=== PATIENT | male | born 1950 | race Caucasian/White ===

== ENCOUNTER 2018-03-02 10:14 | Emergency (ER) | payer MEDICARE, MEDICAID, SELFPAY ==
[2018-03-02 10:15] VITALS: BP 138/88; PULSE 101; RESP 16; TEMP 36.2; O2SAT 98; BMI 38.9
--- NOTE | 2018-03-02 10:24 | RAD_ITS ---
STUDY: X-RAY - RIGHT FOOT CLINICAL: Male, 67 years old. Status post fall with redness and pain of the right foot TECHNIQUE: 3 view(s) of the foot. COMPARISON: None. FINDINGS: No acute fracture or dislocation. Prior fracture of the fifth metatarsal with healing. Diffuse soft tissue swelling and edema RAD/Foot min 3 Views IMPRESSION: Diffuse soft tissue swelling and edema. No acute osseous findings Electronically Signed: Joe Kaminski DO at 12:03 EDT Tel , Service support ,
--- NOTE | 2018-03-02 10:30 | ED.VISSUMM ---
- ER Visit Summary Date of Service: 03/02/18 Chief Complaint: [] Right lower extremity pain foot pain after fall yesterday History of Present Illness: The patient is a 67 M [] Home secondary to Down syndrome developmental delay he was seen by staff yesterday to fall he injured his right foot since that occurred he seems to be limping. The patient is nonverbal he at baseline will simply scream cannot provide any history he has gout he was not ill in any the way he falls frequently Physical Examination: [] Sitting in a wheelchair he is just screaming that is his baseline his head and neck abdomen exam unremarkable there is no signs of trauma no pain to palpation of his body except for the right foot there is some contusion primarily over the fourth and fifth toe there is some swelling his sensation appears to be intact the skin is intact there is no specific ankle pain is no specific tib-fib or knee pain he is at his neurologic mental status and functional baseline now per the staff the patient can systems sitting a wheelchair looking about and intermittently screaming Test Results: [] Emergency Department Course and Treatment: [] Patient's foot and ankle x-ray per radiology showed nothing acute of explained this to the caretakers the concept of an occult injury he is placed in a postop shoe ice elevation and Tylenol or other meds that he is allowed to take for pain and follow-up with the family physician Treatment Plan: [] Disposition: [] Home stable Impression: [] Right foot injury after fall This note was generated with [employer] dictation software. It may contain incorrect words, spelling, and punctuation that were not noted in review of the chart prior to signing ED Disposition - Plan for ED Patient: Chief Complaint: Lower Extremity Injury Referrals: Sae Boateng Chi, MD [Primary Care Provider] -
[2018-03-02] MEDS: HYDROcodone Bitartrate/Apap 5/325 Tablet PO (10:42)
--- NOTE | 2018-03-02 10:55 | RAD_ITS ---
STUDY: X-RAY - RIGHT ANKLE REASON FOR EXAM: Male, 67 years old. Right ankle pain after fall TECHNIQUE: 3 view(s) of the ankle. COMPARISON: None. FINDINGS: No acute fracture or dislocation. Diffuse subcutaneous soft tissue swelling. Ankle mortise is intact. Chronic fragmentation at the lateral malleolus. RAD/Ankle min 3 Views IMPRESSION: No acute osseous findings. Diffuse soft tissue swelling Electronically Signed: Joe Kaminski DO at 12:02 EDT Tel , Service support ,
--- NOTE | 2018-03-02 12:18 | ED.DEP ---
ED Disposition - Plan for ED Patient: Chief Complaint: Lower Extremity Injury Instructions: ED Sprain Foot Referrals: Sae Boateng Chi, MD [Primary Care Provider] -
--- NOTE | 2018-03-02 12:23 | DCINST.ED_ITS ---
ED Disposition - Plan for ED Patient: Chief Complaint: Lower Extremity Injury Instructions: ED Sprain Foot Prescriptions: Hydrocodone/Acetaminophen [[place] 5-325 Tablet] 1 - 2 ea PO 4X/DAY PRN PRN 3 Days #12 tab PRN Reason: Pain Referrals: Sae Boateng Chi, MD [Primary Care Provider] -
[2018-03-02 12:27] VITALS: PULSE 78; RESP 16; O2SAT 98
== END 2018-03-02 12:28 | disposition home or self-care (01) ==
LOC: ED 11:15
PROVIDERS: Emergency Provider Emergency Medicine; Family Provider Family Medicine Geriatric Medicine; PCP Family Medicine Geriatric Medicine
DX: S90.31XA Contusion of right foot, initial encounter (principal); S99.921A Unspecified injury of right foot, initial encounter; W19.XXXA Unspecified fall, initial encounter; Z91.81 History of falling; Y93.9 Activity, unspecified; Y92.9 Unspecified place or not applicable; Q90.9 Down syndrome, unspecified; M10.9 Gout, unspecified; Z79.899 Other long term (current) drug therapy
CPT/HCPCS: 73610; 73630; 99283

== ENCOUNTER → 2018-03-06 14:32 | Outpatient (CLI) | payer MEDICARE, MEDICAID, SELFPAY ==
[2018-03-06 17:41] LABS: Absolute Lymphocyte Count 1.91 X10^3/ul (0.83-4.51); Absolute Neutrophil Count 4.6 X10^3/uL (2.0-7.7); Basophil# 0.04 X10^3/uL; Basophil% 0.6 % (0-1); Eosinophil# 0.16 X10^3/uL; Eosinophils% 2.2 % (0-5); Hematocrit 43.1 % (40-54); Hemoglobin 14.8 g/dl (13.0-16.5); Lymphocyte # 1.91 X10^3/ul (4.0); Lymphocyte % 26.7 % (19-41); Mean Corp Hgb Conc 34.3 g/gl (32-36); Mean Corpuscular Hgb 35.4 pg (27.0-32.0); Mean Corpuscular Volume 103.1 fL (80-94); Mean Platelet Vol. 9.9 fl (6.2-12.0); Monocyte% 5.6 % (0-10); Neutrophil # 4.56 X10^3/uL (2.7-7.7); Neutrophil % 63.6 % (47-70); Platelet Count 272 K/mm3 (150-450); RBC Distribution Width CV 13.6 % (11.6-14.6); RBC Distribution Width SD 50.7 fl (35.1-43.9); Red Blood Count 4.18 M/mm3 (4.6-6.2); White Blood Count 7.2 K/mm3 (4.4-11.0)
[2018-03-06 17:45] LABS: ALB/GLOB Ratio 0.6 RATIO (0.9-2.4); AST(SGOT) 46 U/L (15-37); Alanine Aminotransfer ALT/SGPT 34 U/L (16-61); Alkaline Phosphatase 78 U/L (45-117); Anion Gap 10 (5-15); BUN 16 mg/dL (7-18); BUN/Creat Ratio 14.8 RATIO (10-20); Calcium,Total 8.9 mg/dL (8.5-10.1); Chloride 103 mmol/L (98-107); Creatinine, Serum 1.08 mg/dL (0.70-1.30); EST Glomerular Filtration Rate 73 mL/min (>60); Est Glom Filt Rate - Afr Amer 88 mL/min (>60); Globulin 4.7 g/dL (2.2-4.2); Glucose 116 mg/dL (74-106); PSA,Total - Annual Screen 0.79 ng/mL (0.00-4.00); Protein, Total 7.7 g/dL (6.4-8.2); Sodium Level 140 mmol/L (136-145); Thyroid Stim Hormone (TSH) 2.25 uIU/mL (0.358-3.74)
[2018-03-06 18:22] LABS: Erythrocyte Sedimentation Rate 45 mm/hr (0-20); POSITIVE COUNT NO; POSITIVE DIFFERENTIAL NO; POSITIVE MORPHOLOGY NO
[2018-03-07 11:27] LABS: Vitamin D,25 Hydroxy 22.3 ng/mL (29.95-100.01)
== END ==
PROVIDERS: Family Provider Family Medicine Geriatric Medicine; PCP Family Medicine Geriatric Medicine; Visit Provider Family Medicine Geriatric Medicine
DX: E55.9 Vitamin D deficiency, unspecified (principal); M10.9 Gout, unspecified; R53.83 Other fatigue; Z12.5 Encounter for screening for malignant neoplasm of prostate
CPT/HCPCS: 36415; 80053; 82306; 84153; 84443; 84550; 85025; 85652; 86140; G0103

== ENCOUNTER → 2018-09-04 09:37 | Outpatient (CLI) | payer MEDICARE, MEDICAID, SELFPAY ==
[2018-09-04 12:52] LABS: Absolute Lymphocyte Count 1.86 X10^3/ul (0.83-4.51); Absolute Neutrophil Count 3.1 X10^3/uL (2.0-7.7); Basophil# 0.02 X10^3/uL; Basophil% 0.4 % (0-1); Eosinophil# 0.14 X10^3/uL; Eosinophils% 2.5 % (0-5); Hematocrit 48.2 % (40-54); Lymphocyte # 1.86 X10^3/ul (4.0); Lymphocyte % 33.2 % (19-41); Mean Corp Hgb Conc 33.2 g/gl (32-36); Mean Corpuscular Hgb 35.8 pg (27.0-32.0); Mean Corpuscular Volume 107.8 fL (80-94); Mean Platelet Vol. 10.3 fl (6.2-12.0); Monocyte# 0.49 X10^3/uL; Monocyte% 8.7 % (0-10); Neutrophil # 3.06 X10^3/uL (2.7-7.7); Neutrophil % 54.5 % (47-70); Platelet Count 163 K/mm3 (150-450); RBC Distribution Width CV 15.2 % (11.6-14.6); RBC Distribution Width SD 59.6 fl (35.1-43.9); Red Blood Count 4.47 M/mm3 (4.6-6.2); White Blood Count 5.6 K/mm3 (4.4-11.0)
[2018-09-04 12:53] LABS: POSITIVE COUNT NO; POSITIVE DIFFERENTIAL NO; POSITIVE MORPHOLOGY NO
[2018-09-04 13:32] LABS: Vitamin D,25 Hydroxy 21.1 ng/mL (29.95-100.01)
[2018-09-04 13:40] LABS: ALB/GLOB Ratio 0.9 RATIO (0.9-2.4); AST(SGOT) 40 U/L (15-37); Alanine Aminotransfer ALT/SGPT 31 U/L (16-61); Albumin, Serum 3.4 g/dL (3.2-5.0); Alkaline Phosphatase 91 U/L (45-117); Anion Gap 10 (5-15); BUN 9 mg/dL (7-18); BUN/Creat Ratio 10.3 RATIO (10-20); Calcium,Total 9.1 mg/dL (8.5-10.1); Chloride 102 mmol/L (98-107); Creatinine, Serum 0.88 mg/dL (0.70-1.30); EST Glomerular Filtration Rate 93 mL/min (>60); Est Glom Filt Rate - Afr Amer 112 mL/min (>60); Globulin 3.8 g/dL (2.2-4.2); Glucose 95 mg/dL (74-106); Potassium 4.3 mmol/L (3.5-5.1); Protein, Total 7.2 g/dL (6.4-8.2); Sodium Level 141 mmol/L (136-145); Uric Acid 3.4 mg/dL (3.5-7.2)
== END ==
PROVIDERS: Family Provider Family Medicine Geriatric Medicine; PCP Family Medicine Geriatric Medicine; Visit Provider Family Medicine Geriatric Medicine
DX: E55.9 Vitamin D deficiency, unspecified (principal); M10.9 Gout, unspecified; R53.83 Other fatigue
CPT/HCPCS: 36415; 80053; 82306; 84443; 84550; 85025

== ENCOUNTER → 2019-01-01 10:48 | Outpatient (CLI) | payer MEDICARE, MEDICAID, SELFPAY ==
[2018-12-22 13:51] VITALS: BMI 38.9
--- NOTE | 2019-01-01 10:53 | ART_ITS ---
Reason For Study: PAD per dr order Procedure A bilateral lower extremity continuous wave Doppler with analog waveform analysis and ankle brachial indexes. Left Segmental Pressures Left brachial= 104mmHg. Left posterior tibial artery = 131mmHg. Left dorsalis pedis artery = 158mmHg. The left dorsalis pedis waveforms are triphasic. The left posterior tibial artery waveforms are triphasic. Right Segmental Pressures Right posterior tibial artery = 141mmHg. Right dorsalis pedis artery = 130mmHg. The right dorsalis pedis waveforms are triphasic. The right posterior tibial artery waveforms are triphasic. Indices The right ankle brachial index by the dorsalis pedis is 1.3. The right ankle brachial index by the posterior tibial artery is 1.4. The left ankle brachial index by the dorsalis pedis is 1.5. The left ankle brachial index by the posterior tibial artery is 1.3. Interpretation Summary Triphasic Doppler waveforms are noted at ankle level bilaterally. The resting right ankle-brachial index is normal. The resting left ankle-brachial index is supra-normal. There is no evidence of significant arterial occlusive disease in the lower extremities bilaterally, though there is evidence of arterial calcification in the left lower extremity. Clinical correlation is advised. Toe pressures were not obtained due to lack of patient cooperation. Ordering Physician: Annette Paulino Referring Physician: Annette Paulino Performed By: Kaitlynn Phillips RVT
== END ==
PROVIDERS: Family Provider Internal Medicine; PCP Internal Medicine; Referring Provider Internal Medicine; Visit Provider Internal Medicine
DX: I73.9 Peripheral vascular disease, unspecified (principal)
CPT/HCPCS: 93922

== ENCOUNTER → 2019-08-17 09:27 | Outpatient (CLI) | payer MEDICARE, MEDICAID, SELFPAY ==
[2019-08-11 10:25] VITALS: BMI 38.9
[2019-08-17 12:30] LABS: Hematocrit 47.1 % (40-54); Hemoglobin 15.8 g/dL (13.0-16.5); Mean Corp Hgb Conc 33.5 g/dL (32-36); Mean Corpuscular Hgb 36.9 pg (27.0-32.0); Mean Platelet Vol. 10.6 fl (6.2-12.0); Platelet Count 161 K/mm3 (150-450); RBC Distribution Width CV 15.1 % (11.6-14.6); RBC Distribution Width SD 61.1 fl (35.1-43.9); Red Blood Count 4.28 M/mm3 (4.6-6.2); White Blood Count 7.7 K/mm3 (4.4-11.0)
[2019-08-17 13:05] LABS: Vitamin D,25 Hydroxy 44.2 ng/mL (29.95-100.01)
[2019-08-17 13:32] LABS: ALB/GLOB Ratio 0.8 RATIO (0.9-2.4); AST(SGOT) 36 U/L (15-37); Alanine Aminotransfer ALT/SGPT 23 U/L (16-61); Albumin, Serum 3.3 g/dL (3.2-5.0); Alkaline Phosphatase 96 U/L (45-117); Anion Gap 7 (5-15); BUN 15 mg/dL (7-18); BUN/Creat Ratio 15.8 RATIO (10-20); Chloride 107 mmol/L (98-107); Cholesterol 142 mg/dL (200); Creatinine, Serum 0.95 mg/dL (0.70-1.30); EST Glomerular Filtration Rate 84 mL/min (>60); Est Glom Filt Rate - Afr Amer 102 mL/min (>60); Globulin 4.2 g/dL (2.2-4.2); Glucose 80 mg/dL (74-106); High Density Lipoprotein 47 mg/dL; PSA,Total - Annual Screen 0.84 ng/mL (0.00-4.00); Potassium 4.2 mmol/L (3.5-5.1); Protein, Total 7.5 g/dL (6.4-8.2); Sodium Level 141 mmol/L (136-145); Thyroid Stim Hormone (TSH) 4.43 uIU/mL (0.358-3.74); Triglycerides 144 mg/dL; Very Low Density Lipoprotein 29 mg/dL (5-40)
== END ==
PROVIDERS: Nurse Practitioner Family; Family Provider Internal Medicine; PCP Internal Medicine; Visit Provider Internal Medicine
DX: Z00.00 Encounter for general adult medical examination without abnormal findings (principal); E03.9 Hypothyroidism, unspecified; E78.5 Hyperlipidemia, unspecified; L30.9 Dermatitis, unspecified; M10.9 Gout, unspecified; Z12.5 Encounter for screening for malignant neoplasm of prostate; E55.9 Vitamin D deficiency, unspecified
CPT/HCPCS: 80053; 80061; 82306; 84153; 84443; 85027; G0103

== ENCOUNTER 2020-01-17 11:12 | Emergency (ER) | payer MEDICARE, MEDICAID, SELFPAY ==
[2019-08-11 10:25] VITALS: BMI 38.9
[2020-01-17 11:13] VITALS: BP 124/97; PULSE 78; RESP 16; TEMP 36.1; O2SAT 96; BMI 38.5
--- NOTE | 2020-01-17 11:26 | CT_ITS ---
STUDY: CT CERVICAL SPINE WITHOUT CONTRAST REASON FOR EXAM: Male, 69 years old. FALL, HIT HEAD ON TUB, LAC TO LEFT FOREHEAD, PT UNABLE TO HOLD STILL, PT HAS DOWN SYNDROME RADIATION DOSAGE (If Supplied By Facility): CTDIvol = ( 28.77 ) mGy, DLP = ( 634.00 ) mGycm TECHNIQUE: High resolution transaxial imaging was performed without contrast material. Sagittal and coronal images were reconstructed. Individualized dose optimization techniques were used for this CT. COMPARISON: None FINDINGS: Study is markedly limited secondary to patient motion, in particular making evaluation of the odontoid process nondiagnostic. There is extensive multilevel degenerative disc disease at this space narrowing and osteophyte formation. There is prominent kyphosis. No definitive acute compression fractures are identified although evaluation is markedly limited. CT/Spine Cervical without Contras IMPRESSION: Markedly limited study secondary to patient motion, mostly nondiagnostic. Degenerative changes. Electronically Signed: Madhav Almendarez, at 12:36 EDT Tel , Service support ,
--- NOTE | 2020-01-17 11:26 | CT_ITS ---
STUDY: CT BRAIN WITHOUT CONTRAST REASON FOR EXAM: Male, 69 years old. FALL, HIT HEAD ON TUB, LAC TO LEFT FOREHEAD, PT UNABLE TO HOLD STILL, PT HAS DOWN SYNDROME RADIATION DOSAGE (If Supplied By Facility): CTDIvol = ( 44.99 ) mGy, DLP = ( 1558.48 ) mGycm TECHNIQUE: Transaxial CT imaging of the brain was performed without administration of intravenous contrast material. Individualized dose optimization techniques were used for this CT. COMPARISON: No relevant priors. FINDINGS: Study is markedly limited secondary to patient inability to hold still. Normal soft tissue structures. Fractures are hard to completely exclude given patient motion. No definitive abnormal collections or large hemorrhage is identified although difficult to completely exclude in particular peripherally where patient motion causes marked limitation Evaluation for infarction is limited. There is right maxillary sinus disease. CT/Brain/Head without Contrast IMPRESSION: Study is markedly limited secondary to patient inability to hold still. No definitive large hemorrhage or abnormal fluid collections although difficult to completely exclude. Right maxillary sinus disease. Electronically Signed: Madhav Almendarez, at 12:26 EDT Tel , Service support ,
[2020-01-17] MEDS: Acetaminophen 500 MG Tablet 1000 MG PO (11:32)
[2020-01-17] MEDS: Diphth,Pertuss(Acell),Tet Vac 0.5 ML Vial IM (11:33)
[2020-01-17] MEDS: Lidocaine/Epi/Tetracaine 50 ML 1 APPLIC TOPICAL (11:33)
--- NOTE | 2020-01-17 11:40 | ED.DCSUM_ITS ---
- ER Visit Summary Date of Service: 01/17/20 Chief Complaint: Fall History of Present Illness: The patient is a 69 M presenting from long-term after fall hitting his head on a counter. No loss of consciousness. He is not on anticoagulants. He is nonverbal at baseline. Per staff he has been acting normally, at his baseline. History is otherwise limited. Last tetanus unknown Physical Examination: Vitals are stable. Patient is afebrile. Alert no acute distress. HEENT exam 2 cm left forehead laceration and abrasion Neck is nontender Lungs are clear and equal bilaterally. Heart is regular rate and rhythm. Abdomen is soft nontender nondistended. Extremities are unremarkable. Skin is warm and dry. Remainder of exam is unremarkable. Emergency Department Course and Treatment: Patient was given Adacel IM. LET was applied. Wound was irrigated. Laceration was repaired with 2, 5-0 simple sutures. Patient tolerated this well. Advised wound care instructions. CT head shows study is markedly limited secondary to patient inability to hold still. No definitive large hemorrhage or abnormal fluid collections although difficult to completely exclude. CT cervical spine is markedly limited study secondary to patient motion, mostly nondiagnostic. Degenerative changes. On reevaluation, patient continues to be at his baseline mental status. His neck is nontender to palpation. Staff is advised signs and symptoms for which to return to the ED. Advised to follow-up with primary care physician. Disposition: Discharge home Impression: Closed head injury, forehead laceration, laceration repair This note was generated with [employer] dictation software. It may contain incorrect words, spelling, and punctuation that were not noted in review of the chart prior to signing ED Disposition - Plan for ED Patient: Instructions: HEAD INJURY, No Wake-Up (Adult), LACERATION, All Referrals: Annette Paulino MD [Primary Care Provider] -
--- NOTE | 2020-01-17 12:43 | ED.DEP ---
ED Disposition - Plan for ED Patient: Instructions: LACERATION, All, HEAD INJURY, No Wake-Up (Adult) Referrals: Annette Paulino MD [Primary Care Provider] -
[2020-01-17 12:46] VITALS: PULSE 88; RESP 18; O2SAT 99
== END 2020-01-17 12:57 | disposition home or self-care (01) ==
LOC: ED 11:49
PROVIDERS: Emergency Provider Emergency Medicine; PCP Internal Medicine
DX: S01.81XA Laceration without foreign body of other part of head, initial encounter (principal); W19.XXXA Unspecified fall, initial encounter; Y93.9 Activity, unspecified; Y92.9 Unspecified place or not applicable; F03.90 Unspecified dementia, unspecified severity, without behavioral disturbance, psychotic disturbance, mood disturbance, and anxiety; K21.9 Gastro-esophageal reflux disease without esophagitis; E03.9 Hypothyroidism, unspecified; Q90.9 Down syndrome, unspecified; E78.00 Pure hypercholesterolemia, unspecified; Z79.899 Other long term (current) drug therapy
CPT/HCPCS: 12011; 70450; 72125; 90471; 90715; 99284

== ENCOUNTER → 2020-05-10 09:53 | Outpatient (CLI) | payer MEDICARE, MEDICAID, SELFPAY ==
[2020-05-10 09:28] VITALS: BMI 38.5
[2020-05-10 12:26] LABS: Absolute Lymphocyte Count 1.62 X10^3/uL (0.83-4.51); Basophil# 0.05 X10^3/uL; Basophil% 0.8 % (0-1); Eosinophils% 1.6 % (0-5); Hematocrit 47.8 % (40-54); Hemoglobin 15.9 g/dL (13.0-16.5); Lymphocyte # 1.62 X10^3/ul (4.0); Lymphocyte % 25.6 % (19-41); Mean Corp Hgb Conc 33.3 g/dL (32-36); Mean Corpuscular Hgb 36.3 pg (27.0-32.0); Mean Corpuscular Volume 109.1 fL (80-94); Mean Platelet Vol. 10.2 fl (6.2-12.0); Monocyte# 0.47 X10^3/uL; Monocyte% 7.4 % (0-10); NRBC Flagged by Analyzer 0 % (0-5); Neutrophil # 3.98 X10^3/uL (2.7-7.7); Neutrophil % 62.7 % (47-70); Platelet Count 170 K/mm3 (150-450); RBC Distribution Width CV 14.9 % (11.6-14.6); RBC Distribution Width SD 60.2 fl (35.1-43.9); Red Blood Count 4.38 M/mm3 (4.6-6.2); White Blood Count 6.3 K/mm3 (4.4-11.0)
[2020-05-10 12:51] LABS: ALB/GLOB Ratio 0.7 RATIO (0.9-2.4); AST(SGOT) 29 U/L (15-37); Alanine Aminotransfer ALT/SGPT 19 U/L (16-61); Albumin, Serum 3.3 g/dL (3.2-5.0); Alkaline Phosphatase 103 U/L (45-117); Anion Gap 6 (5-15); BUN 15 mg/dL (7-18); BUN/Creat Ratio 16.3 RATIO (10-20); Calcium,Total 9.2 mg/dL (8.5-10.1); Chloride 104 mmol/L (98-107); Creatinine, Serum 0.92 mg/dL (0.70-1.30); EST Glomerular Filtration Rate 87 mL/min (>60); Est Glom Filt Rate - Afr Amer 105 mL/min (>60); Globulin 4.5 g/dL (2.2-4.2); Glucose 100 mg/dL (74-106); Potassium 4.2 mmol/L (3.5-5.1); Protein, Total 7.8 g/dL (6.4-8.2); Sodium Level 140 mmol/L (136-145); Thyroid Stim Hormone (TSH) 5.03 uIU/mL (0.358-3.74)
[2020-05-10 13:02] LABS: Vitamin B12 1432 pg/mL (211-911)
== END ==
PROVIDERS: PCP Internal Medicine; Referring Provider Internal Medicine; Visit Provider Internal Medicine
DX: E03.9 Hypothyroidism, unspecified (principal); G62.9 Polyneuropathy, unspecified; E78.5 Hyperlipidemia, unspecified
CPT/HCPCS: 36415; 80053; 82607; 84443; 85025

== ENCOUNTER → 2020-10-30 | Outpatient (CLI) | payer MEDICARE, MEDICAID, SELFPAY ==
[2020-08-02 10:20] VITALS: BMI 38.5
[2020-10-30 16:03] LABS: Bacteria 0 SEEN /hpf (None Seen); Mucous, Urine 0 SEEN /hpf (<or=2+); Red Blood Cells-Urine 0 SEEN /hpf (0-5); Squamous Epithelial Cells - UA 0 SEEN /hpf (0-5)
[2020-10-30 16:23] LABS: Color, Urine Yellow (Yellow); Glucose, Dipstick Normal (Normal); Ketone-Dipstick Negative (Negative); Leukocyte Esterase-Dipstick 500 /ul (Negative); Nitrite-Dipstick Negative (Negative); Occult Blood-Urine 150 /ul (Negative); Protein-Dipstick 100 mg/dl (Negative); Specific Gravity, Urine 1.015 (1.002-1.030); Urine Bilirubin Dipstick Negative (Negative); Urine Clarity Cloudy (Clear); Urine Urobilinogen Normal (Normal)
[2020-10-30 16:33] LABS: White Blood Cells >100 SEEN /hpf (0-5)
== END | disposition home or self-care (01) ==
PROVIDERS: PCP Internal Medicine; Visit Provider Physician Assistant Medical
DX: N39.0 Urinary tract infection, site not specified (principal)
CPT/HCPCS: 81001; 87077; 87086; 87088; 87186

== ENCOUNTER 2020-11-11 11:36 | Emergency (ER) | payer MEDICARE, MEDICAID, SELFPAY ==
[2020-08-02 10:20] VITALS: BMI 38.5
[2020-11-11 11:37] VITALS: BP 101/49; PULSE 89; RESP 16; TEMP 36.1; O2SAT 100; BMI 27.1
--- NOTE | 2020-11-11 11:57 | ED.DCSUM_ITS ---
- ER Visit Summary Date of Service: 11/11/20 Chief Complaint: [Allergic reaction/rash] History of Present Illness: The patient is a 69 M [Zentz to the emergency department with his caregiver who gives the history as patient is nonverbal. Patient has history of MR and Down syndrome. Patient was started on Bactrim more than a week ago on October 30 for a UTI. Patient has since finished the Bactrim. 3 days ago he started with a rash. This morning patient was thought that maybe have some slightly swollen lips and his hands and feet seem more swollen than usual. Patient's not wanting to walk as well as usual. He has had no fever. He has been drinking water and eating normally otherwise.] Physical Examination: [HEENT-PERRLA, EOMI. Cranial nerves II through XII grossly intact. TMs clear. Mucous membranes moist. No adenopathy. No evidence of angioedema of the lips or tongue. I do not appreciate any vesicular lesions or burn-like lesions in the mouth or to the lips. He does have some cracked lips but the caregiver states that those are chronically like that. Cardiovascular-regular rate and rhythm without murmur or ectopy Lungs-clear to auscultation, chest wall stable without crepitus or subcu emphysema Abdomen-normoactive bowel sounds, soft, nontender, no rebound or rigidity, no peritoneal signs. Skin exam-patient does have a diffuse erythematous rash that blanches. No purpura or vesicles noted. No evidence of burn-like lesions to the penis noted. Extremities-intact ?4, normal range of motion, normal pulses, atraumatic] Test Results: [None indicated] Emergency Department Course and Treatment: [Patient was given prednisone 40 mg p.o.] Treatment Plan: [Patient will be treated with prednisone for 3 days. I suspect likely drug eruption rash related to the Bactrim. I do not feel he has any evidence of Manrique-Pipo syndrome at this point. I advised caregiver to follow-up with primary care physician within next 5 to 7 days. Advised to return if burn-like lesions develop to the mouth or mucous membranes, fever, lethargy, decreased p.o. intake, or condition should worsen anyway. I advised to discontinue the Bactrim and claimant has an allergy in the future.] Disposition: [Discharged home in stable condition] Impression: [Drug eruption rash Allergic reaction to Bactrim] This note was generated with [employer] dictation software. It may contain incorrect words, spelling, and punctuation that were not noted in review of the chart prior to signing ED Disposition - Plan for ED Patient: Referrals: Annette Paulino MD [Primary Care Provider] -
--- NOTE | 2020-11-11 12:01 | ED.DEP ---
ED Disposition - Plan for ED Patient: Instructions: ED General Allergic Reactions, ED Erythema Multiforme Prescriptions: Prednisone [Deltasone] 20 mg PO BID #6 tab Prescription Printed Referrals: Annette Paulino MD [Primary Care Provider] - 5-7 Days
[2020-11-11] MEDS: predniSONE 20 MG Tablet 40 MG PO (12:22)
[2020-11-11 12:31] VITALS: PULSE 81; RESP 16; O2SAT 100
== END 2020-11-11 12:32 | disposition home or self-care (01) ==
LOC: ED 12:15
PROVIDERS: Emergency Provider Emergency Medicine; PCP Internal Medicine
DX: L27.0 Generalized skin eruption due to drugs and medicaments taken internally (principal); T36.8X5A Adverse effect of other systemic antibiotics, initial encounter; Y92.9 Unspecified place or not applicable; M79.89 Other specified soft tissue disorders; M10.9 Gout, unspecified; Q90.9 Down syndrome, unspecified; F79 Unspecified intellectual disabilities; Z79.899 Other long term (current) drug therapy; Z79.52 Long term (current) use of systemic steroids; Z87.440 Personal history of urinary (tract) infections
CPT/HCPCS: 99283

== ENCOUNTER → 2020-11-18 08:38 | Outpatient (CLI) | payer MEDICARE, MEDICAID, SELFPAY ==
[2020-11-11 11:37] VITALS: BMI 27.1
[2020-11-18 08:59] LABS: Absolute Lymphocyte Count 1.79 X10^3/uL (0.83-4.51); Absolute Neutrophil Count 3.2 X10^3/uL (2.0-7.7); Basophil# 0.04 X10^3/uL; Basophil% 0.7 % (0-1); Eosinophil# 0.07 X10^3/uL; Eosinophils% 1.2 % (0-5); Hematocrit 46.9 % (40-54); Hemoglobin 15.8 g/dL (13.0-16.5); Lymphocyte # 1.79 X10^3/ul (4.0); Lymphocyte % 30.4 % (19-41); Mean Corp Hgb Conc 33.7 g/dL (32-36); Mean Corpuscular Hgb 36.2 pg (27.0-32.0); Mean Corpuscular Volume 107.6 fL (80-94); Mean Platelet Vol. 9.4 fl (6.2-12.0); Monocyte% 10.2 % (0-10); NRBC Flagged by Analyzer 0 % (0-5); Neutrophil # 3.24 X10^3/uL (2.7-7.7); Neutrophil % 55.1 % (47-70); Platelet Count 153 K/mm3 (150-450); RBC Distribution Width CV 15.4 % (11.6-14.6); RBC Distribution Width SD 61.1 fl (35.1-43.9); Red Blood Count 4.36 M/mm3 (4.6-6.2); White Blood Count 5.9 K/mm3 (4.4-11.0)
--- NOTE | 2020-11-18 09:05 | RAD_ITS ---
STUDY: X-RAY - LUMBAR SPINE REASON FOR EXAM: Male, 69 years old. Low back pain, patient''s caregiver states patient is not walking like he normally does TECHNIQUE: 3 view(s) of the lumbar spine were obtained. COMPARISON: None FINDINGS: There is straightening of the normal lumbar lordosis. There is no substantial scoliosis. Grade 1 anterior listhesis of L4 on L5. There is multilevel endplate spondylosis of the lumbar vertebrae. There is multi-level degenerative disc disease with multi-level disc space narrowing. Almost complete collapse of the T12 vertebrae. The soft tissue structures are unremarkable. RAD/Lumbar Spine 2 or 3 Views IMPRESSION: Degenerative changes of the spine, as detailed above. Almost complete collapse of the T12 vertebrae. Electronically Signed: Robin Lance MD at 13:30 EST , Service support ,
[2020-11-18 09:24] LABS: ALB/GLOB Ratio 0.8 RATIO (0.9-2.4); AST(SGOT) 30 U/L (15-37); Alanine Aminotransfer ALT/SGPT 26 U/L (16-61); Albumin, Serum 3.1 g/dL (3.2-5.0); Alkaline Phosphatase 102 U/L (45-117); Anion Gap 4 (5-15); BUN 11 mg/dL (7-18); BUN/Creat Ratio 14.9 RATIO (10-20); Calcium,Total 8.7 mg/dL (8.5-10.1); Chloride 108 mmol/L (98-107); Cholesterol 158 mg/dL (200); Creatinine, Serum 0.74 mg/dL (0.70-1.30); EST Glomerular Filtration Rate 112 mL/min (>60); Est Glom Filt Rate - Afr Amer 135 mL/min (>60); Glucose 84 mg/dL (74-106); High Density Lipoprotein 44 mg/dL; PSA,Total - Annual Screen 1.36 ng/mL (0.00-4.00); Potassium 4.1 mmol/L (3.5-5.1); Protein, Total 7.1 g/dL (6.4-8.2); Sodium Level 140 mmol/L (136-145); Thyroid Stim Hormone (TSH) 6.38 uIU/mL (0.358-3.74); Triglycerides 280 mg/dL; Very Low Density Lipoprotein 56 mg/dL (5-40)
== END ==
PROVIDERS: PCP Internal Medicine; Referring Provider Nurse Practitioner Family; Visit Provider Nurse Practitioner Family
DX: G62.9 Polyneuropathy, unspecified (principal); E03.9 Hypothyroidism, unspecified; E78.5 Hyperlipidemia, unspecified; E78.00 Pure hypercholesterolemia, unspecified; E55.9 Vitamin D deficiency, unspecified; Z12.5 Encounter for screening for malignant neoplasm of prostate
CPT/HCPCS: 36415; 72100; 80053; 80061; 84153; 84443; 85025; G0103

== ENCOUNTER 2020-12-25 13:14 | Emergency (ER) | payer MEDICARE, MEDICAID, SELFPAY ==
[2020-12-25 13:15] VITALS: BP 120/100; PULSE 74; RESP 18; TEMP 36; O2SAT 97; BMI 27.3
--- NOTE | 2020-12-25 13:50 | EKG12_ITS ---
Test Reason : FALL Blood Pressure : / mmHG Vent. Rate : 078 BPM Atrial Rate : 078 BPM P-R Int : 140 ms QRS Dur : 068 ms QT Int : 388 ms P-R-T Axes : 033 034 018 degrees QTc Int : 442 ms Normal sinus rhythm Low voltage QRS Borderline ECG Confirmed by ELIZABETH ORTIZ, MARCI ([id number]), technical editor MANUEL OWENS ([id number]) on 12/27/2020 10:32:36 AM Referred By: JAMEL Confirmed By:MARCI JOHNSON MD
--- NOTE | 2020-12-25 13:50 | CT_ITS ---
STUDY: CT BRAIN WITHOUT CONTRAST REASON FOR EXAM: Male, 70 years old. fall, head injury RADIATION DOSAGE (If Supplied By Facility): CTDIvol = ( 44.99 ) mGy, DLP = ( 745.49 ) mGycm TECHNIQUE: Transaxial CT imaging of the brain was performed without administration of intravenous contrast material. Individualized dose optimization techniques were used for this CT. COMPARISON: 01/17/2020 FINDINGS: Normal soft tissue structures. Normal calvarium. There is moderate cerebral atrophy with widening of the extra-axial spaces and ventricular dilatation. There are areas of decreased attenuation within the white matter tracts of the supratentorial brain, consistent with microvascular disease changes. Normal basal ganglia and thalami. Normal brainstem. Stable old infarctions of the superior left cerebellar hemisphere. There is no intracranial hemorrhage. There are no findings of an acute ischemic infarction. There is mucoperiosteal inflammatory disease of the paranasal sinuses consistent with moderate chronic sinusitis. CT/Brain/Head without Contrast IMPRESSION: 1. No acute intracranial hemorrhage or mass effect. 2. Central parenchymal volume loss. White matter changes that are nonspecific but most commonly associated with chronic small vessel ischemic disease. 3. Left cerebellar infarction, stable/chronic. Electronically Signed: Min Wolfe MD ([place]) at 14:44 EST , Service support ,
--- NOTE | 2020-12-25 13:51 | RAD_ITS ---
STUDY: X-RAY - LEFT ELBOW REASON FOR EXAM: Male, 70 years old. injury TECHNIQUE: 3 view(s) of the elbow. COMPARISON: None. FINDINGS: Normal visualized humerus, radius and ulna. Normal radiocapitellar and ulnotrochlear articulations. The soft tissue structures are unremarkable. RAD/Elbow min 3 Views IMPRESSION: No demonstrated fracture or malalignment. If pain persists, recommend follow-up exam in 7-10 days. Electronically Signed: Min Wolfe MD ([place]oks) at 14:54 EST , Service support ,
--- NOTE | 2020-12-25 13:51 | RAD_ITS ---
STUDY: X-RAY - PELVIS REASON FOR EXAM: Male, 70 years old. fall TECHNIQUE: One view of the pelvis was obtained. COMPARISON: 06/11/2016 FINDINGS: There is a non-specific bowel gas pattern. Normal visualized soft tissue structures. Normal bilateral iliac wings, sacroiliac joints and visualized sacrum. Normal visualized bilateral superior and inferior pubic rami. Normal pubic symphysis. Normal ischial tuberosities. Chronic deformity of the right hip with acetabular sloping and femoral head subluxation suggesting chronic hip dysplasia. There is mild acetabular protrusio. No demonstrated fracture. Normal visualized left femoral head. Normal left acetabulum. Normal left hip joint. RAD/Pelvis 1 or 2 Views IMPRESSION: 1. No demonstrated fracture. 2. Probable right chronic hip dysplasia. Mild acetabular protrusio. Stable since 2015. Electronically Signed: Min Wolfe MD ([place]) at 14:57 EST , Service support ,
[2020-12-25 14:28] LABS: Absolute Lymphocyte Count 1.11 X10^3/uL (0.83-4.51); Basophil# 0.04 X10^3/uL; Basophil% 0.4 % (0-1); Eosinophil# 0.02 X10^3/uL; Eosinophils% 0.2 % (0-5); Hematocrit 44.3 % (40-54); Hemoglobin 15.2 g/dL (13.0-16.5); Lymphocyte # 1.11 X10^3/ul (4.0); Lymphocyte % 10.2 % (19-41); Mean Corp Hgb Conc 34.3 g/dL (32-36); Mean Corpuscular Hgb 36.5 pg (27.0-32.0); Mean Corpuscular Volume 106.2 fL (80-94); Mean Platelet Vol. 9.5 fl (6.2-12.0); Monocyte# 0.72 X10^3/uL; Monocyte% 6.6 % (0-10); NRBC Flagged by Analyzer 0 % (0-5); Neutrophil # 8.98 X10^3/uL (2.7-7.7); Neutrophil % 82.1 % (47-70); Platelet Count 175 K/mm3 (150-450); RBC Distribution Width CV 14.7 % (11.6-14.6); RBC Distribution Width SD 57.8 fl (35.1-43.9); Red Blood Count 4.17 M/mm3 (4.6-6.2); White Blood Count 10.9 K/mm3 (4.4-11.0)
--- NOTE | 2020-12-25 14:35 | RAD_ITS ---
STUDY: X-RAY CHEST REASON FOR EXAM: Male, 70 years old. Weakness fall TECHNIQUE: AP COMPARISON: FINDINGS: Hypoinflation with bibasilar atelectasis. There is no demonstrated pleural abnormality. Normal size heart. Normal mediastinum and tadeo. Normal visualized pulmonary arteries. There is atherosclerotic tortuosity of the aortic arch and descending thoracic aorta. No acute bony process. There is no demonstrated abnormality of the visualized soft tissue structures of the upper abdomen. RAD/Chest 1 View (Portable) IMPRESSION: Hypoinflation with bibasilar atelectasis. No airspace consolidation. Electronically Signed: Min Wolfe MD ([place]oks) at 14:56 EST , Service support ,
[2020-12-25 15:06] VITALS: RESP 18
[2020-12-25 15:10] LABS: Bacteria 0 SEEN /hpf (None Seen); Mucous, Urine 0 SEEN /hpf (<or=2+); Red Blood Cells-Urine 0 SEEN /hpf (0-5); Squamous Epithelial Cells - UA 0 SEEN /hpf (0-5); White Blood Cells 0 SEEN /hpf (0-5)
[2020-12-25 15:15] LABS: Anion Gap 7 (5-15); BUN 16 mg/dL (7-18); BUN/Creat Ratio 16.8 RATIO (10-20); Calcium,Total 9.4 mg/dL (8.5-10.1); Chloride 104 mmol/L (98-107); Creatinine, Serum 0.95 mg/dL (0.70-1.30); EST Glomerular Filtration Rate 84 mL/min (>60); Est Glom Filt Rate - Afr Amer 101 mL/min (>60); Estimated Creatinine Clearance 52.63 ml/min; Glucose 110 mg/dL (74-106); Potassium 5.4 mmol/L (3.5-5.1); Sodium Level 137 mmol/L (136-145)
[2020-12-25 15:17] LABS: Color, Urine Yellow (Yellow); Glucose, Dipstick Normal (Normal); Ketone-Dipstick 5 mg/dl (Negative); Leukocyte Esterase-Dipstick 25 /ul (Negative); Nitrite-Dipstick Negative (Negative); Occult Blood-Urine Negative /ul (Negative); Protein-Dipstick 15 mg/dl (Negative); Urine Bilirubin Dipstick Negative (Negative); Urine Clarity Clear (Clear); Urine Urobilinogen 1 mg/dl (Normal)
[2020-12-25 15:26] LABS: Hyaline Cast 0-5 SEEN /lpf (0-5)
--- NOTE | 2020-12-25 16:06 | ED.VIS.FALL ---
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 Patient was getting to the shower when a thud was heard. Workers found him on the ground. Is not clear if he lost consciousness. Patient is nonverbal at baseline. He is unable to contribute to his history. Worker at the bedside states he has been more weak and needing more help getting around over the past week. In addition he has a pressure sore on his right thigh that seems to be worsening. She is unsure if he has infection. No other acute symptoms been noted. Patient is not on any blood thinners. She feels that patient is at his neurologic baseline right now. Past Medical History - Allergies and Home Meds Allergies/Adverse Reactions: Allergies No Known Allergies Allergy (Verified 11/11/20 11:39) Primary Care Physician: Annette Paulino MD [Primary Care Provider] - Past Medical History: - - Dementia Surgical History: noncontributory Lives: - - senior care Smoking Status: Never smoker Review of Systems ROS: Unable to Obtain - Of systems is limited secondary to patient's nonverbal status General: Reports: Malaise Skin: Reports: Abrasions - Forehead, left elbow, Wounds - Right hip Physical Exam Vital Signs/Narrative: Vital Signs Temp Pulse Resp BP Pulse Ox 12/25/20 15:06 18 12/25/20 13:15 96.8 F L 74 18 120/100 H 97 Inital Vital Signs reviewed: Yes General: Well nourished, Well developed Head: Normocephalic, Atraumatic Eyes: Perrl, EOMI ENT: TM's clear, No hemotympanum or drainage, No trauma. Negative for: Nasal trauma, Nasal septal hematoma Neck: Nontender, Full ROM. Negative for: Spinal Tenderness, Paraspinal Tenderness Cardiovascular: Regular rate, Regular rhythm, No murmurs Respiratory: No distress, CTA bilaterally, Chest nontender Abdomen: Soft, Nontender, Nondistended, Normal bowel sounds Back: Nontender Extremeties: Patient uncooperative with exam however he is not have any obvious deformity. Pelvis is stable. Extremities are equal length. Patient does have some diffuse tenderness as well as an abrasion to his left elbow. Range of motion appears to be intact. No other bony tenderness is noted. Skin: Normal color, No rash, Trauma - Superficial abrasion to the forehead consistent with a recent fall. Superficial abrasion to the left elbow. Patient has 2 cm circumferential necrotic pressure sore, stage II -the right hip/trochanter. mild surrounding erythema but there is no warmth, fluctuance or cellulitic finding. TTP Neurological: Alert, Cranial nerves II-XII grossly intact, Normal Strength, Normal Sensation, - - Nonverbal. Negative for: Normal Gait Psychological: Normal affect Diagnostic/Tx/Re-eval Chest X-Ray - ED: 1 View, Read by ED Physician, Read by Radiologist, No Acute Disease Clinical Impression(s) from Imaging Studies Brain CT 12/25/20 13:50 IMPRESSION: 1. No acute intracranial hemorrhage or mass effect. 2. Central parenchymal volume loss. White matter changes that are nonspecific but most commonly associated with chronic small vessel ischemic disease. 3. Left cerebellar infarction, stable/chronic. Electronically Signed: Min Wolfe MD ([place]) at 14:44 EST , Service support , Elbow X-Ray 12/25/20 13:51 IMPRESSION: No demonstrated fracture or malalignment. If pain persists, recommend follow-up exam in 7-10 days. Electronically Signed: Min Wolfe MD (Brooks) at 14:54 EST , Service support , Pelvis X-Ray 12/25/20 13:51 IMPRESSION: 1. No demonstrated fracture. 2. Probable right chronic hip dysplasia. Mild acetabular protrusio. Stable since 2016. Electronically Signed: Min Wolfe MD (Brooks) at 14:57 EST , Service support , Chest X-Ray 12/25/20 14:35 IMPRESSION: Hypoinflation with bibasilar atelectasis. No airspace consolidation. Electronically Signed: Min Wolfe MD (Brooks) at 14:56 EST , Service support , Laboratory Data 12/25/20 12/25/20 12/25/20 12:20 12:20 15:00 WBC 10.9 RBC 4.17 L Hgb 15.2 Hct 44.3 MCV 106.2 H MCH 36.5 H MCHC 34.3 RDW Std Deviation 57.8 H RDW Coeff of Sha 14.7 H Plt Count 175 MPV 9.5 Immature Gran % (Auto) 0.500 Neut % (Auto) 82.1 H Lymph % (Auto) 10.2 L [place] % (Auto) 6.6 Eos % (Auto) 0.2 Baso % (Auto) 0.4 Absolute Neuts (auto) 9.0 H Absolute Lymphs (auto) 1.11 Nucleated RBC % 0 Sodium 137 Potassium 5.4 H Chloride 104 Carbon Dioxide 26.0 Anion Gap 7 BUN 16 Creatinine 0.95 Estim Creat Clear Calc 52.63 Est GFR (MDRD) Af Amer 101 Est GFR (MDRD) Non-Af 84 BUN/Creatinine Ratio 16.8 Glucose 110 H Calcium 9.4 Troponin I < 0.015 Urine Color Yellow Urine Clarity Clear Urine pH 6.0 Ur Specific [place] 1.020 Urine Protein 15 H Urine Glucose (UA) Normal Urine Ketones 5 H Urine Occult Blood Negative Urine Nitrite Negative Urine Bilirubin Negative Urine Urobilinogen 1 H Ur Leukocyte Esterase 25 H Urine RBC 0 SEEN Urine WBC 0 SEEN Ur Squamous Epith Cells 0 SEEN Urine Bacteria 0 SEEN Hyaline Casts 0-5 SEEN Urine Mucus 0 SEEN - Rhythm Strip Rhythm Strip: Sinus Rhythm Rate: 78 Ectopy: None - EKG Initial EKG Interpretation: Sinus Rhythm, - - Normal sinus rhythm at a rate of 78 Normal axis Normal intervals Normal ST segments Low voltage QRS - Medical Decision Making Is evaluated after an unwitnessed fall in the shower. Patient does have weakness and gait instability at baseline. Clear patient loss of consciousness. Patient does have an abrasion to his head. Head CT obtained which does not show any acute intracranial process. Patient is at his neurologic baseline. He does have tenderness of his left elbow as well as right hip. The elbow x-ray does not show an acute process. His hip tenderness seems to be associated more with his pressure sore than an actual bony deformity. Pelvis x-ray does not show any acute process. Given that he seemed more weak over the past few days, metabolic work-up including EKG, CBC, BMP, troponin and UA are obtained. There is no obvious torso infection or electrolyte derangement to cause his symptoms. At this time I think patient is safe to be discharged back to his long term. He will be referred to wound care for his pressure sore. ED Disposition - Plan for ED Patient: Disposition: Home or Assisted Living Diagnosis: Fall, Left elbow contusion, Pressure sore of hip Instructions: ED Pressure Injury, ED Fall Prevention, ED Fall with Uncertain Cause Referrals: Annette Paulino MD [Primary Care Provider] - Clinic,Wound [None] -
[2020-12-25 16:31] VITALS: BP 98/65; PULSE 80; RESP 16
== END 2020-12-25 16:31 | disposition home or self-care (01) ==
PROVIDERS: Emergency Provider Emergency Medicine; PCP Internal Medicine
DX: S50.02XA Contusion of left elbow, initial encounter (principal); S00.81XA Abrasion of other part of head, initial encounter; W18.2XXA Fall in (into) shower or empty bathtub, initial encounter; Y93.E1 Activity, personal bathing and showering; Y92.192 Bathroom in other specified residential institution as the place of occurrence of the external cause; Y99.9 Unspecified external cause status; L89.212 Pressure ulcer of right hip, stage 2; F03.90 Unspecified dementia, unspecified severity, without behavioral disturbance, psychotic disturbance, mood disturbance, and anxiety; Z79.899 Other long term (current) drug therapy
CPT/HCPCS: 70450; 71045; 72170; 73080; 80048; 81001; 84484; 85025; 93005; 99285

== ENCOUNTER → 2021-03-03 08:37 | Outpatient (CLI) | payer MEDICARE, MEDICAID, SELFPAY ==
[2021-03-03 08:13] VITALS: BMI 29.0
[2021-03-03 12:04] LABS: Absolute Lymphocyte Count 1.41 X10^3/uL (0.83-4.51); Absolute Neutrophil Count 4.2 X10^3/uL (2.0-7.7); Basophil# 0.04 X10^3/uL; Basophil% 0.6 % (0-1); Eosinophil# 0.08 X10^3/uL; Eosinophils% 1.3 % (0-5); Hematocrit 46.2 % (40-54); Hemoglobin 15.4 g/dL (13.0-16.5); Lymphocyte # 1.41 X10^3/ul (0.83-4.51); Lymphocyte % 22.7 % (19-41); Mean Corp Hgb Conc 33.3 g/dL (32-36); Mean Corpuscular Hgb 35.4 pg (27.0-32.0); Mean Corpuscular Volume 106.2 fL (80-94); Mean Platelet Vol. 9.8 fl (6.2-12.0); Monocyte# 0.38 X10^3/uL; Monocyte% 6.1 % (0-10); NRBC Flagged by Analyzer 0 % (0-5); Neutrophil # 4.18 X10^3/uL (2.7-7.7); Neutrophil % 67.5 % (47-70); Platelet Count 171 K/mm3 (150-450); RBC Distribution Width CV 14.4 % (11.6-14.6); RBC Distribution Width SD 55.7 fl (35.1-43.9); Red Blood Count 4.35 M/mm3 (4.6-6.2); White Blood Count 6.2 K/mm3 (4.4-11.0)
[2021-03-03 12:34] LABS: ALB/GLOB Ratio 0.9 RATIO (0.9-2.4); AST(SGOT) 19 U/L (15-37); Alanine Aminotransfer ALT/SGPT 12 U/L (16-61); Albumin, Serum 3.1 g/dL (3.2-5.0); Alkaline Phosphatase 94 U/L (45-117); Anion Gap 8 (5-15); BUN 20 mg/dL (7-18); BUN/Creat Ratio 22.7 RATIO (10-20); Calcium,Total 8.8 mg/dL (8.5-10.1); Chloride 109 mmol/L (98-107); Creatinine, Serum 0.88 mg/dL (0.70-1.30); EST Glomerular Filtration Rate 91 mL/min (>60); Est Glom Filt Rate - Afr Amer 111 mL/min (>60); Globulin 3.5 g/dL (2.2-4.2); Glucose 120 mg/dL (74-106); Protein, Total 6.6 g/dL (6.4-8.2); Sodium Level 142 mmol/L (136-145); Thyroid Stim Hormone (TSH) 1.97 uIU/mL (0.358-3.74)
== END ==
PROVIDERS: PCP Internal Medicine; Referring Provider Internal Medicine; Visit Provider Internal Medicine
DX: R41.82 Altered mental status, unspecified (principal); F03.90 Unspecified dementia, unspecified severity, without behavioral disturbance, psychotic disturbance, mood disturbance, and anxiety; E03.9 Hypothyroidism, unspecified
CPT/HCPCS: 36415; 80053; 84443; 85025

== ENCOUNTER → 2021-04-04 | Outpatient (CLI) | payer MEDICARE, MEDICAID, SELFPAY ==
[2021-03-31 11:24] VITALS: BMI 29.0
[2021-04-04 18:10] LABS: Mucous, Urine 0 SEEN /hpf (<or=2+); Red Blood Cells-Urine 0 SEEN /hpf (0-5); Squamous Epithelial Cells - UA 0 SEEN /hpf (0-5); White Blood Cells 0 SEEN /hpf (0-5)
[2021-04-04 18:16] LABS: Color, Urine Yellow (Yellow); Glucose, Dipstick Normal (Normal); Ketone-Dipstick Negative (Negative); Leukocyte Esterase-Dipstick Negative /ul (Negative); Nitrite-Dipstick Negative (Negative); Occult Blood-Urine Negative /ul (Negative); Protein-Dipstick Negative (Negative); Urine Bilirubin Dipstick Negative (Negative); Urine Clarity Cloudy (Clear); Urine Urobilinogen Normal (Normal)
[2021-04-04 18:24] LABS: Amorphous Sediment 1+; Bacteria RARE /hpf (None Seen)
== END | disposition home or self-care (01) ==
LOC: LABSPEC 18:05
PROVIDERS: PCP Internal Medicine; Referring Provider Internal Medicine; Visit Provider Internal Medicine
DX: F03.90 Unspecified dementia, unspecified severity, without behavioral disturbance, psychotic disturbance, mood disturbance, and anxiety (principal)
CPT/HCPCS: 81001

== ENCOUNTER → 2021-04-11 08:26 | Outpatient (CLI) | payer MEDICARE, MEDICAID, SELFPAY ==
[2021-04-07 09:56] VITALS: BMI 23.1
[2021-04-11 09:32] LABS: Erythrocyte Sedimentation Rate 78 mm/hr (0-20)
[2021-04-11 09:34] LABS: Absolute Lymphocyte Count 1.27 X10^3/uL (0.83-4.51); Absolute Neutrophil Count 4.9 X10^3/uL (2.0-7.7); Basophil# 0.06 X10^3/uL; Basophil% 0.9 % (0-1); Eosinophil# 0.09 X10^3/uL; Eosinophils% 1.3 % (0-5); Hemoglobin 14.5 g/dL (13.0-16.5); Lymphocyte # 1.27 X10^3/ul (0.83-4.51); Lymphocyte % 18.1 % (19-41); Mean Corpuscular Hgb 34.9 pg (27.0-32.0); Mean Platelet Vol. 9.7 fl (6.2-12.0); Monocyte# 0.44 X10^3/uL; Monocyte% 6.3 % (0-10); NRBC Flagged by Analyzer 0 % (0-5); Neutrophil # 4.94 X10^3/uL (2.7-7.7); Neutrophil % 70.4 % (47-70); Platelet Count 271 K/mm3 (150-450); RBC Distribution Width CV 14.3 % (11.6-14.6); RBC Distribution Width SD 55.7 fl (35.1-43.9); Red Blood Count 4.15 M/mm3 (4.6-6.2)
[2021-04-11 10:03] LABS: ALB/GLOB Ratio 0.6 RATIO (0.9-2.4); AST(SGOT) 26 U/L (15-37); Alanine Aminotransfer ALT/SGPT 15 U/L (16-61); Albumin, Serum 2.9 g/dL (3.2-5.0); Alkaline Phosphatase 91 U/L (45-117); Anion Gap 6 (5-15); BUN 20 mg/dL (7-18); BUN/Creat Ratio 22.6 RATIO (10-20); Calcium,Total 9.3 mg/dL (8.5-10.1); Chloride 104 mmol/L (98-107); Creatinine, Serum 0.88 mg/dL (0.70-1.30); EST Glomerular Filtration Rate 91 mL/min (>60); Est Glom Filt Rate - Afr Amer 110 mL/min (>60); Globulin 4.9 g/dL (2.2-4.2); Glucose 88 mg/dL (74-106); Hemoglobin A1c 5.1 % (3.8-5.6); Potassium 3.9 mmol/L (3.5-5.1); Prealbumin 22.3 mg/dL (20.0-40.0); Protein, Total 7.8 g/dL (6.4-8.2); Sodium Level 140 mmol/L (136-145)
== END ==
PROVIDERS: PCP Internal Medicine; Referring Provider Family Medicine; Visit Provider Family Medicine
DX: L89.313 Pressure ulcer of right buttock, stage 3 (principal); R73.01 Impaired fasting glucose; L03.90 Cellulitis, unspecified
CPT/HCPCS: 36415; 80053; 83036; 84134; 85025; 85652; 86140

== ENCOUNTER 2021-04-21 09:45 | Outpatient (RCR) | payer MEDICARE, MEDICAID, SELFPAY ==
[2021-03-31 11:24] VITALS: BMI 29.0
[2021-04-07 09:30] VITALS: BP 96/54; PULSE 18; RESP 18; TEMP 35.7; BMI 29.0
[2021-04-07 09:56] VITALS: BP 96/54; PULSE 109; RESP 18; TEMP 35.7; BMI 23.1
--- NOTE | 2021-04-07 13:24 | PCM.WC.HP ---
History of Present Illness Date of Service: 04/07/21 Chief Complaint: wounds of heels and right buttock/hip History of Wound: Min is a 70 yo gentleman that currently resides at [facility] halfway who presents to the wound healing center for nonhealing ulcers of his heels, right buttock and right hip. He has been referred here for treatment by his PCP's office and is accompanied by Argenis, the nurse assistant site manager for the halfway that he resides. Min is nonverbal and unable to provide history himself. Argenis provided the details and history for the patient as well as chart review from his PCP. Over the last several months, Min has declined in his mobility and is now mostly sitting in a wheelchair or on the couch or chair at his home. He is unable to ambulate and also has stopped using the toilet over the last month and is more incontinent of stool and urine per Argenis. His right hip/trochanter ulcer has been present since November and started out as a red area and ultimately broke down and has been draining. They have been covering it with Duoderm and trying to offload his hip using pillows. The ulcers of his right buttock and his heels have been present since mid February. The ulcer of his right buttock occurred due to shearing force when trying to transfer/rotate him to take pressure off of his right hip. 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 It has since improved somewhat with duoderm treatment. The right heel has a blood blister which is likely from pressure or friction. He currently has a low air loss mattress that he sleeps on but does not have an offloading cushion to sit on in his wheelchair or offloading/heel protectors for his feet. Nutrition is supplemented with protein shakes as well as regular meals. Argenis states that he eats pretty well and generally has a good appetite. No cultures have been done at this time and he is not currently on any antibiotic treatment. He has not shown any signs of systemic infection. Unable to obtain ROS. [facility] Medical History (Updated 04/07/21 @ 13:[address] Olga Andrade, ) Behavioral change Cataracts, bilateral Change in mental state Dementia Down syndrome Fracture tibia/fibula Gout High cholesterol Hypothyroidism Sleep disorder Home Medications melatonin 3 mg PO QHS 01/17/20 [History Last Taken Unknown] pyridoxine (vitamin B6) 50 mg capsule 50 mg PO DAILY #90 cap 07/08/20 [Rx Last Taken Unknown] triamcinolone acetonide 0.025 % topical cream 1 applic TOPICAL .COMPLEX #454 g 09/02/20 [Rx Last Taken Unknown] simvastatin 20 mg tablet 20 mg PO QHS #90 tab 09/21/20 [Rx Last Taken Unknown] levothyroxine 88 mcg tablet 88 mcg PO DAILY #90 tab 11/18/20 [Rx Last Taken Unknown] acetaminophen 2 tab PO Q4H PRN 12/25/20 [History Last Taken Unknown] allopurinol 1 tab PO DAILY 12/25/20 [History Last Taken Unknown] cholecalciferol (vitamin D3) 2,000 unit PO DAILY 12/25/20 [History Last Taken Unknown] cyanocobalamin (vitamin B-12) 1,000 mcg PO QODAY 12/25/20 [History Last Taken Unknown] multivitamin 1 tab PO DAILY 12/25/20 [History Last Taken Unknown] omeprazole 10 mg PO DAILY 12/25/20 [History Last Taken Unknown] quetiapine 50 mg PO BID 12/25/20 [History Last Taken Unknown] High/Low Bed #1 ea 01/23/21 [Rx Last Taken Unknown] rivastigmine 13.3 mg/24 hour transdermal patch 1 patch TOPICAL DAILY #30 ea 03/06/21 [Rx Last Taken Unknown] Allergy/AdvReac Type Severity Reaction Status Date / Time No Known Allergies Allergy Verified 11/11/20 11:39 Family History Mother Cancer Brother CVA (cerebral vascular accident) no surgical history Social History Smoking Status: Never smoker alcohol intake: never substance use type: does not use what type of physical activity do you participate in: none ROS Review of Systems ROS Unobtainable: due to mental condition Vital Signs Vital Signs Vital Signs: 04/07/21 09:30 04/07/21 09:56 Temperature 96.2 F L 96.2 F L Temperature Source Temporal Temporal Pulse Rate 18 L 109 H Respiratory Rate 18 18 Blood Pressure 96/54 L 96/54 L Blood Pressure Mean 68 68 Blood Pressure Source Monitor Monitor Blood Pressure Position Semi-Fowlers Blood Pressure Location Right Arm Weight Weight: 50.126 kg Body Mass Index (BMI) 23.1 Physical Exam Const alert, no apparent distress, average body habitus and well nourished General Appearance: combative Orientation / Consciousness: awake HEENT normocephalic and head/scalp atraumatic Lymph Lymphatic: no lymphedema noted Resp normal respiratory effort and normal air movement Cardio regular rate and regular rhythm Skin General Skin Exam: erythema and mottling Wounds: wounds noted Wound Narrative: as in clinical panel Neuro moves all extremities Psych Attitude: guarded Speech: incoherent and minimal Debridement Note Debridement Note Post-Debridement Measurements and Additional Note: Post-Debridement Measurements/Treatment - Nurse 1 - General Ulcer Assessment Start: 04/07/21 09:20 Freq: Status: Active Protocol: [email or web address] Activity Type Activity Date Activity User E-Sign Co-Sign Detail Recorded Client Recorded Date Recorded By Document 04/07/21 09:30 DL [id number] 04/07/21 09:50 DL Document 04/07/21 09:56 DL [id number] 04/07/21 10:01 DL Edit Result 04/07/21 09:56 DL (1) [id number] 04/07/21 10:04 RB (1) Cultural/Gnosticist Needs that may affect Yes => No Treatment Plan Would you allow our hospital electrical engineering intern to Yes => No meet you for the purpose of spiritual/ emotional support? Skate Shop Attendant to contact place of anabaptist Yes => No *Welcome to the Wound Center - Person Taught => Primary Caregiver - Teaching Method => Discussion - Response to teaching => Verbalize => understanding 04/07/21 04/07/21 09:30 09:56 - Today's Visit Information Type of service Initial Visit Initial Visit Arrival Mode Wheelchair Wheelchair Transfer Assistance Manual Manual Transfer Assist (Other) x3 Patient Identification Verified (Name & Yes Yes ) Patient Requires Transmission-Based No No Precautions Height 4 ft 10 in Weight 50.126 kg Weight in Pounds 110.5 lbs Height and Weight Body Mass Index (BMI) 29.0 23.1 BMI Classification Overweight Normal BSA - Anand 1.42 Vital Signs Temperature (97.8 F-99.1 F) 96.2 F L 96.2 F L Temperature Source Temporal Temporal Pulse Rate (60-100) 18 L 109 H Pulse Location Monitor Monitor Respiratory Rate (12-18) 18 18 Respiratory rate source Observation Observation Blood Pressure (90/60-120/80) 96/54 L 96/54 L Blood Pressure Mean 68 68 Source Monitor Monitor Position Semi-Fowlers Blood Pressure Location Right Arm History Since Last Visit- (Skip if this is Patient's initial visit) Have you changed medications since your No last visit? Any new allergies or adverse reactions No Had a fall/change in ADL's that may No increase risk of falls Signs or symptoms of abuse and/or No neglect since last visit Have you been in the hospital since your No last visit? Has dressing in place as prescribed Yes Has compression in place as prescribed No Has offloadiing in place as prescribed No Experienced any changes in pain level or No management Pain Scale: 0-10 Numeric Is Patient Pain Free? Yes Yes Communication Assessment Preferred language Persian Composing Machine Operator/Tender Required No Able to Read No Able to Write No Communication Tools None Caregiver Communication Skills Unable To Read, Impairment Unable To Write ,Unable To Follow Commands Right Hearing Abillity Normal Left Hearing Abillity Normal Visual Assistive Devices Glasses Teaching Assessment Preferences Verbal,Written, Audio/Visual, Demonstration Barriers to Learning None Readiness To Learn Poor Willingness to Engage in Self Management Low Activies Readiness to Engage in Self Management Low Activities Anxiety Level Anxious Cooperation Uncooperative Perception Confused Interest in Health Problem Uninterested Education Importance Denies Need Does Patient Smoke tobacco or other No substances Smoking Status Never smoker Is Patient Diabetic No Functional Assessment Recent Decline in Ability to Perform Bathing,Eating/ Feeding,Lower Body Dressing, Toileting, Transferring, Upper Body Dressing Assistive Device With Patient Yes Culture/Gnosticist/Skate Shop Attendant Cultural/Gnosticist Needs that may affect No Treatment Plan Would you allow our hospital electrical engineering intern to No meet you for the purpose of spiritual/ emotional support? Skate Shop Attendant to contact place of anabaptist No Teaching: Wound Center *Welcome to the Wound Center -Person Taught Primary Caregiver -Teaching Method Discussion -Response to teaching Verbalize understanding KAREN - Nurse 1 - General Ulcer Measurement Start: 04/07/21 09:20 Freq: Status: Active Protocol: Activity Type Activity Date Activity User E-Sign Co-Sign Detail Recorded Client Recorded Date Recorded By Document 04/07/21 10:04 JANNA [id number] 04/07/21 10:08 RB 04/07/21 10:04 Wound Center Nurse 1 3. R trochanter -Combined with other wound No -Current Size (cm) - Length 0.5 -Current Size (cm) - Width 0.6 -Current Size (cm) - Depth 0.4 -Total Square Cm 0.30 -Photo Taken Yes -Tunneling No -Undermining/Tunneling Yes -Undermining/Tunneling Starts (O'clock 1 ) -Undermining/Tunneling Ends (O'clock) 3 -Maximum Distance (cm) 0.3 -Circular Undermining No -Exudate Amt Small -Exudate Type Serosanguineous -Wound Margin Flat & Intact -Granulation Amt Medium (34-66%) -Granulation Quality [place] -Slough/Fibrin Yes -Necrosis Amt Large (67-100%) -Necrotic Tissue Type Adherent Slough -Structure Exposed N/A -Texture (Yeimy-wound Skin Appearance) Assessed -Moisture (Yeimy-wound Skin Appearance) Assessed -Color (Yeimy-wound Skin Appearance) Erythema -Temperature (Yeimy-wound Skin No Abnormality Appearance) (Pt Warm) -Tenderness on Palpation (Yeimy-wound No Skin Appearance) -Ulcer Cleansing Rinsed/ Irrigated with Saline -Foul Odor after Cleansing No -Anesthetic Used 5% Lidocaine Gel 2. R buttocks -Combined with other wound No -Current Size (cm) - Length 2.5 -Current Size (cm) - Width 1.8 -Current Size (cm) - Depth 0.1 -Total Square Cm 4.50 -Photo Taken Yes -Tunneling No -Undermining/Tunneling No -Circular Undermining No -Exudate Type Serosanguineous -Wound Margin Flat & Intact -Granulation Amt Medium (34-66%) -Granulation Quality [place] -Slough/Fibrin Yes -Necrosis Amt Medium (34-66%) -Necrotic Tissue Type Adherent Slough -Structure Exposed N/A -Texture (Yeimy-wound Skin Appearance) Assessed -Moisture (Yeimy-wound Skin Appearance) Assessed -Color (Yeimy-wound Skin Appearance) Assessed -Temperature (Yeimy-wound Skin No Abnormality Appearance) (Pt Warm) -Tenderness on Palpation (Yeimy-wound No Skin Appearance) -Ulcer Cleansing Wound Cleanser -Foul Odor after Cleansing No -Anesthetic Used 5% Lidocaine Gel 1. L medial heel -Combined with other wound No -Current Size (cm) - Length 2.8 -Current Size (cm) - Width 2.5 -Current Size (cm) - Depth 0.1 -Total Square Cm 7.00 -Photo Taken Yes -Tunneling No -Undermining/Tunneling No -Circular Undermining No -Exudate Amt Medium -Exudate Type Serosanguineous -Wound Margin Flat & Intact -Granulation Amt Medium (34-66%) -Granulation Quality [place] -Slough/Fibrin Yes -Necrosis Amt Small (1-33%) -Necrotic Tissue Type Adherent Slough -Structure Exposed N/A -Texture (Yeimy-wound Skin Appearance) Assessed -Moisture (Yeimy-wound Skin Appearance) Assessed -Color (Yeimy-wound Skin Appearance) Assessed -Temperature (Yeimy-wound Skin No Abnormality Appearance) (Pt Warm) -Tenderness on Palpation (Yeimy-wound No Skin Appearance) -Ulcer Cleansing Wound Cleanser -Foul Odor after Cleansing No -Anesthetic Used 5% Lidocaine Gel WC - Nurse 2 - General Ulcer CM Notes Start: 04/07/21 09:20 Freq: Status: Active Protocol: Activity Type Activity Date Activity User E-Sign Co-Sign Detail Recorded Client Recorded Date Recorded By Document 04/07/21 10:24 MW [id number] 04/07/21 10:56 MW 04/07/21 10:24 Wound Center Nurse 2 #4 right heel -Time 10:54 -Correct Patient Yes -Correct Side, Site, Position Yes -Correct Procedure Yes -Procedure Performed No -Type of Procedure Incision & Drainage -Clinical Debridement Subcutaneous -Tissue Removed Subcutaneous -Post Debridement (cm) - Length 1.5 -Post Debridement (cm) - Width 1.5 -Post Debridement (cm) - Depth 0.1 -Total Square (Post) (cm) 2.25 -Area of Debridement (cm) - Length 1.5 -Area of Debridement (cm) - Width 1.5 -Total Square (Area) (cm) 2.25 -Tunneling No -Undermining/Tunneling No -Circular Undermining No -Wound/Ulcer Outcome Not Healed -Ulcer Cleansing Rinsed/ Irrigated with Saline -Foul Odor after Cleansing No -Bioengineered Tissue No -Bleeding Controlled with Pressure -Treatment Response Procedure Tolerated Well -Debridement - Subq, 1st 20sq cm No 3. R trochanter -Time 10:52 -Correct Patient Yes -Correct Side, Site, Position Yes -Correct Procedure Yes -Procedure Performed Yes -Type of Procedure Debridement -Clinical Debridement Subcutaneous -Tissue Removed Subcutaneous -Post Debridement (cm) - Length 0.6 -Post Debridement (cm) - Width 0.6 -Post Debridement (cm) - Depth 0.4 -Total Square (Post) (cm) 0.36 -Area of Debridement (cm) - Length 0.6 -Area of Debridement (cm) - Width 0.6 -Total Square (Area) (cm) 0.36 -Tunneling No -Undermining/Tunneling No -Circular Undermining No -Wound/Ulcer Outcome Not Healed -Ulcer Cleansing Rinsed/ Irrigated with Saline -Foul Odor after Cleansing No -Bioengineered Tissue No -Bleeding Controlled with Pressure -Offloading No -Treatment Response Procedure Tolerated Well -Debridement - Subq, 1st 20sq cm Yes 2. R buttocks -Time 10:52 -Correct Patient Yes -Correct Side, Site, Position Yes -Correct Procedure Yes -Procedure Performed No -Post Debridement (cm) - Length 2.5 -Post Debridement (cm) - Width 1.8 -Post Debridement (cm) - Depth 0.1 -Total Square (Post) (cm) 4.50 -Area of Debridement (cm) - Length 2.5 -Area of Debridement (cm) - Width 1.8 -Total Square (Area) (cm) 4.50 -Tunneling No -Undermining/Tunneling No -Circular Undermining No -Wound/Ulcer Outcome Not Healed -Ulcer Cleansing Rinsed/ Irrigated with Saline -Foul Odor after Cleansing No -Bioengineered Tissue No -Bleeding Controlled with Pressure -Offloading No -Treatment Response Procedure Tolerated Well 1. L medial heel -Time 10:53 -Correct Patient Yes -Correct Side, Site, Position Yes -Correct Procedure Yes -Procedure Performed Yes -Type of Procedure Debridement -Clinical Debridement Subcutaneous -Tissue Removed Subcutaneous -Post Debridement (cm) - Length 2.8 -Post Debridement (cm) - Width 2.5 -Post Debridement (cm) - Depth 0.1 -Total Square (Post) (cm) 7.00 -Area of Debridement (cm) - Length 2.8 -Area of Debridement (cm) - Width 2.5 -Total Square (Area) (cm) 7.00 -Tunneling No -Undermining/Tunneling No -Circular Undermining No -Wound/Ulcer Outcome Not Healed -Ulcer Cleansing Rinsed/ Irrigated with Saline -Foul Odor after Cleansing No -Bioengineered Tissue No -Bleeding Controlled with Pressure -Offloading No -Treatment Response Procedure Tolerated Well -Debridement - Subq, 1st 20sq cm No Pain Scale: 0-10 Numeric Is Patient Pain Free? Yes WC - Nurse 3 - General Ulcer D/C NN Start: 04/07/21 09:20 Freq: Status: Active Protocol: Activity Type Activity Date Activity User E-Sign Co-Sign Detail Recorded Client Recorded Date Recorded By Document 04/07/21 11:40 RB [id number] 04/07/21 11:42 RB 04/07/21 11:40 Wound Care Nurse 3 #4 right heel -Ulcer Cleansing Wound Cleanser -Primary Dressing Applied Fibracol Plus 4x4 -Other Dressing abd nurses hat -Primary Dressing Covered/Secured with Dry Gauze,Dry Gauze & Roll Gauze,Secured with Tape -Fibracol Plus 4x4 1 3. R trochanter -Other Dressing hydrogel -Primary Dressing Covered/Secured with Dry Gauze, Secured with Tape 2. R buttocks -Other Dressing hydrogel -Primary Dressing Covered/Secured with Dry Gauze, Secured with Tape 1. L medial heel -Ulcer Cleansing Wound Cleanser -Other Dressing fibracol plus , abd -Primary Dressing Covered/Secured with Dry Gauze,Dry Gauze & Roll Gauze,Secured with Tape WC - Visit Discharge Discharge Condition Stable Ambulatory Status Wheelchair Transportation half-way transport Medication Reconcilliation completed & No provided to patient/care provider Clinical Summary of Care Provided Yes Wound debrided: right heel Laterality: Right Wound Grade/Stage: Stage II Type of Debridement: Selective debridement Anesthesia Used: 4% Lidocaine Solution Depth: Down to and including healthy tissue and in the subcutaneous layer Percentage of wound debrided: 100 Instrument Used: #15 blade and Forceps Tissue Removed: devitalized tissue Severity: Fat Layer Exposed Amount of bleeding with debridement: Mild Bleeding Controlled with: Pressure and Compression and gauze Patient tolerated procedure: Patient tolerated procedure well Additional Wound Wound debrided: right trochanter Laterality: Right Wound Grade/Stage: Stage III Type of Debridement: Excisional debridement Anesthesia Used: 4% Lidocaine Solution and 5% Lidocaine Gel Depth: Down to and including healthy tissue and in the subcutaneous layer Percentage of wound debrided: 100 Instrument Used: #15 blade and Forceps Tissue Removed: Yellow slough, devitalized tissue Severity: Fat Layer Exposed Amount of bleeding with debridement: Mild Bleeding Controlled with: Compression and gauze Patient tolerated procedure: Patient tolerated procedure well Additional Wound Wound debrided: right buttock Laterality: Right Wound Grade/Stage: Stage II Type of Debridement: Selective debridement Anesthesia Used: 4% Lidocaine Solution Depth: Down to and including healthy tissue and in the subcutaneous layer Percentage of wound debrided: 100 Instrument Used: - (gauze) Tissue Removed: Yellow slough, devitalized tissue Severity: Fat Layer Exposed Amount of bleeding with debridement: Mild Bleeding Controlled with: Compression and gauze Patient tolerated procedure: Patient tolerated procedure well Additional Wound Wound debrided: left heel Laterality: Left Wound Grade/Stage: Stage II Type of Debridement: Excisional debridement Anesthesia Used: 4% Lidocaine Solution and 5% Lidocaine Gel Depth: Down to and including healthy tissue and in the subcutaneous layer Percentage of wound debrided: 100 Instrument Used: #15 blade and Forceps Tissue Removed: Yellow slough, devitalized tissue Severity: Fat Layer Exposed Amount of bleeding with debridement: Mild Bleeding Controlled with: Compression and gauze Patient tolerated procedure: Patient tolerated procedure well Assessment/Plan Assessment/Plan (1) Down syndrome: CODE(S): Q90.9 - Down syndrome, unspecified (2) Hypothyroidism: CODE(S): E03.9 - Hypothyroidism, unspecified QUALIFIERS: Hypothyroidism type: unspecified Qualified Code(s): E03.9 - Hypothyroidism, unspecified (3) Dementia: CODE(S): F03.90 - Unspecified dementia without behavioral disturbance QUALIFIERS: Dementia behavioral disturbance: without behavioral disturbance Dementia type: unspecified type Qualified Code(s): F03.90 - Unspecified dementia without behavioral disturbance (4) Vitamin D deficiency: CODE(S): E55.9 - Vitamin D deficiency, unspecified (5) High cholesterol: CODE(S): E78.00 - Pure hypercholesterolemia, unspecified (6) Pressure ulcer of left heel, stage 2: CODE(S): L89.622 - Pressure ulcer of left heel, stage 2 (7) Pressure ulcer of right heel, stage 2: CODE(S): L89.612 - Pressure ulcer of right heel, stage 2 (8) Pressure ulcer of right hip, stage 3: CODE(S): L89.213 - Pressure ulcer of right hip, stage 3 (9) Pressure ulcer of right buttock, stage 2: CODE(S): L89.312 - Pressure ulcer of right buttock, stage 2 PLAN: Min's ulcers were evaluated and debrided today at the wound healing center. His right heel blood blister/pressure ulcer was incised and drained using a 15 blade and forceps. Small amount of gelatinous blood removed. He tolerated this well. Right buttock ulcer was debrided with gauze and has minimal slough. Right trochanter/hip was debrided with forceps and 15 blade but thick fibrous slough centrally was not able to be removed entirely. Left heel was debrided using forceps and 15 blade. The etiology of his ulcers appears to be pressure which has occurred from recent changes in his mobility. Wound culture of his right hip was taken and will treat based on results. Will treat his heels with fibracol dressings daily for moderate drainage. Will treat his right hip and right buttock ulcers with Santyl to debride the fibrinous slough present especially on the trochanter ulcer. The importance of offloading was stressed to his caregiver and they agreed to obtain a Roho or gel foam cushion for his wheelchair as well as heel protectors/foam booties. She also is going to discuss with his family regarding moving him to a higher acuity home where he would have the option of more skilled services. Stressed importance of increased protein intake and adequate nutrition in healing ulcers and wounds. Recommended continuing protein shakes at least once daily outside of meals. Lab order given to check blood count, prealbumin, kidney and liver function to evaluate for impeding factors of healing and causes of ulcers/wounds. He has undergone arterial testing in 2012 and 2019 which did not show significant arterial disease. His caregiver asked that we avoid doing them again unless necessary as it causes him extreme stress and discomfort. She was advised to contact the wound healing center if he develops any fever, chills, increased erythema, increased odor or drainage and agrees to update with any changes in status. He will return in 1 week for follow up treatment and wound care.
[2021-04-14 10:19] VITALS: TEMP 36.4; BMI 23.1
--- NOTE | 2021-04-14 12:59 | PCM.WC.PN ---
History of Present Illness Date of Service: 04/14/21 Chief Complaint: wounds of heels and right buttock/hip History of Wound: Min is a 70 yo gentleman that currently resides at [facility] detention who presents to the wound healing center for nonhealing ulcers of his heels, right buttock and right hip. He has been referred here for treatment by his PCP's office and is accompanied by Argenis, the nurse display manager for the detention that he resides. Min is nonverbal and unable to provide history himself. Argenis provided the details and history for the patient as well as chart review from his PCP. Over the last several months, Min has declined in his mobility and is now mostly sitting in a wheelchair or on the couch or chair at his home. He is unable to ambulate and also has stopped using the toilet over the last month and is more incontinent of stool and urine per Argenis. His right hip/trochanter ulcer has been present since November and started out as a red area and ultimately broke down and has been draining. They have been covering it with Duoderm and trying to offload his hip using pillows. The ulcers of his right buttock and his heels have been present since mid February. The ulcer of his right buttock occurred due to shearing force when trying to transfer/rotate him to take pressure off of his right hip. The ulcer of his left heel started as a blister and was incised by his cell changer but no further care was recommended. It has since improved somewhat with duoderm treatment. The right heel has a blood blister which is likely from pressure or friction. He currently has a low air loss mattress that he sleeps on but does not have an offloading cushion to sit on in his wheelchair or offloading/heel protectors for his feet. Nutrition is supplemented with protein shakes as well as regular meals. Argenis states that he eats pretty well and generally has a good appetite. Labs were completed on 04/11/2021 and showed a low normal pre-albumin and otherwise unremarkable labs. Wound culture from 04/07/2021 showed several bacteria to be present and he was started on Augmentin for treatment. He has not shown any signs of systemic infection. Unable to obtain ROS. Progress of Wound: Min is here today for follow up of treatment of multiple ulcers. His heel ulcers are healed after treatment with foam booties and Promogran dressings. His right buttock ulcer is improved after Santyl treatment and his right hip ulcer was able to be debrided after using Santyl to breakdown fibrous slough. He was started on Augmentin on Saturday for treatment of positive wound cultures and is tolerating medication well. Gel foam cushion has been obtained for his wheelchair as well. Objective Data Objective Data Vital Signs: Vital Signs Temp Pulse Resp BP 97.5 F L 109 H 18 96/54 L 04/14/21 10:19 04/07/21 09:56 04/07/21 09:56 04/07/21 09:56 Weight: 50.126 kg Body Mass Index (BMI) 23.1 Lab / Micro Data Micro: Microbiology 04/07/21 10:45 Wound Abcess - Trochanter Gram Stain - Final 04/07/21 10:45 Wound Abcess - Trochanter Wound Culture - Final Staphylococcus aureus Morganella morganii sp morgani Enterococcus faecalis 04/07/21 10:45 Wound Abcess - Trochanter Anaerobic Culture - Final No anaerobic bacteria isolated. Physical Exam Const alert, no apparent distress, average body habitus and well nourished General Appearance: combative Orientation / Consciousness: awake HEENT normocephalic and head/scalp atraumatic Lymph Lymphatic: no lymphedema noted Resp normal respiratory effort and normal air movement Cardio regular rate and regular rhythm Skin General Skin Exam: erythema and mottling Wounds: wounds noted Wound Narrative: as in clinical panel Neuro moves all extremities Psych Attitude: guarded Speech: incoherent and minimal Debridement Note Debridement Note Post-Debridement Measurements and Additional Note: Post-Debridement Measurements/Treatment WC - Nurse 1 - General Ulcer Assessment Start: 04/07/21 09:20 Freq: Status: Active Protocol: [email or web address] Activity Type Activity Date Activity User E-Sign Co-Sign Detail Recorded Client Recorded Date Recorded By Document 04/07/21 09:30 DL [id number] 04/07/21 09:50 DL Document 04/07/21 09:56 DL [id number] 04/07/21 10:01 DL Edit Result 04/07/21 09:56 DL (1) [id number] 04/07/21 10:04 RB Document 04/14/21 10:19 KR [id number] 06/18/21 10:22 KR (1) Cultural/Confucianist Needs that may affect Yes => No Treatment Plan Would you allow our hospital telecommunication tower technician to Yes => No meet you for the purpose of spiritual/ emotional support? Lead Pressman to contact place of spiritism Yes => No *Welcome to the Wound Center - Person Taught => Primary Caregiver - Teaching Method => Discussion - Response to teaching => Verbalize => understanding 04/07/21 04/07/21 04/14/21 09:30 09:56 10:19 WC - Today's Visit Information Type of service Initial Visit Initial Visit Follow-up Visit (Physician/CHIEF KNOWLEDGE OFFICER ) Arrival Mode Wheelchair Wheelchair Wheelchair Transfer Assistance Manual Manual Transfer Assist (Other) x3 Patient Identification Verified (Name & Yes Yes Yes ) Patient Requires Transmission-Based No No Precautions Height 4 ft 10 in Weight 50.126 kg Weight in Pounds 110.5 lbs Height and Weight Body Mass Index (BMI) 29.0 23.1 23.1 BMI Classification Overweight Normal Normal BSA - Anand 1.42 Vital Signs Temperature (97.8 F-99.1 F) 96.2 F L 96.2 F L 97.5 F L Temperature Source Temporal Temporal Temporal Pulse Rate (60-100) 18 L 109 H Pulse Location Monitor Monitor Respiratory Rate (12-18) 18 18 Respiratory rate source Observation Observation Blood Pressure (90/60-120/80) 96/54 L 96/54 L Blood Pressure Mean (mm Hg) 68 68 Source Monitor Monitor Position Semi-Fowlers Blood Pressure Location Right Arm History Since Last Visit- (Skip if this is Patient's initial visit) Have you changed medications since your No No last visit? Any new allergies or adverse reactions No No Had a fall/change in ADL's that may No No increase risk of falls Signs or symptoms of abuse and/or No No neglect since last visit Have you been in the hospital since your No No last visit? Has dressing in place as prescribed Yes Yes Has compression in place as prescribed No N/A Has offloadiing in place as prescribed No N/A Experienced any changes in pain level or No No management Pain Scale: 0-10 Numeric Is Patient Pain Free? Yes Yes Yes Communication Assessment Preferred language [place] Outreach Analyst Required No Able to Read No Able to Write No Communication Tools None Caregiver Communication Skills Unable To Read, Impairment Unable To Write ,Unable To Follow Commands Right Hearing Abillity Normal Left Hearing Abillity Normal Visual Assistive Devices Glasses Teaching Assessment Preferences Verbal,Written, Audio/Visual, Demonstration Barriers to Learning None Readiness To Learn Poor Willingness to Engage in Self Management Low Activies Readiness to Engage in Self Management Low Activities Anxiety Level Anxious Cooperation Uncooperative Perception Confused Interest in Health Problem Uninterested Education Importance Denies Need Does Patient Smoke tobacco or other No substances Smoking Status Never smoker Is Patient Diabetic No Functional Assessment Recent Decline in Ability to Perform Bathing,Eating/ Feeding,Lower Body Dressing, Toileting, Transferring, Upper Body Dressing Assistive Device With Patient Yes Culture/Confucianist/Lead Pressman Cultural/Confucianist Needs that may affect No Treatment Plan Would you allow our hospital telecommunication tower technician to No meet you for the purpose of spiritual/ emotional support? Lead Pressman to contact place of spiritism No Teaching: Wound Center *Welcome to the Wound Center -Person Taught Primary Caregiver -Teaching Method Discussion -Response to teaching Verbalize understanding WC - Nurse 1 - General Ulcer Measurement Start: 04/07/21 09:20 Freq: Status: Active Protocol: Activity Type Activity Date Activity User E-Sign Co-Sign Detail Recorded Client Recorded Date Recorded By Document 04/07/21 10:04 RB [id number] 04/07/21 10:08 RB Document 04/14/21 10:19 KR [id number] 04/14/21 10:22 KR 04/07/21 04/14/21 10:04 10:19 Wound Center Nurse 1 #4 right heel -Current Size (cm) - Length 0.1 -Current Size (cm) - Width 0.1 -Current Size (cm) - Depth 0.1 -Total Square Cm 0.01 -Exudate Amt Small -Exudate Type Serosanguineous -Wound Margin Distinct, Outline Attached -Granulation Amt Small (1-33%) -Granulation Quality [place] -Necrosis Amt Small (1-33%) -Necrotic Tissue Type Adherent Slough -Texture (Yeimy-wound Skin Appearance) Assessed, Scarring -Moisture (Yeimy-wound Skin Appearance) No Abnormality, Assessed -Color (Yeimy-wound Skin Appearance) No Abnormality, Assessed -Temperature (Yeimy-wound Skin No Abnormality Appearance) (Pt Warm) -Tenderness on Palpation (Yeimy-wound No Skin Appearance) -Ulcer Cleansing soap and water -Anesthetic Used 5% Lidocaine Gel 3. R trochanter -Combined with other wound No -Current Size (cm) - Length 0.5 0.1 -Current Size (cm) - Width 0.6 0.1 -Current Size (cm) - Depth 0.4 0.1 -Total Square Cm 0.30 0.01 -Photo Taken Yes -Tunneling No -Undermining/Tunneling Yes -Undermining/Tunneling Starts (O'clock 1 ) -Undermining/Tunneling Ends (O'clock) 3 -Maximum Distance (cm) 0.3 -Circular Undermining No -Exudate Amt Small Small -Exudate Type Serosanguineous Serosanguineous -Wound Margin Flat & Intact Distinct, Outline Attached -Granulation Amt Medium (34-66%) Medium (34-66%) -Granulation Quality [place] Red -Slough/Fibrin Yes -Necrosis Amt Large (67-100%) Small (1-33%) -Necrotic Tissue Type Adherent Slough Adherent Slough -Structure Exposed N/A -Texture (Yeimy-wound Skin Appearance) Assessed Assessed, Scarring -Moisture (Yeimy-wound Skin Appearance) Assessed No Abnormality, Assessed -Color (Yeimy-wound Skin Appearance) Erythema No Abnormality, Assessed -Temperature (Yeimy-wound Skin No Abnormality No Abnormality Appearance) (Pt Warm) (Pt Warm) -Tenderness on Palpation (Yeimy-wound No No Skin Appearance) -Ulcer Cleansing Rinsed/ soap and water Irrigated with Saline -Foul Odor after Cleansing No No -Anesthetic Used 5% Lidocaine 5% Lidocaine Gel Gel 2. R buttocks -Combined with other wound No -Current Size (cm) - Length 2.5 0.1 -Current Size (cm) - Width 1.8 0.1 -Current Size (cm) - Depth 0.1 0.1 -Total Square Cm 4.50 0.01 -Photo Taken Yes -Tunneling No -Undermining/Tunneling No -Circular Undermining No -Exudate Amt Small -Exudate Type Serosanguineous -Wound Margin Flat & Intact Distinct, Outline Attached -Granulation Amt Medium (34-66%) Small (1-33%) -Granulation Quality [place] Red -Slough/Fibrin Yes -Necrosis Amt Medium (34-66%) None Present (0 %) -Necrotic Tissue Type Adherent Slough -Structure Exposed N/A -Texture (Yeimy-wound Skin Appearance) Assessed Assessed, Scarring -Moisture (Yeimy-wound Skin Appearance) Assessed No Abnormality, Assessed -Color (Yeimy-wound Skin Appearance) Assessed No Abnormality, Assessed -Temperature (Yeimy-wound Skin No Abnormality No Abnormality Appearance) (Pt Warm) (Pt Warm) -Tenderness on Palpation (Yeimy-wound No No Skin Appearance) -Ulcer Cleansing Wound Cleanser soap and water -Foul Odor after Cleansing No No -Anesthetic Used 5% Lidocaine 5% Lidocaine Gel Gel 1. L medial heel -Combined with other wound No -Current Size (cm) - Length 2.8 0.1 -Current Size (cm) - Width 2.5 0.1 -Current Size (cm) - Depth 0.1 0.1 -Total Square Cm 7.00 0.01 -Photo Taken Yes -Tunneling No -Undermining/Tunneling No -Circular Undermining No -Exudate Amt Medium Small -Exudate Type Serosanguineous Serosanguineous -Wound Margin Flat & Intact Distinct, Outline Attached -Granulation Amt Medium (34-66%) None Present (0 %) -Granulation Quality [place] -Slough/Fibrin Yes -Necrosis Amt Small (1-33%) Small (1-33%) -Necrotic Tissue Type Adherent Slough Eschar -Structure Exposed N/A -Texture (Yeimy-wound Skin Appearance) Assessed Assessed, Scarring -Moisture (Yeimy-wound Skin Appearance) Assessed No Abnormality, Assessed -Color (Yeimy-wound Skin Appearance) Assessed No Abnormality, Assessed -Temperature (Yeimy-wound Skin No Abnormality No Abnormality Appearance) (Pt Warm) (Pt Warm) -Tenderness on Palpation (Yeimy-wound No No Skin Appearance) -Ulcer Cleansing Wound Cleanser soap and water -Foul Odor after Cleansing No No -Anesthetic Used 5% Lidocaine 5% Lidocaine Gel Gel WC - Nurse 2 - General Ulcer CM Notes Start: 04/07/21 09:20 Freq: Status: Active Protocol: Activity Type Activity Date Activity User E-Sign Co-Sign Detail Recorded Client Recorded Date Recorded By Document 04/07/21 10:24 MW [id number] 04/07/21 10:56 MW Document 04/14/21 10:22 MW [id number] 04/14/21 10:36 MW 04/07/21 04/14/21 10:24 10:22 Wound Center Nurse 2 #4 right heel -Time 10:54 10:22 -Correct Patient Yes Yes -Correct Side, Site, Position Yes Yes -Correct Procedure Yes Yes -Procedure Performed No No -Type of Procedure Incision & Drainage -Clinical Debridement Subcutaneous -Tissue Removed Subcutaneous -Post Debridement (cm) - Length 1.5 0 -Post Debridement (cm) - Width 1.5 0 -Post Debridement (cm) - Depth 0.1 0 -Total Square (Post) (cm) 2.25 0 -Area of Debridement (cm) - Length 1.5 -Area of Debridement (cm) - Width 1.5 -Total Square (Area) (cm) 2.25 -Tunneling No No -Undermining/Tunneling No No -Circular Undermining No No -Wound/Ulcer Outcome Not Healed Healed- Epithelialized -Ulcer Cleansing Rinsed/ Irrigated with Saline -Foul Odor after Cleansing No -Bioengineered Tissue No -Bleeding Controlled with Pressure -Treatment Response Procedure Tolerated Well -Debridement - Subq, 1st 20sq cm No 3. R trochanter -Time 10:52 10:23 -Correct Patient Yes Yes -Correct Side, Site, Position Yes Yes -Correct Procedure Yes Yes -Procedure Performed Yes Yes -Type of Procedure Debridement Debridement -Clinical Debridement Subcutaneous Subcutaneous -Tissue Removed Subcutaneous Subcutaneous -Post Debridement (cm) - Length 0.6 0.6 -Post Debridement (cm) - Width 0.6 0.7 -Post Debridement (cm) - Depth 0.4 0.5 -Total Square (Post) (cm) 0.36 0.42 -Area of Debridement (cm) - Length 0.6 0.6 -Area of Debridement (cm) - Width 0.6 0.7 -Total Square (Area) (cm) 0.36 0.42 -Tunneling No No -Undermining/Tunneling No No -Circular Undermining No No -Wound/Ulcer Outcome Not Healed Not Healed -Ulcer Cleansing Rinsed/ Rinsed/ Irrigated with Irrigated with Saline Saline -Foul Odor after Cleansing No No -Bioengineered Tissue No No -Bleeding Controlled with Pressure Pressure -Offloading No No -Treatment Response Procedure Procedure Tolerated Well Tolerated Well -Debridement - Subq, 1st 20sq cm Yes Yes 2. R buttocks -Time 10:52 10:24 -Correct Patient Yes Yes -Correct Side, Site, Position Yes Yes -Correct Procedure Yes Yes -Procedure Performed No Yes -Type of Procedure Debridement -Clinical Debridement Subcutaneous -Tissue Removed Subcutaneous -Post Debridement (cm) - Length 2.5 2.0 -Post Debridement (cm) - Width 1.8 0.8 -Post Debridement (cm) - Depth 0.1 0.1 -Total Square (Post) (cm) 4.50 1.60 -Area of Debridement (cm) - Length 2.5 2.0 -Area of Debridement (cm) - Width 1.8 0.8 -Total Square (Area) (cm) 4.50 1.60 -Tunneling No No -Undermining/Tunneling No No -Circular Undermining No No -Wound/Ulcer Outcome Not Healed Not Healed -Ulcer Cleansing Rinsed/ Rinsed/ Irrigated with Irrigated with Saline Saline -Foul Odor after Cleansing No No -Bioengineered Tissue No No -Bleeding Controlled with Pressure Pressure -Offloading No No -Treatment Response Procedure Procedure Tolerated Well Tolerated Well -Debridement - Subq, 1st 20sq cm No 1. L medial heel -Time 10:53 10:24 -Correct Patient Yes Yes -Correct Side, Site, Position Yes Yes -Correct Procedure Yes Yes -Procedure Performed Yes No -Type of Procedure Debridement -Clinical Debridement Subcutaneous -Tissue Removed Subcutaneous -Post Debridement (cm) - Length 2.8 0 -Post Debridement (cm) - Width 2.5 0 -Post Debridement (cm) - Depth 0.1 0 -Total Square (Post) (cm) 7.00 0 -Area of Debridement (cm) - Length 2.8 -Area of Debridement (cm) - Width 2.5 -Total Square (Area) (cm) 7.00 -Tunneling No No -Undermining/Tunneling No No -Circular Undermining No No -Wound/Ulcer Outcome Not Healed Healed- Epithelialized -Ulcer Cleansing Rinsed/ Irrigated with Saline -Foul Odor after Cleansing No -Bioengineered Tissue No -Bleeding Controlled with Pressure -Offloading No -Treatment Response Procedure Tolerated Well -Debridement - Subq, 1st 20sq cm No Pain Scale: 0-10 Numeric Is Patient Pain Free? Yes Yes - Nurse 3 - General Ulcer D/C NN Start: 04/07/21 09:20 Freq: Status: Active Protocol: Activity Type Activity Date Activity User E-Sign Co-Sign Detail Recorded Client Recorded Date Recorded By Document 04/07/21 11:40 RB [id number] 04/07/21 11:42 RB Document 04/14/21 10:50 KR [id number] 04/14/21 10:52 MARIAM 04/07/21 04/14/21 11:40 10:50 Wound Care Nurse 3 #4 right heel -Ulcer Cleansing Wound Cleanser -Primary Dressing Applied Fibracol Plus 4x4 -Other Dressing abd nurses hat -Primary Dressing Covered/Secured with Dry Gauze,Dry Gauze & Roll Gauze,Secured with Tape -Fibracol Plus 4x4 1 3. R trochanter -Ulcer Cleansing Rinsed/ Irrigated with Saline -Primary Dressing Applied Aquacel Extra,C Hydrogel ($), Mepilex Border -Other Dressing hydrogel -Primary Dressing Covered/Secured with Dry Gauze, Secured with Tape -Aquacel Extra 1 -Mepilex Border 1 2. R buttocks -Primary Dressing Applied C Hydrogel ($), Mepilex Border -Other Dressing hydrogel -Primary Dressing Covered/Secured with Dry Gauze, Secured with Tape -Mepilex Border 1 1. L medial heel -Ulcer Cleansing Wound Cleanser -Other Dressing fibracol plus , abd -Primary Dressing Covered/Secured with Dry Gauze,Dry Gauze & Roll Gauze,Secured with Tape Pain Scale: 0-10 Numeric Is Patient Pain Free? Yes WC - Visit Discharge Discharge Condition Stable Stable Ambulatory Status Wheelchair Wheelchair Transportation penitentiary Private Auto transport Accompanied by home health aid Medication Reconcilliation completed & No provided to patient/care provider Clinical Summary of Care Provided Yes Wound debrided: right heel Laterality: Right Wound Grade/Stage: Stage 1 No debridement was completed: No debridement was completed today (ulcer is healed) Additional Wound Wound debrided: left heel Laterality: Left Wound Grade/Stage: Stage 1 Operative Diagnosis: No debridement completed today - ulcer is healed Additional Wound Wound debrided: right buttock Laterality: Right Wound Grade/Stage: Stage II Type of Debridement: Excisional debridement Anesthesia Used: 4% Lidocaine Solution and 5% Lidocaine Gel Depth: Down to and including healthy tissue and in the subcutaneous layer Percentage of wound debrided: 100 Instrument Used: 3mm curette Tissue Removed: Yellow slough, devitalized tissue Severity: Fat Layer Exposed Amount of bleeding with debridement: Mild Bleeding Controlled with: Pressure and Compression and gauze Patient tolerated procedure: Patient tolerated procedure well Additional Wound Wound debrided: right trochanter/hip Laterality: Right Wound Grade/Stage: Stage III Type of Debridement: Excisional debridement Anesthesia Used: 4% Lidocaine Solution, 5% Lidocaine Gel and Cetacaine Depth: Down to and including healthy tissue and in the subcutaneous layer Percentage of wound debrided: 100 Instrument Used: 3mm curette Tissue Removed: Yellow slough, devitalized tissue Severity: Fat Layer Exposed Amount of bleeding with debridement: Mild Bleeding Controlled with: Compression and gauze Patient tolerated procedure: Patient tolerated procedure well Assessment/Plan Assessment/Plan (1) Down syndrome: CODE(S): Q90.9 - Down syndrome, unspecified (2) Hypothyroidism: CODE(S): E03.9 - Hypothyroidism, unspecified QUALIFIERS: Hypothyroidism type: unspecified Qualified Code(s): E03.9 - Hypothyroidism, unspecified (3) Dementia: CODE(S): F03.90 - Unspecified dementia without behavioral disturbance QUALIFIERS: Dementia type: unspecified type Dementia behavioral disturbance: without behavioral disturbance Qualified Code(s): F03.90 - Unspecified dementia without behavioral disturbance (4) Vitamin D deficiency: CODE(S): E55.9 - Vitamin D deficiency, unspecified (5) High cholesterol: CODE(S): E78.00 - Pure hypercholesterolemia, unspecified (6) Pressure ulcer of left heel, stage 2: CODE(S): L89.622 - Pressure ulcer of left heel, stage 2 (7) Pressure ulcer of right heel, stage 2: CODE(S): L89.612 - Pressure ulcer of right heel, stage 2 (8) Pressure ulcer of right hip, stage 3: CODE(S): L89.213 - Pressure ulcer of right hip, stage 3 (9) Pressure ulcer of right buttock, stage 2: CODE(S): L89.312 - Pressure ulcer of right buttock, stage 2 PLAN: iMn's ulcers were evaluated and debrided today at the wound healing center. His right and left heels are healed. Right buttock ulcer is improved and was debrided today. Right trochanter/hip was debrided and devitalized tissue and slough were easily removed with curette. The etiology of his ulcers appears to be pressure which has occurred from recent changes in his mobility. Wound culture of his right hip was positive for infection with Staph aureus, morganella morganii and enterococcus Faecalis. He was started on Augmentin and is tolerating treatment. Will continue to treat his right hip and right buttock ulcers with Santyl to debride the fibrinous slough present on the trochanter ulcer and to maintain his right buttock ulcer from developing slough. The importance of offloading was stressed to his caregiver and they agreed to obtain a Roho or gel foam cushion for his wheelchair as well as heel protectors/foam booties. She also is going to discuss with his family regarding moving him to a higher acuity home where he would have the option of more skilled services. Stressed importance of increased protein intake and adequate nutrition in healing ulcers and wounds. Recommended continuing protein shakes at least once daily outside of meals. Labs reviewed and there are no significant abnormalities. Pre-albumin is low normal. Protein supplementation was encouraged. He has undergone arterial testing in 2012 and 2019 which did not show significant arterial disease. His caregiver asked that we avoid doing them again unless necessary as it causes him extreme stress and discomfort. She was advised to contact the wound healing center if he develops any fever, chills, increased erythema, increased odor or drainage and agrees to update with any changes in status. He will return in 1 week for follow up treatment and wound care.
[2021-04-21 09:59] VITALS: PULSE 82; RESP 18; TEMP 36.4; BMI 23.1
--- NOTE | 2021-04-21 13:14 | PN.PCM_ITS ---
History of Present Illness Date of Service: 04/21/21 Chief Complaint: wounds of heels and right buttock/hip History of Wound: Min is a 70 yo gentleman that currently resides at [facility] nursing home who presents to the wound healing center for nonhealing ulcers of his heels, right buttock and right hip. He has been referred here for treatment by his PCP's office and is accompanied by Argenis, the nurse golf club manager for the nursing home that he resides. Min is nonverbal and unable to provide history himself. Argenis provided the details and history for the patient as well as chart review from his PCP. Over the last several months, Min has declined in his mobility and is now mostly sitting in a wheelchair or on the couch or chair at his home. He is unable to ambulate and also has stopped using the toilet over the last month and is more incontinent of stool and urine per Argenis. His right hip/trochanter ulcer has been present since November and started out as a red area and ultimately broke down and has been draining. They have been covering it with Duoderm and trying to offload his hip using pillows. The ulcers of his right buttock and his heels have been present since mid February. The ulcer of his right buttock occurred due to shearing force when trying to transfer/rotate him to take pressure off of his right hip. The ulcer of his left heel started as a blister and was incised by his conductor yard but no further care was recommended. It has since improved somewhat with duoderm treatment. The right heel has a blood blister which is likely from pressure or friction. He currently has a low air loss mattress that he sleeps on but does not have an offloading cushion to sit on in his wheelchair or offloading/heel protectors for his feet. Nutrition is supplemented with protein shakes as well as regular meals. Argenis states that he eats pretty well and generally has a good appetite. Labs were completed on 04/11/2021 and showed a low normal pre-albumin and otherwise unremarkable labs. Wound culture from 04/07/2021 showed several bacteria to be present and he was started on Augmentin for treatment. He has not shown any signs of systemic infection. Unable to obtain ROS. Progress of Wound: Min is here today for follow up of treatment of multiple ul cers. His heel ulcers remain healed after treatment with foam booties and Promogran dressings. His right buttock ulcer is healed today. His right hip ulcer is not much improved from last week and does not show granulation at the base. He was completed treatment with Augmentin. Gel foam cushion has been obtained for his wheelchair as well. Objective Data Objective Data Vital Signs: Vital Signs Temp Pulse Resp BP 97.5 F L 82 18 96/54 L 04/21/21 09:59 04/21/21 09:59 04/21/21 09:59 04/07/21 09:56 Weight: 50.126 kg Body Mass Index (BMI) 23.1 Lab / Micro Data Micro: Microbiology 04/07/21 10:45 Wound Abcess - Trochanter Gram Stain - Final 04/07/21 10:45 Wound Abcess - Trochanter Wound Culture - Final Staphylococcus aureus Morganella morganii sp morgani Enterococcus faecalis 04/07/21 10:45 Wound Abcess - Trochanter Anaerobic Culture - Final No anaerobic bacteria isolated. Physical Exam Const alert, no apparent distress, average body habitus and well nourished General Appearance: combative Orientation / Consciousness: awake HEENT normocephalic and head/scalp atraumatic Lymph Lymphatic: no lymphedema noted Resp normal respiratory effort and normal air movement Cardio regular rate and regular rhythm Skin General Skin Exam: erythema and mottling Wounds: wounds noted Wound Narrative: as in clinical panel Neuro moves all extremities Psych Attitude: guarded Speech: incoherent and minimal Debridement Note Debridement Note Post-Debridement Measurements and Additional Note: Post-Debridement Measurements/Treatment WC - Nurse 1 - General Ulcer Assessment Start: 04/07/21 09:20 Freq: Status: Active Protocol: [email or web address] Activity Type Activity Date Activity User E-Sign Co-Sign Detail Recorded Client Recorded Date Recorded By Document 04/07/21 09:30 DL [id number] 04/07/21 09:50 DL Document 04/07/21 09:56 DL [id number] 04/07/21 10:01 DL Edit Result 04/07/21 09:56 DL (1) [id number] 04/07/21 10:04 RB Document 04/14/21 10:19 KR [id number] 04/14/21 10:22 KR Document 04/21/21 09:59 RB [id number] 04/21/21 10:02 RB (1) Cultural/Yazidi Needs that may affect Yes => No Treatment Plan Would you allow our hospital deaf interpreter to Yes => No meet you for the purpose of spiritual/ emotional support? 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 to contact place of religious Yes => No *Welcome to the Wound Center - Person Taught => Primary Caregiver - Teaching Method => Discussion - Response to teaching => Verbalize => understanding 04/07/21 04/07/21 04/14/21 09:30 09:56 10:19 WC - Today's Visit Information Type of service Initial Visit Initial Visit Follow-up Visit (Physician/SUPERVISOR [employer] ) Arrival Mode Wheelchair Wheelchair Wheelchair Transfer Assistance Manual Manual Transfer Assist (Other) x3 Patient Identification Verified (Name & Yes Yes Yes ) Patient Requires Transmission-Based No No Precautions Height 4 ft 10 in Weight 50.126 kg Weight in Pounds 110.5 lbs Height and Weight Body Mass Index (BMI) 29.0 23.1 23.1 BMI Classification Overweight Normal Normal BSA - Anand 1.42 Vital Signs Temperature (97.8 F-99.1 F) 96.2 F L 96.2 F L 97.5 F L Temperature Source Temporal Temporal Temporal Pulse Rate (60-100) 18 L 109 H Pulse Location Monitor Monitor Respiratory Rate (12-18) 18 18 Respiratory rate source Observation Observation Blood Pressure (90/60-120/80) 96/54 L 96/54 L Blood Pressure Mean (mm Hg) 68 68 Source Monitor Monitor Position Semi-Fowlers Blood Pressure Location Right Arm History Since Last Visit- (Skip if this is Patient's initial visit) Have you changed medications since your No No last visit? Any new allergies or adverse reactions No No Had a fall/change in ADL's that may No No increase risk of falls Signs or symptoms of abuse and/or No No neglect since last visit Have you been in the hospital since your No No last visit? Has dressing in place as prescribed Yes Yes Has compression in place as prescribed No N/A Has offloadiing in place as prescribed No N/A Experienced any changes in pain level or No No management Pain Scale: 0-10 Numeric Is Patient Pain Free? Yes Yes Yes Communication Assessment Preferred language Yoruba Rotary Driller Helper Required No Able to Read No Able to Write No Communication Tools None Caregiver Communication Skills Unable To Read, Impairment Unable To Write ,Unable To Follow Commands Right Hearing Abillity Normal Left Hearing Abillity Normal Visual Assistive Devices Glasses Teaching Assessment Preferences Verbal,Written, Audio/Visual, Demonstration Barriers to Learning None Readiness To Learn Poor Willingness to Engage in Self Management Low Activies Readiness to Engage in Self Management Low Activities Anxiety Level Anxious Cooperation Uncooperative Perception Confused Interest in Health Problem Uninterested Education Importance Denies Need Does Patient Smoke tobacco or other No substances Smoking Status Never smoker Is Patient Diabetic No Functional Assessment Recent Decline in Ability to Perform Bathing,Eating/ Feeding,Lower Body Dressing, Toileting, Transferring, Upper Body Dressing Assistive Device With Patient Yes Culture/Yazidi/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 Cultural/Yazidi Needs that may affect No Treatment Plan Would you allow our hospital deaf interpreter to No meet you for the purpose of spiritual/ emotional support? 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 to contact place of religious No Teaching: Wound Center *Welcome to the Wound Center -Person Taught Primary Caregiver -Teaching Method Discussion -Response to teaching Verbalize understanding 04/21/21 09:59 WC - Today's Visit Information Type of service Follow-up Visit (Physician/SUPERVISOR [employer] ) Arrival Mode Wheelchair Transfer Assistance Manual Transfer Assist (Other) Patient Identification Verified (Name & Yes ) Patient Requires Transmission-Based No Precautions Height Weight Weight in Pounds Height and Weight Body Mass Index (BMI) 23.1 BMI Classification Normal BSA - Anand Vital Signs Temperature (97.8 F-99.1 F) 97.5 F L Temperature Source Temporal Pulse Rate (60-100) 82 Pulse Location Radial Respiratory Rate (12-18) 18 Respiratory rate source Observation Blood Pressure (90/60-120/80) Blood Pressure Mean (mm Hg) Source Position Blood Pressure Location History Since Last Visit- (Skip if this is Patient's initial visit) Have you changed medications since your No last visit? Any new allergies or adverse reactions No Had a fall/change in ADL's that may No increase risk of falls Signs or symptoms of abuse and/or No neglect since last visit Have you been in the hospital since your No last visit? Has dressing in place as prescribed Yes Has compression in place as prescribed No Has offloadiing in place as prescribed No Experienced any changes in pain level or No management Pain Scale: 0-10 Numeric Is Patient Pain Free? Yes Communication Assessment Preferred geriatric physician Required Able to Read Able to Write Communication Tools Caregiver Communication Skills Impairment Right Hearing Abillity Left Hearing Abillity Visual Assistive Devices Teaching Assessment Preferences Barriers to Learning Readiness To Learn Willingness to Engage in Self Management Activies Readiness to Engage in Self Management Activities Anxiety Level Cooperation Perception Interest in Health Problem Education Importance Does Patient Smoke tobacco or other substances Smoking Status Is Patient Diabetic Functional Assessment Recent Decline in Ability to Perform Assistive Device With Patient Culture/Yazidi/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 Cultural/Yazidi Needs that may affect Treatment Plan Would you allow our hospital deaf interpreter to meet you for the purpose of spiritual/ emotional support? 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 to contact place of religious Teaching: Wound Center *Welcome to the Wound Center -Person Taught -Teaching Method -Response to teaching WC - Nurse 1 - General Ulcer Measurement Start: 04/07/21 09:20 Freq: Status: Active Protocol: Activity Type Activity Date Activity User E-Sign Co-Sign Detail Recorded Client Recorded Date Recorded By Document 04/07/21 10:04 RB [id number] 04/07/21 10:08 RB Document 04/14/21 10:19 KR [id number] 04/14/21 10:22 KR Document 04/21/21 09:59 RB [id number] 04/21/21 10:02 RB 04/07/21 04/14/21 04/21/21 10:04 10:19 09:59 Wound Center Nurse 1 #4 right heel -Current Size (cm) - Length 0.1 -Current Size (cm) - Width 0.1 -Current Size (cm) - Depth 0.1 -Total Square Cm 0.01 -Exudate Amt Small -Exudate Type Serosanguineous -Wound Margin Distinct, Outline Attached -Granulation Amt Small (1-33%) -Granulation Quality [place] -Necrosis Amt Small (1-33%) -Necrotic Tissue Type Adherent Slough -Texture (Yeimy-wound Skin Appearance) Assessed, Scarring -Moisture (Yeimy-wound Skin Appearance) No Abnormality, Assessed -Color (Yeimy-wound Skin Appearance) No Abnormality, Assessed -Temperature (Yeimy-wound Skin No Abnormality Appearance) (Pt Warm) -Tenderness on Palpation (Yeimy-wound No Skin Appearance) -Ulcer Cleansing soap and water -Anesthetic Used 5% Lidocaine Gel 3. R trochanter -Combined with other wound No No -Current Size (cm) - Length 0.5 0.1 0.1 -Current Size (cm) - Width 0.6 0.1 0.1 -Current Size (cm) - Depth 0.4 0.1 0.1 -Total Square Cm 0.30 0.01 0.01 -Photo Taken Yes -Tunneling No No -Undermining/Tunneling Yes No -Undermining/Tunneling Starts (O'clock 1 ) -Undermining/Tunneling Ends (O'clock) 3 -Maximum Distance (cm) 0.3 -Circular Undermining No No -Exudate Amt Small Small Small -Exudate Type Serosanguineous Serosanguineous Serosanguineous -Wound Margin Flat & Intact Distinct, Flat & Intact Outline Attached -Granulation Amt Medium (34-66%) Medium (34-66%) Medium (34-66%) -Granulation Quality [place] Red [place] -Slough/Fibrin Yes Yes -Necrosis Amt Large (67-100%) Small (1-33%) Medium (34-66%) -Necrotic Tissue Type Adherent Slough Adherent Slough Adherent Slough -Structure Exposed N/A N/A -Texture (Yeimy-wound Skin Appearance) Assessed Assessed, Assessed Scarring -Moisture (Yeimy-wound Skin Appearance) Assessed No Abnormality, Assessed Assessed -Color (Yeimy-wound Skin Appearance) Erythema No Abnormality, Assessed Assessed -Temperature (Yeimy-wound Skin No Abnormality No Abnormality No Abnormality Appearance) (Pt Warm) (Pt Warm) (Pt Warm) -Tenderness on Palpation (Yeimy-wound No No No Skin Appearance) -Ulcer Cleansing Rinsed/ soap and water Wound Cleanser Irrigated with Saline -Foul Odor after Cleansing No No No -Anesthetic Used 5% Lidocaine 5% Lidocaine 5% Lidocaine Gel Gel Gel 2. R buttocks -Combined with other wound No No -Current Size (cm) - Length 2.5 0.1 0.1 -Current Size (cm) - Width 1.8 0.1 0.1 -Current Size (cm) - Depth 0.1 0.1 0.1 -Total Square Cm 4.50 0.01 0.01 -Photo Taken Yes -Tunneling No No -Undermining/Tunneling No No -Circular Undermining No No -Exudate Amt Small -Exudate Type Serosanguineous -Wound Margin Flat & Intact Distinct, Outline Attached -Granulation Amt Medium (34-66%) Small (1-33%) Medium (34-66%) -Granulation Quality [place] Red [place] -Slough/Fibrin Yes Yes -Necrosis Amt Medium (34-66%) None Present (0 Medium (34-66%) %) -Necrotic Tissue Type Adherent Slough Adherent Slough -Structure Exposed N/A N/A -Texture (Yeimy-wound Skin Appearance) Assessed Assessed, Assessed Scarring -Moisture (Yeimy-wound Skin Appearance) Assessed No Abnormality, Assessed Assessed -Color (Yeimy-wound Skin Appearance) Assessed No Abnormality, Not Assessed Assessed -Temperature (Yeimy-wound Skin No Abnormality No Abnormality No Abnormality Appearance) (Pt Warm) (Pt Warm) (Pt Warm) -Tenderness on Palpation (Yeimy-wound No No No Skin Appearance) -Ulcer Cleansing Wound Cleanser soap and water Wound Cleanser -Foul Odor after Cleansing No No Yes, Due to Product Use -Anesthetic Used 5% Lidocaine 5% Lidocaine 5% Lidocaine Gel Gel Gel 1. L medial heel -Combined with other wound No -Current Size (cm) - Length 2.8 0.1 -Current Size (cm) - Width 2.5 0.1 -Current Size (cm) - Depth 0.1 0.1 -Total Square Cm 7.00 0.01 -Photo Taken Yes -Tunneling No -Undermining/Tunneling No -Circular Undermining No -Exudate Amt Medium Small -Exudate Type Serosanguineous Serosanguineous -Wound Margin Flat & Intact Distinct, Outline Attached -Granulation Amt Medium (34-66%) None Present (0 %) -Granulation Quality [place] -Slough/Fibrin Yes -Necrosis Amt Small (1-33%) Small (1-33%) -Necrotic Tissue Type Adherent Slough Eschar -Structure Exposed N/A -Texture (Yeimy-wound Skin Appearance) Assessed Assessed, Scarring -Moisture (Yeimy-wound Skin Appearance) Assessed No Abnormality, Assessed -Color (Yeimy-wound Skin Appearance) Assessed No Abnormality, Assessed -Temperature (Yeimy-wound Skin No Abnormality No Abnormality Appearance) (Pt Warm) (Pt Warm) -Tenderness on Palpation (Yeimy-wound No No Skin Appearance) -Ulcer Cleansing Wound Cleanser soap and water -Foul Odor after Cleansing No No -Anesthetic Used 5% Lidocaine 5% Lidocaine Gel Gel WC - Nurse 2 - General Ulcer CM Notes Start: 04/07/21 09:20 Freq: Status: Active Protocol: Activity Type Activity Date Activity User E-Sign Co-Sign Detail Recorded Client Recorded Date Recorded By Document 04/07/21 10:24 MW [id number] 04/07/21 10:56 MW Document 04/14/21 10:22 MW [id number] 04/14/21 10:36 MW Document 04/21/21 10:15 MW [id number] 04/21/21 10:31 MW 04/07/21 04/14/21 04/21/21 10:24 10:22 10:15 Wound Center Nurse 2 #4 right heel -Time 10:54 10:22 -Correct Patient Yes Yes -Correct Side, Site, Position Yes Yes -Correct Procedure Yes Yes -Procedure Performed No No -Type of Procedure Incision & Drainage -Clinical Debridement Subcutaneous -Tissue Removed Subcutaneous -Post Debridement (cm) - Length 1.5 0 -Post Debridement (cm) - Width 1.5 0 -Post Debridement (cm) - Depth 0.1 0 -Total Square (Post) (cm) 2.25 0 -Area of Debridement (cm) - Length 1.5 -Area of Debridement (cm) - Width 1.5 -Total Square (Area) (cm) 2.25 -Tunneling No No -Undermining/Tunneling No No -Circular Undermining No No -Wound/Ulcer Outcome Not Healed Healed- Epithelialized -Ulcer Cleansing Rinsed/ Irrigated with Saline -Foul Odor after Cleansing No -Bioengineered Tissue No -Bleeding Controlled with Pressure -Treatment Response Procedure Tolerated Well -Debridement - Subq, 1st 20sq cm No 3. R trochanter -Time 10:52 10:23 10:17 -Correct Patient Yes Yes Yes -Correct Side, Site, Position Yes Yes Yes -Correct Procedure Yes Yes Yes -Procedure Performed Yes Yes Yes -Type of Procedure Debridement Debridement Debridement -Clinical Debridement Subcutaneous Subcutaneous Subcutaneous -Tissue Removed Subcutaneous Subcutaneous Subcutaneous -Post Debridement (cm) - Length 0.6 0.6 0.5 -Post Debridement (cm) - Width 0.6 0.7 0.7 -Post Debridement (cm) - Depth 0.4 0.5 1.5 -Total Square (Post) (cm) 0.36 0.42 0.35 -Area of Debridement (cm) - Length 0.6 0.6 0.5 -Area of Debridement (cm) - Width 0.6 0.7 0.7 -Total Square (Area) (cm) 0.36 0.42 0.35 -Tunneling No No No -Undermining/Tunneling No No No -Circular Undermining No No No -Wound/Ulcer Outcome Not Healed Not Healed Not Healed -Ulcer Cleansing Rinsed/ Rinsed/ Rinsed/ Irrigated with Irrigated with Irrigated with Saline Saline Saline -Foul Odor after Cleansing No No No -Bioengineered Tissue No No No -Bleeding Controlled with Pressure Pressure Pressure -Offloading No No No -Treatment Response Procedure Procedure Procedure Tolerated Well Tolerated Well Tolerated Well -Debridement - Subq, 1st 20sq cm Yes Yes Yes 2. R buttocks -Time 10:52 10:24 10:17 -Correct Patient Yes Yes Yes -Correct Side, Site, Position Yes Yes Yes -Correct Procedure Yes Yes Yes -Procedure Performed No Yes No -Type of Procedure Debridement -Clinical Debridement Subcutaneous -Tissue Removed Subcutaneous -Post Debridement (cm) - Length 2.5 2.0 0 -Post Debridement (cm) - Width 1.8 0.8 0 -Post Debridement (cm) - Depth 0.1 0.1 0 -Total Square (Post) (cm) 4.50 1.60 0 -Area of Debridement (cm) - Length 2.5 2.0 -Area of Debridement (cm) - Width 1.8 0.8 -Total Square (Area) (cm) 4.50 1.60 -Tunneling No No -Undermining/Tunneling No No -Circular Undermining No No -Wound/Ulcer Outcome Not Healed Not Healed Healed- Epithelialized -Ulcer Cleansing Rinsed/ Rinsed/ Irrigated with Irrigated with Saline Saline -Foul Odor after Cleansing No No -Bioengineered Tissue No No -Bleeding Controlled with Pressure Pressure -Offloading No No -Treatment Response Procedure Procedure Tolerated Well Tolerated Well -Debridement - Subq, 1st 20sq cm No 1. L medial heel -Time 10:53 10:24 -Correct Patient Yes Yes -Correct Side, Site, Position Yes Yes -Correct Procedure Yes Yes -Procedure Performed Yes No -Type of Procedure Debridement -Clinical Debridement Subcutaneous -Tissue Removed Subcutaneous -Post Debridement (cm) - Length 2.8 0 -Post Debridement (cm) - Width 2.5 0 -Post Debridement (cm) - Depth 0.1 0 -Total Square (Post) (cm) 7.00 0 -Area of Debridement (cm) - Length 2.8 -Area of Debridement (cm) - Width 2.5 -Total Square (Area) (cm) 7.00 -Tunneling No No -Undermining/Tunneling No No -Circular Undermining No No -Wound/Ulcer Outcome Not Healed Healed- Epithelialized -Ulcer Cleansing Rinsed/ Irrigated with Saline -Foul Odor after Cleansing No -Bioengineered Tissue No -Bleeding Controlled with Pressure -Offloading No -Treatment Response Procedure Tolerated Well -Debridement - Subq, 1st 20sq cm No Pain Scale: 0-10 Numeric Is Patient Pain Free? Yes Yes No WC - Nurse 3 - General Ulcer D/C NN Start: 04/07/21 09:20 Freq: Status: Active Protocol: Activity Type Activity Date Activity User E-Sign Co-Sign Detail Recorded Client Recorded Date Recorded By Document 04/07/21 11:40 RB [id number] 04/07/21 11:42 RB Document 04/14/21 10:50 KR [id number] 04/14/21 10:52 KR Document 04/21/21 10:43 DL [id number] 04/21/21 10:46 DL 04/07/21 04/14/21 04/21/21 11:40 10:50 10:43 Wound Care Nurse 3 #4 right heel -Ulcer Cleansing Wound Cleanser -Primary Dressing Applied Fibracol Plus 4x4 -Other Dressing abd nurses hat -Primary Dressing Covered/Secured with Dry Gauze,Dry Gauze & Roll Gauze,Secured with Tape -Fibracol Plus 4x4 1 3. R trochanter -Ulcer Cleansing Rinsed/ Wound Cleanser Irrigated with Saline -Foul Odor after Cleansing No -Negative Pressure Wound Therapy Continue -Setting (mmHg) 125 -Negative Pressure is Continuous -Primary Dressing Applied Aquacel Extra,C Hydrogel ($), Mepilex Border -Other Dressing hydrogel santyl -Primary Dressing Covered/Secured with Dry Gauze, Secured with Tape -NPWT Application Charge ($) NPWT </= 50 sq cm -Aquacel Extra 1 -Mepilex Border 1 2. R buttocks -Primary Dressing Applied C Hydrogel ($), Mepilex Border -Other Dressing hydrogel -Primary Dressing Covered/Secured with Dry Gauze, Secured with Tape -Mepilex Border 1 1. L medial heel -Ulcer Cleansing Wound Cleanser -Other Dressing fibracol plus , abd -Primary Dressing Covered/Secured with Dry Gauze,Dry Gauze & Roll Gauze,Secured with Tape Treatment Response Procedure Tolerated Well Pain Scale: 0-10 Numeric Is Patient Pain Free? Yes Yes WC - Visit Discharge Discharge Condition Stable Stable Stable Ambulatory Status Wheelchair Wheelchair Wheelchair Transportation halfway Private Auto transport Accompanied by home health aid Medication Reconcilliation completed & No provided to patient/care provider Clinical Summary of Care Provided Yes Notes: Heel protectors , Facility Type [facility] Facility Orders Sent Yes Wound debrided: right buttock Laterality: Right Wound Grade/Stage: Stage II No debridement was completed: No debridement was completed today (healed) Additional Wound Wound debrided: right trochanter/hip Laterality: Right Wound Grade/Stage: Stage III Type of Debridement: Excisional debridement Anesthesia Used: 4% Lidocaine Solution and 5% Lidocaine Gel Depth: Down to and including healthy tissue and in the subcutaneous layer Percentage of wound debrided: 100 Instrument Used: 3mm curette Tissue Removed: Yellow slough, devitalized tissue Severity: Fat Layer Exposed Amount of bleeding with debridement: Mild Bleeding Controlled with: Compression and gauze Patient tolerated procedure: Patient tolerated procedure well Assessment/Plan Assessment/Plan (1) Down syndrome: CODE(S): Q90.9 - Down syndrome, unspecified (2) Hypothyroidism: CODE(S): E03.9 - Hypothyroidism, unspecified QUALIFIERS: Hypothyroidism type: unspecified Qualified Code(s): E03.9 - Hypothyroidism, unspecified (3) Dementia: CODE(S): F03.90 - Unspecified dementia without behavioral disturbance QUALIFIERS: Dementia type: unspecified type Dementia behavioral disturbance: without behavioral disturbance Qualified Code(s): F03.90 - Unspecified dementia without behavioral disturbance (4) Vitamin D deficiency: CODE(S): E55.9 - Vitamin D deficiency, unspecified (5) High cholesterol: CODE(S): E78.00 - Pure hypercholesterolemia, unspecified (6) Pressure ulcer of left heel, stage 2: CODE(S): L89.622 - Pressure ulcer of left heel, stage 2 (7) Pressure ulcer of right heel, stage 2: CODE(S): L89.612 - Pressure ulcer of right heel, stage 2 (8) Pressure ulcer of right hip, stage 3: CODE(S): L89.213 - Pressure ulcer of right hip, stage 3 (9) Pressure ulcer of right buttock, stage 2: CODE(S): L89.312 - Pressure ulcer of right buttock, stage 2 PLAN: Min's ulcers were evaluated and debrided today at the wound healing center. His right and left heels are healed. Right buttock ulcer is healed today. Right trochanter/hip was debrided and devitalized tissue and slough were removed but there has been no improvement in the ulcer. There continues to be heavy drainage. The etiology of his ulcers appears to be pressure which has occurred from recent changes in his mobility. Wound culture of his right hip was positive for infection with Staph aureus, morganella morganii and enterococcus Faecalis. He was started on Augmentin and is tolerating treatment. Snapvac wound vac was applied to his right hip today to help with heavy drainage and encourage granulation. The importance of offloading was stressed to his caregiver and they agreed to obtain a Roho or gel foam cushion for his wheelchair as well as heel protectors/foam booties. She also is going to discuss with his family regarding moving him to a higher acuity home where he would have the option of more skilled services. Stressed importance of increased protein intake and adequate nutrition in healing ulcers and wounds. Recommended continuing protein shakes at least once daily outside of meals. Labs reviewed and there are no significant abnormalities. Pre-albumin is low normal. Protein supplementation was encouraged. He has undergone arterial testing in 2012 and 2019 which did not show s ignificant arterial disease. His caregiver asked that we avoid doing them again unless necessary as it causes him extreme stress and discomfort. She was advised to contact the wound healing center if he develops any fever, chills, increased erythema, increased odor or drainage and agrees to update with any changes in status. He will return in 1 week for nurse visit to change snapvac and 2 weeks for follow up treatment and wound care.
== END 2021-04-26 23:59 ==
LOC: WC 09:45
PROVIDERS: PCP Internal Medicine; Referring Provider Physician Assistant; Visit Provider Family Medicine
DX: L89.622 Pressure ulcer of left heel, stage 2 (principal); L89.612 Pressure ulcer of right heel, stage 2; L89.213 Pressure ulcer of right hip, stage 3; L89.312 Pressure ulcer of right buttock, stage 2; F03.90 Unspecified dementia, unspecified severity, without behavioral disturbance, psychotic disturbance, mood disturbance, and anxiety; Q90.9 Down syndrome, unspecified; R15.9 Full incontinence of feces; R32 Unspecified urinary incontinence; E78.00 Pure hypercholesterolemia, unspecified; E03.9 Hypothyroidism, unspecified; E55.9 Vitamin D deficiency, unspecified; M10.9 Gout, unspecified; G47.9 Sleep disorder, unspecified; Z79.899 Other long term (current) drug therapy
CPT/HCPCS: 11042; 87070; 87075; 87077; 87186; 87205; 97605; 97607; 99213; G0463

== ENCOUNTER → 2021-05-08 11:51 | Outpatient (CLI) | payer MEDICARE, MEDICAID, SELFPAY ==
[2021-05-05 09:46] VITALS: BMI 23.1
[2021-05-08 13:51] LABS: Thyroid Stim Hormone (TSH) 3.25 uIU/mL (0.358-3.74)
[2021-05-08 15:43] LABS: Vitamin B12 1076 pg/mL (211-911)
[2021-05-11 16:13] LABS: Vitamin B1, Thiamine 207.4 nmol/L (66.5-200.0)
== END ==
PROVIDERS: Nurse Practitioner Family; PCP Internal Medicine; Referring Provider Psychiatry & Neurology Neurology; Visit Provider Psychiatry & Neurology Neurology
DX: E03.9 Hypothyroidism, unspecified (principal); F03.90 Unspecified dementia, unspecified severity, without behavioral disturbance, psychotic disturbance, mood disturbance, and anxiety
CPT/HCPCS: 36415; 82607; 82746; 84425; 84443

== ENCOUNTER 2021-05-19 10:30 | Outpatient (RCR) | payer MEDICARE, MEDICAID, SELFPAY ==
[2021-04-27 00:32] VITALS: BP 96/54; PULSE 82; RESP 18; TEMP 36.4
[2021-04-28 10:52] VITALS: RESP 18; TEMP 36.6; BMI 23.1
[2021-05-05 09:46] VITALS: BMI 23.1
--- NOTE | 2021-05-05 10:35 | PN.PCM_ITS ---
History of Present Illness Date of Service: 05/05/21 Chief Complaint: wounds of heels and right buttock/hip History of Wound: Min is a 70 yo gentleman that currently resides at [facility] who presents to the wound healing center for nonhealing ulcers of his heels, right buttock and right hip. 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 Min is nonverbal and unable to provide history himself. Argenis provided the details and history for the patient as well as chart review from his PCP. Over the last several months, Min has declined in his mobility and is now mostly sitting in a wheelchair or on the couch or chair at his home. He is unable to ambulate and also has stopped using the toilet over the last month and is more incontinent of stool and urine per Argenis. His right hip/trochanter ulcer has been present since November and started out as a red area and ultimately broke down and has been draining. They have been covering it with Duoderm and trying to offload his hip using pillows. The ulcers of his right buttock and his heels have been present since mid February. The ulcer of his right buttock occurred due to shearing force when trying to transfer/rotate him to take pressure off of his right hip. The ulcer of his left heel started as a blister and was incised by his trailer assembler but no further care was recommended. It has since improved somewhat with duoderm treatment. The right heel has a blood blister which is likely from pressure or friction. He currently has a low air loss mattress that he sleeps on but does not have an offloading cushion to sit on in his wheelchair or offloading/heel protectors for his feet. Nutrition is supplemented with protein shakes as well as regular meals. Argenis states that he eats pretty well and generally has a good appetite. Labs were completed on 04/11/2021 and showed a low normal pre-albumin and otherwise unremarkable labs. Wound culture from 04/07/2021 showed several bacteria to be present and he was started on Augmentin for treatment. He has not shown any signs of systemic infection. Unable to obtain ROS. Progress of Wound: Min is here today for follow up of treatment of right hip u lcer. His heel ulcers remain healed after treatment with foam booties and Promogran dressings. His right buttock ulcer remains healed. His right hip ulcer is not much improved from previous and does not show granulation at the base. He tolerated treatment with SnapVac but it did lose suction on Saturday and was left on overnight. He has increased erythema. and slight odor. Denies fever or chills. Objective Data Objective Data Vital Signs: Vital Signs Temp Pulse Resp BP 97.8 F 82 18 96/54 L 04/28/21 10:52 04/27/21 00:32 04/28/21 10:52 04/27/21 00:32 Weight: 50.126 kg Body Mass Index (BMI) 23.1 Physical Exam Const alert and no apparent distress General Appearance: uncooperative HEENT normocephalic and head/scalp atraumatic Resp normal respiratory effort Skin Wounds: wounds noted surrounding erythema Wound Narrative: as in clinical panel Neuro oriented x3 Debridement Note Debridement Note Post-Debridement Measurements and Additional Note: Post-Debridement Measurements/Treatment - Nurse 1 - General Ulcer Assessment Start: 04/28/21 10:52 Freq: Status: Active Protocol: WC.LOWEXT Activity Type Activity Date Activity User E-Sign Co-Sign Detail Recorded Client Recorded Date Recorded By Document 04/28/21 10:52 [id number] 04/28/21 10:55 RB Document 05/05/21 09:46 [id number] 05/05/21 09:52 RB 04/28/21 05/05/21 10:52 09:46 - Today's Visit Information Type of service Nurse-only Visit Arrival Mode Wheelchair Transfer Assistance None Patient Identification Verified (Name & Yes ) Patient Requires Transmission-Based No Precautions Height and Weight Body Mass Index (BMI) 23.1 23.1 BMI Classification Normal Normal Vital Signs Temperature (97.8 F-99.1 F) 97.8 F Temperature Source Temporal Respiratory Rate (12-18) 18 Respiratory rate source Observation History Since Last Visit- (Skip if this is Patient's initial visit) Have you changed medications since your No last visit? Any new allergies or adverse reactions No Had a fall/change in ADL's that may No increase risk of falls Signs or symptoms of abuse and/or No neglect since last visit Have you been in the hospital since your No last visit? Has dressing in place as prescribed Yes Has compression in place as prescribed No Has offloadiing in place as prescribed No Experienced any changes in pain level or No management - Nurse 1 - General Ulcer Measurement Start: 04/28/21 10:52 Freq: Status: Active Protocol: Activity Type Activity Date Activity User E-Sign Co-Sign Detail Recorded Client Recorded Date Recorded By Document 04/28/21 10:52 RB [id number] 04/28/21 10:55 RB Document 05/05/21 09:46 RB [id number] 05/05/21 09:52 RB 04/28/21 05/05/21 10:52 09:46 Wound Center Nurse 1 3. R trochanter -Combined with other wound No -Current Size (cm) - Length 0.7 -Current Size (cm) - Width 0.8 -Current Size (cm) - Depth 1.2 -Total Square Cm 0.56 -Tunneling No No -Undermining/Tunneling No No -Circular Undermining No No -Exudate Amt Large Medium -Exudate Type Serosanguineous Serosanguineous -Wound Margin Distinct, Thickened & Outline Rolled Under Attached -Granulation Amt Medium (34-66%) Medium (34-66%) -Granulation Quality [place] -Slough/Fibrin Yes Yes -Necrosis Amt Medium (34-66%) Small (1-33%) -Necrotic Tissue Type Adherent Slough Adherent Slough -Structure Exposed N/A N/A -Texture (Yeimy-wound Skin Appearance) Assessed Assessed -Moisture (Yeimy-wound Skin Appearance) Assessed Assessed -Color (Yeimy-wound Skin Appearance) Erythema Assessed, Erythema -Temperature (Yeimy-wound Skin No Abnormality No Abnormality Appearance) (Pt Warm) (Pt Warm) -Tenderness on Palpation (Yeimy-wound No No Skin Appearance) -Ulcer Cleansing Wound Cleanser Wound Cleanser -Foul Odor after Cleansing No No -Anesthetic Used 4% Lidocaine Solution - Nurse 2 - General Ulcer CM Notes Start: 04/28/21 10:52 Freq: Status: Active Protocol: Activity Type Activity Date Activity User E-Sign Co-Sign Detail Recorded Client Recorded Date Recorded By Document 05/05/21 10:13 MW [id number] 05/05/21 10:14 MW 05/05/21 10:13 Wound Center Nurse 2 -Time 10:13 -Correct Patient Yes -Correct Side, Site, Position Yes -Correct Procedure Yes -Procedure Performed Yes -Type of Procedure Debridement -Clinical Debridement Subcutaneous -Tissue Removed Subcutaneous -Post Debridement (cm) - Length 0.7 -Post Debridement (cm) - Width 0.7 -Post Debridement (cm) - Depth 1.5 -Total Square (Post) (cm) 0.49 -Area of Debridement (cm) - Length 0.7 -Area of Debridement (cm) - Width 0.7 -Total Square (Area) (cm) 0.49 -Tunneling No -Undermining/Tunneling No -Circular Undermining Yes -Wound/Ulcer Outcome Not Healed -Ulcer Cleansing Rinsed/ Irrigated with Saline -Foul Odor after Cleansing No -Bioengineered Tissue No -Bleeding Controlled with Pressure -Offloading No -Treatment Response Procedure Tolerated Well -Debridement - Subq, 1st 20sq cm Yes Pain Scale: 0-10 Numeric Is Patient Pain Free? Yes WC - Nurse 3 - General Ulcer D/C NN Start: 04/28/21 10:52 Freq: Status: Active Protocol: Activity Type Activity Date Activity User E-Sign Co-Sign Detail Recorded Client Recorded Date Recorded By Document 04/28/21 10:52 RB [id number] 04/28/21 10:55 RB Document 05/05/21 10:19 RB [id number] 05/05/21 10:19 RB 04/28/21 05/05/21 10:52 10:19 Vital Signs Temperature (97.8 F-99.1 F) 97.8 F Temperature Source Temporal Respiratory Rate (12-18) 18 Respiratory rate source Observation Pain Scale: 0-10 Numeric Is Patient Pain Free? Yes Wound Care Nurse 3 3. R trochanter -Ulcer Cleansing Wound Cleanser -Negative Pressure Wound Therapy Continue -Setting (mmHg) 125 -Negative Pressure is Continuous -Other Dressing SANTYL -NPWT Application Charge ($) NPWT </= 50 sq NPWT </= 50 sq cm (disp) cm (disp) Treatment Response Procedure Procedure Tolerated Well Tolerated Well WC - Visit Discharge Discharge Condition Stable Stable Ambulatory Status Wheelchair Wheelchair Transportation Private Auto Private Auto Medication Reconcilliation completed & No No provided to patient/care provider Clinical Summary of Care Provided Yes Yes Notes: pt agitated and yelling out . B/P mot taken this visit due to pt agitation Assessment/Plan Assessment/Plan (1) Pressure ulcer of right hip, stage 3: CODE(S): L89.213 - Pressure ulcer of right hip, stage 3 (2) Dementia: CODE(S): F03.90 - Unspecified dementia without behavioral disturbance QUALIFIERS: Dementia behavioral disturbance: without behavioral disturbance Dementia type: unspecified type Qualified Code(s): F03.90 - Unspecified dementia without behavioral disturbance (3) Down syndrome: CODE(S): Q90.9 - Down syndrome, unspecified PLAN: Min's ulcers were evaluated and debrided today at the wound healing center. His right and left heels are healed. Right buttock ulcer is healed. Right trochanter/hip was debrided and devitalized tissue and slough were removed but there has been no improvement in the ulcer. There continues to be heavy drai nage and now odor. Wound culture was taken today and he was started back on Augmentin until results return and may need adjustment of treatment based on the results. The etiology of his ulcers appears to be pressure which has occurred from recent changes in his mobility. Wound culture of his right hip on 04/07/21 was positive for infection with Staph aureus, morganella morganii and enterococcus Faecalis. He has completed Augmentin for this infection. Snapvac wound vac was applied again to his right hip today to help with heavy drainage and encourage granulation. The importance of offloading was stressed to his caregiver and they agreed to obtain a Roho or gel foam cushion for his wheelchair as well as heel protectors/foam booties. She also is going to discuss with his family regarding moving him to a higher acuity home where he would have the option of more skilled services. Stressed importance of increased protein intake and adequate nutrition in healing ulcers and wounds. Recommended continuing protein shakes at least once daily outside of meals. Labs reviewed and there are no significant abnormalities. Pre-albumin is low normal. Protein supplementation was encouraged. He has undergone arterial testing in 2012 and 2019 which did not show significant arterial disease. His caregiver asked that we avoid doing them again unless necessary as it causes him extreme stress and discomfort. She was advised to contact the wound healing center if he develops any fever, chills, increased erythema, increased odor or drainage and agrees to update with any changes in status. He will return in 1 week to change snapvac and for follow up treatment and wound care.
[2021-05-12 10:05] VITALS: TEMP 35.6; BMI 23.1
--- NOTE | 2021-05-12 12:50 | PN.PCM_ITS ---
History of Present Illness Date of Service: 05/12/21 Chief Complaint: wounds of heels and right buttock/hip History of Wound: Min is a 70 yo gentleman that currently resides at [facility] care home who presents to the wound healing center for nonhealing ulcers of his heels, right buttock and right hip. He has been referred here for treatment by his PCP's office and is accompanied by Argenis, the nurse commercial relationship manager for the care home that he resides. Min is nonverbal and unable to provide history himself. Argenis provided the details and history for the patient as well as chart review from his PCP. Over the last several months, Min has declined in his mobility and is now mostly sitting in a wheelchair or on the couch or chair at his home. He is unable to ambulate and also has stopped using the toilet over the last month and is more incontinent of stool and urine per Argenis. His right hip/trochanter ulcer has been present since November and started out as a red area and ultimately broke down and has been draining. They have been covering it with Duoderm and trying to offload his hip using pillows. The ulcers of his right buttock and his heels have been present since mid February. The ulcer of his right buttock occurred due to shearing force when trying to transfer/rotate him to take pressure off of his right hip. The ulcer of his left heel started as a blister and was incised by his sleeping car porter but no further care was recommended. It has since improved somewhat with duoderm treatment. The right heel has a blood blister which is likely from pressure or friction. He currently has a low air loss mattress that he sleeps on but does not have an offloading cushion to sit on in his wheelchair or offloading/heel protectors for his feet. Nutrition is supplemented with protein shakes as well as regular meals. Argenis states that he eats pretty well and generally has a good appetite. Labs were completed on 04/11/2021 and showed a low normal pre-albumin and otherwise unremarkable labs. Wound culture from 04/07/2021 showed several bacteria to be present and he was started on Augmentin for treatment. He has not shown any signs of systemic infection. Unable to obtain ROS. Progress of Wound: Min is here today for follow up of treatment of right hip u lcer. His heel ulcers remain healed after treatment with foam booties and Promogran dressings. His right buttock ulcer remains healed. His right hip ulcer is worse. He tolerated treatment with SnapVac but it did lose suction on Saturday and he has been receiving dressings with Aquacel AG rope. He is tolerating Augmentin. His wound culture was positive for Staph aureus and Enterococcus. He has less erythema today. Denies fever or chills. Objective Data Objective Data Vital Signs: Vital Signs Temp Pulse Resp BP 96.0 F L 82 18 96/54 L 05/12/21 10:05 04/27/21 00:32 04/28/21 10:52 04/27/21 00:32 Weight: 50.126 kg Body Mass Index (BMI) 23.1 Lab / Micro Data Micro: Microbiology 05/05/21 10:10 Wound Abcess - Trochanter Gram Stain - Final 05/05/21 10:10 Wound Abcess - Trochanter Wound Culture - Final Staphylococcus aureus Enterococcus faecalis 05/05/21 10:10 Wound Abcess - Trochanter Anaerobic Culture - Final No anaerobic bacteria isolated. Physical Exam Const alert and no apparent distress General Appearance: uncooperative HEENT normocephalic and head/scalp atraumatic Resp normal respiratory effort Skin Wounds: wounds noted surrounding erythema Wound Narrative: as in clinical panel Neuro oriented x3 Debridement Note Debridement Note Post-Debridement Measurements and Additional Note: Post-Debridement Measurements/Treatment - Nurse 1 - General Ulcer Assessment Start: 04/28/21 10:52 Freq: Status: Active Protocol: .YOLIE Activity Type Activity Date Activity User E-Sign Co-Sign Detail Recorded Client Recorded Date Recorded By Document 04/28/21 10:52 RB [id number] 04/28/21 10:55 RB Document 05/05/21 09:46 RB [id number] 05/05/21 09:52 RB Document 05/12/21 10:05 MARIAM [id number] 05/12/21 10:07 KR 04/28/21 05/05/21 05/12/21 10:52 09:46 10:05 - Today's Visit Information Type of service Nurse-only Follow-up Visit Visit (Physician/INSTALLER TECHNICIAN ) Arrival Mode Wheelchair Wheelchair Transfer Assistance None Patient Identification Verified (Name & Yes Yes ) Patient Requires Transmission-Based No Precautions Height and Weight Body Mass Index (BMI) 23.1 23.1 23.1 BMI Classification Normal Normal Normal Vital Signs Temperature (97.8 F-99.1 F) 97.8 F 96.0 F L Temperature Source Temporal Temporal Respiratory Rate (12-18) 18 Respiratory rate source Observation History Since Last Visit- (Skip if this is Patient's initial visit) Have you changed medications since your No No last visit? Any new allergies or adverse reactions No No Had a fall/change in ADL's that may No No increase risk of falls Signs or symptoms of abuse and/or No No neglect since last visit Have you been in the hospital since your No No last visit? Has dressing in place as prescribed Yes Yes Has compression in place as prescribed No N/A Has offloadiing in place as prescribed No N/A Experienced any changes in pain level or No No management Left Footwear Regular Shoe Right Footwear Regular Shoe Pain Scale: 0-10 Numeric Is Patient Pain Free? Yes WC - Nurse 1 - General Ulcer Measurement Start: 04/28/21 10:52 Freq: Status: Active Protocol: Activity Type Activity Date Activity User E-Sign Co-Sign Detail Recorded Client Recorded Date Recorded By Document 04/28/21 10:52 RB [id number] 04/28/21 10:55 RB Document 05/05/21 09:46 RB [id number] 05/05/21 09:52 RB Document 05/12/21 10:05 KR [id number] 05/12/21 10:07 KR 04/28/21 05/05/21 05/12/21 10:52 09:46 10:05 Wound Center Nurse 1 3. R trochanter -Combined with other wound No -Current Size (cm) - Length 0.7 0.1 -Current Size (cm) - Width 0.8 0.1 -Current Size (cm) - Depth 1.2 0.1 -Total Square Cm 0.56 0.01 -Tunneling No No -Undermining/Tunneling No No -Circular Undermining No No -Exudate Amt Large Medium Small -Exudate Type Serosanguineous Serosanguineous Serosanguineous -Wound Margin Distinct, Thickened & Distinct, Outline Rolled Under Outline Attached Attached -Granulation Amt Medium (34-66%) Medium (34-66%) Small (1-33%) -Granulation Quality George Mason,Red George Mason Red -Slough/Fibrin Yes Yes -Necrosis Amt Medium (34-66%) Small (1-33%) Small (1-33%) -Necrotic Tissue Type Adherent Slough Adherent Slough Adherent Slough -Structure Exposed N/A N/A -Texture (Yeimy-wound Skin Appearance) Assessed Assessed Assessed, Scarring -Moisture (Yeimy-wound Skin Appearance) Assessed Assessed No Abnormality, Assessed -Color (Yeimy-wound Skin Appearance) Erythema Assessed, No Abnormality, Erythema Assessed -Temperature (Yeimy-wound Skin No Abnormality No Abnormality No Abnormality Appearance) (Pt Warm) (Pt Warm) (Pt Warm) -Tenderness on Palpation (Yeimy-wound No No No Skin Appearance) -Ulcer Cleansing Wound Cleanser Wound Cleanser Rinsed/ Irrigated with Saline -Foul Odor after Cleansing No No No -Anesthetic Used 4% Lidocaine 4% Lidocaine Solution Solution WC - Nurse 2 - General Ulcer CM Notes Start: 04/28/21 10:52 Freq: Status: Active Protocol: Activity Type Activity Date Activity User E-Sign Co-Sign Detail Recorded Client Recorded Date Recorded By Document 05/05/21 10:13 MW [id number] 05/05/21 10:14 MW Document 05/12/21 10:25 MW [id number] 05/12/21 10:35 MW 05/05/21 05/12/21 10:13 10:25 Wound Center Nurse 2 3. R trochanter -Time 10:13 10:27 -Correct Patient Yes Yes -Correct Side, Site, Position Yes Yes -Correct Procedure Yes Yes -Procedure Performed Yes Yes -Type of Procedure Debridement Debridement -Clinical Debridement Subcutaneous Subcutaneous -Tissue Removed Subcutaneous Subcutaneous -Post Debridement (cm) - Length 0.7 1.0 -Post Debridement (cm) - Width 0.7 1.3 -Post Debridement (cm) - Depth 1.5 1.7 -Total Square (Post) (cm) 0.49 1.30 -Area of Debridement (cm) - Length 0.7 1.0 -Area of Debridement (cm) - Width 0.7 1.3 -Total Square (Area) (cm) 0.49 1.30 -Tunneling No No -Undermining/Tunneling No No -Undermining/Tunneling Starts #2 (O' 8 clock) -Undermining/Tunneling Ends #2 (O' 3 clock) -Maximum Distance #2 (cm) 1.7 -Circular Undermining Yes No -Wound/Ulcer Outcome Not Healed Not Healed -Ulcer Cleansing Rinsed/ Rinsed/ Irrigated with Irrigated with Saline Saline -Foul Odor after Cleansing No No -Bioengineered Tissue No No -Bleeding Controlled with Pressure Pressure -Offloading No No -Treatment Response Procedure Procedure Tolerated Well Tolerated Well -Debridement - Subq, 1st 20sq cm Yes Yes Pain Scale: 0-10 Numeric Is Patient Pain Free? Yes Yes - Nurse 3 - General Ulcer D/C NN Start: 04/28/21 10:52 Freq: Status: Active Protocol: Activity Type Activity Date Activity User E-Sign Co-Sign Detail Recorded Client Recorded Date Recorded By Document 04/28/21 10:52 RB [id number] 04/28/21 10:55 RB Document 05/05/21 10:19 RB [id number] 05/05/21 10:19 RB Document 05/12/21 10:35 MW [id number] 05/12/21 10:36 MW Edit Result 05/12/21 10:35 MW (1) [id number] 05/12/21 10:38 MW (1) 3. R trochanter - Aquacel AG 4x4 1 => 3 04/28/21 05/05/21 05/12/21 10:52 10:19 10:35 Vital Signs Temperature (97.8 F-99.1 F) 97.8 F Temperature Source Temporal Respiratory Rate (12-18) 18 Respiratory rate source Observation Pain Scale: 0-10 Numeric Is Patient Pain Free? Yes Yes Teaching: Wound Center Dressing Your Wound -Person Taught Patient -Teaching Method Discussion -Response to teaching Verbalize understanding Wound Care Nurse 3 3. R trochanter -Ulcer Cleansing Wound Cleanser Rinsed/ Irrigated with Saline -Foul Odor after Cleansing No -Negative Pressure Wound Therapy Continue N/A -Setting (mmHg) 125 -Negative Pressure is Continuous -Primary Dressing Applied Aquacel AG 4x4, Mepilex Border -Other Dressing SANTYL -NPWT Application Charge ($) NPWT </= 50 sq NPWT </= 50 sq cm (disp) cm (disp) -Aquacel AG 4x4 3 -Mepilex Border 1 Treatment Response Procedure Procedure Procedure Tolerated Well Tolerated Well Tolerated Well WC - Visit Discharge Discharge Condition Stable Stable Stable Ambulatory Status Wheelchair Wheelchair Wheelchair Transportation Private Auto Private Auto Private Auto Accompanied by caregiver Medication Reconcilliation completed & No No No provided to patient/care provider Clinical Summary of Care Provided Yes Yes Yes Notes: pt agitated and yelling out . B/P mot taken this visit due to pt agitation Wound debrided: right trochanter Laterality: Right Wound Grade/Stage: Stage III Type of Debridement: Excisional debridement Anesthesia Used: 4% Lidocaine Solution Depth: Down to and including healthy tissue and in the subcutaneous layer Percentage of wound debrided: 100 Instrument Used: 3mm curette Tissue Removed: Yellow slough, devitalized tissue Severity: Fat Layer Exposed Amount of bleeding with debridement: Mild Bleeding Controlled with: Compression and gauze Patient tolerated procedure: Patient tolerated procedure well Assessment/Plan Assessment/Plan (1) Pressure ulcer of right hip, stage 3: CODE(S): L89.213 - Pressure ulcer of right hip, stage 3 (2) Dementia: CODE(S): F03.90 - Unspecified dementia without behavioral disturbance QUALIFIERS: Dementia behavioral disturbance: without behavioral disturbance Dementia type: unspecified type Qualified Code(s): F03.90 - Unspecified dementia without behavioral disturbance (3) Down syndrome: CODE(S): Q90.9 - Down syndrome, unspecified PLAN: Min's ulcers were evaluated and debrided today at the wound healing center. His right and left heels remain healed. Right buttock ulcer remains healed. Right trochanter/hip was debrided and devitalized tissue and slough were removed but there has been no improvement in the ulcer. It appears deeper and more undermining. There continues to be heavy drainage and Snapvac has not been effective due to loss of suction. The etiology of his ulcers appears to be pressure which has occurred from recent changes in his mobility. Wound culture of his right hip on 04/07/21 was positive for infection with Staph aureus, morganella morganii and enterococcus Faecalis. He completed Augmentin. Wound culture 05/05/21 was positive for Staph and Enterococcus. He is tolerating treatment with Augmentin and there is improvement in erythema and odor. Due to the heavy drainage and depth of his ulcer, he would benefit and it is medically necessary for treatment with a wound vac in order to manage the heavy drainage and encourage granulation of his ulcer. Snapvac was unable to provide adequate and reliable suction and therefore we are seeking approval through his insurance for a traditional wound vac to heal his ulcer. Would plan on using white foam and suction at 150 mmHg with changes 2-3 times/week. Until wound vac approval and device is received, will dress his ulcer with Aquacel Ag rope packed into the ulcer with changes once daily, covered with optifoam. The importance of offloading was stressed to his caregiver and they agreed to obtain a Roho or gel foam cushion for his wheelchair as well as heel protectors/foam booties. She also is going to discuss with his family regarding moving him to a higher acuity home where he would have the option of more skilled services. Stressed importance of increased protein intake and adequate nutrition in healing ulcers and wounds. Recommended continuing protein shakes at least once daily outside of meals. Labs reviewed and there are no significant abnormalities. Pre-albumin is low normal. Protein supplementation was encouraged. He has undergone arterial testing in 2012 and 2019 which did not show significant arterial disease. His caregiver asked that we avoid doing them again unless necessary as it causes him extreme stress and discomfort. She was advised to contact the wound healing center if he develops any fever, chills, increased erythema, increased odor or drainage and agrees to update with any changes in status. He will return in 1 week for follow up treatment and wound care.
[2021-05-19 10:38] VITALS: TEMP 36; BMI 23.1
--- NOTE | 2021-05-19 12:16 | PCM.WC.PN ---
History of Present Illness Date of Service: 05/19/21 Chief Complaint: wounds of heels and right buttock/hip History of Wound: Min is a 70 yo gentleman that currently resides at [facility] retirement who presents to the wound healing center for nonhealing ulcers of his heels, right buttock and right hip. He has been referred here for treatment by his PCP's office and is accompanied by Argenis, the nurse it application development manager for the retirement that he resides. Min is nonverbal and unable to provide history himself. Argenis provided the details and history for the patient as well as chart review from his PCP. Over the last several months, Min has declined in his mobility and is now mostly sitting in a wheelchair or on the couch or chair at his home. He is unable to ambulate and also has stopped using the toilet over the last month and is more incontinent of stool and urine per Argenis. His right hip/trochanter ulcer has been present since November and started out as a red area and ultimately broke down and has been draining. They have been covering it with Duoderm and trying to offload his hip using pillows. The ulcers of his right buttock and his heels have been present since mid February. The ulcer of his right buttock occurred due to shearing force when trying to transfer/rotate him to take pressure off of his right hip. The ulcer of his left heel started as a blister and was incised by his fence installer foreman but no further care was recommended. It has since improved somewhat with duoderm treatment. The right heel has a blood blister which is likely from pressure or friction. He currently has a low air loss mattress that he sleeps on but does not have an offloading cushion to sit on in his wheelchair or offloading/heel protectors for his feet. Nutrition is supplemented with protein shakes as well as regular meals. Argenis states that he eats pretty well and generally has a good appetite. Labs were completed on 04/11/2021 and showed a low normal pre-albumin and otherwise unremarkable labs. Wound culture from 04/07/2021 showed several bacteria to be present and he was started on Augmentin for treatment. He has not shown any signs of systemic infection. Unable to obtain ROS. Progress of Wound: Min is here today for follow up of treatment of right hip ulcer. His heel ulcers remain healed after treatment with foam booties and Promogran dressings. His right buttock ulcer remains healed. His right hip ulcer is stable. They have been packing his ulcer with Aquacel rope after placing Santyl at the base of the wound with a cotton swab. He has less erythema today and there has been a little less drainage but still heavy drainage. Denies fever or chills. Objective Data Objective Data Vital Signs: Vital Signs Temp Pulse Resp BP 96.8 F L 82 18 96/54 L 05/19/21 10:38 04/27/21 00:32 04/28/21 10:52 04/27/21 00:32 Weight: 50.126 kg Body Mass Index (BMI) 23.1 Lab / Micro Data Micro: Microbiology 05/05/21 10:10 Wound Abcess - Trochanter Gram Stain - Final 05/05/21 10:10 Wound Abcess - Trochanter Wound Culture - Final Staphylococcus aureus Enterococcus faecalis 05/05/21 10:10 Wound Abcess - Trochanter Anaerobic Culture - Final No anaerobic bacteria isolated. Physical Exam Const alert and no apparent distress General Appearance: uncooperative HEENT normocephalic and head/scalp atraumatic Resp normal respiratory effort Skin Wounds: wounds noted surrounding erythema Wound Narrative: as in clinical panel Neuro oriented x3 Debridement Note Debridement Note Post-Debridement Measurements and Additional Note: Post-Debridement Measurements/Treatment - Nurse 1 - General Ulcer Assessment Start: 04/28/21 10:52 Freq: Status: Active Protocol: WC.LOWRACHEL Activity Type Activity Date Activity User E-Sign Co-Sign Detail Recorded Client Recorded Date Recorded By Document 04/28/21 10:52 RB [id number] 04/28/21 10:55 RB Document 05/05/21 09:46 RB [id number] 05/05/21 09:52 RB Document 05/12/21 10:05 KR [id number] 05/12/21 10:07 KR Document 05/19/21 10:38 DL [id number] 05/19/21 10:42 DL 04/28/21 05/05/21 05/12/21 10:52 09:46 10:05 - Today's Visit Information Type of service Nurse-only Follow-up Visit Visit (Physician/MANAGER TECHNICAL ) Arrival Mode Wheelchair Wheelchair Transfer Assistance None Transfer Assist (Other) Patient Identification Verified (Name & Yes Yes ) Patient Requires Transmission-Based No Precautions Height and Weight Body Mass Index (BMI) 23.1 23.1 23.1 BMI Classification Normal Normal Normal Vital Signs Temperature (97.8 F-99.1 F) 97.8 F 96.0 F L Temperature Source Temporal Temporal Respiratory Rate (12-18) 18 Respiratory rate source Observation Comment History Since Last Visit- (Skip if this is Patient's initial visit) Have you changed medications since your No No last visit? Any new allergies or adverse reactions No No Had a fall/change in ADL's that may No No increase risk of falls Signs or symptoms of abuse and/or No No neglect since last visit Have you been in the hospital since your No No last visit? Has dressing in place as prescribed Yes Yes Has compression in place as prescribed No N/A Has offloadiing in place as prescribed No N/A Experienced any changes in pain level or No No management Left Footwear Regular Shoe Right Footwear Regular Shoe Pain Scale: 0-10 Numeric Is Patient Pain Free? Yes 05/19/21 10:38 WC - Today's Visit Information Type of service Follow-up Visit (Physician/MANAGER TECHNICAL ) Arrival Mode Stretcher Transfer Assistance Manual Transfer Assist (Other) x1 Patient Identification Verified (Name & Yes ) Patient Requires Transmission-Based No Precautions Height and Weight Body Mass Index (BMI) 23.1 BMI Classification Normal Vital Signs Temperature (97.8 F-99.1 F) 96.8 F L Temperature Source Temporal Respiratory Rate (12-18) Respiratory rate source Comment Unable to get VS D/T behavior issues History Since Last Visit- (Skip if this is Patient's initial visit) Have you changed medications since your No last visit? Any new allergies or adverse reactions No Had a fall/change in ADL's that may No increase risk of falls Signs or symptoms of abuse and/or No neglect since last visit Have you been in the hospital since your last visit? Has dressing in place as prescribed Yes Has compression in place as prescribed N/A Has offloadiing in place as prescribed Yes Experienced any changes in pain level or No management Left Footwear Right Footwear Pain Scale: 0-10 Numeric Is Patient Pain Free? Yes - Nurse 1 - General Ulcer Measurement Start: 04/28/21 10:52 Freq: Status: Active Protocol: Activity Type Activity Date Activity User E-Sign Co-Sign Detail Recorded Client Recorded Date Recorded By Document 04/28/21 10:52 RB [id number] 04/28/21 10:55 RB Document 05/05/21 09:46 RB [id number] 05/05/21 09:52 RB Document 05/12/21 10:05 KR [id number] 05/12/21 10:07 KR Document 05/19/21 10:38 DL [id number] 05/19/21 10:42 DL 04/28/21 05/05/21 05/12/21 10:52 09:46 10:05 Wound Center Nurse 1 3. R trochanter -Combined with other wound No -Current Size (cm) - Length 0.7 0.1 -Current Size (cm) - Width 0.8 0.1 -Current Size (cm) - Depth 1.2 0.1 -Total Square Cm 0.56 0.01 -Photo Taken -Tunneling No No -Undermining/Tunneling No No -Circular Undermining No No -Exudate Amt Large Medium Small -Exudate Type Serosanguineous Serosanguineous Serosanguineous -Wound Margin Distinct, Thickened & Distinct, Outline Rolled Under Outline Attached Attached -Granulation Amt Medium (34-66%) Medium (34-66%) Small (1-33%) -Granulation Quality Aynor,Red Aynor Red -Slough/Fibrin Yes Yes -Necrosis Amt Medium (34-66%) Small (1-33%) Small (1-33%) -Necrotic Tissue Type Adherent Slough Adherent Slough Adherent Slough -Structure Exposed N/A N/A -Texture (Yeimy-wound Skin Appearance) Assessed Assessed Assessed, Scarring -Moisture (Yeimy-wound Skin Appearance) Assessed Assessed No Abnormality, Assessed -Color (Yeimy-wound Skin Appearance) Erythema Assessed, No Abnormality, Erythema Assessed -Temperature (Yeimy-wound Skin No Abnormality No Abnormality No Abnormality Appearance) (Pt Warm) (Pt Warm) (Pt Warm) -Tenderness on Palpation (Yeimy-wound No No No Skin Appearance) -Ulcer Cleansing Wound Cleanser Wound Cleanser Rinsed/ Irrigated with Saline -Foul Odor after Cleansing No No No -Anesthetic Used 4% Lidocaine 4% Lidocaine Solution Solution 05/19/21 10:38 Wound Center Nurse 1 3. R trochanter -Combined with other wound -Current Size (cm) - Length 0.1 -Current Size (cm) - Width 0.1 -Current Size (cm) - Depth 0.1 -Total Square Cm 0.01 -Photo Taken No -Tunneling -Undermining/Tunneling -Circular Undermining -Exudate Amt Medium -Exudate Type Serosanguineous -Wound Margin Distinct, Outline Attached -Granulation Amt -Granulation Quality -Slough/Fibrin -Necrosis Amt -Necrotic Tissue Type -Structure Exposed N/A -Texture (Yeimy-wound Skin Appearance) Scarring -Moisture (Yeimy-wound Skin Appearance) -Color (Yeimy-wound Skin Appearance) -Temperature (Yeimy-wound Skin No Abnormality Appearance) (Pt Warm) -Tenderness on Palpation (Yeimy-wound No Skin Appearance) -Ulcer Cleansing Wound Cleanser -Foul Odor after Cleansing No -Anesthetic Used 4% Lidocaine Solution WC - Nurse 2 - General Ulcer CM Notes Start: 04/28/21 10:52 Freq: Status: Active Protocol: Activity Type Activity Date Activity User E-Sign Co-Sign Detail Recorded Client Recorded Date Recorded By Document 05/05/21 10:13 MW [id number] 05/05/21 10:14 MW Document 05/12/21 10:25 MW [id number] 05/12/21 10:35 MW Document 05/19/21 11:14 MW [id number] 05/19/21 11:19 MW 05/05/21 05/12/21 05/19/21 10:13 10:25 11:14 Wound Center Nurse 2 3. R trochanter -Time 10:13 10:27 11:15 -Correct Patient Yes Yes Yes -Correct Side, Site, Position Yes Yes Yes -Correct Procedure Yes Yes Yes -Procedure Performed Yes Yes Yes -Type of Procedure Debridement Debridement Debridement -Clinical Debridement Subcutaneous Subcutaneous Subcutaneous -Tissue Removed Subcutaneous Subcutaneous Subcutaneous -Post Debridement (cm) - Length 0.7 1.0 0.8 -Post Debridement (cm) - Width 0.7 1.3 0.9 -Post Debridement (cm) - Depth 1.5 1.7 2.3 -Total Square (Post) (cm) 0.49 1.30 0.72 -Area of Debridement (cm) - Length 0.7 1.0 0.8 -Area of Debridement (cm) - Width 0.7 1.3 0.9 -Total Square (Area) (cm) 0.49 1.30 0.72 -Tunneling No No No -Undermining/Tunneling No No Yes -Undermining/Tunneling Starts (O'clock 8 ) -Undermining/Tunneling Ends (O'clock) 3 -Maximum Distance (cm) 0.9 -Undermining/Tunneling Starts #2 (O' 8 clock) -Undermining/Tunneling Ends #2 (O' 3 clock) -Maximum Distance #2 (cm) 1.7 -Circular Undermining Yes No No -Wound/Ulcer Outcome Not Healed Not Healed Not Healed -Ulcer Cleansing Rinsed/ Rinsed/ Rinsed/ Irrigated with Irrigated with Irrigated with Saline Saline Saline -Foul Odor after Cleansing No No No -Bioengineered Tissue No No No -Bleeding Controlled with Pressure Pressure Pressure -Offloading No No No -Treatment Response Procedure Procedure Procedure Tolerated Well Tolerated Well Tolerated Well -Debridement - Subq, 1st 20sq cm Yes Yes Yes Pain Scale: 0-10 Numeric Is Patient Pain Free? Yes Yes Yes WC - Nurse 3 - General Ulcer D/C NN Start: 04/28/21 10:52 Freq: Status: Active Protocol: Activity Type Activity Date Activity User E-Sign Co-Sign Detail Recorded Client Recorded Date Recorded By Document 04/28/21 10:52 RB [id number] 04/28/21 10:55 RB Document 05/05/21 10:19 RB [id number] 05/05/21 10:19 RB Document 05/12/21 10:35 MW [id number] 05/12/21 10:36 MW Edit Result 05/12/21 10:35 MW (1) [id number] 05/12/21 10:38 MW Document 05/19/21 11:23 MW [id number] 05/19/21 11:24 MW (1) 3. R trochanter - Aquacel AG 4x4 1 => 3 04/28/21 05/05/21 05/12/21 10:52 10:19 10:35 Vital Signs Temperature (97.8 F-99.1 F) 97.8 F Temperature Source Temporal Respiratory Rate (12-18) 18 Respiratory rate source Observation Pain Scale: 0-10 Numeric Is Patient Pain Free? Yes Yes Teaching: Wound Center Dressing Your Wound -Person Taught Patient -Teaching Method Discussion -Response to teaching Verbalize understanding Wound Care Nurse 3 3. R trochanter -Ulcer Cleansing Wound Cleanser Rinsed/ Irrigated with Saline -Foul Odor after Cleansing No -Negative Pressure Wound Therapy Continue N/A -Setting (mmHg) 125 -Negative Pressure is Continuous -Primary Dressing Applied Aquacel AG 4x4, Mepilex Border -Other Dressing SANTYL -Other Covering -NPWT Application Charge ($) NPWT </= 50 sq NPWT </= 50 sq cm (disp) cm (disp) -Aquacel AG 4x4 3 -Mepilex Border 1 Treatment Response Procedure Procedure Procedure Tolerated Well Tolerated Well Tolerated Well WC - Visit Discharge Discharge Condition Stable Stable Stable Ambulatory Status Wheelchair Wheelchair Wheelchair Transportation Private Auto Private Auto Private Auto Accompanied by caregiver Medication Reconcilliation completed & No No No provided to patient/care provider Clinical Summary of Care Provided Yes Yes Yes Notes: pt agitated and yelling out . B/P mot taken this visit due to pt agitation 05/19/21 11:23 Vital Signs Temperature (97.8 F-99.1 F) Temperature Source Respiratory Rate (12-18) Respiratory rate source Pain Scale: 0-10 Numeric Is Patient Pain Free? Yes Teaching: Wound Center Dressing Your Wound -Person Taught Patient,Primary Caregiver -Teaching Method Discussion, Demonstration -Response to teaching Verbalize understanding Wound Care Nurse 3 3. R trochanter -Ulcer Cleansing Rinsed/ Irrigated with Saline -Foul Odor after Cleansing No -Negative Pressure Wound Therapy N/A -Setting (mmHg) -Negative Pressure is -Primary Dressing Applied Aquacel AG 4x4 -Other Dressing -Other Covering foam dressing -NPWT Application Charge ($) -Aquacel AG 4x4 1 -Mepilex Border Treatment Response Procedure Tolerated Well WC - Visit Discharge Discharge Condition Stable Ambulatory Status Wheelchair Transportation Private Auto Accompanied by caregiver Medication Reconcilliation completed & No provided to patient/care provider Clinical Summary of Care Provided Yes Notes: Wound debrided: Right trochanter Laterality: Right Wound Grade/Stage: Stage III Type of Debridement: Excisional debridement Anesthesia Used: 4% Lidocaine Solution Depth: Down to and including healthy tissue and in the subcutaneous layer Percentage of wound debrided: 100 Instrument Used: 3mm curette Tissue Removed: Yellow slough, devitalized tissue Severity: Fat Layer Exposed Amount of bleeding with debridement: Mild Bleeding Controlled with: Compression and gauze Patient tolerated procedure: Patient tolerated procedure well Assessment/Plan Assessment/Plan (1) Pressure ulcer of right hip, stage 3: CODE(S): L89.213 - Pressure ulcer of right hip, stage 3 (2) Dementia: CODE(S): F03.90 - Unspecified dementia without behavioral disturbance QUALIFIERS: Dementia type: unspecified type Dementia behavioral disturbance: without behavioral disturbance Qualified Code(s): F03.90 - Unspecified dementia without behavioral disturbance (3) Down syndrome: CODE(S): Q90.9 - Down syndrome, unspecified PLAN: Min's ulcers were evaluated and debrided today at the wound healing center. His right and left heels remain healed. Right buttock ulcer remains healed. Right trochanter/hip was debrided and devitalized tissue and slough were removed but there has been no improvement in the ulcer. It is slightly better. There continues to be heavy drainage. The etiology of his ulcers appear to be pressure which has occurred from recent changes in his mobility. Wound culture of his right hip on 04/07/21 was positive for infection with Staph aureus, morganella morganii and enterococcus Faecalis. He completed Augmentin. Wound culture 05/05/21 was positive for Staph and Enterococcus. He completed treatment with Augmentin and there is improvement in erythema and odor. Due to the heavy drainage and depth of his ulcer, he would benefit and it is medically necessary for treatment with a wound vac in order to manage the heavy drainage and encourage granulation of his ulcer. [employer] was unable to provide adequate and reliable suction and therefore we are seeking approval through his insurance for a traditional wound vac to heal his ulcer. Would plan on using white foam and suction at 150 mmHg with changes 2-3 times/week. Until wound vac approval and device is received, will dress his ulcer with Aquacel Ag rope packed into the ulcer with changes once daily, covered with optifoam. The importance of offloading was stressed to his caregiver and they agreed to obtain a Roho or gel foam cushion for his wheelchair as well as heel protectors/foam booties. She also is going to discuss with his family regarding moving him to a higher acuity home where he would have the option of more skilled services. Stressed importance of increased protein intake and adequate nutrition in healing ulcers and wounds. Recommended continuing protein shakes at least once daily outside of meals. Labs reviewed and there are no significant abnormalities. Pre-albumin is low normal. Protein supplementation was encouraged. He has undergone arterial testing in 2012 and 2018 which did not show significant arterial disease. His caregiver asked that we avoid doing them again unless necessary as it causes him extreme stress and discomfort. She was advised to contact the wound healing center if he develops any fever, chills, increased erythema, increased odor or drainage and agrees to update with any changes in status. He will return in 1 week for follow up treatment and wound care.
[2021-06-30 10:13] VITALS: BMI 23.1
== END 2021-05-27 23:59 ==
LOC: WC 10:30
PROVIDERS: PCP Internal Medicine; Referring Provider Physician Assistant; Visit Provider Family Medicine
DX: L89.213 Pressure ulcer of right hip, stage 3 (principal); B95.2 Enterococcus as the cause of diseases classified elsewhere; F03.90 Unspecified dementia, unspecified severity, without behavioral disturbance, psychotic disturbance, mood disturbance, and anxiety; Q90.9 Down syndrome, unspecified; R15.9 Full incontinence of feces; R32 Unspecified urinary incontinence; Z79.899 Other long term (current) drug therapy
CPT/HCPCS: 11042; 87070; 87075; 87077; 87186; 87205; 97607

== ENCOUNTER → 2021-06-06 08:09 | Outpatient (CLI) | payer MEDICARE, MEDICAID, SELFPAY ==
[2021-05-05 09:46] VITALS: BMI 23.1
[2021-06-02 11:01] VITALS: BMI 23.1
--- NOTE | 2021-06-06 08:12 | CT_ITS ---
STUDY: CT CERVICAL SPINE WITHOUT CONTRAST REASON FOR EXAM: Male, 70 years old. Abnormality of gait; assess for myelopathy RADIATION DOSAGE (If Supplied By Facility): CTDIvol = ( 22.08 ) mGy, DLP = ( 1352.56 ) mGycm TECHNIQUE: High resolution transaxial imaging was performed without contrast material. Sagittal and coronal images were reconstructed. Individualized dose optimization techniques were used for this CT. COMPARISON: Comparison is made with prior study dated 01/17/2020. FINDINGS: Normal craniovertebral junction. Normal anterior atlantoaxial articulation. Normal odontoid process. There is straightening of the normal cervical lordosis. Normal vertebral bodies and posterior osseous elements. C2-3: Normal endplates. Normal disc height and morphology. Normal central canal and intervertebral neuroforamina. C3-4: Marked degree of but the space narrowing and spondylosis. There is evidence of facet joint osteoarthritis and hypertrophy worse on the right side. Uncovertebral arthrosis. Moderate degree of bilateral neural foraminal stenosis. C4-5: Marked degree of disc space narrowing and spondylosis. Uncovertebral arthrosis. Facet joint osteoarthritis and hypertrophy worse on the right side. Moderate degree of right neural foraminal stenosis. C5-6: Moderate degree of disc space narrowing. Uncovertebral arthrosis and spondylosis. Marked degree of left neural foraminal stenosis and moderate degree of right neural foraminal stenosis. There is evidence of a moderate degree of central canal stenosis worse on the left side of the midline. C6-7: Marked degree of disc space narrowing. Uncovertebral arthrosis. Moderate degree of bilateral neural foraminal stenosis. Mild to moderate degree of central canal stenosis. Normal visualized soft tissue structures. CT/Spine Cervical without Contras IMPRESSION: Multilevel degenerative changes, as described above. Central canal stenosis at the C5-C6 and C6-C7 levels. Electronically Signed: Robin Lance MD at 13:58 EDT , Service support ,
== END ==
PROVIDERS: PCP Internal Medicine; Referring Provider Psychiatry & Neurology Neurology; Visit Provider Psychiatry & Neurology Neurology
DX: G95.9 Disease of spinal cord, unspecified (principal)
CPT/HCPCS: 72125

== ENCOUNTER → 2021-06-16 14:15 | Outpatient (CLI) | payer MEDICARE, MEDICAID, SELFPAY ==
[2021-06-09 08:42] VITALS: BMI 23.1
--- NOTE | 2021-06-16 14:19 | CT_ITS ---
STUDY: CT SCAN HIP RIGHT REASON FOR EXAM: Male, 70 years old. R TROCHANTER STAGE III PRESSURE ULCER RADIATION DOSAGE (If Supplied By Facility): CTDIvol = ( 19.52 ) mGy, DLP = ( 872.54 ) mGycm. Individualized dose optimization techniques were used for this CT.? TECHNIQUE: Multiple axial tomographic images of the hip joint and proximal thigh were obtained following intravenous contrast administration. Coronal and sagittal reconstruction was obtained as well. COMPARISON: None. FINDINGS: There is a linear soft tissue defect with evidence of granulation tissue overlying the greater trochanter of the proximal right femur. Increased markings are seen in the surrounding subcutaneous fat. This may represent an area of prior surgical intervention. Incidental note is made of small gallstones. Small right inguinal hernia containing fat. CT/Extremity Lower WITH Contrast IMPRESSION: Linear area of the soft tissue defect and granulation overlying the greater trochanter of the proximal right femur. This may represent an area of prior surgical intervention. Clinical correlation is recommended. Small right inguinal hernia containing fat. Small gallstones. Electronically Signed: Robin Lance MD at 15:21 EDT , Service support ,
[2021-06-16 14:40] LABS: CREATININE FINGERSTICK 0.8 mg/dL (0.70-1.30); EGFR FINGERSTICK > 60.0000 mL/min (>60)
== END ==
PROVIDERS: PCP Family Medicine; Referring Provider Family Medicine; Visit Provider Family Medicine
DX: L89.213 Pressure ulcer of right hip, stage 3 (principal); Q90.9 Down syndrome, unspecified; R51.9 Headache, unspecified; E03.9 Hypothyroidism, unspecified; F03.90 Unspecified dementia, unspecified severity, without behavioral disturbance, psychotic disturbance, mood disturbance, and anxiety; Z79.890 Hormone replacement therapy; Z79.899 Other long term (current) drug therapy
CPT/HCPCS: 73701; 99212; Q9967; A4216; G0463

== ENCOUNTER 2021-06-23 09:00 | Outpatient (RCR) | payer MEDICARE, MEDICAID, SELFPAY ==
[2021-05-28 00:32] VITALS: BP 96/54; PULSE 82; RESP 18; TEMP 36
[2021-06-02 11:01] VITALS: RESP 18; TEMP 36.2; BMI 23.1
--- NOTE | 2021-06-02 11:03 | WC ---
pt refused blood pressure
--- NOTE | 2021-06-02 13:49 | PCM.WC.PN ---
History of Present Illness Date of Service: 06/02/21 Chief Complaint: wounds of heels and right buttock/hip History of Wound: Min is a 70 yo gentleman that currently resides at [facility] custodial who presents to the wound healing center for nonhealing ulcers of his heels, right buttock and right hip. He has been referred here for treatment by his PCP's office and is accompanied by Argenis, the nurse sales floor manager for the custodial that he resides. Min is nonverbal and unable to provide history himself. Argenis provided the details and history for the patient as well as chart review from his PCP. Over the last several months, Min has declined in his mobility and is now mostly sitting in a wheelchair or on the couch or chair at his home. He is unable to ambulate and also has stopped using the toilet over the last month and is more incontinent of stool and urine per Argenis. His right hip/trochanter ulcer has been present since November and started out as a red area and ultimately broke down and has been draining. They have been covering it with Duoderm and trying to offload his hip using pillows. The ulcers of his right buttock and his heels have been present since mid February. The ulcer of his right buttock occurred due to shearing force when trying to transfer/rotate him to take pressure off of his right hip. The ulcer of his left heel started as a blister and was incised by his egg breaking machine operator but no further care was recommended. It has since improved somewhat with duoderm treatment. The right heel has a blood blister which is likely from pressure or friction. He currently has a low air loss mattress that he sleeps on but does not have an offloading cushion to sit on in his wheelchair or offloading/heel protectors for his feet. Nutrition is supplemented with protein shakes as well as regular meals. Argenis states that he eats pretty well and generally has a good appetite. Labs were completed on 04/11/2021 and showed a low normal pre-albumin and otherwise unremarkable labs. Wound culture from 04/07/2021 showed several bacteria to be present and he was started on Augmentin for treatment. He has not shown any signs of systemic infection. Unable to obtain ROS. Progress of Wound: Min is here today for follow up of treatment of right hip ulcer. His heel ulcers remain healed after treatment with foam booties and Promogran dressings. His right buttock ulcer remains healed. His right hip ulcer is stable. They received wound vac on Saturday and it was placed at that time. It did lose suction yesterday and Argenis re-applied the vac. He is tolerating it fairly well. There has not been any worsening in depth but external wound is somewhat smaller. Objective Data Objective Data Vital Signs: Vital Signs Temp Pulse Resp BP 97.1 F L 82 18 96/54 L 06/02/21 11:01 05/28/21 00:32 06/02/21 11:01 05/28/21 00:32 Weight: 50.126 kg Body Mass Index (BMI) 23.1 Physical Exam Const alert, oriented x3 and no apparent distress General Appearance: cooperative and comfortable Resp normal respiratory effort Effort and Inspection: able to speak in complete sentences Auscultation: clear to auscultation bilaterally Cardio regular rate and regular rhythm Extremity General Extremity: edema bilateral lower extremity Details: trace Skin General Skin Exam: dermatitis Wounds: wounds noted Wound Narrative: as noted in clinical panel Psych affect normal Attitude: agitated Debridement Note Debridement Note Post-Debridement Measurements and Additional Note: Post-Debridement Measurements/Treatment - Nurse 1 - General Ulcer Assessment Start: 06/02/21 11:01 Freq: Status: Active Protocol: NATALIA Activity Type Activity Date Activity User E-Sign Co-Sign Detail Recorded Client Recorded Date Recorded By Document 06/02/21 11:01 JANNA [id number] 06/02/21 11:02 JANNA 06/02/21 11:01 - Today's Visit Information Type of service Follow-up Visit (Physician/PRIOR AUTHORIZATION NURSE ) Arrival Mode Wheelchair Transfer Assistance Manual,None Patient Requires Transmission-Based No Precautions Height and Weight Body Mass Index (BMI) 23.1 BMI Classification Normal Vital Signs Temperature (97.8 F-99.1 F) 97.1 F L Temperature Source Temporal Respiratory Rate (12-18) 18 Respiratory rate source Observation History Since Last Visit- (Skip if this is Patient's initial visit) Have you changed medications since your No last visit? Any new allergies or adverse reactions No Had a fall/change in ADL's that may No increase risk of falls Signs or symptoms of abuse and/or No neglect since last visit Have you been in the hospital since your No last visit? Has dressing in place as prescribed Yes Has compression in place as prescribed No Has offloadiing in place as prescribed No Experienced any changes in pain level or No management Pain Scale: 0-10 Numeric Is Patient Pain Free? No - Nurse 1 - General Ulcer Measurement Start: 06/02/21 11:01 Freq: Status: Active Protocol: Activity Type Activity Date Activity User E-Sign Co-Sign Detail Recorded Client Recorded Date Recorded By Document 06/02/21 11:01 RB [id number] 06/02/21 11:02 RB 06/02/21 11:01 Wound Center Nurse 1 3. R trochanter -Tunneling No -Undermining/Tunneling No -Circular Undermining No -Exudate Amt Large -Exudate Type Serosanguineous -Wound Margin Distinct, Outline Attached -Granulation Amt Large (67-100%) -Granulation Quality [place],Red -Slough/Fibrin Yes -Necrosis Amt Small (1-33%) -Necrotic Tissue Type Adherent Slough -Structure Exposed N/A -Texture (Yeimy-wound Skin Appearance) Assessed -Moisture (Yeimy-wound Skin Appearance) Assessed -Color (Yeimy-wound Skin Appearance) Erythema -Temperature (Yeimy-wound Skin No Abnormality Appearance) (Pt Warm) -Tenderness on Palpation (Yeimy-wound No Skin Appearance) -Ulcer Cleansing Wound Cleanser -Foul Odor after Cleansing No -Anesthetic Used 4% Lidocaine Solution - Nurse 2 - General Ulcer CM Notes Start: 06/02/21 11:01 Freq: Status: Active Protocol: Activity Type Activity Date Activity User E-Sign Co-Sign Detail Recorded Client Recorded Date Recorded By Document 06/02/21 11:44 MW [id number] 06/02/21 11:48 MW 06/02/21 11:44 Wound Center Nurse 2 -Time 11:45 -Correct Patient Yes -Correct Side, Site, Position Yes -Correct Procedure Yes -Procedure Performed Yes -Type of Procedure Debridement -Clinical Debridement Subcutaneous -Tissue Removed Subcutaneous -Post Debridement (cm) - Length 1.0 -Post Debridement (cm) - Width 1.0 -Post Debridement (cm) - Depth 2.5 -Total Square (Post) (cm) 1.00 -Area of Debridement (cm) - Length 1.0 -Area of Debridement (cm) - Width 1.0 -Total Square (Area) (cm) 1.00 -Tunneling No -Undermining/Tunneling Yes -Undermining/Tunneling Starts (O'clock 8 ) -Undermining/Tunneling Ends (O'clock) 3 -Maximum Distance (cm) 2.0 -Circular Undermining No -Wound/Ulcer Outcome Not Healed -Ulcer Cleansing Rinsed/ Irrigated with Saline -Foul Odor after Cleansing No -Bioengineered Tissue No -Bleeding Controlled with Pressure -Offloading No -Treatment Response Procedure Tolerated Well -Debridement - Subq, 1st 20sq cm Yes Pain Scale: 0-10 Numeric Is Patient Pain Free? Yes WC - Nurse 3 - General Ulcer D/C NN Start: 06/02/21 11:01 Freq: Status: Active Protocol: Activity Type Activity Date Activity User E-Sign Co-Sign Detail Recorded Client Recorded Date Recorded By Document 06/02/21 12:19 RB [id number] 06/02/21 12:19 JANNA 06/02/21 12:19 Wound Care Nurse 3 3. R trochanter -Ulcer Cleansing Wound Cleanser -Negative Pressure Wound Therapy Continue -Setting (mmHg) 150 -Negative Pressure is Continuous -NPWT Application Charge ($) NPWT </= 50 sq cm Treatment Response Procedure Tolerated Well WC - Visit Discharge Discharge Condition Stable Ambulatory Status Ambulatory, Wheelchair Transportation Private Auto Medication Reconcilliation completed & No provided to patient/care provider Clinical Summary of Care Provided Yes Wound debrided: right trochanter Laterality: Right Wound Grade/Stage: Stage III Type of Debridement: Excisional debridement Anesthesia Used: 4% Lidocaine Solution and 5% Lidocaine Gel Depth: Down to and including healthy tissue and in the subcutaneous layer Percentage of wound debrided: 100 Instrument Used: 3mm curette Tissue Removed: Yellow slough, devitalized tissue Severity: Fat Layer Exposed Amount of bleeding with debridement: Mild Bleeding Controlled with: Compression and gauze Patient tolerated procedure: Patient tolerated procedure well Assessment/Plan Assessment/Plan (1) Pressure ulcer of right hip, stage 3: CODE(S): L89.213 - Pressure ulcer of right hip, stage 3 (2) Down syndrome: CODE(S): Q90.9 - Down syndrome, unspecified (3) Hypothyroidism: CODE(S): E03.9 - Hypothyroidism, unspecified QUALIFIERS: Hypothyroidism type: unspecified Qualified Code(s): E03.9 - Hypothyroidism, unspecified (4) Dementia: CODE(S): F03.90 - Unspecified dementia without behavioral disturbance QUALIFIERS: Dementia type: unspecified type Dementia behavioral disturbance: without behavioral disturbance Qualified Code(s): F03.90 - Unspecified dementia without behavioral disturbance PLAN: Richards ulcers were evaluated and debrided today at the wound healing center. His right and left heels remain healed. Right buttock ulcer remains healed. Right trochanter/hip was debrided and devitalized tissue and slough were removed but there has been no improvement in the ulcer. It is slightly better. There continues to be heavy drainage. He is tolerating wound vac treatment so far. The etiology of his ulcers appear to be pressure which has occurred from recent changes in his mobility. Wound culture of his right hip on 04/07/21 was positive for infection with Staph aureus, morganella morganii and enterococcus Faecalis. He completed Augmentin. Wound culture 05/05/21 was positive for Staph and Enterococcus. He completed treatment with Augmentin and there is improvement in erythema and odor. Due to the heavy drainage and depth of his ulcer, he would benefit and it is medically necessary for treatment with a wound vac in order to manage the heavy drainage and encourage granulation of his ulcer. [employer] was unable to provide adequate and reliable suction and therefore we are seeking approval through his insurance for a traditional wound vac to heal his ulcer. Would plan on using white foam and suction at 150 mmHg with changes 2-3 times/week. The importance of offloading was stressed to his caregiver and they agreed to obtain a Roho or gel foam cushion for his wheelchair as well as heel protectors/foam booties. She also is going to discuss with his family regarding moving him to a higher acuity home where he would have the option of more skilled services. Stressed importance of increased protein intake and adequate nutrition in healing ulcers and wounds. Recommended continuing protein shakes at least once daily outside of meals. Labs reviewed and there are no significant abnormalities. Pre-albumin is low normal. Protein supplementation was encouraged. He has undergone arterial testing in 2012 and 2018 which did not show significant arterial disease. His caregiver asked that we avoid doing them again unless necessary as it causes him extreme stress and discomfort. She was advised to contact the wound healing center if he develops any fever, chills, increased erythema, increased odor or drainage and agrees to update with any changes in status. He will return in 1 week for follow up treatment and wound care.
[2021-06-09 08:42] VITALS: PULSE 82; RESP 18; TEMP 36.3; BMI 23.1
--- NOTE | 2021-06-09 10:44 | PN.PCM_ITS ---
History of Present Illness Date of Service: 06/09/21 Chief Complaint: wounds of heels and right buttock/hip History of Wound: Min is a 70 yo gentleman that currently resides at [facility] care home who presents to the wound healing center for nonhealing ulcers of his heels, right buttock and right hip. He has been referred here for treatment by his PCP's office and is accompanied by Argenis, the nurse transportation dispatch manager for the care home that he resides. Min is nonverbal and unable to provide history himself. Argenis provided the details and history for the patient as well as chart review from his PCP. Over the last several months, Min has declined in his mobility and is now mostly sitting in a wheelchair or on the couch or chair at his home. He is unable to ambulate and also has stopped using the toilet over the last month and is more incontinent of stool and urine per Argenis. His right hip/trochanter ulcer has been present since November and started out as a red area and ultimately broke down and has been draining. They have been covering it with Duoderm and trying to offload his hip using pillows. The ulcers of his right buttock and his heels have been present since mid February. The ulcer of his right buttock occurred due to shearing force when trying to transfer/rotate him to take pressure off of his right hip. The ulcer of his left heel started as a blister and was incised by his fiscal manager but no further care was recommended. It has since improved somewhat with duoderm treatment. The right heel has a blood blister which is likely from pressure or friction. He currently has a low air loss mattress that he sleeps on but does not have an offloading cushion to sit on in his wheelchair or offloading/heel protectors for his feet. Nutrition is supplemented with protein shakes as well as regular meals. Argenis states that he eats pretty well and generally has a good appetite. Labs were completed on 04/11/2021 and showed a low normal pre-albumin and otherwise unremarkable labs. Wound culture from 04/07/2021 showed several bacteria to be present and he was started on Augmentin for treatment. He has not shown any signs of systemic infection. Unable to obtain ROS. Progress of Wound: Min is here today for follow up of treatment of right hip u lcer. His heel ulcers remain healed after treatment with foam booties and Promogran dressings. His right buttock ulcer remains healed. His right hip ulcer is minimally improved after 10 days of wound vac treatment. He is tolerating it fairly well. There has not been any worsening in depth but undermining is somewhat worse. The vac did lose suction last night and it was off until his appointment this morning. Objective Data Objective Data Vital Signs: Vital Signs Temp Pulse Resp BP 97.3 F L 82 18 96/54 L 06/09/21 08:42 06/09/21 08:42 06/09/21 08:42 05/28/21 00:32 Weight: 50.126 kg Body Mass Index (BMI) 23.1 Physical Exam Const alert, oriented x3 and no apparent distress General Appearance: cooperative and comfortable Resp normal respiratory effort Effort and Inspection: able to speak in complete sentences Auscultation: clear to auscultation bilaterally Cardio regular rate and regular rhythm Extremity General Extremity: edema bilateral lower extremity Details: trace Skin General Skin Exam: dermatitis Wounds: wounds noted Wound Narrative: as noted in clinical panel Psych affect normal Attitude: agitated Debridement Note Debridement Note Post-Debridement Measurements and Additional Note: Post-Debridement Measurements/Treatment - Nurse 1 - General Ulcer Assessment Start: 06/02/21 11:01 Freq: Status: Active Protocol: NATALIA Activity Type Activity Date Activity User E-Sign Co-Sign Detail Recorded Client Recorded Date Recorded By Document 06/02/21 11:01 RB [id number] 06/02/21 11:02 RB Document 06/09/21 08:42 [id number] 06/09/21 08:43 RB 06/02/21 06/09/21 11:01 08:42 - Today's Visit Information Type of service Follow-up Visit Follow-up Visit (Physician/PRIMARY TEACHER (Physician/PRIMARY TEACHER ) ) Arrival Mode Wheelchair Wheelchair Transfer Assistance Manual,None Manual Patient Identification Verified (Name & Yes ) Patient Requires Transmission-Based No No Precautions Height and Weight Body Mass Index (BMI) 23.1 23.1 BMI Classification Normal Normal Vital Signs Temperature (97.8 F-99.1 F) 97.1 F L 97.3 F L Temperature Source Temporal Temporal Pulse Rate (60-100) 82 Pulse Location Femoral Respiratory Rate (12-18) 18 18 Respiratory rate source Observation Observation History Since Last Visit- (Skip if this is Patient's initial visit) Have you changed medications since your No No last visit? Any new allergies or adverse reactions No No Had a fall/change in ADL's that may No No increase risk of falls Signs or symptoms of abuse and/or No No neglect since last visit Have you been in the hospital since your No No last visit? Has dressing in place as prescribed Yes Yes Has compression in place as prescribed No No Has offloadiing in place as prescribed No No Experienced any changes in pain level or No No management Pain Scale: 0-10 Numeric Is Patient Pain Free? No Yes KAREN - Nurse 1 - General Ulcer Measurement Start: 06/02/21 11:01 Freq: Status: Active Protocol: Activity Type Activity Date Activity User E-Sign Co-Sign Detail Recorded Client Recorded Date Recorded By Document 06/02/21 11:01 RB [id number] 06/02/21 11:02 RB Document 06/09/21 08:42 RB [id number] 06/09/21 08:43 RB 06/02/21 06/09/21 11:01 08:42 Wound Center Nurse 1 3. R trochanter -Tunneling No No -Undermining/Tunneling No No -Circular Undermining No No -Exudate Amt Large Large -Exudate Type Serosanguineous Serosanguineous -Wound Margin Distinct, Thickened & Outline Rolled Under Attached -Granulation Amt Large (67-100%) Large (67-100%) -Granulation Quality [place],Red [place] -Slough/Fibrin Yes Yes -Necrosis Amt Small (1-33%) Small (1-33%) -Necrotic Tissue Type Adherent Slough Adherent Slough -Structure Exposed N/A N/A -Texture (Yeimy-wound Skin Appearance) Assessed Excoriation -Moisture (Yeimy-wound Skin Appearance) Assessed Assessed -Color (Yeimy-wound Skin Appearance) Erythema Assessed -Temperature (Yeimy-wound Skin No Abnormality No Abnormality Appearance) (Pt Warm) (Pt Warm) -Tenderness on Palpation (Yeimy-wound No No Skin Appearance) -Ulcer Cleansing Wound Cleanser Wound Cleanser -Foul Odor after Cleansing No No -Anesthetic Used 4% Lidocaine 4% Lidocaine Solution Solution KAREN - Nurse 2 - General Ulcer CM Notes Start: 06/02/21 11:01 Freq: Status: Active Protocol: Activity Type Activity Date Activity User E-Sign Co-Sign Detail Recorded Client Recorded Date Recorded By Document 06/02/21 11:44 MW [id number] 06/02/21 11:48 MW Document 06/09/21 08:53 MW [id number] 06/09/21 09:03 MW 06/02/21 06/09/21 11:44 08:53 Wound Center Nurse 2 3. R trochanter -Time 11:45 08:53 -Correct Patient Yes Yes -Correct Side, Site, Position Yes Yes -Correct Procedure Yes Yes -Procedure Performed Yes Yes -Type of Procedure Debridement Debridement -Clinical Debridement Subcutaneous Subcutaneous -Tissue Removed Subcutaneous Subcutaneous -Post Debridement (cm) - Length 1.0 1.1 -Post Debridement (cm) - Width 1.0 1.0 -Post Debridement (cm) - Depth 2.5 2.0 -Total Square (Post) (cm) 1.00 1.10 -Area of Debridement (cm) - Length 1.0 1.1 -Area of Debridement (cm) - Width 1.0 1.0 -Total Square (Area) (cm) 1.00 1.10 -Tunneling No No -Undermining/Tunneling Yes Yes -Undermining/Tunneling Starts (O'clock 8 10 ) -Undermining/Tunneling Ends (O'clock) 3 2 -Maximum Distance (cm) 2.0 2.4 -Circular Undermining No No -Wound/Ulcer Outcome Not Healed Not Healed -Ulcer Cleansing Rinsed/ Rinsed/ Irrigated with Irrigated with Saline Saline -Foul Odor after Cleansing No No -Bioengineered Tissue No No -Bleeding Controlled with Pressure Pressure -Offloading No No -Treatment Response Procedure Procedure Tolerated Well Tolerated Well -Debridement - Subq, 1st 20sq cm Yes Yes Pain Scale: 0-10 Numeric Is Patient Pain Free? Yes Yes WC - Nurse 3 - General Ulcer D/C NN Start: 06/02/21 11:01 Freq: Status: Active Protocol: Activity Type Activity Date Activity User E-Sign Co-Sign Detail Recorded Client Recorded Date Recorded By Document 06/02/21 12:19 RB [id number] 06/02/21 12:19 RB Document 06/09/21 09:33 RB [id number] 06/09/21 09:33 RB 06/02/21 06/09/21 12:19 09:33 Wound Care Nurse 3 3. R trochanter -Ulcer Cleansing Wound Cleanser -Negative Pressure Wound Therapy Continue Continue -Setting (mmHg) 150 150 -Negative Pressure is Continuous Continuous -NPWT Application Charge ($) NPWT </= 50 sq NPWT </= 50 sq cm cm Treatment Response Procedure Procedure Tolerated Well Tolerated Well Pain Scale: 0-10 Numeric Is Patient Pain Free? Yes WC - Visit Discharge Discharge Condition Stable Stable Ambulatory Status Ambulatory, Wheelchair Wheelchair Transportation Private Auto Private Auto Medication Reconcilliation completed & No No provided to patient/care provider Clinical Summary of Care Provided Yes Yes Wound debrided: right hip Laterality: Right Wound Grade/Stage: Stage III Type of Debridement: Excisional debridement Anesthesia Used: 4% Lidocaine Solution and Cetacaine Depth: Down to and including healthy tissue and in the subcutaneous layer Percentage of wound debrided: 100 Instrument Used: 3mm curette Tissue Removed: Yellow slough, devitalized tissue Severity: Fat Layer Exposed Amount of bleeding with debridement: Mild Bleeding Controlled with: Compression and gauze Patient tolerated procedure: Patient tolerated procedure well Assessment/Plan Assessment/Plan (1) Pressure ulcer of right hip, stage 3: CODE(S): L89.213 - Pressure ulcer of right hip, stage 3 (2) Down syndrome: CODE(S): Q90.9 - Down syndrome, unspecified (3) Hypothyroidism: CODE(S): E03.9 - Hypothyroidism, unspecified QUALIFIERS: Hypothyroidism type: unspecified Qualified Code(s): E 03.9 - Hypothyroidism, unspecified (4) Dementia: CODE(S): F03.90 - Unspecified dementia without behavioral disturbance QUALIFIERS: Dementia type: unspecified type Dementia behavioral disturbance: without behavioral disturbance Qualified Code(s): F03.90 - Unspecified dementia without behavioral disturbance PLAN: Min's ulcer was evaluated and debrided today at the wound healing center. His right and left heels remain healed. Right buttock ulcer remains healed. Right trochanter/hip was debrided and devitalized tissue and slough were removed but there has been minimal improvement in the ulcer. There continues to be heavy drainage. He is tolerating wound vac treatment so far. The etiology of his ulcers appear to be pressure which has occurred from recent changes in his mobility. Wound culture of his right hip on 04/07/21 was positive for infection with Staph aureus, morganella morganii and enterococcus Faecalis. He completed Augmentin. Wound culture 05/05/21 was positive for Staph and Enterococcus. He completed treatment with Augmentin and there is improvement in erythema and odor. Due to the heavy drainage and depth of his ulcer, he would benefit and it is medically necessary for treatment with a wound vac in order to manage the heavy drainage and encourage granulation of his ulcer. [facility] was unable to provide adequate and reliable suction and therefore we are seeking approval through his insurance for a traditional wound vac to heal his ulcer. Would plan on using white foam and suction at 150 mmHg with changes 2-3 times/week. Due to lack of improvement and the undermining with only a small external opening to the wound bed, I feel that he would benefit from surgical debridement to be able to remove the overlying tissue and clean the wound base really well of the devitalized tissue to be able to heal the ulcer. I think continued wound vac treatment after surgery to close the ulcer would be helpful and be able to heal his ulcer. Will refer him for surgical consultation. CT scan also ordered to evaluate for any potential involvement into the deeper tissues or bone although no bone is palpable currently. The importance of offloading was stressed to his caregiver and they agreed to obtain a Roho or gel foam cushion for his wheelchair as well as heel protectors/foam booties. She also is going to discuss with his family regarding moving him to a higher acuity home where he would have the option of more skilled services. Stressed importance of increased protein intake and adequate nutrition in healing ulcers and wounds. Recommended continuing protein shakes at least once daily outside of meals. Labs reviewed and there are no significant abnormalities. Pre-albumin is low normal. Protein supplementation was encouraged. He has undergone arterial testing in 2012 and 2018 which did not show significan t arterial disease. His caregiver asked that we avoid doing them again unless necessary as it causes him extreme stress and discomfort. She was advised to contact the wound healing center if he develops any fever, chills, increased erythema, increased odor or drainage and agrees to update with any changes in status. He will return in 2 weeks for follow up treatment and wound care and 1 week for nurse visit to change vac. If it is worsening or he is not tolerating wound vac then would have the ulcer packed with Aquacel Ag rope daily.
[2021-06-16 12:38] VITALS: RESP 22; TEMP 36.4; BMI 23.1
[2021-06-23 09:28] VITALS: RESP 18; TEMP 36; BMI 23.1
--- NOTE | 2021-06-23 15:05 | PN.PCM_ITS ---
History of Present Illness Date of Service: 06/23/21 Chief Complaint: wounds of heels and right buttock/hip History of Wound: Min is a 70 yo gentleman that currently resides at [facility] longterm who presents to the wound healing center for nonhealing ulcers of his heels, right buttock and right hip. He has been referred here for treatment by his PCP's office and is accompanied by Argenis, the nurse clinical marketing manager for the longterm that he resides. Min is nonverbal and unable to provide history himself. Argenis provided the details and history for the patient as well as chart review from his PCP. Over the last several months, Min has declined in his mobility and is now mostly sitting in a wheelchair or on the couch or chair at his home. He is unable to ambulate and also has stopped using the toilet over the last month and is more incontinent of stool and urine per Argenis. His right hip/trochanter ulcer has been present since November and started out as a red area and ultimately broke down and has been draining. They have been covering it with Duoderm and trying to offload his hip using pillows. The ulcers of his right buttock and his heels have been present since mid February. The ulcer of his right buttock occurred due to shearing force when trying to transfer/rotate him to take pressure off of his right hip. The ulcer of his left heel started as a blister and was incised by his branch credit counselor but no further care was recommended. It has since improved somewhat with duoderm treatment. The right heel has a blood blister which is likely from pressure or friction. He currently has a low air loss mattress that he sleeps on but does not have an offloading cushion to sit on in his wheelchair or offloading/heel protectors for his feet. Nutrition is supplemented with protein shakes as well as regular meals. Argenis states that he eats pretty well and generally has a good appetite. Labs were completed on 04/11/2021 and showed a low normal pre-albumin and otherwise unremarkable labs. Wound culture from 04/07/2021 showed several bacteria to be present and he was started on Augmentin for treatment. He has not shown any signs of systemic infection. Unable to obtain ROS. Progress of Wound: Min is here today for follow up of treatment of right hip u lcer. His heel ulcers remain healed after treatment with foam booties and Promogran dressings. His right buttock ulcer remains healed. He was seen as a nurse visit last week and there was not any improvement in his wound, so as previously discussed at his last visit with me, he has been being dressed with Aquacel Ag rope every other day. He has been tolerating the treatment but still shows minimal improvement. There is still a large amount of drainage. Denies fever or chills. Objective Data Objective Data Vital Signs: Vital Signs Temp Pulse Resp BP 96.8 F L 82 18 96/54 L 06/23/21 09:28 06/09/21 08:42 06/23/21 09:28 05/28/21 00:32 Weight: 50.126 kg Body Mass Index (BMI) 23.1 Physical Exam Const alert, oriented x3 and no apparent distress General Appearance: cooperative and comfortable Resp normal respiratory effort Effort and Inspection: able to speak in complete sentences Auscultation: clear to auscultation bilaterally Cardio regular rate and regular rhythm Extremity General Extremity: edema bilateral lower extremity Details: trace Skin General Skin Exam: dermatitis Wounds: wounds noted Wound Narrative: as noted in clinical panel Psych affect normal Attitude: agitated Debridement Note Debridement Note Post-Debridement Measurements and Additional Note: Post-Debridement Measurements/Treatment - Nurse 1 - General Ulcer Assessment Start: 06/02/21 11:01 Freq: Status: Active Protocol: [email or web address] Activity Type Activity Date Activity User E-Sign Co-Sign Detail Recorded Client Recorded Date Recorded By Document 06/02/21 11:01 RB [id number] 06/02/21 11:02 RB Document 06/09/21 08:42 RB [id number] 06/09/21 08:43 RB Document 06/16/21 12:38 DL [id number] 06/16/21 12:51 DL Document 06/23/21 09:28 RB [id number] 06/23/21 09:30 RB 06/02/21 06/09/21 06/16/21 11:01 08:42 12:38 - Today's Visit Information Type of service Follow-up Visit Follow-up Visit Nurse-only (Physician/DISPATCHER SERVICE CHIEF (Physician/DISPATCHER SERVICE CHIEF Visit ) ) Arrival Mode Wheelchair Wheelchair Wheelchair Transfer Assistance Manual,None Manual Manual Transfer Assist (Other) x2 Patient Identification Verified (Name & Yes Yes ) Patient Requires Transmission-Based No No No Precautions Height and Weight Body Mass Index (BMI) 23.1 23.1 23.1 BMI Classification Normal Normal Normal Vital Signs Temperature (97.8 F-99.1 F) 97.1 F L 97.3 F L 97.5 F L Temperature Source Temporal Temporal Temporal Pulse Rate (60-100) 82 Pulse Location Femoral Respiratory Rate (12-18) 18 18 22 H Respiratory rate source Observation Observation Observation History Since Last Visit- (Skip if this is Patient's initial visit) Have you changed medications since your No No No last visit? Any new allergies or adverse reactions No No No Had a fall/change in ADL's that may No No No increase risk of falls Signs or symptoms of abuse and/or No No No neglect since last visit Have you been in the hospital since your No No No last visit? Has dressing in place as prescribed Yes Yes Yes Has compression in place as prescribed No No N/A Has offloadiing in place as prescribed No No Yes Experienced any changes in pain level or No No No management Pain Scale: 0-10 Numeric Is Patient Pain Free? No Yes Yes 06/23/21 09:28 - Today's Visit Information Type of service Follow-up Visit (Physician/DISPATCHER SERVICE CHIEF ) Arrival Mode Wheelchair Transfer Assistance Manual Transfer Assist (Other) Patient Identification Verified (Name & No ) Patient Requires Transmission-Based No Precautions Height and Weight Body Mass Index (BMI) 23.1 BMI Classification Normal Vital Signs Temperature (97.8 F-99.1 F) 96.8 F L Temperature Source Temporal Pulse Rate (60-100) Pulse Location Respiratory Rate (12-18) 18 Respiratory rate source Observation History Since Last Visit- (Skip if this is Patient's initial visit) Have you changed medications since your No last visit? Any new allergies or adverse reactions No Had a fall/change in ADL's that may No increase risk of falls Signs or symptoms of abuse and/or No neglect since last visit Have you been in the hospital since your No last visit? Has dressing in place as prescribed Yes Has compression in place as prescribed No Has offloadiing in place as prescribed No Experienced any changes in pain level or No management Pain Scale: 0-10 Numeric Is Patient Pain Free? Yes - Nurse 1 - General Ulcer Measurement Start: 06/02/21 11:01 Freq: Status: Active Protocol: Activity Type Activity Date Activity User E-Sign Co-Sign Detail Recorded Client Recorded Date Recorded By Document 06/02/21 11:01 RB [id number] 06/02/21 11:02 RB Document 06/09/21 08:42 RB [id number] 06/09/21 08:43 RB Document 06/16/21 12:38 DL [id number] 06/16/21 12:51 DL Document 06/23/21 09:28 RB [id number] 06/23/21 09:30 RB 06/02/21 06/09/21 06/16/21 11:01 08:42 12:38 Wound Center Nurse 1 3. R trochanter -Current Size (cm) - Length 0.9 -Current Size (cm) - Width 1 -Current Size (cm) - Depth 3 -Total Square Cm 0.9 -Photo Taken No -Tunneling No No -Undermining/Tunneling No No -Undermining/Tunneling Starts (O'clock 10 ) -Undermining/Tunneling Ends (O'clock) 2 -Maximum Distance #2 (cm) 3.1 -Circular Undermining No No No -Exudate Amt Large Large Medium -Exudate Type Serosanguineous Serosanguineous Serosanguineous -Wound Margin Distinct, Thickened & Distinct, Outline Rolled Under Outline Attached Attached -Granulation Amt Large (67-100%) Large (67-100%) Large (67-100%) -Granulation Quality [place],Red [place] Red -Slough/Fibrin Yes Yes -Necrosis Amt Small (1-33%) Small (1-33%) Small (1-33%) -Necrotic Tissue Type Adherent Slough Adherent Slough Adherent Slough -Structure Exposed N/A N/A N/A -Texture (Yeimy-wound Skin Appearance) Assessed Excoriation Scarring -Moisture (Yeimy-wound Skin Appearance) Assessed Assessed No Abnormality -Color (Yeimy-wound Skin Appearance) Erythema Assessed Not Assessed -Temperature (Yeimy-wound Skin No Abnormality No Abnormality No Abnormality Appearance) (Pt Warm) (Pt Warm) (Pt Warm) -Tenderness on Palpation (Yeimy-wound No No No Skin Appearance) -Ulcer Cleansing Wound Cleanser Wound Cleanser Wound Cleanser -Foul Odor after Cleansing No No No -Anesthetic Used 4% Lidocaine 4% Lidocaine Solution Solution 06/23/21 09:28 Wound Center Nurse 1 3. R trochanter -Current Size (cm) - Length -Current Size (cm) - Width -Current Size (cm) - Depth -Total Square Cm -Photo Taken -Tunneling No -Undermining/Tunneling No -Undermining/Tunneling Starts (O'clock ) -Undermining/Tunneling Ends (O'clock) -Maximum Distance #2 (cm) -Circular Undermining No -Exudate Amt Medium -Exudate Type Serosanguineous -Wound Margin Thickened & Rolled Under -Granulation Amt Medium (34-66%) -Granulation Quality [place] -Slough/Fibrin Yes -Necrosis Amt Small (1-33%) -Necrotic Tissue Type Adherent Slough -Structure Exposed N/A -Texture (Yeimy-wound Skin Appearance) Assessed, Scarring -Moisture (Yeimy-wound Skin Appearance) Assessed -Color (Yeimy-wound Skin Appearance) Assessed -Temperature (Yeimy-wound Skin No Abnormality Appearance) (Pt Warm) -Tenderness on Palpation (Yeimy-wound No Skin Appearance) -Ulcer Cleansing Wound Cleanser -Foul Odor after Cleansing No -Anesthetic Used 5% Lidocaine Gel WC - Nurse 2 - General Ulcer CM Notes Start: 06/02/21 11:01 Freq: Status: Active Protocol: Activity Type Activity Date Activity User E-Sign Co-Sign Detail Recorded Client Recorded Date Recorded By Document 06/02/21 11:44 MW [id number] 06/02/21 11:48 MW Document 06/09/21 08:53 MW [id number] 06/09/21 09:03 MW Document 06/23/21 09:58 MW [id number] 06/23/21 10:16 MW 06/02/21 06/09/21 06/23/21 11:44 08:53 09:58 Wound Center Nurse 2 3. R trochanter -Time 11:45 08:53 09:58 -Correct Patient Yes Yes Yes -Correct Side, Site, Position Yes Yes Yes -Correct Procedure Yes Yes Yes -Procedure Performed Yes Yes Yes -Type of Procedure Debridement Debridement Debridement -Clinical Debridement Subcutaneous Subcutaneous Subcutaneous -Tissue Removed Subcutaneous Subcutaneous Subcutaneous -Post Debridement (cm) - Length 1.0 1.1 0.5 -Post Debridement (cm) - Width 1.0 1.0 0.5 -Post Debridement (cm) - Depth 2.5 2.0 2.6 -Total Square (Post) (cm) 1.00 1.10 0.25 -Area of Debridement (cm) - Length 1.0 1.1 0.5 -Area of Debridement (cm) - Width 1.0 1.0 0.5 -Total Square (Area) (cm) 1.00 1.10 0.25 -Tunneling No No No -Undermining/Tunneling Yes Yes Yes -Undermining/Tunneling Starts (O'clock 8 10 10 ) -Undermining/Tunneling Ends (O'clock) 3 2 2 -Maximum Distance (cm) 2.0 2.4 3.0 -Circular Undermining No No No -Wound/Ulcer Outcome Not Healed Not Healed Not Healed -Ulcer Cleansing Rinsed/ Rinsed/ Rinsed/ Irrigated with Irrigated with Irrigated with Saline Saline Saline -Foul Odor after Cleansing No No No -Bioengineered Tissue No No No -Bleeding Controlled with Pressure Pressure Pressure -Offloading No No No -Treatment Response Procedure Procedure Procedure Tolerated Well Tolerated Well Tolerated Well -Debridement - Subq, 1st 20sq cm Yes Yes Yes Pain Scale: 0-10 Numeric Is Patient Pain Free? Yes Yes - Nurse 3 - General Ulcer D/C NN Start: 06/02/21 11:01 Freq: Status: Active Protocol: Activity Type Activity Date Activity User E-Sign Co-Sign Detail Recorded Client Recorded Date Recorded By Document 06/02/21 12:19 RB [id number] 06/02/21 12:19 RB Document 06/09/21 09:33 RB [id number] 06/09/21 09:33 RB Document 06/16/21 12:38 DL [id number] 06/16/21 12:51 DL Document 06/23/21 10:59 RB [id number] 06/23/21 11:00 RB 06/02/21 06/09/21 06/16/21 12:19 09:33 12:38 Wound Care Nurse 3 3. R trochanter -Ulcer Cleansing Wound Cleanser Wound Cleanser -Foul Odor after Cleansing No -Negative Pressure Wound Therapy Continue Continue -Setting (mmHg) 150 150 -Negative Pressure is Continuous Continuous -Primary Dressing Applied Aquacel AG 4x4, Mepilex Border -Other Dressing -NPWT Application Charge ($) NPWT </= 50 sq NPWT </= 50 sq cm cm -Aquacel AG 4x4 1 -Mepilex Border 2 Treatment Response Procedure Procedure Procedure Not Tolerated Well Tolerated Well Tolerated Well Vital Signs Temperature (97.8 F-99.1 F) 97.5 F L Temperature Source Temporal Respiratory Rate (12-18) 22 H Respiratory rate source Observation Pain Scale: 0-10 Numeric Is Patient Pain Free? Yes Yes WC - Visit Discharge Discharge Condition Stable Stable Stable Ambulatory Status Ambulatory, Wheelchair Wheelchair Wheelchair Transportation Private Auto Private Auto Private Auto Accompanied by caregiver Medication Reconcilliation completed & No No provided to patient/care provider Clinical Summary of Care Provided Yes Yes Notes: Measurements larger today. Aquacel Ag/ Bordered foam applied in place of Vac dressing as ordered. Facility Type Obstetrical Anesthesiologist Care Facility Orders Sent Yes 06/23/21 10:59 Wound Care Nurse 3 3. R trochanter -Ulcer Cleansing Rinsed/ Irrigated with Saline -Foul Odor after Cleansing -Negative Pressure Wound Therapy -Setting (mmHg) -Negative Pressure is -Primary Dressing Applied Aquacel AG 4x4 -Other Dressing bordered foam dressing -NPWT Application Charge ($) -Aquacel AG 4x4 2 -Mepilex Border Treatment Response Vital Signs Temperature (97.8 F-99.1 F) Temperature Source Respiratory Rate (12-18) Respiratory rate source Pain Scale: 0-10 Numeric Is Patient Pain Free? Yes WC - Visit Discharge Discharge Condition Stable Ambulatory Status Wheelchair Transportation Private Auto Accompanied by Medication Reconcilliation completed & No provided to patient/care provider Clinical Summary of Care Provided Yes Notes: Facility Type Orders Sent Wound debrided: right trochanter Laterality: Right Wound Grade/Stage: Stage III Type of Debridement: Excisional debridement Anesthesia Used: 4% Lidocaine Solution Depth: Down to and including healthy tissue, in the subcutaneous layer and to muscle Percentage of wound debrided: 100 Instrument Used: 3mm curette Tissue Removed: Yellow slough, devitalized tissue Severity: Fat Layer Exposed Amount of bleeding with debridement: Mild Bleeding Controlled with: Compression and gauze Patient tolerated procedure: Patient tolerated procedure well Assessment/Plan Assessment/Plan (1) Pressure ulcer of right hip, stage 3: CODE(S): L89.213 - Pressure ulcer of right hip, stage 3 (2) Down syndrome: CODE(S): Q90.9 - Down syndrome, unspecified (3) Hypothyroidism: CODE(S): E03.9 - Hypothyroidism, unspecified QUALIFIERS: Hypothyroidism type: unspecified Qualified Code(s): E03.9 - Hypothyroidism, unspecified (4) Dementia: CODE(S): F03.90 - Unspecified dementia without behavioral disturbance QUALIFIERS: Dementia type: unspecified type Dementia behavioral disturbance: without behavioral disturbance Qualified Code(s): F03.90 - Unspecified dementia without behavioral disturbance PLAN: Bridgette ulcer was evaluated and debrided today at the wound healing center. His right and left heels remain healed. Right buttock ulcer remains healed. Right trochanter/hip was debrided and devitalized tissue and slough were removed but there has been minimal improvement in the ulcer. There continues to be heavy drainage. He has tolerated Aquacel Ag rope dressings for heavy drainage. The etiology of his ulcers appear to be pressure which has occurred from recent changes in his mobility. Wound culture of his right hip on 04/07/21 was positive for infection with Staph aureus, morganella morganii and enterococcus Faecalis. He completed Augmentin. Wound culture 05/05/21 was positive for Staph and Enterococcus. He completed treatment with Augmentin and there is improvement in erythema and odor. Due to the heavy drainage and depth of his ulcer, he would benefit and it is medically necessary for treatment with a wound vac in order to manage the heavy drainage and encourage granulation of his ulcer. [facility] was unable to provide adequate and reliable suction and therefore we are seeking approval through his insurance for a traditional wound vac to heal his ulcer. Would plan on using white foam and suction at 150 mmHg with changes 2-3 times/week. Due to lack of improvement and the undermining with only a small external opening to the wound bed, I feel that he would benefit from surgical debridement to be able to remove the overlying tissue and clean the wound base really well of the devitalized tissue to be able to heal the ulcer. I think continued wound vac treatment after surgery to close the ulcer would be helpful and be able to heal his ulcer. Will refer him for surgical consultation. We are going to hold the wound vac for another week and will consider anesthetizing the skin above the tunneling and applying the wound vac to try to better utilize the wound vac with a larger external wound. CT scan showed no involvement into the bone currently. The importance of offloading was stressed to his caregiver and they agreed to obtain a Roho or gel foam cushion for his wheelchair as well as heel protectors/foam booties. She also is going to discuss with his family regarding moving him to a higher acuity home where he would have the option of more skilled services. Stressed importance of increased protein intake and adequate nutrition in healing ulcers and wounds. Recommended continuing protein shakes at least once daily outside of meals. Labs reviewed and there are no significant abnormalities. Pre-albumin is low normal. Protein supplementation was encouraged. He has undergone arterial testing in 2012 and 2018 which did not show significant arterial disease. His caregiver asked that we avoid doing them again unless necessary as it causes him extreme stress and discomfort. She was advised to contact the wound healing center if he develops any fever, chills, increased erythema, increased odor or drainage and agrees to update with any changes in status. He will return in 1 week for wound care and will see Dr. Rader in surgical consultation on 07/07.
== END 2021-06-27 23:59 ==
LOC: WC 09:00
PROVIDERS: PCP Internal Medicine; Referring Provider Physician Assistant; Visit Provider Family Medicine
DX: L89.213 Pressure ulcer of right hip, stage 3 (principal); Q90.9 Down syndrome, unspecified; R15.9 Full incontinence of feces; E03.9 Hypothyroidism, unspecified; F03.90 Unspecified dementia, unspecified severity, without behavioral disturbance, psychotic disturbance, mood disturbance, and anxiety; Z79.890 Hormone replacement therapy; Z79.899 Other long term (current) drug therapy
CPT/HCPCS: 11042; 97605; 99212; G0463

== ENCOUNTER 2021-07-21 10:00 | Outpatient (RCR) | payer MEDICARE, MEDICAID, SELFPAY ==
[2021-06-28 00:36] VITALS: BP 96/54; PULSE 82; RESP 18; TEMP 36; BMI 23.1
--- NOTE | 2021-06-30 11:47 | PCM.WC.PN ---
History of Present Illness Date of Service: 06/30/21 Chief Complaint: wounds of heels and right buttock/hip History of Wound: Min is a 70 yo gentleman that currently resides at [facility] shelter who presents to the wound healing center for nonhealing ulcers of his heels, right buttock and right hip. He has been referred here for treatment by his PCP's office and is accompanied by Argenis, the nurse global marketing manager for the shelter that he resides. Min is nonverbal and unable to provide history himself. Argenis provided the details and history for the patient as well as chart review from his PCP. Over the last several months, Min has declined in his mobility and is now mostly sitting in a wheelchair or on the couch or chair at his home. He is unable to ambulate and also has stopped using the toilet over the last month and is more incontinent of stool and urine per Argenis. His right hip/trochanter ulcer has been present since November and started out as a red area and ultimately broke down and has been draining. They have been covering it with Duoderm and trying to offload his hip using pillows. The ulcers of his right buttock and his heels have been present since mid February. The ulcer of his right buttock occurred due to shearing force when trying to transfer/rotate him to take pressure off of his right hip. The ulcer of his left heel started as a blister and was incised by his broadcast producer but no further care was recommended. It has since improved somewhat with duoderm treatment. The right heel has a blood blister which is likely from pressure or friction. He currently has a low air loss mattress that he sleeps on but does not have an offloading cushion to sit on in his wheelchair or offloading/heel protectors for his feet. Nutrition is supplemented with protein shakes as well as regular meals. Argenis states that he eats pretty well and generally has a good appetite. Labs were completed on 04/11/2021 and showed a low normal pre-albumin and otherwise unremarkable labs. Wound culture from 04/07/2021 showed several bacteria to be present and he was started on Augmentin for treatment. He has not shown any signs of systemic infection. Unable to obtain ROS. Progress of Wound: Min is here today for follow up of treatment of right hip ulcer. His heel ulcers remain healed after treatment with foam booties and Promogran dressings. His right buttock ulcer remains healed. He has been tolerating Aquacel rope dressing changes every other day. He has been tolerating the treatment but still shows minimal improvement in the depth and undermining of his ulcer. There is still a large amount of drainage. Denies fever or chills. Objective Data Objective Data Vital Signs: Vital Signs Temp Pulse Resp BP 96.8 F L 82 18 96/54 L 06/28/21 00:36 06/28/21 00:36 06/28/21 00:36 06/28/21 00:36 Weight: 50.126 kg Body Mass Index (BMI) 23.1 Physical Exam Const alert and no apparent distress General Appearance: anxious Nutritional Appearance: obese HEENT normocephalic and head/scalp atraumatic Resp normal respiratory effort Cardio regular rate and regular rhythm Skin Wounds: wounds noted Wound Narrative: as in clinical panel Psych mental status grossly normal, thought process normal and cooperative Debridement Note Debridement Note Wound debrided: right hip/trochanter Laterality: Right Wound Grade/Stage: Stage III Type of Debridement: Excisional debridement Anesthesia Used: 5% Lidocaine Gel and Cetacaine Depth: Down to and including healthy tissue, in the subcutaneous layer and to muscle Percentage of wound debrided: 100 Instrument Used: #15 blade and Forceps Tissue Removed: yellow slough, devitalized tissue Severity: Necrosis of Muscle Amount of bleeding with debridement: Moderate Bleeding Controlled with: Gel Foam Patient tolerated procedure: Patient tolerated procedure well Post-Debridement Measurements and Additional Note: Post-Debridement Measurements/Treatment WC - Nurse 2 - General Ulcer CM Notes Start: 06/30/21 10:24 Freq: Status: Active Protocol: Activity Type Activity Date Activity User E-Sign Co-Sign Detail Recorded Client Recorded Date Recorded By Document 06/30/21 10:26 MW [id number] 06/30/21 10:58 MW 06/30/21 10:26 Wound Center Nurse 2 3. R trochanter -Time 10:53 -Correct Patient Yes -Correct Side, Site, Position Yes -Correct Procedure Yes -Procedure Performed Yes -Type of Procedure Debridement -Clinical Debridement Muscle / Fascia -Tissue Removed Muscle,Fascia -Post Debridement (cm) - Length 2.0 -Post Debridement (cm) - Width 1.5 -Post Debridement (cm) - Depth 2.1 -Total Square (Post) (cm) 3.00 -Area of Debridement (cm) - Length 2.0 -Area of Debridement (cm) - Width 1.5 -Total Square (Area) (cm) 3.00 -Tunneling No -Undermining/Tunneling Yes -Undermining/Tunneling Starts (O'clock 11 ) -Undermining/Tunneling Ends (O'clock) 2 -Maximum Distance (cm) 1.5 -Circular Undermining No -Wound/Ulcer Outcome Not Healed -Ulcer Cleansing Rinsed/ Irrigated with Saline -Foul Odor after Cleansing No -Bioengineered Tissue No -Bleeding Controlled with NA,SURGIFOAM -Offloading No -Debridement - Muscle / Fascia, 1st Yes 20sq cm Pain Scale: 0-10 Numeric Is Patient Pain Free? Yes - Nurse 3 - General Ulcer D/C NN Start: 06/30/21 10:24 Freq: Status: Active Protocol: Activity Type Activity Date Activity User E-Sign Co-Sign Detail Recorded Client Recorded Date Recorded By Document 06/30/21 11:18 DL [id number] 06/30/21 11:20 DL 06/30/21 11:18 Wound Care Nurse 3 3. R trochanter -Ulcer Cleansing Wound Cleanser -Foul Odor after Cleansing No -Negative Pressure Wound Therapy Continue -Setting (mmHg) 150 -Negative Pressure is Continuous -NPWT Application Charge ($) NPWT </= 50 sq cm Treatment Response Procedure Tolerated Well Pain Scale: 0-10 Numeric Is Patient Pain Free? Yes WC - Visit Discharge Discharge Condition Stable Ambulatory Status Wheelchair Transportation shelter Facility Type Label Tacker Care Facility Orders Sent Yes Assessment/Plan Assessment/Plan (1) Abnormality of gait and mobility: CODE(S): R26.9 - Unspecified abnormalities of gait and mobility (2) Pressure ulcer of right hip, stage 3: CODE(S): L89.213 - Pressure ulcer of right hip, stage 3 (3) Down syndrome: CODE(S): Q90.9 - Down syndrome, unspecified (4) Dementia: CODE(S): F03.90 - Unspecified dementia without behavioral disturbance QUALIFIERS: Dementia type: unspecified type Dementia behavioral disturbance: without behavioral disturbance Qualified Code(s): F03.90 - Unspecified dementia without behavioral disturbance PLAN: Bridgette ulcer was evaluated and debrided today at the wound healing center. His right and left heels remain healed. Right buttock ulcer remains healed. Right trochanter/hip was anesthetized using 5 cc of 2% lidocaine from the 10 o'cock position to the 2 o'clock position. 15 blade scalpel and forceps were used to excise the skin at the edge of the wound and visualize the wound bed better. The opening of the wound was extended approximately 1 cm superiorly from the 10 o'clock to 2 oclock position. The epidermis and underlying subcutaneous tissue were removed as well as thick fibrous slough/necrotic tissue at the wound bed. The wound was enlarged and a significant portion of the tissue that was over the undermining was removed but there is still some undermining present. The patient tolerated the procedure fairly well but was becoming uncomfortable and the procedure was discontinued. Bleeding was controlled with pressure and gauze and surgifoam was used to ensure adequate control post procedure before applying wound vac to the wound. Blood loss approx 5 cc. Wound vac was applied today and will be changed on Saturday and again on Saturday. He will return Saturday for wound care. The etiology of his ulcers appear to be pressure which has occurred from recent changes in his mobility. Wound culture of his right hip on 04/07/21 was positive for infection with Staph aureus, morganella morganii and enterococcus Faecalis. He completed Augmentin. Wound culture 05/05/21 was positive for Staph and Enterococcus. He completed treatment with Augmentin. Due to the heavy drainage and depth of his ulcer, he would benefit and it is medically necessary for treatment with a wound vac in order to manage the heavy drainage and encourage granulation of his ulcer. Wound vac suction at 150 mmHg with changes 2-3 times/week. Due to lack of improvement and the undermining with only a small external opening to the wound bed, I feel that he would benefit from surgical debridement to be able to remove the overlying tissue and clean the wound base really well of the devitalized tissue to be able to heal the ulcer. This was attempted today in the clinic and was able to enlarge the opening and hopefully the wound vac will be better able to manage the drainage and encourage granulation with the new opening. I think continued wound vac treatment after surgery to close the ulcer would be helpful and be able to heal his ulcer. Will refer him for surgical consultation. CT scan showed no involvement into the bone currently. The importance of offloading was stressed to his caregiver and they agreed to obtain a Roho or gel foam cushion for his wheelchair as well as heel protectors/foam booties. She also is going to discuss with his family regarding moving him to a higher acuity home where he would have the option of more skilled services. Stressed importance of increased protein intake and adequate nutrition in healing ulcers and wounds. Recommended continuing protein shakes at least once daily outside of meals. Labs reviewed and there are no significant abnormalities. Pre-albumin is low normal. Protein supplementation was encouraged. He has undergone arterial testing in 2012 and 2018 which did not show significant arterial disease. His caregiver asked that we avoid doing them again unless necessary as it causes him extreme stress and discomfort. She was advised to contact the wound healing center if he develops any fever, chills, increased erythema, increased odor or drainage and agrees to update with any changes in status. He will return in 1 week for wound care and will see Dr. Rader in surgical consultation on 07/07.
[2021-07-07 10:48] VITALS: RESP 18; TEMP 36.6; BMI 23.1
--- NOTE | 2021-07-07 10:50 | HP.PCM_ITS ---
History of Present Illness Date of Service: 07/07/21 Chief Complaint: WOUND CENTER CONSULT REFERRING PHYSICIAN: Dr. Andrade. RN PSYCHIATRIC: Dr. Rader. Reason for consultation: Right trochanteric pressure ulcer, Stage IV. History of Wound: Min is a 70 yo gentleman that currently resides at [facility] shelter who presents to the wound healing center for nonhealing ulcers of his heels, right buttock and right hip. The patient is accompanied by Argenis, the nurse sales promotion manager for the shelter that he resides. Min is nonverbal and unable to provide history himself. Argenis provided the details and history for the patient as well as chart review from his PCP. Over the last several months, Min has declined in his mobility and is now mostly sitting in a wheelchair or on the couch or chair at his home. He is unable to ambulate and also has stopped using the toilet over the last month and is more incontinent of stool and urine per Argenis. His right hip/trochanter ulcer has been present since November and started out as a red area and ultimately broke down and has been draining. It is being treated with the VAC. The ulcers of his right buttock and his heels have been present since mid February. The ulcer of his right buttock occurred due to shearing force when trying to transfer/rotate him to take pressure off of his right hip. The ulcer of his left heel started as a blister and was incised by his screw down but no further care was recommended. It has since improved somewhat with duoderm treatment. The right heel has a blood blister which is likely from pressure or friction. He currently has a low air loss mattress that he sleeps on but does not have an offloading cushion to sit on in his wheelchair or offloading/heel protectors for his feet. Nutrition is supplemented with protein shakes as well as regular meals. Argenis states that he eats pretty well and generally has a good appetite. His right buttock ulcer and bilateral heel ulcers have since healed. A wound culture was done on 04/07/21. It was positive for Staphylococcus aureus, Morganella morganii, and Enterococcus faecalis. He was treated with Augmentin. Another wound culture was done on 05/05/21. It was positive for Staphylococcus aureus and Enterococcus faecalis. He was treated with Augmentin. His HgbA1c from 04/11/21 was 5.1. His Prealbumin from 04/11/[address] A CT was done on 06/16/21. It showed linear area of the soft tissue defect and granulation overlying the greate trochanter of the proximal right femur. This may represent an area of prior surgical intervention. Clinical correlation is recommended. Small right inguinal hernia containing fat. Small gallstones. Progress of Wound: Improved. [facility] Medical History (Updated 07/09/21 @ 22:[address] Ezra Rader MD) Behavioral change Cataracts, bilateral Change in mental state Dementia Down syndrome Fracture tibia/fibula Gout High cholesterol Hypothyroidism Pressure ulcer of trochanteric region of right hip, stage 4 Sleep disorder Home Medications melatonin 3 mg PO QHS 01/17/20 [History Last Taken Unknown] triamcinolone acetonide 0.025 % topical cream 1 applic TOPICAL .COMPLEX #454 g 09/02/20 [Rx Last Taken Unknown] simvastatin 20 mg tablet 20 mg PO QHS #90 tab 09/21/20 [Rx Last Taken Unknown] levothyroxine 88 mcg tablet 88 mcg PO DAILY #90 tab 11/18/20 [Rx Last Taken Unknown] acetaminophen 2 tab PO Q4H PRN 12/25/20 [History Last Taken Unknown] allopurinol 1 tab PO DAILY 12/25/20 [History Last Taken Unknown] cholecalciferol (vitamin D3) 2,000 unit PO DAILY 12/25/20 [History Last Taken Unknown] omeprazole 10 mg PO DAILY 12/25/20 [History Last Taken Unknown] High/Low Bed #1 ea 01/23/21 [Rx Last Taken Unknown] cyanocobalamin (vitamin B-12) 1,000 mcg tablet 1,000 mcg PO QODAY #90 tab 04/18/21 [Rx Last Taken Unknown] amoxicillin-pot clavulanate 1 tab PO BID #20 tab 05/05/21 [Rx Last Taken Unknown] ciprofloxacin 0.3 %-dexamethasone 0.1 % ear drops,suspension 4 drp OTIC (EAR) Q12H 05/08/21 [History Last Taken Unknown] ibuprofen 400 mg tablet 400 mg PO BID PRN tab 05/08/21 [History Last Taken Unknown] rivastigmine 13.3 mg/24 hour transdermal patch 13.3 mg TRANSDERMAL DAILY #30 ea 05/08/21 [Rx Last Taken Unknown] multivitamin 1 tab PO DAILY #90 tab 05/31/21 [Rx Last Taken Unknown] quetiapine 50 mg tablet 50 mg PO BID #60 tab 05/31/21 [Rx Last Taken Unknown] pyridoxine (vitamin B6) 50 mg capsule 50 mg PO DAILY #90 cap 06/29/21 [Rx Last Taken Unknown] Allergy/AdvReac Type Severity Reaction Status Date / Time No Known Allergies Allergy Verified 05/08/21 10:20 Family History Mother Cancer Brother CVA (cerebral vascular accident) Social History Smoking Status: Never smoker alcohol intake: never substance use type: does not use what type of physical activity do you participate in: none ROS ROS Narrative REVIEW OF SYSTEMS - Provided by the patient's caregiver as he is nonverbal. General - Denies fever, fatigue, and weight loss. Eyes - Denies cataracts and glaucoma. ENT - Denies nasal congestion and sore throat. Endocrine - Denies excessive thirst and urination. Skin - Denies suspicious lesions and skin cancer. Musculoskeletal - Denies joint pain, joint stiffness, weakness of muscles and joints, back pain, and arthritis. Neuro - Denies headaches. Cardiovascular - Denies chest pain, fatigue, and shortness of breath with exertion. Psych - Denies anxiety and depression. Respiratory - Denies chronic cough and shortness of breath. Gastrointestinal - Denies nausea, vomiting, diarrhea, and constipation. Hematologic - Denies abnormal bruising and bleeding. Genitourinary - Denies hematuria and urinary frequency. Vital Signs Vital Signs Vital Signs: Weight Weight: 110 lb 8.136 oz Body Mass Index (BMI) 23.1 Physical Exam Narrative PHYSICAL EXAMINATION - with assistance from the patient's caregiver as he is nonverbal. HEENT - PERRL. EOMI. Throat is clear. Neck - Supple and nontender. No cervical adenopathy. Lungs - Clear to auscultation. Heart - Regular rate and rhythm. Abdomen - Soft and nondistended. Extremities - On the right trochanteric area is a pressure ulcer. Bone is palpable at its base, thus making it a Stage IV pressure ulcer. There is good granulation tissue present. It is being treated with the VAC. Neuro - CN II-XII grossly intact. Debridement Note Debridement Note Wound debrided: #3 Right trochanteric area. Laterality: Right Wound Grade/Stage: IV. No debridement was completed: No debridement was completed today (It was already debrided when I saw the patient.) Post-Debridement Measurements and Additional Note: Post-Debridement Measurements/Treatment - Nurse 1 - General Ulcer Assessment Start: 06/30/21 10:24 Freq: Status: Active Protocol: NATALIA Activity Type Activity Date Activity User E-Sign Co-Sign Detail Recorded Client Recorded Date Recorded By Document 07/07/21 10:48 RB [id number] 07/07/21 10:49 07/07/21 10:48 - Today's Visit Information Type of service Follow-up Visit (Physician/INTERNIST ) Arrival Mode Wheelchair Transfer Assistance Manual Patient Identification Verified (Name & Yes ) Patient Requires Transmission-Based No Precautions Height and Weight Body Mass Index (BMI) 23.1 BMI Classification Normal Vital Signs Temperature (97.8 F-99.1 F) 98 F Temperature Source Temporal Respiratory Rate (12-18) 18 Respiratory rate source Observation History Since Last Visit- (Skip if this is Patient's initial visit) Have you changed medications since your No last visit? Any new allergies or adverse reactions No Had a fall/change in ADL's that may No increase risk of falls Signs or symptoms of abuse and/or No neglect since last visit Have you been in the hospital since your No last visit? Has dressing in place as prescribed Yes Has compression in place as prescribed No Has offloadiing in place as prescribed No Experienced any changes in pain level or No management Pain Scale: 0-10 Numeric Is Patient Pain Free? Yes [facility] Nurse 1 - General Ulcer Measurement Start: 06/30/21 10:24 Freq: Status: Active Protocol: Activity Type Activity Date Activity User E-Sign Co-Sign Detail Recorded Client Recorded Date Recorded By Document 07/07/21 10:48 RB [id number] 07/07/21 10:49 07/07/21 10:48 Wound Center Nurse 1 3. R trochanter -Exudate Amt Medium -Exudate Type Serosanguineous -Wound Margin Distinct, Outline Attached -Granulation Amt Large (67-100%) -Granulation Quality [place],Red -Slough/Fibrin Yes -Necrosis Amt Small (1-33%) -Necrotic Tissue Type Adherent Slough -Structure Exposed N/A -Texture (Yeimy-wound Skin Appearance) Assessed -Moisture (Yeimy-wound Skin Appearance) Assessed -Color (Yeimy-wound Skin Appearance) Assessed -Temperature (Yeimy-wound Skin No Abnormality Appearance) (Pt Warm) -Tenderness on Palpation (Yeimy-wound No Skin Appearance) -Ulcer Cleansing Wound Cleanser -Foul Odor after Cleansing No -Anesthetic Used 4% Lidocaine Solution WC - Nurse 2 - General Ulcer CM Notes Start: 06/30/21 10:24 Freq: Status: Active Protocol: Activity Type Activity Date Activity User E-Sign Co-Sign Detail Recorded Client Recorded Date Recorded By Document 06/30/21 10:26 MW [id number] 06/30/21 10:58 MW Document 07/07/21 11:07 MW [id number] 07/07/21 11:20 MW 06/30/21 07/07/21 10:26 11:07 Wound Center Nurse 2 3. R trochanter -Time 10:53 11:09 -Correct Patient Yes Yes -Correct Side, Site, Position Yes Yes -Correct Procedure Yes Yes -Procedure Performed Yes Yes -Type of Procedure Debridement Debridement -Clinical Debridement Muscle / Fascia Subcutaneous -Tissue Removed Muscle,Fascia Subcutaneous -Post Debridement (cm) - Length 2.0 1.9 -Post Debridement (cm) - Width 1.5 1.7 -Post Debridement (cm) - Depth 2.1 2.8 -Total Square (Post) (cm) 3.00 3.23 -Area of Debridement (cm) - Length 2.0 1.9 -Area of Debridement (cm) - Width 1.5 1.7 -Total Square (Area) (cm) 3.00 3.23 -Tunneling No No -Undermining/Tunneling Yes Yes -Undermining/Tunneling Starts (O'clock 11 12 ) -Undermining/Tunneling Ends (O'clock) 2 1 -Maximum Distance (cm) 1.5 0.5 -Circular Undermining No No -Wound/Ulcer Outcome Not Healed Not Healed -Ulcer Cleansing Rinsed/ Rinsed/ Irrigated with Irrigated with Saline Saline -Foul Odor after Cleansing No No -Bioengineered Tissue No No -Bleeding Controlled with NA,SURGIFOAM Pressure -Offloading No No -Treatment Response Procedure Tolerated Well -Debridement - Subq, 1st 20sq cm Yes -Debridement - Muscle / Fascia, 1st Yes 20sq cm Pain Scale: 0-10 Numeric Is Patient Pain Free? Yes Yes WC - Nurse 3 - General Ulcer D/C NN Start: 06/30/21 10:24 Freq: Status: Active Protocol: Activity Type Activity Date Activity User E-Sign Co-Sign Detail Recorded Client Recorded Date Recorded By Document 06/30/21 11:18 DL [id number] 06/30/21 11:20 DL Document 07/07/21 12:29 RB [id number] 07/07/21 12:29 RB 06/30/21 07/07/21 11:18 12:29 Wound Care Nurse 3 3. R trochanter -Ulcer Cleansing Wound Cleanser Rinsed/ Irrigated with Saline -Foul Odor after Cleansing No -Negative Pressure Wound Therapy Continue Continue -Setting (mmHg) 150 150 -Negative Pressure is Continuous Continuous -NPWT Application Charge ($) NPWT </= 50 sq NPWT </= 50 sq cm cm Yeimy-Wound Care Barrier Treatment Response Procedure Procedure Tolerated Well Tolerated Well Pain Scale: 0-10 Numeric Is Patient Pain Free? Yes Yes WC - Visit Discharge Discharge Condition Stable Stable Ambulatory Status Wheelchair Wheelchair Transportation shelter Private Auto Medication Reconcilliation completed & No provided to patient/care provider Clinical Summary of Care Provided Yes Facility Type Snf Care Facility Orders Sent Yes Lab / Micro Data Attestation: I reviewed the patient's lab results. Charges/Coding Visit Charges Office Visits / Consults: 12104 OV L4 New (ICD-10 - L89.214, R26.9, Q90.9, F03.90) Assessment/Plan Assessment/Plan (1) Pressure ulcer of trochanteric region of right hip, stage 4: CODE(S): L89.214 - Pressure ulcer of right hip, stage 4 (2) Abnormality of gait and mobility: CODE(S): R26.9 - Unspecified abnormalities of gait and mobility (3) Down syndrome: CODE(S): Q90.9 - Down syndrome, unspecified (4) Dementia: CODE(S): F03.90 - Unspecified dementia without behavioral disturbance QUALIFIERS: Dementia behavioral disturbance: without behavioral disturbance Dementia type: unspecified type Qualified Code(s): F03.90 - Unspecified dementia without behavioral disturbance PLAN: CT and labs reviewed. Continue Low Air Loss bed at home. Patient has a Stage IV right trochanteric pressure ulcer. At the present time it is clean with good granulation tissue. It is being treated with the VAC. It extends down to the bone. So total healing may be problematic, but because the ulcer is stable and clean, we can certainly give this ulcer more time to heal. If it were to worsen of if the healing process has plateaued, then I recommend operative intervention with excision of the right trochanteric pressure ulcer along with a partial ostectomy for osteomyelitis. If osteomyelitis is present, the patient would need extermination inspector IV antibiotics through a PICC line. After treating any positive cultures, can then proceed with wound closure with a myocutaneous flap. This flap does require 6 weeks of bedrest. Right now the caregiver wants to continue the local wound care and hopefully the ulcer can heal without the need for a complex myocutaneous flap closure. During the healing process, sometimes additional maintenance debridements may be necessary in the operating room. HgbA1c from 04/11/21 was 5.1. Prealbumin from 04/11/21 was 22.3. Encourage nutritional supplementation with protein to help the healing process. The patient can followup to see me on an as needed basis if surgery becomes necessary. In the meantime, the patient can followup with Dr. Andrade at the Wound Center. We discussed the current risks associated with COVID-19. While it is understood that there is a community spread of COVID-19, the risk of javier COVID-19 while at [facility] ([facility]) is very low; however, the risk cannot be completely mitigated because of the community spread of the disease. We discussed in detail the risk of exposure to and/or potential harm posed by the COVID-19 virus with having a surgery/procedure at this time versus the risk of delaying the surgery/procedure. It is not possible to know either the risk of delaying the surgery or procedure or chance of getting an infection with perfect accuracy, but a joint decision was made to proceed at this time with the scheduled surgery/procedure as indicated on the consent form. Patient was notified that we will need to comply with any screening or testing [facility] wishes to perform or that surgery may be delayed for any positive results.
--- NOTE | 2021-07-07 13:00 | PN.PCM_ITS ---
History of Present Illness Date of Service: 07/07/21 Chief Complaint: wounds of heels and right buttock/hip History of Wound: Min is a 70 yo gentleman that currently resides at [facility] who presents to the wound healing center for nonhealing ulcers of his heels, right buttock and right hip. He has been referred here for treatment by his PCP's office and is accompanied by Argenis, the nurse automation manager for the [facility] that he resides. Min is nonverbal and unable to provide history himself. Argenis provided the details and history for the patient as well as chart review from his PCP. Over the last several months, Min has declined in his mobility and is now mostly sitting in a wheelchair or on the couch or chair at his home. He is unable to ambulate and also has stopped using the toilet over the last month and is more incontinent of stool and urine per Argenis. His right hip/trochanter ulcer has been present since November and started out as a red area and ultimately broke down and has been draining. They have been covering it with Duoderm and trying to offload his hip using pillows. The ulcers of his right buttock and his heels have been present since mid February. The ulcer of his right buttock occurred due to shearing force when trying to transfer/rotate him to take pressure off of his right hip. The ulcer of his left heel started as a blister and was incised by his envelope folding machine adjuster but no further care was recommended. It has since improved somewhat with duoderm treatment. The right heel has a blood blister which is likely from pressure or friction. He currently has a low air loss mattress that he sleeps on but does not have an offloading cushion to sit on in his wheelchair or offloading/heel protectors for his feet. Nutrition is supplemented with protein shakes as well as regular meals. Argenis states that he eats pretty well and generally has a good appetite. Labs were completed on 04/11/2021 and showed a low normal pre-albumin and otherwise unremarkable labs. Wound culture from 04/07/2021 showed several bacteria to be present and he was started on Augmentin for treatment. He has not shown any signs of systemic infection. Unable to obtain ROS. Progress of Wound: Min is here today for follow up of treatment of right hip u lcer. His heel ulcers remain healed after treatment with foam booties and Promogran dressings. His right buttock ulcer remains healed. He did well with the excisional debridement to unroof the ulcer last week and tolerated the wound vac well this week. Denies fever or chills. Objective Data Objective Data Vital Signs: Vital Signs Temp Pulse Resp BP 98 F 82 18 96/54 L 07/07/21 10:48 06/28/21 00:36 07/07/21 10:48 06/28/21 00:36 Weight: 50.126 kg Body Mass Index (BMI) 23.1 Physical Exam Const alert and no apparent distress General Appearance: anxious Nutritional Appearance: obese HEENT normocephalic and head/scalp atraumatic Resp normal respiratory effort Cardio regular rate and regular rhythm Skin Wounds: wounds noted Wound Narrative: as in clinical panel Psych mental status grossly normal, thought process normal and cooperative Debridement Note Debridement Note Wound debrided: right greater trochanter Laterality: Right Wound Grade/Stage: Stage III Type of Debridement: Excisional debridement Anesthesia Used: 4% Lidocaine Solution and 5% Lidocaine Gel Depth: Down to and including healthy tissue, in the subcutaneous layer and to muscle Percentage of wound debrided: 100 Instrument Used: 3mm curette Tissue Removed: Yellow slough, devitalized tissue Severity: Fat Layer Exposed Amount of bleeding with debridement: Mild Bleeding Controlled with: Compression and gauze Patient tolerated procedure: Patient tolerated procedure well Post-Debridement Measurements and Additional Note: Post-Debridement Measurements/Treatment KAREN - Nurse 1 - General Ulcer Assessment Start: 06/30/21 10:24 Freq: Status: Active Protocol: NATALIA Activity Type Activity Date Activity User E-Sign Co-Sign Detail Recorded Client Recorded Date Recorded By Document 07/07/21 10:48 [id number] 07/07/21 10:49 JANNA 07/07/21 10:48 - Today's Visit Information Type of service Follow-up Visit (Physician/MANAGER SPA ) Arrival Mode Wheelchair Transfer Assistance Manual Patient Identification Verified (Name & Yes ) Patient Requires Transmission-Based No Precautions Height and Weight Body Mass Index (BMI) 23.1 BMI Classification Normal Vital Signs Temperature (97.8 F-99.1 F) 98 F Temperature Source Temporal Respiratory Rate (12-18) 18 Respiratory rate source Observation History Since Last Visit- (Skip if this is Patient's initial visit) Have you changed medications since your No last visit? Any new allergies or adverse reactions No Had a fall/change in ADL's that may No increase risk of falls Signs or symptoms of abuse and/or No neglect since last visit Have you been in the hospital since your No last visit? Has dressing in place as prescribed Yes Has compression in place as prescribed No Has offloadiing in place as prescribed No Experienced any changes in pain level or No management Pain Scale: 0-10 Numeric Is Patient Pain Free? Yes - Nurse 1 - General Ulcer Measurement Start: 06/30/21 10:24 Freq: Status: Active Protocol: Activity Type Activity Date Activity User E-Sign Co-Sign Detail Recorded Client Recorded Date Recorded By Document 07/07/21 10:48 RB [id number] 07/07/21 10:49 RB 07/07/21 10:48 Wound Center Nurse 1 3. R trochanter -Exudate Amt Medium -Exudate Type Serosanguineous -Wound Margin Distinct, Outline Attached -Granulation Amt Large (67-100%) -Granulation Quality [place],Red -Slough/Fibrin Yes -Necrosis Amt Small (1-33%) -Necrotic Tissue Type Adherent Slough -Structure Exposed N/A -Texture (Yeimy-wound Skin Appearance) Assessed -Moisture (Yeimy-wound Skin Appearance) Assessed -Color (Yeimy-wound Skin Appearance) Assessed -Temperature (Yeimy-wound Skin No Abnormality Appearance) (Pt Warm) -Tenderness on Palpation (Yeimy-wound No Skin Appearance) -Ulcer Cleansing Wound Cleanser -Foul Odor after Cleansing No -Anesthetic Used 4% Lidocaine Solution - Nurse 2 - General Ulcer CM Notes Start: 06/30/21 10:24 Freq: Status: Active Protocol: Activity Type Activity Date Activity User E-Sign Co-Sign Detail Recorded Client Recorded Date Recorded By Document 06/30/21 10:26 MW [id number] 06/30/21 10:58 MW Document 07/07/21 11:07 MW [id number] 07/07/21 11:20 MW 06/30/21 07/07/21 10:26 11:07 Wound Center Nurse 2 3. R trochanter -Time 10:53 11:09 -Correct Patient Yes Yes -Correct Side, Site, Position Yes Yes -Correct Procedure Yes Yes -Procedure Performed Yes Yes -Type of Procedure Debridement Debridement -Clinical Debridement Muscle / Fascia Subcutaneous -Tissue Removed Muscle,Fascia Subcutaneous -Post Debridement (cm) - Length 2.0 1.9 -Post Debridement (cm) - Width 1.5 1.7 -Post Debridement (cm) - Depth 2.1 2.8 -Total Square (Post) (cm) 3.00 3.23 -Area of Debridement (cm) - Length 2.0 1.9 -Area of Debridement (cm) - Width 1.5 1.7 -Total Square (Area) (cm) 3.00 3.23 -Tunneling No No -Undermining/Tunneling Yes Yes -Undermining/Tunneling Starts (O'clock 11 12 ) -Undermining/Tunneling Ends (O'clock) 2 1 -Maximum Distance (cm) 1.5 0.5 -Circular Undermining No No -Wound/Ulcer Outcome Not Healed Not Healed -Ulcer Cleansing Rinsed/ Rinsed/ Irrigated with Irrigated with Saline Saline -Foul Odor after Cleansing No No -Bioengineered Tissue No No -Bleeding Controlled with NA,SURGIFOAM Pressure -Offloading No No -Treatment Response Procedure Tolerated Well -Debridement - Subq, 1st 20sq cm Yes -Debridement - Muscle / Fascia, 1st Yes 20sq cm Pain Scale: 0-10 Numeric Is Patient Pain Free? Yes Yes - Nurse 3 - General Ulcer D/C NN Start: 06/30/21 10:24 Freq: Status: Active Protocol: Activity Type Activity Date Activity User E-Sign Co-Sign Detail Recorded Client Recorded Date Recorded By Document 06/30/21 11:18 DL [id number] 06/30/21 11:20 DL Document 07/07/21 12:29 RB [id number] 07/07/21 12:29 RB 06/30/21 07/07/21 11:18 12:29 Wound Care Nurse 3 3. R trochanter -Ulcer Cleansing Wound Cleanser Rinsed/ Irrigated with Saline -Foul Odor after Cleansing No -Negative Pressure Wound Therapy Continue Continue -Setting (mmHg) 150 150 -Negative Pressure is Continuous Continuous -NPWT Application Charge ($) NPWT </= 50 sq NPWT </= 50 sq cm cm Yeimy-Wound Care Barrier Treatment Response Procedure Procedure Tolerated Well Tolerated Well Pain Scale: 0-10 Numeric Is Patient Pain Free? Yes Yes - Visit Discharge Discharge Condition Stable Stable Ambulatory Status Wheelchair Wheelchair Transportation [facility] Private Auto Medication Reconcilliation completed & No provided to patient/care provider Clinical Summary of Care Provided Yes Facility Type Supervisor Cartography Care Facility Orders Sent Yes Assessment/Plan Assessment/Plan (1) Abnormality of gait and mobility: CODE(S): R26.9 - Unspecified abnormalities of gait and mobility (2) Pressure ulcer of right hip, stage 3: CODE(S): L89.213 - Pressure ulcer of right hip, stage 3 (3) Down syndrome: CODE(S): Q90.9 - Down syndrome, unspecified (4) Dementia: CODE(S): F03.90 - Unspecified dementia without behavioral disturbance QUALIFIERS: Dementia type: unspecified type Dementia behavioral disturbance: without behavioral disturbance Qualified Code(s): F03.90 - Unspecified dementia without behavioral disturbance PLAN: Min's ulcer was evaluated and debrided today at the wound healing center. His right and left heels remain healed. Right buttock ulcer remains healed. Right trochanter/hip ulcer is somewhat improved this week. There is still some increase in depth but the tissue appears healthy and is granulating well. Wound vac was reapplied today and will be changed on Saturday and Saturday. He will return Saturday for wound care. The etiology of his ulcers appear to be pressure which has occurred from recent changes in his mobility. Wound culture of his right hip on 04/07/21 was positive for infection with Staph aureus, morganella morganii and enterococcus Faecalis. He completed Augmentin. Wound culture 05/05/21 was positive for Staph and Enterococcus. He completed treatment with Augmentin. Due to the heavy drainage and depth of his ulcer, he would benefit and it is medically necessary for treatment with a wound vac in order to manage the heavy drainage and encourage granulation of his ulcer. Wound vac suction at 150 mmHg with changes 2-3 times/week. Dr. Rader saw the patient today with me and evaluated the ulcer. He discussed option of surgical debridement vs. surgical debridement and graft or flap closure but felt that the appearance of the ulcer this week looked promising for possible closure with wound vac treatment and continued wound care. If the ulcer fails to progress in a positive direction and/or show concern of continued tunneling or undermining then he would be happy to see Min again and would be able to do a surgical debridement under anesthesia and would keep him overnight and discharge him with wound vac. CT scan showed no involvement into the bone currently. The importance of offloading was stressed to his caregiver and they agreed to obtain a Roho or gel foam cushion for his wheelchair as well as heel protectors/foam booties. She also is going to discuss with his family regarding moving him to a higher acuity home where he would have the option of more skilled services. Stressed importance of increased protein intake and adequate nutrition in healing ulcers and wounds. Recommended continuing protein shakes at least once daily outside of meals. Labs reviewed and there are no significant abnormalities. Pre-albumin is low normal. Protein supplementation was encouraged. He has undergone arterial testing in 2012 and 2019 which did not show significant arterial disease. His caregiver asked that we avoid doing them again unless necessary as it causes him extreme stress and discomfort. She was advised to contact the wound healing center if he develops any fever, chills, increased erythema, increased odor or drainage and agrees to update with any changes in status. He will return in 1 week for wound care.
[2021-07-14 10:41] VITALS: RESP 22; TEMP 36.2; BMI 23.1
--- NOTE | 2021-07-14 12:27 | PN.PCM_ITS ---
History of Present Illness Date of Service: 07/14/21 Chief Complaint: ulcer right greater trochanter History of Wound: Min is a 70 yo gentleman that currently resides at [facility] senior care who presents to the wound healing center for nonhealing ulcers of his heels, right buttock and right hip. The patient is accompanied by Argenis, the nurse clinic manager for the senior care that he resides. Min is nonverbal and unable to provide history himself. Argenis provided the details and history for the patient as well as chart review from his PCP. Over the last several months, iMn has declined in his mobility and is now mostly sitting in a wheelchair or on the couch or chair at his home. He is unable to ambulate and also has stopped using the toilet over the last month and is more incontinent of stool and urine per Argenis. His right hip/trochanter ulcer has been present since November and started out as a red area and ultimately broke down and has been draining. It is being treated with the wound VAC. The ulcers of his right buttock and his heels have been present since mid February and they are healed. He currently has a low air loss mattress that he sleeps on but does now have an offloading cushion to sit on in his wheelchair or offloading/heel protectors for his feet. Nutrition is supplemented with protein shakes as well as regular meals. Argenis states that he eats pretty well and generally has a good appetite. His right buttock ulcer and bilateral heel ulcers have since healed. A wound culture was done on 04/07/21. It was positive for Staphylococcus aureus, Morganella morganii, and Enterococcus faecalis. He was treated with Augmentin. Another wound culture was done on 05/05/21. It was positive for Staphylococcus aureus and Enterococcus faecalis. He was treated with Augmentin. His HgbA1c from 04/11/21 was 5.1. His Prealbumin from 04/11/[address] was done on 06/16/21. It showed linear area of the soft tissue defect and granulation overlying the greater trochanter of the proximal right femur. This may represent an area of prior surgical intervention. Clinical correlation is recommended. Small right inguinal hernia containing fat. Small gallstones. Progress of Wound: Min is here today for follow up of treatment of right hip ulcer. His heel ulcers remain healed after treatment with foam booties and Promogran dressings. His right buttock ulcer remains healed. He did well with the excisional debridement to unroof the ulcer last week and tolerated the wound vac well this week. Denies fever or chills. Objective Data Objective Data Vital Signs: Vital Signs Temp Pulse Resp BP 97.2 F L 82 22 H 96/54 L 07/14/21 10:41 06/28/21 00:36 07/14/21 10:41 06/28/21 00:36 Weight: 50.126 kg Body Mass Index (BMI) 23.1 Physical Exam Const alert and no apparent distress General Appearance: anxious Nutritional Appearance: obese HEENT normocephalic and head/scalp atraumatic Resp normal respiratory effort Cardio regular rate and regular rhythm Skin Wounds: wounds noted Wound Narrative: as in clinical panel Psych mental status grossly normal, thought process normal and cooperative Debridement Note Debridement Note Wound debrided: right greater trochanter Laterality: Right Wound Grade/Stage: Stage III Type of Debridement: Excisional debridement Anesthesia Used: 4% Lidocaine Solution Depth: Down to and including healthy tissue and in the subcutaneous layer Percentage of wound debrided: 100 Instrument Used: 3mm curette Tissue Removed: Yellow slough, devitalized tissue Severity: Fat Layer Exposed Amount of bleeding with debridement: Mild Bleeding Controlled with: Compression and gauze Patient tolerated procedure: Patient tolerated procedure well Post-Debridement Measurements and Additional Note: Post-Debridement Measurements/Treatment WC - Nurse 1 - General Ulcer Assessment Start: 06/30/21 10:24 Freq: Status: Active Protocol: NATALIA Activity Type Activity Date Activity User E-Sign Co-Sign Detail Recorded Client Recorded Date Recorded By Document 07/07/21 10:48 RB [id number] 07/07/21 10:49 RB Document 07/14/21 10:41 DL [id number] 07/14/21 10:43 DL 07/07/21 07/14/21 10:48 10:41 - Today's Visit Information Type of service Follow-up Visit Follow-up Visit (Physician/DIRECTOR OF IT OPERATIONS (Physician/DIRECTOR OF IT OPERATIONS ) ) Arrival Mode Wheelchair Wheelchair Transfer Assistance Manual Manual Transfer Assist (Other) x2 Patient Identification Verified (Name & Yes Yes ) Patient Requires Transmission-Based No No Precautions Height and Weight Body Mass Index (BMI) 23.1 23.1 BMI Classification Normal Normal Vital Signs Temperature (97.8 F-99.1 F) 98 F 97.2 F L Temperature Source Temporal Temporal Respiratory Rate (12-18) 18 22 H Respiratory rate source Observation Observation Comment Nurse #1 not done d/t mental status. History Since Last Visit- (Skip if this is Patient's initial visit) Have you changed medications since your No No last visit? Any new allergies or adverse reactions No No Had a fall/change in ADL's that may No No increase risk of falls Signs or symptoms of abuse and/or No No neglect since last visit Have you been in the hospital since your No No last visit? Has dressing in place as prescribed Yes Yes Has compression in place as prescribed No N/A Has offloadiing in place as prescribed No Yes Experienced any changes in pain level or No No management Pain Scale: 0-10 Numeric Is Patient Pain Free? Yes Yes KAREN - Nurse 1 - General Ulcer Measurement Start: 06/30/21 10:24 Freq: Status: Active Protocol: Activity Type Activity Date Activity User E-Sign Co-Sign Detail Recorded Client Recorded Date Recorded By Document 07/07/21 10:48 RB [id number] 07/07/21 10:49 RB Document 07/14/21 10:41 DL [id number] 07/14/21 10:43 DL 07/07/21 07/14/21 10:48 10:41 Wound Center Nurse 1 3. R trochanter -Exudate Amt Medium -Exudate Type Serosanguineous -Wound Margin Distinct, Outline Attached -Granulation Amt Large (67-100%) Medium (34-66%) -Granulation Quality [place],Red Red -Slough/Fibrin Yes -Necrosis Amt Small (1-33%) Small (1-33%) -Necrotic Tissue Type Adherent Slough Adherent Slough -Structure Exposed N/A N/A -Texture (Yeimy-wound Skin Appearance) Assessed Scarring -Moisture (Yeimy-wound Skin Appearance) Assessed No Abnormality -Color (Yeimy-wound Skin Appearance) Assessed No Abnormality -Temperature (Yeimy-wound Skin No Abnormality No Abnormality Appearance) (Pt Warm) (Pt Warm) -Tenderness on Palpation (Yeimy-wound No No Skin Appearance) -Ulcer Cleansing Wound Cleanser Wound Cleanser -Foul Odor after Cleansing No No -Anesthetic Used 4% Lidocaine 4% Lidocaine Solution Solution KAREN - Nurse 2 - General Ulcer CM Notes Start: 06/30/21 10:24 Freq: Status: Active Protocol: Activity Type Activity Date Activity User E-Sign Co-Sign Detail Recorded Client Recorded Date Recorded By Document 06/30/21 10:26 MW [id number] 06/30/21 10:58 MW Document 07/07/21 11:07 MW [id number] 07/07/21 11:20 MW Document 07/14/21 11:12 MW [id number] 07/14/21 11:13 MW 06/30/21 07/07/21 07/14/21 10:26 11:07 11:12 Wound Center Nurse 2 3. R trochanter -Time 10:53 11:09 11:12 -Correct Patient Yes Yes Yes -Correct Side, Site, Position Yes Yes Yes -Correct Procedure Yes Yes Yes -Procedure Performed Yes Yes Yes -Type of Procedure Debridement Debridement Debridement -Clinical Debridement Muscle / Fascia Subcutaneous Subcutaneous -Tissue Removed Muscle,Fascia Subcutaneous Subcutaneous -Post Debridement (cm) - Length 2.0 1.9 1.9 -Post Debridement (cm) - Width 1.5 1.7 1.7 -Post Debridement (cm) - Depth 2.1 2.8 2.6 -Total Square (Post) (cm) 3.00 3.23 3.23 -Area of Debridement (cm) - Length 2.0 1.9 1.9 -Area of Debridement (cm) - Width 1.5 1.7 1.7 -Total Square (Area) (cm) 3.00 3.23 3.23 -Tunneling No No No -Undermining/Tunneling Yes Yes Yes -Undermining/Tunneling Starts (O'clock 11 12 12 ) -Undermining/Tunneling Ends (O'clock) 2 1 1 -Maximum Distance (cm) 1.5 0.5 0.5 -Circular Undermining No No No -Wound/Ulcer Outcome Not Healed Not Healed Not Healed -Ulcer Cleansing Rinsed/ Rinsed/ Rinsed/ Irrigated with Irrigated with Irrigated with Saline Saline Saline -Foul Odor after Cleansing No No No -Bioengineered Tissue No No No -Bleeding Controlled with NA,SURGIFOAM Pressure Pressure -Offloading No No No -Treatment Response Procedure Procedure Tolerated Well Tolerated Well -Debridement - Subq, 1st 20sq cm Yes Yes -Debridement - Muscle / Fascia, 1st Yes 20sq cm Pain Scale: 0-10 Numeric Is Patient Pain Free? Yes Yes Yes WC - Nurse 3 - General Ulcer D/C NN Start: 06/30/21 10:24 Freq: Status: Active Protocol: Activity Type Activity Date Activity User E-Sign Co-Sign Detail Recorded Client Recorded Date Recorded By Document 06/30/21 11:18 DL [id number] 06/30/21 11:20 DL Document 07/07/21 12:29 RB [id number] 07/07/21 12:29 RB Document 07/14/21 11:26 KR [id number] 07/14/21 11:27 KR 06/30/21 07/07/21 07/14/21 11:18 12:29 11:26 Wound Care Nurse 3 3. R trochanter -Ulcer Cleansing Wound Cleanser Rinsed/ Rinsed/ Irrigated with Irrigated with Saline Saline -Foul Odor after Cleansing No -Negative Pressure Wound Therapy Continue Continue Continue -Setting (mmHg) 150 150 150 -Negative Pressure is Continuous Continuous Continuous -Regranex (If Applicable) Continue -Primary Dressing Applied C Hydrogel ($) -NPWT Application Charge ($) NPWT </= 50 sq NPWT </= 50 sq NPWT </= 50 sq cm cm cm Yeimy-Wound Care Barrier Treatment Response Procedure Procedure Tolerated Well Tolerated Well Pain Scale: 0-10 Numeric Is Patient Pain Free? Yes Yes Yes - Visit Discharge Discharge Condition Stable Stable Stable Ambulatory Status Wheelchair Wheelchair Wheelchair Transportation senior care [facility] Accompanied by care home transportion Medication Reconcilliation completed & No provided to patient/care provider Clinical Summary of Care Provided Yes Facility Type [facility] Care Facility Orders Sent Yes Assessment/Plan Assessment/Plan (1) Abnormality of gait and mobility: CODE(S): R26.9 - Unspecified abnormalities of gait and mobility (2) Pressure ulcer of right hip, stage 3: CODE(S): L89.213 - Pressure ulcer of right hip, stage 3 (3) Down syndrome: CODE(S): Q90.9 - Down syndrome, unspecified (4) Dementia: CODE(S): F03.90 - Unspecified dementia without behavioral disturbance QUALIFIERS: Dementia type: unspecified type Dementia behavioral disturbance: without behavioral disturbance Qualified Code(s): F03.90 - Unspecified dementia without behavioral disturbance PLAN: Richards ulcer was evaluated and debrided today at the wound healing center. His right and left heels remain healed. Right buttock ulcer remains healed. Right trochanter/hip ulcer is somewhat improved this week. There is still some increase in depth but the tissue appears healthy and is granulating well. Wound vac was reapplied today and will be changed on Saturday and Saturday. He will return Saturday for wound care. The etiology of his ulcers appear to be pressure which has occurred from recent changes in his mobility. Wound culture of his right hip on 04/07/21 was positive for infection with Staph aureus, morganella morganii and enterococcus Faecalis. He completed Augmentin. Wound culture 05/05/21 was positive for Staph and Enterococcus. He completed treatment with Augmentin. Due to the heavy drainage and depth of his ulcer, he would benefit and it is medically necessary for treatment with a wound vac in order to manage the heavy drainage and encourage granulation of his ulcer. Wound vac suction at 150 mmHg with changes 2-3 times/week. Dr. Rader saw the patient today with me and evaluated the ulcer. He discussed option of surgical debridement vs. surgical debridement and graft or flap closure but felt that the appearance of the ulcer this week looked promising for possible closure with wound vac treatment and continued wound care. If the ulcer fails to progress in a positive direction and/or show concern of continued tunneling or undermining then he would be happy to see Min again and would be able to do a surgical debridement under anesthesia and would keep him overnight and discharge him with wound vac. CT scan showed no involvement into the bone currently. The importance of offloading was stressed to his caregiver and they agreed to obtain a Roho or gel foam cushion for his wheelchair as well as heel protectors/foam booties. She also is going to discuss with his family regarding moving him to a higher acuity home where he would have the option of more skilled services. Stressed importance of increased protein intake and adequate nutrition in healing ulcers and wounds. Recommended continuing protein shakes at least once daily outside of meals. Labs reviewed and there are no significant abnormalities. Pre-albumin is low normal. Protein supplementation was encouraged. He has undergone arterial testing in 2012 and 2018 which did not show significant arterial disease. His caregiver asked that we avoid doing them again unless necessary as it causes him extreme stress and discomfort. She was advised to contact the wound healing center if he develops any fever, chills, increased erythema, increased odor or drainage and agrees to update with any changes in status. He will return in 1 week for wound care.
[2021-07-21 10:13] VITALS: RESP 18; TEMP 36.6; BMI 23.1
--- NOTE | 2021-07-21 14:45 | PCM.WC.PN ---
History of Present Illness Date of Service: 07/21/21 Chief Complaint: ulcer right greater trochanter History of Wound: Min is a 70 yo gentleman that currently resides at [facility] custodial who presents to the wound healing center for nonhealing ulcers of his heels, right buttock and right hip. The patient is accompanied by Argenis, the nurse meat and seafood manager for the custodial that he resides. Min is nonverbal and unable to provide history himself. Argenis provided the details and history for the patient as well as chart review from his PCP. Over the last several months, Min has declined in his mobility and is now mostly sitting in a wheelchair or on the couch or chair at his home. He is unable to ambulate and also has stopped using the toilet over the last month and is more incontinent of stool and urine per Argenis. His right hip/trochanter ulcer has been present since November and started out as a red area and ultimately broke down and has been draining. It is being treated with the wound VAC. The ulcers of his right buttock and his heels have been present since mid February and they are healed. He currently has a low air loss mattress that he sleeps on but does now have an offloading cushion to sit on in his wheelchair or offloading/heel protectors for his feet. Nutrition is supplemented with protein shakes as well as regular meals. Argenis states that he eats pretty well and generally has a good appetite. His right buttock ulcer and bilateral heel ulcers have since healed. A wound culture was done on 04/07/21. It was positive for Staphylococcus aureus, Morganella morganii, and Enterococcus faecalis. He was treated with Augmentin. Another wound culture was done on 05/05/21. It was positive for Staphylococcus aureus and Enterococcus faecalis. He was treated with Augmentin. His HgbA1c from 04/11/21 was 5.1. His Prealbumin from 04/11/[address] was done on 06/16/21. It showed linear area of the soft tissue defect and granulation overlying the greater trochanter of the proximal right femur. This may represent an area of prior surgical intervention. Clinical correlation is recommended. Small right inguinal hernia containing fat. Small gallstones. Progress of Wound: Min is here today for follow up of treatment of right hip ulcer. His heel ulcers remain healed after treatment with foam booties and Promogran dressings. His right buttock ulcer remains healed. He is doing well with the wound vac and tolerated the wound vac well this week with improvement in his ulcer. Denies fever or chills. Objective Data Objective Data Vital Signs: Vital Signs Temp Pulse Resp BP 97.8 F 82 18 96/54 L 07/21/21 10:13 06/28/21 00:36 07/21/21 10:13 06/28/21 00:36 Weight: 50.126 kg Body Mass Index (BMI) 23.1 Physical Exam Const alert and no apparent distress General Appearance: anxious Nutritional Appearance: obese HEENT normocephalic and head/scalp atraumatic Resp normal respiratory effort Cardio regular rate and regular rhythm Skin Wounds: wounds noted Wound Narrative: as in clinical panel Psych mental status grossly normal, thought process normal and cooperative Debridement Note Debridement Note Wound debrided: right trochanter Laterality: Right Wound Grade/Stage: Stage III Type of Debridement: Excisional debridement Anesthesia Used: 4% Lidocaine Solution Depth: Down to and including healthy tissue and in the subcutaneous layer Percentage of wound debrided: 100 Instrument Used: 3mm curette Tissue Removed: Yellow slough, devitalized tissue Severity: Fat Layer Exposed Amount of bleeding with debridement: Mild Bleeding Controlled with: Compression and gauze Patient tolerated procedure: Patient tolerated procedure well Post-Debridement Measurements and Additional Note: Post-Debridement Measurements/Treatment - Nurse 1 - General Ulcer Assessment Start: 06/30/21 10:24 Freq: Status: Active Protocol: [email or web address] Activity Type Activity Date Activity User E-Sign Co-Sign Detail Recorded Client Recorded Date Recorded By Document 07/07/21 10:48 RB [id number] 07/07/21 10:49 RB Document 07/14/21 10:41 DL [id number] 07/14/21 10:43 DL Document 07/21/21 10:13 RB [id number] 07/21/21 10:15 RB 07/07/21 07/14/21 07/21/21 10:48 10:41 10:13 - Today's Visit Information Type of service Follow-up Visit Follow-up Visit Follow-up Visit (Physician/SUPERVISOR TRAVEL TRAILER (Physician/SUPERVISOR TRAVEL TRAILER (Physician/SUPERVISOR TRAVEL TRAILER ) ) ) Arrival Mode Wheelchair Wheelchair Wheelchair Transfer Assistance Manual Manual None Transfer Assist (Other) x2 Patient Identification Verified (Name & Yes Yes Yes ) Patient Requires Transmission-Based No No No Precautions Height and Weight Body Mass Index (BMI) 23.1 23.1 23.1 BMI Classification Normal Normal Normal Vital Signs Temperature (97.8 F-99.1 F) 98 F 97.2 F L 97.8 F Temperature Source Temporal Temporal Temporal Respiratory Rate (12-18) 18 22 H 18 Respiratory rate source Observation Observation Observation Comment Nurse #1 not done d/t mental status. History Since Last Visit- (Skip if this is Patient's initial visit) Have you changed medications since your No No No last visit? Any new allergies or adverse reactions No No No Had a fall/change in ADL's that may No No No increase risk of falls Signs or symptoms of abuse and/or No No No neglect since last visit Have you been in the hospital since your No No No last visit? Has dressing in place as prescribed Yes Yes Yes Has compression in place as prescribed No N/A No Has offloadiing in place as prescribed No Yes No Experienced any changes in pain level or No No No management Pain Scale: 0-10 Numeric Is Patient Pain Free? Yes Yes Yes WC - Nurse 1 - General Ulcer Measurement Start: 06/30/21 10:24 Freq: Status: Active Protocol: Activity Type Activity Date Activity User E-Sign Co-Sign Detail Recorded Client Recorded Date Recorded By Document 07/07/21 10:48 RB [id number] 07/07/21 10:49 RB Document 07/14/21 10:41 DL [id number] 07/14/21 10:43 DL Document 07/21/21 10:13 RB [id number] 07/21/21 10:15 RB 07/07/21 07/14/21 07/21/21 10:48 10:41 10:13 Wound Center Nurse 1 3. R trochanter -Tunneling No -Undermining/Tunneling No -Circular Undermining No -Exudate Amt Medium Large -Exudate Type Serosanguineous Serosanguineous -Wound Margin Distinct, Distinct, Outline Outline Attached Attached -Granulation Amt Large (67-100%) Medium (34-66%) Large (67-100%) -Granulation Quality [place],Red Red Red -Slough/Fibrin Yes Yes -Necrosis Amt Small (1-33%) Small (1-33%) Small (1-33%) -Necrotic Tissue Type Adherent Slough Adherent Slough Adherent Slough -Structure Exposed N/A N/A N/A -Texture (Yeimy-wound Skin Appearance) Assessed Scarring Assessed -Moisture (Yeimy-wound Skin Appearance) Assessed No Abnormality Assessed -Color (Yeimy-wound Skin Appearance) Assessed No Abnormality Assessed -Temperature (Yeimy-wound Skin No Abnormality No Abnormality No Abnormality Appearance) (Pt Warm) (Pt Warm) (Pt Warm) -Tenderness on Palpation (Yeimy-wound No No No Skin Appearance) -Ulcer Cleansing Wound Cleanser Wound Cleanser Wound Cleanser -Foul Odor after Cleansing No No No -Anesthetic Used 4% Lidocaine 4% Lidocaine 4% Lidocaine Solution Solution Solution WC - Nurse 2 - General Ulcer CM Notes Start: 06/30/21 10:24 Freq: Status: Active Protocol: Activity Type Activity Date Activity User E-Sign Co-Sign Detail Recorded Client Recorded Date Recorded By Document 06/30/21 10:26 MW [id number] 06/30/21 10:58 MW Document 07/07/21 11:07 MW [id number] 07/07/21 11:20 MW Document 07/14/21 11:12 MW [id number] 07/14/21 11:13 MW Document 07/21/21 10:46 MW [id number] 07/21/21 10:57 MW Edit Result 07/21/21 10:46 MW (1) [id number] 07/21/21 10:58 MW (1) 3. R trochanter - Bioengineered Tissue No => Yes - Type of Bioengineered Tissue => Epifix 18mm Disc - Expiration Date => 03/28/26 - Product Lot Number => [id number] - Percent Used => 100 - Lot number of Saline Used => [id number] - Debridement - Subq, 1st 20sq cm Yes => No - Apply Skin Sub - 1st 25 sq cm - Legs => 1 - Epifix 18mm Disc => 3 06/30/21 07/07/21 07/14/21 10:26 11:07 11:12 Wound Center Nurse 2 3. R trochanter -Time 10:53 11:09 11:12 -Correct Patient Yes Yes Yes -Correct Side, Site, Position Yes Yes Yes -Correct Procedure Yes Yes Yes -Procedure Performed Yes Yes Yes -Type of Procedure Debridement Debridement Debridement -Clinical Debridement Muscle / Fascia Subcutaneous Subcutaneous -Tissue Removed Muscle,Fascia Subcutaneous Subcutaneous -Post Debridement (cm) - Length 2.0 1.9 1.9 -Post Debridement (cm) - Width 1.5 1.7 1.7 -Post Debridement (cm) - Depth 2.1 2.8 2.6 -Total Square (Post) (cm) 3.00 3.23 3.23 -Area of Debridement (cm) - Length 2.0 1.9 1.9 -Area of Debridement (cm) - Width 1.5 1.7 1.7 -Total Square (Area) (cm) 3.00 3.23 3.23 -Tunneling No No No -Undermining/Tunneling Yes Yes Yes -Undermining/Tunneling Starts (O'clock 11 12 12 ) -Undermining/Tunneling Ends (O'clock) 2 1 1 -Maximum Distance (cm) 1.5 0.5 0.5 -Circular Undermining No No No -Wound/Ulcer Outcome Not Healed Not Healed Not Healed -Ulcer Cleansing Rinsed/ Rinsed/ Rinsed/ Irrigated with Irrigated with Irrigated with Saline Saline Saline -Foul Odor after Cleansing No No No -Bioengineered Tissue No No No -Type of Bioengineered Tissue -Expiration Date -Product Lot Number -Percent Used -Lot number of Saline Used -Bleeding Controlled with NA,SURGIFOAM Pressure Pressure -Offloading No No No -Treatment Response Procedure Procedure Tolerated Well Tolerated Well -Debridement - Subq, 1st 20sq cm Yes Yes -Debridement - Muscle / Fascia, 1st Yes 20sq cm -Apply Skin Sub - 1st 25 sq cm - Legs -Epifix 18mm Disc Pain Scale: 0-10 Numeric Is Patient Pain Free? Yes Yes Yes 07/21/21 10:46 Wound Center Nurse 2 3. R trochanter -Time 10:46 -Correct Patient Yes -Correct Side, Site, Position Yes -Correct Procedure Yes -Procedure Performed Yes -Type of Procedure Debridement -Clinical Debridement Subcutaneous -Tissue Removed Subcutaneous -Post Debridement (cm) - Length 1.8 -Post Debridement (cm) - Width 1.5 -Post Debridement (cm) - Depth 2.7 -Total Square (Post) (cm) 2.70 -Area of Debridement (cm) - Length 1.8 -Area of Debridement (cm) - Width 1.5 -Total Square (Area) (cm) 2.70 -Tunneling No -Undermining/Tunneling No -Undermining/Tunneling Starts (O'clock ) -Undermining/Tunneling Ends (O'clock) -Maximum Distance (cm) -Circular Undermining No -Wound/Ulcer Outcome Not Healed -Ulcer Cleansing Rinsed/ Irrigated with Saline -Foul Odor after Cleansing No -Bioengineered Tissue Yes -Type of Bioengineered Tissue Epifix 18mm Disc -Expiration Date 03/28/26 -Product Lot Number [id number] -Percent Used 100 -Lot number of Saline Used [id number] -Bleeding Controlled with Pressure -Offloading No -Treatment Response Procedure Tolerated Well -Debridement - Subq, 1st 20sq cm No -Debridement - Muscle / Fascia, 1st 20sq cm -Apply Skin Sub - 1st 25 sq cm - Legs 1 -Epifix 18mm Disc 3 Pain Scale: 0-10 Numeric Is Patient Pain Free? Yes WC - Nurse 3 - General Ulcer D/C NN Start: 06/30/21 10:24 Freq: Status: Active Protocol: Activity Type Activity Date Activity User E-Sign Co-Sign Detail Recorded Client Recorded Date Recorded By Document 06/30/21 11:18 DL [id number] 06/30/21 11:20 DL Document 07/07/21 12:29 RB [id number] 07/07/21 12:29 RB Document 07/14/21 11:26 KR [id number] 07/14/21 11:27 KR Document 07/21/21 11:27 RB [id number] 07/21/21 11:28 RB 06/30/21 07/07/21 07/14/21 11:18 12:29 11:26 Wound Care Nurse 3 3. R trochanter -Ulcer Cleansing Wound Cleanser Rinsed/ Rinsed/ Irrigated with Irrigated with Saline Saline -Foul Odor after Cleansing No -Negative Pressure Wound Therapy Continue Continue Continue -Setting (mmHg) 150 150 150 -Negative Pressure is Continuous Continuous Continuous -Regranex (If Applicable) Continue -Primary Dressing Applied C Hydrogel ($) -NPWT Application Charge NPWT </= 50 sq NPWT </= 50 sq NPWT </= 50 sq cm ($) cm ($) cm ($) Yeimy-Wound Care Barrier Treatment Response Procedure Procedure Tolerated Well Tolerated Well Pain Scale: 0-10 Numeric Is Patient Pain Free? Yes Yes Yes Teaching: Wound Center Dressing Your Wound -Person Taught -Teaching Method -Response to teaching WC - Visit Discharge Discharge Condition Stable Stable Stable Ambulatory Status Wheelchair Wheelchair Wheelchair Transportation custodial Private Auto Ambulance Accompanied by skilled nursing transportion Medication Reconcilliation completed & No provided to patient/care provider Clinical Summary of Care Provided Yes Facility Type Residential Care Facility Orders Sent Yes 07/21/21 11:27 Wound Care Nurse 3 3. R trochanter -Ulcer Cleansing -Foul Odor after Cleansing -Negative Pressure Wound Therapy Continue -Setting (mmHg) 125 -Negative Pressure is Continuous -Regranex (If Applicable) -Primary Dressing Applied -NPWT Application Charge NPWT </= 50 sq cm ($) Yeimy-Wound Care Barrier Treatment Response Procedure Tolerated Well Pain Scale: 0-10 Numeric Is Patient Pain Free? Yes Teaching: Wound Center Dressing Your Wound -Person Taught Primary Caregiver -Teaching Method Discussion -Response to teaching Verbalize understanding WC - Visit Discharge Discharge Condition Stable Ambulatory Status Wheelchair Transportation Private Auto Accompanied by Medication Reconcilliation completed & No provided to patient/care provider Clinical Summary of Care Provided Yes Facility Type Orders Sent Assessment/Plan Assessment/Plan (1) Abnormality of gait and mobility: CODE(S): R26.9 - Unspecified abnormalities of gait and mobility (2) Pressure ulcer of right hip, stage 3: CODE(S): L89.213 - Pressure ulcer of right hip, stage 3 (3) Down syndrome: CODE(S): Q90.9 - Down syndrome, unspecified (4) Dementia: CODE(S): F03.90 - Unspecified dementia without behavioral disturbance QUALIFIERS: Dementia type: unspecified type Dementia behavioral disturbance: without behavioral disturbance Qualified Code(s): F03.90 - Unspecified dementia without behavioral disturbance PLAN: Min's ulcer was evaluated and debrided today at the wound healing center. His right and left heels remain healed. Right buttock ulcer remains healed. Right trochanter/hip ulcer is improved this week. The depth is relatively unchanged but the tissue appears healthy and is granulating well. Epifix disc was applied to the base of his ulcer per spark plug assembler guidelines and rehydrated with saline. Wound veil was placed and secured with steri-strips and wound vac was reapplied and pressure setting was decreased to 125 mm Hg. It will stay in place all week and he will return [facility] for wound care. The etiology of his ulcers appear to be pressure which has occurred from recent changes in his mobility. Wound culture of his right hip on 04/07/21 was positive for infection with Staph aureus, morganella morganii and enterococcus Faecalis. He completed Augmentin. Wound culture 05/05/21 was positive for Staph and Enterococcus. He completed treatment with Augmentin. Due to the heavy drainage and depth of his ulcer, he would benefit and it is medically necessary for treatment with a wound vac in order to manage the heavy drainage and encourage granulation of his ulcer. Wound vac suction decreased to 125 mmHg for application of Epifix. Dr. Rader saw the patient today with me and evaluated the ulcer. He discussed option of surgical debridement vs. surgical debridement and graft or flap closure but felt that the appearance of the ulcer this week looked promising for possible closure with wound vac treatment and continued wound care. If the ulcer fails to progress in a positive direction and/or show concern of continued tunneling or undermining then he would be happy to see Min again and would be able to do a surgical debridement under anesthesia and would keep him overnight and discharge him with wound vac. CT scan showed no involvement into the bone currently. The importance of offloading was stressed to his caregiver and they agreed to obtain a Roho or gel foam cushion for his wheelchair as well as heel protectors/foam booties. She also is going to discuss with his family regarding moving him to a higher acuity home where he would have the option of more skilled services. Stressed importance of increased protein intake and adequate nutrition in healing ulcers and wounds. Recommended continuing protein shakes at least once daily outside of meals. Labs reviewed and there are no significant abnormalities. Pre-albumin is low normal. Protein supplementation was encouraged. He has undergone arterial testing in 2012 and 2019 which did not show significant arterial disease. His caregiver asked that we avoid doing them again unless necessary as it causes him extreme stress and discomfort. She was advised to contact the wound healing center if he develops any fever, chills, increased erythema, increased odor or drainage and agrees to update with any changes in status. He will return in 1 week for wound care.
== END 2021-07-27 23:59 ==
LOC: WC 10:00
PROVIDERS: PCP Family Medicine; Referring Provider Physician Assistant; Visit Provider Family Medicine
DX: L89.213 Pressure ulcer of right hip, stage 3 (principal); L89.214 Pressure ulcer of right hip, stage 4; R15.9 Full incontinence of feces; R32 Unspecified urinary incontinence; E78.00 Pure hypercholesterolemia, unspecified; E03.9 Hypothyroidism, unspecified; M10.9 Gout, unspecified; R26.9 Unspecified abnormalities of gait and mobility; Q90.9 Down syndrome, unspecified; F03.90 Unspecified dementia, unspecified severity, without behavioral disturbance, psychotic disturbance, mood disturbance, and anxiety; Z79.890 Hormone replacement therapy; Z79.899 Other long term (current) drug therapy
CPT/HCPCS: 11042; 11043; 15271; 97605; Q4186

== ENCOUNTER 2021-08-25 10:15 | Outpatient (RCR) | payer MEDICARE, MEDICAID, SELFPAY ==
[2021-07-28 00:28] VITALS: BP 96/54; PULSE 82; RESP 18; TEMP 36.6; BMI 23.1
[2021-07-28 09:06] VITALS: RESP 18; TEMP 35.9; BMI 23.1
--- NOTE | 2021-07-28 09:47 | PN.PCM_ITS ---
History of Present Illness Date of Service: 07/28/21 Chief Complaint: ulcer right greater trochanter History of Wound: Min is a 70 yo gentleman that currently resides at [facility] who presents to the wound healing center for nonhealing ulcers of his heels, right buttock and right hip. The patient is accompanied by Argenis, the nurse global upstream marketing manager for the [facility] that he resides. Min is nonverbal and unable to provide history himself. Argenis provided the details and history for the patient as well as chart review from his PCP. Over the last several months, Min has declined in his mobility and is now mostly sitting in a wheelchair or on the couch or chair at his home. He is unable to ambulate and also has stopped using the toilet over the last month and is more incontinent of stool and urine per Argenis. His right hip/trochanter ulcer has been present since November and started out as a red area and ultimately broke down and has been draining. It is being treated with the wound VAC. The ulcers of his right buttock and his heels have been present since mid February and they are healed. He currently has a low air loss mattress that he sleeps on but does now have an offloading cushion to sit on in his wheelchair or offloading/heel protectors for his feet. Nutrition is supplemented with protein shakes as well as regular meals. Argenis states that he eats pretty well and generally has a good appetite. His right buttock ulcer and bilateral heel ulcers have since healed. A wound culture was done on 04/07/21. It was positive for Staphylococcus aureus, Morganella morganii, and Enterococcus faecalis. He was treated with Augmentin. Another wound culture was done on 05/05/21. It was positive for Staphylococcus aureus and Enterococcus faecalis. He was treated with Augmentin. His HgbA1c from 04/11/21 was 5.1. His Prealbumin from 04/11/[address] was done on 06/16/21. It showed linear area of the soft tissue defect and granulation overlying the greater trochanter of the proximal right femur. This may represent an area of prior surgical intervention. Clinical correlation is recommended. Small right inguinal hernia containing fat. Small gallstones. Progress of Wound: Min is here today for follow up of treatment of right hip ulcer. His heel ulcers remain healed after treatment with foam booties and Promogran dressings. His right buttock ulcer remains healed. He is doing well with the wound vac and tolerated the wound vac well this week with improvement in his ulcer. Denies fever or chills. Objective Data Objective Data Vital Signs: Vital Signs Temp Pulse Resp BP 96.7 F L 82 18 96/54 L 07/28/21 09:06 07/28/21 00:28 07/28/21 09:06 07/28/21 00:28 Weight: 50.126 kg Body Mass Index (BMI) 23.1 Physical Exam Const alert, no apparent distress and healthy appearing Nutritional Appearance: obese HEENT normocephalic and head/scalp atraumatic Resp normal respiratory effort GI soft to palpation Skin Wounds: wounds noted Wound Narrative: as in clinical panel Psych affect normal Attitude: agitated Debridement Note Debridement Note Wound debrided: right trochanter Laterality: Right Wound Grade/Stage: Stage III Type of Debridement: Excisional debridement Depth: Down to and including healthy tissue and in the subcutaneous layer Percentage of wound debrided: 100 Instrument Used: 3mm curette Tissue Removed: Yellow slough, devitalized tissue Severity: Fat Layer Exposed Amount of bleeding with debridement: Mild Bleeding Controlled with: Compression and gauze Patient tolerated procedure: Patient tolerated procedure well Post-Debridement Measurements and Additional Note: Post-Debridement Measurements/Treatment - Nurse 1 - General Ulcer Assessment Start: 07/28/21 09:06 Freq: Status: Active Protocol: [email or web address] Activity Type Activity Date Activity User E-Sign Co-Sign Detail Recorded Client Recorded Date Recorded By Document 07/28/21 09:06 [id number] 07/28/21 09:07 07/28/21 09:06 - Today's Visit Information Type of service Follow-up Visit (Physician/HOUSING DIRECTOR ) Arrival Mode Wheelchair Transfer Assistance Manual Patient Identification Verified (Name & Yes ) Patient Requires Transmission-Based No Precautions Height and Weight Body Mass Index (BMI) 23.1 BMI Classification Normal Vital Signs Temperature (97.8 F-99.1 F) 96.7 F L Temperature Source Temporal Respiratory Rate (12-18) 18 Respiratory rate source Observation History Since Last Visit- (Skip if this is Patient's initial visit) Have you changed medications since your No last visit? Any new allergies or adverse reactions No Had a fall/change in ADL's that may No increase risk of falls Signs or symptoms of abuse and/or No neglect since last visit Have you been in the hospital since your No last visit? Has dressing in place as prescribed Yes Has compression in place as prescribed No Has offloadiing in place as prescribed No Experienced any changes in pain level or No management Pain Scale: 0-10 Numeric Is Patient Pain Free? Yes WC - Nurse 1 - General Ulcer Measurement Start: 07/28/21 09:06 Freq: Status: Active Protocol: Activity Type Activity Date Activity User E-Sign Co-Sign Detail Recorded Client Recorded Date Recorded By Document 07/28/21 09:06 RB [id number] 07/28/21 09:07 RB 07/28/21 09:06 Wound Center Nurse 1 3. R trochanter -Granulation Amt Large (67-100%) -Granulation Quality [place] -Slough/Fibrin Yes -Necrosis Amt Small (1-33%) -Necrotic Tissue Type Adherent Slough -Texture (Yeimy-wound Skin Appearance) Assessed, Scarring -Moisture (Yeimy-wound Skin Appearance) Assessed -Color (Yeimy-wound Skin Appearance) Assessed -Temperature (Yeimy-wound Skin No Abnormality Appearance) (Pt Warm) -Tenderness on Palpation (Yeimy-wound No Skin Appearance) -Ulcer Cleansing Wound Cleanser -Foul Odor after Cleansing No -Anesthetic Used 4% Lidocaine Solution - Nurse 2 - General Ulcer CM Notes Start: 07/28/21 09:06 Freq: Status: Active Protocol: Activity Type Activity Date Activity User E-Sign Co-Sign Detail Recorded Client Recorded Date Recorded By Document 07/28/21 09:17 MW [id number] 07/28/21 09:26 MW 07/28/21 09:17 Wound Center Nurse 2 -Time 09:21 -Correct Patient Yes -Correct Side, Site, Position Yes -Correct Procedure Yes -Procedure Performed Yes -Type of Procedure Debridement -Clinical Debridement Subcutaneous -Tissue Removed Subcutaneous -Post Debridement (cm) - Length 1.0 -Post Debridement (cm) - Width 1.0 -Post Debridement (cm) - Depth 2.0 -Total Square (Post) (cm) 1.00 -Area of Debridement (cm) - Length 1.0 -Area of Debridement (cm) - Width 1.0 -Total Square (Area) (cm) 1.00 -Tunneling No -Undermining/Tunneling Yes -Undermining/Tunneling Starts (O'clock 11 ) -Undermining/Tunneling Ends (O'clock) 1 -Maximum Distance (cm) 0.3 -Circular Undermining No -Wound/Ulcer Outcome Not Healed -Ulcer Cleansing Rinsed/ Irrigated with Saline -Foul Odor after Cleansing No -Bioengineered Tissue No -Bleeding Controlled with Pressure -Offloading No -Treatment Response Procedure Tolerated Well -Debridement - Subq, 1st 20sq cm Yes WC - Nurse 3 - General Ulcer D/C NN Start: 07/28/21 09:06 Freq: Status: Active Protocol: Activity Type Activity Date Activity User E-Sign Co-Sign Detail Recorded Client Recorded Date Recorded By Document 07/28/21 09:26 MW [id number] 07/28/21 09:27 MW 07/28/21 09:26 Wound Care Nurse 3 -Ulcer Cleansing Rinsed/ Irrigated with Saline -Foul Odor after Cleansing No -Negative Pressure Wound Therapy Continue -Setting (mmHg) 125 -Negative Pressure is Continuous -Other Dressing black foam -Other Covering wound vac drape -NPWT Application Charge NPWT </= 50 sq cm ($) Treatment Response Procedure Tolerated Well Pain Scale: 0-10 Numeric Is Patient Pain Free? Yes Teaching: Wound Center Dressing Your Wound -Person Taught Patient,Primary Caregiver -Teaching Method Discussion -Response to teaching Verbalize understanding WC - Visit Discharge Discharge Condition Stable Ambulatory Status Wheelchair Transportation Private Auto Accompanied by caregiver Medication Reconcilliation completed & No provided to patient/care provider Clinical Summary of Care Provided Yes Assessment/Plan Assessment/Plan (1) Pressure ulcer of right hip, stage 3: CODE(S): L89.213 - Pressure ulcer of right hip, stage 3 (2) Down syndrome: CODE(S): Q90.9 - Down syndrome, unspecified (3) Dementia: CODE(S): F03.90 - Unspecified dementia without behavioral disturbance QUALIFIERS: Dementia type: unspecified type Dementia behavioral disturbance: without behavioral disturbance Qualified Code(s): F03.90 - Unspecified dementia without behavioral disturbance PLAN: Bridgette ulcer was evaluated and debrided today at the wound healing center. His right and left heels remain healed. Right buttock ulcer remains healed. Right trochanter/hip ulcer is improved this week. The depth is relatively unchanged but the tissue appears healthy and is granulating well. He tolerated Epifix application with improvement in the ulcer but not the depth. Will hold this week and check wound culture. Treat based on results. The etiology of his ulcers appear to be pressure which has occurred from recent changes in his mobility. Wound culture of his right hip on 04/07/21 was positive for infection with Staph aureus, morganella morganii and enterococcus Faecalis. He completed Augmentin. Wound culture 05/05/21 was positive for Staph and Enterococcus. He completed treatment with Augmentin. Due to the heavy drainage and depth of his ulcer, he would benefit and it is medically necessary for treatment with a wound vac in order to manage the heavy drainage and encourage granulation of his ulcer. Wound vac suction continued to 125 mmHg for application of Epifix. Dr. Rader saw the patient today with me and evaluated the ulcer. He discussed option of surgical debridement vs. surgical debridement and graft or flap closure but felt that the appearance of the ulcer this week looked promising for possible closure with wound vac treatment and continued wound care. If the ulcer fails to progress in a positive direction and/or show concern of continued tunneling or undermining then he would be happy to see Min again and would be able to do a surgical debridement under anesthesia and would keep him overnight and discharge him with wound vac. CT scan showed no involvement into the bone currently. The importance of offloading was stressed to his caregiver and they agreed to obtain a Roho or gel foam cushion for his wheelchair as well as heel protectors/foam booties. She also is going to discuss with his family regarding moving him to a higher acuity home where he would have the option of more skilled services. Stressed importance of increased protein intake and adequate nutrition in healing ulcers and wounds. Recommended continuing protein shakes at least once daily outside of meals. Labs reviewed and there are no significant abnormalities. Pre-albumin is low normal. Protein supplementation was encouraged. He has undergone arterial testing in 2012 and 2019 which did not show significant arterial disease. His caregiver asked that we avoid doing them again unless necessary as it causes him extreme stress and discomfort. She was advised to contact the wound healing center if he develops any fever, chills, increased erythema, increased odor or drainage and agrees to update with any changes in status. He will return in 1 week for wound care.
[2021-08-04 09:51] VITALS: RESP 18; TEMP 36.3; BMI 23.1
--- NOTE | 2021-08-04 09:52 | WC ---
pt wound vac turned off when pt arrived to wound center. pt wound vac dressing not sealed and drainage noted outside wound and seal broken on vac dressing. erythema noted around wound
--- NOTE | 2021-08-04 14:02 | PN.PCM_ITS ---
History of Present Illness Date of Service: 08/04/21 Chief Complaint: ulcer right greater trochanter History of Wound: Min is a 70 yo gentleman that currently resides at [facility] who presents to the wound healing center for nonhealing ulcers of his heels, right buttock and right hip. The patient is accompanied by Argenis, the nurse senior benefits manager for the [facility] that he resides. Min is nonverbal and unable to provide history himself. Argenis provided the details and history for the patient as well as chart review from his PCP. Over the last several months, Min has declined in his mobility and is now mostly sitting in a wheelchair or on the couch or chair at his home. He is unable to ambulate and also has stopped using the toilet over the last month and is more incontinent of stool and urine per Argenis. His right hip/trochanter ulcer has been present since November and started out as a red area and ultimately broke down and has been draining. It is being treated with the wound VAC. The ulcers of his right buttock and his heels have been present since mid February and they are healed. He currently has a low air loss mattress that he sleeps on but does now have an offloading cushion to sit on in his wheelchair or offloading/heel protectors for his feet. Nutrition is supplemented with protein shakes as well as regular meals. Argenis states that he eats pretty well and generally has a good appetite. His right buttock ulcer and bilateral heel ulcers have since healed. A wound culture was done on 04/07/21. It was positive for Staphylococcus aureus, Morganella morganii, and Enterococcus faecalis. He was treated with Augmentin. Another wound culture was done on 05/05/21. It was positive for Staphylococcus aureus and Enterococcus faecalis. He was treated with Augmentin. His HgbA1c from 04/11/21 was 5.1. His Prealbumin from 04/11/[address] was done on 06/16/21. It showed linear area of the soft tissue defect and granulation overlying the greater trochanter of the proximal right femur. This may represent an area of prior surgical intervention. Clinical correlation is recommended. Small right inguinal hernia containing fat. Small gallstones. Progress of Wound: Min is here today for follow up of treatment of right hip ulcer. His heel ulcers remain healed after treatment with foam booties and Promogran dressings. His right buttock ulcer remains healed. He is doing well with the wound vac and tolerated the wound vac well this week with improvement in his ulcer. Denies fever or chills. Objective Data Objective Data Vital Signs: Vital Signs Temp Pulse Resp BP 97.3 F L 82 18 96/54 L 08/04/21 09:51 07/28/21 00:28 08/04/21 09:51 07/28/21 00:28 Weight: 50.126 kg Body Mass Index (BMI) 23.1 Lab / Micro Data Micro: Microbiology 07/28/21 09:20 Wound Abcess - Leg, Right Gram Stain - Final 07/28/21 09:20 Wound Abcess - Leg, Right Wound Culture - Final Staphylococcus aureus Streptococcus agalactiae (B) 07/28/21 09:20 Wound Abcess - Leg, Right Anaerobic Culture - Final Anaerobic cocci Physical Exam Const alert, no apparent distress and healthy appearing Nutritional Appearance: obese HEENT normocephalic and head/scalp atraumatic Resp normal respiratory effort GI soft to palpation Skin Wounds: wounds noted Wound Narrative: as in clinical panel Psych affect normal Attitude: agitated Debridement Note Debridement Note Wound debrided: right trochanter Laterality: Right Wound Grade/Stage: Stage III Type of Debridement: Excisional debridement Anesthesia Used: 4% Lidocaine Solution Depth: Down to and including healthy tissue, in the subcutaneous layer and to muscle Percentage of wound debrided: 100 Instrument Used: 3mm curette Tissue Removed: Yellow slough, devitalized tissue Severity: Fat Layer Exposed Amount of bleeding with debridement: Mild Bleeding Controlled with: Compression and gauze Patient tolerated procedure: Patient tolerated procedure well Post-Debridement Measurements and Additional Note: Post-Debridement Measurements/Treatment - Nurse 1 - General Ulcer Assessment Start: 07/28/21 09:06 Freq: Status: Active Protocol: NATALIA Activity Type Activity Date Activity User E-Sign Co-Sign Detail Recorded Client Recorded Date Recorded By Document 07/28/21 09:06 RB [id number] 07/28/21 09:07 RB Document 08/04/21 09:51 RB [id number] 08/04/21 09:54 RB 07/28/21 08/04/21 09:06 09:51 - Today's Visit Information Type of service Follow-up Visit Follow-up Visit (Physician/DAILY SALES AUDIT CLERK (Physician/DAILY SALES AUDIT CLERK ) ) Arrival Mode Wheelchair Wheelchair Transfer Assistance Manual None Patient Identification Verified (Name & Yes Yes ) Patient Requires Transmission-Based No No Precautions Height and Weight Body Mass Index (BMI) 23.1 23.1 BMI Classification Normal Normal Vital Signs Temperature (97.8 F-99.1 F) 96.7 F L 97.3 F L Temperature Source Temporal Temporal Respiratory Rate (12-18) 18 18 Respiratory rate source Observation Observation History Since Last Visit- (Skip if this is Patient's initial visit) Have you changed medications since your No No last visit? Any new allergies or adverse reactions No No Had a fall/change in ADL's that may No No increase risk of falls Signs or symptoms of abuse and/or No No neglect since last visit Have you been in the hospital since your No No last visit? Has dressing in place as prescribed Yes Yes Has compression in place as prescribed No No Has offloadiing in place as prescribed No No Experienced any changes in pain level or No No management Pain Scale: 0-10 Numeric Is Patient Pain Free? Yes Yes WC - Nurse 1 - General Ulcer Measurement Start: 07/28/21 09:06 Freq: Status: Active Protocol: Activity Type Activity Date Activity User E-Sign Co-Sign Detail Recorded Client Recorded Date Recorded By Document 07/28/21 09:06 RB [id number] 07/28/21 09:07 RB Document 08/04/21 09:51 RB [id number] 08/04/21 09:54 RB 07/28/21 08/04/21 09:06 09:51 Wound Center Nurse 1 3. R trochanter -Exudate Amt Medium -Exudate Type Serosanguineous -Wound Margin Distinct, Outline Attached -Granulation Amt Large (67-100%) Medium (34-66%) -Granulation Quality [place],Red -Slough/Fibrin Yes Yes -Necrosis Amt Small (1-33%) Small (1-33%) -Necrotic Tissue Type Adherent Slough Adherent Slough -Structure Exposed N/A -Texture (Yeimy-wound Skin Appearance) Assessed, Assessed Scarring -Moisture (Yeimy-wound Skin Appearance) Assessed Assessed -Color (Yeimy-wound Skin Appearance) Assessed Erythema -Temperature (Yeimy-wound Skin No Abnormality No Abnormality Appearance) (Pt Warm) (Pt Warm) -Tenderness on Palpation (Yeimy-wound No No Skin Appearance) -Ulcer Cleansing Wound Cleanser Wound Cleanser -Foul Odor after Cleansing No No -Anesthetic Used 4% Lidocaine 4% Lidocaine Solution Solution 08/04/21 09:52 Wound Center by Roselia Oleary pt wound vac turned off when pt arrived to wound center. pt wound vac dressing not sealed and drainage noted outside wound and seal broken on vac dressing. erythema noted around wound Initialized on 08/04/21 09:52 - END OF NOTE WC - Nurse 2 - General Ulcer CM Notes Start: 07/28/21 09:06 Freq: Status: Active Protocol: Activity Type Activity Date Activity User E-Sign Co-Sign Detail Recorded Client Recorded Date Recorded By Document 07/28/21 09:17 MW [id number] 07/28/21 09:26 MW Document 08/04/21 10:05 MW [id number] 08/04/21 10:17 MW 07/28/21 08/04/21 09:17 10:05 Wound Center Nurse 2 -Time : 10:06 -Correct Patient Yes Yes -Correct Side, Site, Position Yes Yes -Correct Procedure Yes Yes -Procedure Performed Yes Yes -Type of Procedure Debridement Debridement -Clinical Debridement Subcutaneous Subcutaneous -Tissue Removed Subcutaneous Subcutaneous -Post Debridement (cm) - Length 1.0 1.0 -Post Debridement (cm) - Width 1.0 1.2 -Post Debridement (cm) - Depth 2.0 2.3 -Total Square (Post) (cm) 1.00 1.20 -Area of Debridement (cm) - Length 1.0 1.0 -Area of Debridement (cm) - Width 1.0 1.2 -Total Square (Area) (cm) 1.00 1.20 -Tunneling No Yes -Tunneling Position (O'clock) 1 -Tunneling Distance (cm) 2.3 -Undermining/Tunneling Yes No -Undermining/Tunneling Starts (O'clock 11 ) -Undermining/Tunneling Ends (O'clock) 1 -Maximum Distance (cm) 0.3 -Circular Undermining No No -Wound/Ulcer Outcome Not Healed Not Healed -Ulcer Cleansing Rinsed/ Rinsed/ Irrigated with Irrigated with Saline Saline -Foul Odor after Cleansing No No -Bioengineered Tissue No Yes -Type of Bioengineered Tissue Epifix 18mm Disc -Expiration Date 04/27/26 -Product Lot Number [id number] -Percent Used 100 -Lot number of Saline Used [id number] -Bleeding Controlled with Pressure Pressure -Offloading No No -Treatment Response Procedure Procedure Tolerated Well Tolerated Well -Debridement - Subq, 1st 20sq cm Yes No -Apply Skin Sub - 1st 25 sq cm - Legs 1 -Epifix 18mm Disc 3 Pain Scale: 0-10 Numeric Is Patient Pain Free? Yes - Nurse 3 - General Ulcer D/C NN Start: 07/28/21 09:06 Freq: Status: Active Protocol: Activity Type Activity Date Activity User E-Sign Co-Sign Detail Recorded Client Recorded Date Recorded By Document 07/28/21 09:26 MW [id number] 07/28/21 09:27 MW Document 08/04/21 10:34 RB [id number] 08/04/21 10:34 RB 07/28/21 08/04/21 09:26 10:34 Wound Care Nurse 3 3. R trochanter -Ulcer Cleansing Rinsed/ Irrigated with Saline -Foul Odor after Cleansing No -Negative Pressure Wound Therapy Continue Continue -Setting (mmHg) 125 125 -Negative Pressure is Continuous Continuous -Other Dressing black foam -Other Covering wound vac drape -NPWT Application Charge NPWT </= 50 sq NPWT </= 50 sq cm ($) cm ($) Treatment Response Procedure Procedure Tolerated Well Tolerated Well Pain Scale: 0-10 Numeric Is Patient Pain Free? Yes Yes Teaching: Wound Center Dressing Your Wound -Person Taught Patient,Primary Caregiver -Teaching Method Discussion -Response to teaching Verbalize understanding WC - Visit Discharge Discharge Condition Stable Stable Ambulatory Status Wheelchair Wheelchair Transportation Private Auto Private Auto Accompanied by caregiver Medication Reconcilliation completed & No No provided to patient/care provider Clinical Summary of Care Provided Yes Yes Assessment/Plan Assessment/Plan (1) Pressure ulcer of right hip, stage 3: CODE(S): L89.213 - Pressure ulcer of right hip, stage 3 (2) Down syndrome: CODE(S): Q90.9 - Down syndrome, unspecified (3) Dementia: CODE(S): F03.90 - Unspecified dementia without behavioral disturbance QUALIFIERS: Dementia type: unspecified type Dementia behavioral disturbance: without behavioral disturbance Qualified Code(s): F03.90 - Unspecified dementia without behavioral disturbance PLAN: Min's ulcer was evaluated and debrided today at the wound healing center. His right and left heels remain healed. Right buttock ulcer remains healed. Right trochanter/hip ulcer is improved this week. The depth is relatively unchanged but the tissue appears healthy and is granulating well. Wound culture was positive for staph aureus, streptococcus and anaerobic bacteria. He started on Augmentin yesterday. Epifix was applied today per z os mainframe systems programmer guidelines and rehydrated with saline, covered with wound veil and secured with steri-strips. Wound vac was applied over the wound veil. The etiology of his ulcers appear to be pressure which has occurred from recent changes in his mobility. Wound culture of his right hip on 04/07/21 was positive for infection with Staph aureus, morganella morganii and enterococcus Faecalis. He completed Augmentin. Wound culture 05/05/21 was positive for Staph and Enterococcus. He completed treatment with Augmentin. Due to the heavy drainage and depth of his ulcer, he would benefit and it is medically necessary for treatment with a wound vac in order to manage the heavy drainage and encourage granulation of his ulcer. Wound vac suction continued to 125 mmHg for application of Epifix. Dr. Rader saw the patient today with me and evaluated the ulcer. He discussed option of surgical debridement vs. surgical debridement and graft or flap closure but felt that the appearance of the ulcer this week looked promising for possible closure with wound vac treatment and continued wound care. If the ulcer fails to progress in a positive direction and/or show concern of continued tunneling or undermining then he would be happy to see Min again and would be able to do a surgical debridement under anesthesia and would keep him overnight and discharge him with wound vac. CT scan showed no involvement into the bone currently. The importance of offloading was stressed to his caregiver and they agreed to obtain a Roho or gel foam cushion for his wheelchair as well as heel protectors/foam booties. She also is going to discuss with his family regarding moving him to a higher acuity home where he would have the option of more skilled services. Stressed importance of increased protein intake and adequate nutrition in healing ulcers and wounds. Recommended continuing protein shakes at least once daily outside of meals. Labs reviewed and there are no significant abnormalities. Pre-albumin is low normal. Protein supplementation was encouraged. He has undergone arterial testing in 2012 and 2018 which did not show significant arterial disease. His caregiver asked that we avoid doing them again unless necessary as it causes him extreme stress and discomfort. She was advised to contact the wound healing center if he develops any fever, chills, increased erythema, increased odor or drainage and agrees to update with any changes in status. He will return in 1 week for wound care.
[2021-08-11 10:02] VITALS: RESP 20; TEMP 36.6; BMI 23.1
--- NOTE | 2021-08-11 15:31 | PN.PCM_ITS ---
History of Present Illness Date of Service: 08/11/21 Chief Complaint: ulcer right greater trochanter History of Wound: Min is a 70 yo gentleman that currently resides at [facility] who presents to the wound healing center for nonhealing ulcers of his heels, right buttock and right hip. The patient is accompanied by Argenis, the nurse office services manager for the [facility] that he resides. Min is nonverbal and unable to provide history himself. Argenis provided the details and history for the patient as well as chart review from his PCP. Over the last several months, Min has declined in his mobility and is now mostly sitting in a wheelchair or on the couch or chair at his home. He is unable to ambulate and also has stopped using the toilet over the last month and is more incontinent of stool and urine per Argenis. His right hip/trochanter ulcer has been present since November and started out as a red area and ultimately broke down and has been draining. It is being treated with the wound VAC. The ulcers of his right buttock and his heels have been present since mid February and they are healed. He currently has a low air loss mattress that he sleeps on but does now have an offloading cushion to sit on in his wheelchair or offloading/heel protectors for his feet. Nutrition is supplemented with protein shakes as well as regular meals. Argenis states that he eats pretty well and generally has a good appetite. His right buttock ulcer and bilateral heel ulcers have since healed. A wound culture was done on 04/07/21. It was positive for Staphylococcus aureus, Morganella morganii, and Enterococcus faecalis. He was treated with Augmentin. Another wound culture was done on 05/05/21. It was positive for Staphylococcus aureus and Enterococcus faecalis. He was treated with Augmentin. His HgbA1c from 04/11/21 was 5.1. His Prealbumin from 04/11/[address] was done on 06/16/21. It showed linear area of the soft tissue defect and granulation overlying the greater trochanter of the proximal right femur. This may represent an area of prior surgical intervention. Clinical correlation is recommended. Small right inguinal hernia containing fat. Small gallstones. Progress of Wound: Min is here today for follow up of treatment of right hip ulcer. His heel ulcers remain healed after treatment with foam booties and Promogran dressings. His right buttock ulcer remains healed. He is doing well with the wound vac and tolerated the wound vac well this week with improvement in his ulcer. Denies fever or chills. Objective Data Objective Data Vital Signs: Vital Signs Temp Pulse Resp BP 97.8 F 82 20 H 96/54 L 08/11/21 10:02 07/28/21 00:28 08/11/21 10:02 07/28/21 00:28 Weight: 50.126 kg Body Mass Index (BMI) 23.1 Lab / Micro Data Micro: Microbiology 07/28/21 09:20 Wound Abcess - Leg, Right Gram Stain - Final 07/28/21 09:20 Wound Abcess - Leg, Right Wound Culture - Final Staphylococcus aureus Streptococcus agalactiae (B) 07/28/21 09:20 Wound Abcess - Leg, Right Anaerobic Culture - Final Anaerobic cocci Physical Exam Const alert, no apparent distress and healthy appearing Nutritional Appearance: obese HEENT normocephalic and head/scalp atraumatic Resp normal respiratory effort GI soft to palpation Skin Wounds: wounds noted Wound Narrative: as in clinical panel Psych affect normal Attitude: agitated Debridement Note Debridement Note Post-Debridement Measurements and Additional Note: Post-Debridement Measurements/Treatment - Nurse 1 - General Ulcer Assessment Start: 07/28/21 09:06 Freq: Status: Active Protocol: [email or web address] Activity Type Activity Date Activity User E-Sign Co-Sign Detail Recorded Client Recorded Date Recorded By Document 07/28/21 09:06 RB [id number] 07/28/21 09:07 RB Document 08/04/21 09:51 RB [id number] 08/04/21 09:54 RB Document 08/11/21 10:02 DL [id number] 08/11/21 10:08 DL 07/28/21 08/04/21 08/11/21 09:06 09:51 10:02 - Today's Visit Information Type of service Follow-up Visit Follow-up Visit Follow-up Visit (Physician/FORGING MACHINE HAND (Physician/FORGING MACHINE HAND (Physician/FORGING MACHINE HAND ) ) ) Arrival Mode Wheelchair Wheelchair Wheelchair Transfer Assistance Manual None Manual Transfer Assist (Other) x1 Patient Identification Verified (Name & Yes Yes Yes ) Patient Requires Transmission-Based No No No Precautions Height and Weight Body Mass Index (BMI) 23.1 23.1 23.1 BMI Classification Normal Normal Normal Vital Signs Temperature (97.8 F-99.1 F) 96.7 F L 97.3 F L 97.8 F Temperature Source Temporal Temporal Temporal Respiratory Rate (12-18) 18 18 20 H Respiratory rate source Observation Observation Observation Comment Unable to obtain VS d/t mental status History Since Last Visit- (Skip if this is Patient's initial visit) Have you changed medications since your No No No last visit? Any new allergies or adverse reactions No No No Had a fall/change in ADL's that may No No No increase risk of falls Signs or symptoms of abuse and/or No No No neglect since last visit Have you been in the hospital since your No No No last visit? Has dressing in place as prescribed Yes Yes Yes Has compression in place as prescribed No No N/A Has offloadiing in place as prescribed No No Yes Experienced any changes in pain level or No No No management Pain Scale: 0-10 Numeric Is Patient Pain Free? Yes Yes Yes WC - Nurse 1 - General Ulcer Measurement Start: 07/28/21 09:06 Freq: Status: Active Protocol: Activity Type Activity Date Activity User E-Sign Co-Sign Detail Recorded Client Recorded Date Recorded By Document 07/28/21 09:06 RB [id number] 07/28/21 09:07 RB Document 08/04/21 09:51 RB [id number] 08/04/21 09:54 RB Document 08/11/21 10:02 DL [id number] 08/11/21 10:08 DL 07/28/21 08/04/21 08/11/21 09:06 09:51 10:02 Wound Center Nurse 1 3. R trochanter -Current Size (cm) - Length 0.1 -Current Size (cm) - Width 0.1 -Current Size (cm) - Depth 0.1 -Total Square Cm 0.01 -Photo Taken No -Exudate Amt Medium Small -Exudate Type Serosanguineous Serosanguineous -Wound Margin Distinct, Distinct, Outline Outline Attached Attached -Granulation Amt Large (67-100%) Medium (34-66%) Large (67-100%) -Granulation Quality Adena Adena,Red Red -Slough/Fibrin Yes Yes -Necrosis Amt Small (1-33%) Small (1-33%) Medium (34-66%) -Necrotic Tissue Type Adherent Slough Adherent Slough Adherent Slough -Structure Exposed N/A N/A -Texture (Yeimy-wound Skin Appearance) Assessed, Assessed No Abnormality Scarring -Moisture (Yeimy-wound Skin Appearance) Assessed Assessed No Abnormality -Color (Yeimy-wound Skin Appearance) Assessed Erythema No Abnormality -Temperature (Yeimy-wound Skin No Abnormality No Abnormality No Abnormality Appearance) (Pt Warm) (Pt Warm) (Pt Warm) -Tenderness on Palpation (Yeimy-wound No No No Skin Appearance) -Ulcer Cleansing Wound Cleanser Wound Cleanser Soap and Water -Foul Odor after Cleansing No No -Anesthetic Used 4% Lidocaine 4% Lidocaine 4% Lidocaine Solution Solution Solution 08/04/21 09:52 Wound Center by Roselia Oleary pt wound vac turned off when pt arrived to wound center. pt wound vac dressing not sealed and drainage noted outside wound and seal broken on vac dressing. erythema noted around wound Initialized on 08/04/21 09:52 - END OF NOTE WC - Nurse 2 - General Ulcer CM Notes Start: 07/28/21 09:06 Freq: Status: Active Protocol: Activity Type Activity Date Activity User E-Sign Co-Sign Detail Recorded Client Recorded Date Recorded By Document 07/28/21 09:17 MW [id number] 07/28/21 09:26 MW Document 08/04/21 10:05 MW [id number] 08/04/21 10:17 MW Document 08/11/21 10:19 MW [id number] 08/11/21 10:30 MW 07/28/21 08/04/21 08/11/21 09:17 10:05 10:19 Wound Center Nurse 2 3. R trochanter -Time : 10:06 10:23 -Correct Patient Yes Yes Yes -Correct Side, Site, Position Yes Yes Yes -Correct Procedure Yes Yes Yes -Procedure Performed Yes Yes Yes -Type of Procedure Debridement Debridement Debridement -Clinical Debridement Subcutaneous Subcutaneous Subcutaneous -Tissue Removed Subcutaneous Subcutaneous Subcutaneous -Post Debridement (cm) - Length 1.0 1.0 1.0 -Post Debridement (cm) - Width 1.0 1.2 0.7 -Post Debridement (cm) - Depth 2.0 2.3 1.4 -Total Square (Post) (cm) 1.00 1.20 0.70 -Area of Debridement (cm) - Length 1.0 1.0 1.0 -Area of Debridement (cm) - Width 1.0 1.2 0.7 -Total Square (Area) (cm) 1.00 1.20 0.70 -Tunneling No Yes Yes -Tunneling Position (O'clock) 1 1 -Tunneling Distance (cm) 2.3 1.0 -Undermining/Tunneling Yes No No -Undermining/Tunneling Starts (O'clock 11 ) -Undermining/Tunneling Ends (O'clock) 1 -Maximum Distance (cm) 0.3 -Circular Undermining No No No -Wound/Ulcer Outcome Not Healed Not Healed Not Healed -Ulcer Cleansing Rinsed/ Rinsed/ Rinsed/ Irrigated with Irrigated with Irrigated with Saline Saline Saline -Foul Odor after Cleansing No No No -Bioengineered Tissue No Yes Yes -Type of Bioengineered Tissue Epifix 18mm Epifix 18mm Disc Disc -Expiration Date 04/27/26 04/27/26 -Product Lot Number [id number] -Percent Used 100 100 -Lot number of Saline Used [id number] -Bleeding Controlled with Pressure Pressure Pressure -Offloading No No No -Treatment Response Procedure Procedure Procedure Tolerated Well Tolerated Well Tolerated Well -Debridement - Subq, 1st 20sq cm Yes No No -Apply Skin Sub - 1st 25 sq cm - Legs 1 1 -Epifix 18mm Disc 3 3 Pain Scale: 0-10 Numeric Is Patient Pain Free? Yes Yes WC - Nurse 3 - General Ulcer D/C NN Start: 07/28/21 09:06 Freq: Status: Active Protocol: Activity Type Activity Date Activity User E-Sign Co-Sign Detail Recorded Client Recorded Date Recorded By Document 07/28/21 09:26 MW [id number] 07/28/21 09:27 MW Document 08/04/21 10:34 RB [id number] 08/04/21 10:34 RB Document 08/11/21 10:30 MW [id number] 08/11/21 10:35 MW 07/28/21 08/04/21 08/11/21 09:26 10:34 10:30 Wound Care Nurse 3 3. R trochanter -Ulcer Cleansing Rinsed/ Not Cleansed Irrigated with Saline -Foul Odor after Cleansing No -Negative Pressure Wound Therapy Continue Continue -Setting (mmHg) 125 125 -Negative Pressure is Continuous Continuous -Primary Dressing Applied Aquacel Extra -Other Dressing black foam -Primary Dressing Covered/Secured with Dry Gauze, Secured with Tape -Other Covering wound vac drape -NPWT Application Charge NPWT </= 50 sq NPWT </= 50 sq cm ($) cm ($) -Aquacel Extra 1 Treatment Response Procedure Procedure Procedure Tolerated Well Tolerated Well Tolerated Well Pain Scale: 0-10 Numeric Is Patient Pain Free? Yes Yes Teaching: Wound Center Dressing Your Wound -Person Taught Patient,Primary Caregiver -Teaching Method Discussion -Response to teaching Verbalize understanding WC - Visit Discharge Discharge Condition Stable Stable Stable Ambulatory Status Wheelchair Wheelchair Wheelchair Transportation Private Auto Private Auto Private Auto Accompanied by caregiver CAREGIVER Medication Reconcilliation completed & No No No provided to patient/care provider Clinical Summary of Care Provided Yes Yes Yes Assessment/Plan Assessment/Plan (1) Pressure ulcer of right hip, stage 3: CODE(S): L89.213 - Pressure ulcer of right hip, stage 3 (2) Down syndrome: CODE(S): Q90.9 - Down syndrome, unspecified (3) Dementia: CODE(S): F03.90 - Unspecified dementia without behavioral disturbance QUALIFIERS: Dementia type: unspecified type Dementia behavioral disturbance: without behavioral disturbance Qualified Code(s): F03.90 - Unspecified dementia without behavioral disturbance PLAN: Bridgette ulcer was evaluated and debrided today at the wound healing center. His right and left heels remain healed. Right buttock ulcer remains healed. Right trochanter/hip ulcer is improved this week. The depth is improved and the tissue appears healthy and is granulating well. Wound culture was positive for staph aureus, streptococcus and anaerobic bacteria. He started on Augmentin yesterday. Epifix was applied today per gas furnace installer guidelines and rehydrated with saline, covered with wound veil and secured with steri-strips. Will hold wound vac treatment this week and try Aquacel packed into the wound and covered with ABD, with changes to this every other day for heavy drainage. The etiology of his ulcers appear to be pressure which has occurred from recent changes in his mobility. Wound culture of his right hip on 04/07/21 was positive for infection with Staph aureus, morganella morganii and enterococcus Faecalis. He completed Augmentin. Wound culture 05/05/21 was positive for Staph and Enterococcus. He completed treatment with Augmentin. Wound culture was positive for staph aureus, streptococcus and anaerobic bacteria. He is currently on Augmentin. Dr. Rader saw the patient today with me and evaluated the ulcer. He discussed option of surgical debridement vs. surgical debridement and graft or flap closure but felt that the appearance of the ulcer this week looked promising for possible closure with wound vac treatment and continued wound care. If the ulcer fails to progress in a positive direction and/or show concern of continued tunneling or undermining then he would be happy to see Min again and would be able to do a surgical debridement under anesthesia and would keep him overnight and discharge him with wound vac. CT scan showed no involvement into the bone currently. The importance of offloading was stressed to his caregiver and they agreed to obtain a Roho or gel foam cushion for his wheelchair as well as heel protectors/foam booties. She also is going to discuss with his family regarding moving him to a higher acuity home where he would have the option of more skilled services. Stressed importance of increased protein intake and adequate nutrition in healing ulcers and wounds. Recommended continuing protein shakes at least once daily outside of meals. Labs reviewed and there are no significant abnormalities. Pre-albumin is low normal. Protein supplementation was encouraged. He has undergone arterial testing in 2013 and 2019 which did not show significant arterial disease. His caregiver asked that we avoid doing them again unless necessary as it causes him extreme stress and discomfort. She was advised to contact the wound healing center if he develops any fever, chills, increased erythema, increased odor or drainage and agrees to update with any changes in status. He will return in 1 week for wound care.
[2021-08-18 10:39] VITALS: TEMP 35.7; BMI 23.1
--- NOTE | 2021-08-18 14:52 | PCM.WC.PN ---
History of Present Illness Date of Service: 08/18/21 Chief Complaint: ulcer right greater trochanter History of Wound: Min is a 70 yo gentleman that currently resides at [facility] who presents to the wound healing center for nonhealing ulcers of his heels, right buttock and right hip. The patient is accompanied by Argenis, the nurse manager publishing for the [facility] that he resides. Min is nonverbal and unable to provide history himself. Argenis provided the details and history for the patient as well as chart review from his PCP. Over the last several months, Min has declined in his mobility and is now mostly sitting in a wheelchair or on the couch or chair at his home. He is unable to ambulate and also has stopped using the toilet over the last month and is more incontinent of stool and urine per Argenis. His right hip/trochanter ulcer has been present since November and started out as a red area and ultimately broke down and has been draining. It is being treated with the wound VAC. The ulcers of his right buttock and his heels have been present since mid February and they are healed. He currently has a low air loss mattress that he sleeps on but does now have an offloading cushion to sit on in his wheelchair or offloading/heel protectors for his feet. Nutrition is supplemented with protein shakes as well as regular meals. Argenis states that he eats pretty well and generally has a good appetite. His right buttock ulcer and bilateral heel ulcers have since healed. A wound culture was done on 04/07/21. It was positive for Staphylococcus aureus, Morganella morganii, and Enterococcus faecalis. He was treated with Augmentin. Another wound culture was done on 05/05/21. It was positive for Staphylococcus aureus and Enterococcus faecalis. He was treated with Augmentin. His HgbA1c from 04/11/21 was 5.1. His Prealbumin from 04/11/[address] was done on 06/16/21. It showed linear area of the soft tissue defect and granulation overlying the greater trochanter of the proximal right femur. This may represent an area of prior surgical intervention. Clinical correlation is recommended. Small right inguinal hernia containing fat. Small gallstones. Progress of Wound: Min is here today for follow up of treatment of right hip ulcer. His heel ulcers remain healed after treatment with foam booties and Promogran dressings. His right buttock ulcer remains healed. He did well with epifix application and without the wound vac last week but there is still undermining and depth to his ulcer. Denies fever or chills. Objective Data Objective Data Vital Signs: Vital Signs Temp Pulse Resp BP 96.3 F L 82 20 H 96/54 L 08/18/21 10:39 07/28/21 00:28 08/11/21 10:02 07/28/21 00:28 Weight: 50.126 kg Body Mass Index (BMI) 23.1 Lab / Micro Data Micro: Microbiology 07/28/21 09:20 Wound Abcess - Leg, Right Gram Stain - Final 07/28/21 09:20 Wound Abcess - Leg, Right Wound Culture - Final Staphylococcus aureus Streptococcus agalactiae (B) 07/28/21 09:20 Wound Abcess - Leg, Right Anaerobic Culture - Final Anaerobic cocci Physical Exam Const alert, no apparent distress and healthy appearing Nutritional Appearance: obese HEENT normocephalic and head/scalp atraumatic Resp normal respiratory effort GI soft to palpation Skin Wounds: wounds noted Wound Narrative: as in clinical panel Psych affect normal Attitude: agitated Debridement Note Debridement Note Wound debrided: right trochanter Laterality: Right Wound Grade/Stage: Stage III Type of Debridement: Excisional debridement Anesthesia Used: 4% Lidocaine Solution and - (2% lidocaine 20 ml) Depth: Down to and including healthy tissue and in the subcutaneous layer Percentage of wound debrided: 100 Instrument Used: #15 blade and Forceps Tissue Removed: Yellow slough, devitalized tissue Severity: Fat Layer Exposed Amount of bleeding with debridement: Moderate Bleeding Controlled with: Compression and gauze, Silver Nitrate and Gel Foam Patient tolerated procedure: Patient tolerated procedure well Post-Debridement Measurements and Additional Note: Post-Debridement Measurements/Treatment WC - Nurse 1 - General Ulcer Assessment Start: 07/28/21 09:06 Freq: Status: Active Protocol: NATALIA Activity Type Activity Date Activity User E-Sign Co-Sign Detail Recorded Client Recorded Date Recorded By Document 07/28/21 09:06 RB [id number] 07/28/21 09:07 RB Document 08/04/21 09:51 RB [id number] 08/04/21 09:54 RB Document 08/11/21 10:02 DL [id number] 08/11/21 10:08 DL Document 08/18/21 10:39 KR [id number] 08/18/21 10:40 KR 07/28/21 08/04/21 08/11/21 09:06 09:51 10:02 - Today's Visit Information Type of service Follow-up Visit Follow-up Visit Follow-up Visit (Physician/MAINTENANCE CONTROLLER (Physician/MAINTENANCE CONTROLLER (Physician/MAINTENANCE CONTROLLER ) ) ) Arrival Mode Wheelchair Wheelchair Wheelchair Transfer Assistance Manual None Manual Transfer Assist (Other) x1 Patient Identification Verified (Name & Yes Yes Yes ) Patient Requires Transmission-Based No No No Precautions Height and Weight Body Mass Index (BMI) 23.1 23.1 23.1 BMI Classification Normal Normal Normal Vital Signs Temperature (97.8 F-99.1 F) 96.7 F L 97.3 F L 97.8 F Temperature Source Temporal Temporal Temporal Respiratory Rate (12-18) 18 18 20 H Respiratory rate source Observation Observation Observation Comment Unable to obtain VS d/t mental status History Since Last Visit- (Skip if this is Patient's initial visit) Have you changed medications since your No No No last visit? Any new allergies or adverse reactions No No No Had a fall/change in ADL's that may No No No increase risk of falls Signs or symptoms of abuse and/or No No No neglect since last visit Have you been in the hospital since your No No No last visit? Has dressing in place as prescribed Yes Yes Yes Has compression in place as prescribed No No N/A Has offloadiing in place as prescribed No No Yes Experienced any changes in pain level or No No No management Left Footwear Right Footwear Pain Scale: 0-10 Numeric Is Patient Pain Free? Yes Yes Yes 08/18/21 10:39 - Today's Visit Information Type of service Follow-up Visit (Physician/MAINTENANCE CONTROLLER ) Arrival Mode Wheelchair Transfer Assistance Transfer Assist (Other) Patient Identification Verified (Name & Yes ) Patient Requires Transmission-Based Precautions Height and Weight Body Mass Index (BMI) 23.1 BMI Classification Normal Vital Signs Temperature (97.8 F-99.1 F) 96.3 F L Temperature Source Temporal Respiratory Rate (12-18) Respiratory rate source Comment History Since Last Visit- (Skip if this is Patient's initial visit) Have you changed medications since your No last visit? Any new allergies or adverse reactions No Had a fall/change in ADL's that may No increase risk of falls Signs or symptoms of abuse and/or No neglect since last visit Have you been in the hospital since your No last visit? Has dressing in place as prescribed Yes Has compression in place as prescribed N/A Has offloadiing in place as prescribed N/A Experienced any changes in pain level or No management Left Footwear Regular Shoe Right Footwear Regular Shoe Pain Scale: 0-10 Numeric Is Patient Pain Free? Yes WC - Nurse 1 - General Ulcer Measurement Start: 07/28/21 09:06 Freq: Status: Active Protocol: Activity Type Activity Date Activity User E-Sign Co-Sign Detail Recorded Client Recorded Date Recorded By Document 07/28/21 09:06 RB [id number] 07/28/21 09:07 RB Document 08/04/21 09:51 RB [id number] 08/04/21 09:54 RB Document 08/11/21 10:02 DL [id number] 08/11/21 10:08 DL Document 08/18/21 10:39 KR [id number] 08/18/21 10:40 KR 07/28/21 08/04/21 08/11/21 09:06 09:51 10:02 Wound Center Nurse 1 3. R trochanter -Current Size (cm) - Length 0.1 -Current Size (cm) - Width 0.1 -Current Size (cm) - Depth 0.1 -Total Square Cm 0.01 -Photo Taken No -Exudate Amt Medium Small -Exudate Type Serosanguineous Serosanguineous -Wound Margin Distinct, Distinct, Outline Outline Attached Attached -Granulation Amt Large (67-100%) Medium (34-66%) Large (67-100%) -Granulation Quality [place],Red Red -Slough/Fibrin Yes Yes -Necrosis Amt Small (1-33%) Small (1-33%) Medium (34-66%) -Necrotic Tissue Type Adherent Slough Adherent Slough Adherent Slough -Structure Exposed N/A N/A -Texture (Yeimy-wound Skin Appearance) Assessed, Assessed No Abnormality Scarring -Moisture (Yeimy-wound Skin Appearance) Assessed Assessed No Abnormality -Color (Yeimy-wound Skin Appearance) Assessed Erythema No Abnormality -Temperature (Yeimy-wound Skin No Abnormality No Abnormality No Abnormality Appearance) (Pt Warm) (Pt Warm) (Pt Warm) -Tenderness on Palpation (Yeimy-wound No No No Skin Appearance) -Ulcer Cleansing Wound Cleanser Wound Cleanser Soap and Water -Foul Odor after Cleansing No No -Anesthetic Used 4% Lidocaine 4% Lidocaine 4% Lidocaine Solution Solution Solution 08/18/21 10:39 Wound Center Nurse 1 3. R trochanter -Current Size (cm) - Length 0.1 -Current Size (cm) - Width 0.1 -Current Size (cm) - Depth 0.1 -Total Square Cm 0.01 -Photo Taken -Exudate Amt Small -Exudate Type Serosanguineous -Wound Margin Distinct, Outline Attached -Granulation Amt Small (1-33%) -Granulation Quality Red -Slough/Fibrin -Necrosis Amt Small (1-33%) -Necrotic Tissue Type Adherent Slough -Structure Exposed -Texture (Yeimy-wound Skin Appearance) Assessed, Scarring -Moisture (Yeimy-wound Skin Appearance) No Abnormality, Assessed -Color (Yeimy-wound Skin Appearance) No Abnormality, Assessed -Temperature (Yeimy-wound Skin No Abnormality Appearance) (Pt Warm) -Tenderness on Palpation (Yeimy-wound No Skin Appearance) -Ulcer Cleansing Soap and Water -Foul Odor after Cleansing No -Anesthetic Used 5% Lidocaine Gel 08/04/21 09:52 Wound Center by Roselia Oleary pt wound vac turned off when pt arrived to wound center. pt wound vac dressing not sealed and drainage noted outside wound and seal broken on vac dressing. erythema noted around wound Initialized on 08/04/21 09:52 - END OF NOTE WC - Nurse 2 - General Ulcer CM Notes Start: 07/28/21 09:06 Freq: Status: Active Protocol: Activity Type Activity Date Activity User E-Sign Co-Sign Detail Recorded Client Recorded Date Recorded By Document 07/28/21 09:17 MW [id number] 07/28/21 09:26 MW Document 08/04/21 10:05 MW [id number] 08/04/21 10:17 MW Document 08/11/21 10:19 MW [id number] 08/11/21 10:30 MW Document 08/18/21 10:47 MW [id number] 08/18/21 11:39 MW 07/28/21 08/04/21 08/11/21 09:17 10:05 10:19 Wound Center Nurse 2 3. R trochanter -Time 09: 10:06 10:23 -Correct Patient Yes Yes Yes -Correct Side, Site, Position Yes Yes Yes -Correct Procedure Yes Yes Yes -Procedure Performed Yes Yes Yes -Type of Procedure Debridement Debridement Debridement -Clinical Debridement Subcutaneous Subcutaneous Subcutaneous -Tissue Removed Subcutaneous Subcutaneous Subcutaneous -Post Debridement (cm) - Length 1.0 1.0 1.0 -Post Debridement (cm) - Width 1.0 1.2 0.7 -Post Debridement (cm) - Depth 2.0 2.3 1.4 -Total Square (Post) (cm) 1.00 1.20 0.70 -Area of Debridement (cm) - Length 1.0 1.0 1.0 -Area of Debridement (cm) - Width 1.0 1.2 0.7 -Total Square (Area) (cm) 1.00 1.20 0.70 -Tunneling No Yes Yes -Tunneling Position (O'clock) 1 1 -Tunneling Distance (cm) 2.3 1.0 -Undermining/Tunneling Yes No No -Undermining/Tunneling Starts (O'clock 11 ) -Undermining/Tunneling Ends (O'clock) 1 -Maximum Distance (cm) 0.3 -Circular Undermining No No No -Wound/Ulcer Outcome Not Healed Not Healed Not Healed -Ulcer Cleansing Rinsed/ Rinsed/ Rinsed/ Irrigated with Irrigated with Irrigated with Saline Saline Saline -Foul Odor after Cleansing No No No -Bioengineered Tissue No Yes Yes -Type of Bioengineered Tissue Epifix 18mm Epifix 18mm Disc Disc -Expiration Date 04/27/26 04/27/26 -Product Lot Number [id number] -Percent Used 100 100 -Lot number of Saline Used [id number] -Injectable Lidocaine (%) -Lidocaine (ml) -Bleeding Controlled with Pressure Pressure Pressure -Offloading No No No -Treatment Response Procedure Procedure Procedure Tolerated Well Tolerated Well Tolerated Well -Debridement - Subq, 1st 20sq cm Yes No No -Apply Skin Sub - 1st 25 sq cm - Legs 1 1 -Epifix (per sq cm) -Epifix 18mm Disc 3 3 Pain Scale: 0-10 Numeric Is Patient Pain Free? Yes Yes 08/18/21 10:47 Wound Center Nurse 2 3. R trochanter -Time 11:00 -Correct Patient Yes -Correct Side, Site, Position Yes -Correct Procedure Yes -Procedure Performed Yes -Type of Procedure Debridement -Clinical Debridement Subcutaneous -Tissue Removed Subcutaneous -Post Debridement (cm) - Length 3.5 -Post Debridement (cm) - Width 2.5 -Post Debridement (cm) - Depth 2.8 -Total Square (Post) (cm) 8.75 -Area of Debridement (cm) - Length 3.5 -Area of Debridement (cm) - Width 2.5 -Total Square (Area) (cm) 8.75 -Tunneling No -Tunneling Position (O'clock) -Tunneling Distance (cm) -Undermining/Tunneling No -Undermining/Tunneling Starts (O'clock ) -Undermining/Tunneling Ends (O'clock) -Maximum Distance (cm) -Circular Undermining No -Wound/Ulcer Outcome Not Healed -Ulcer Cleansing Rinsed/ Irrigated with Saline -Foul Odor after Cleansing No -Bioengineered Tissue Yes -Type of Bioengineered Tissue Epifix -Expiration Date 02/25/26 -Product Lot Number [id number] -Percent Used 100 -Lot number of Saline Used [id number] -Injectable Lidocaine (%) 2 -Lidocaine (ml) 10 -Bleeding Controlled with Pressure,Silver Nitrate, SURGIFOAM -Offloading No -Treatment Response Procedure Tolerated Well -Debridement - Subq, 1st 20sq cm No -Apply Skin Sub - 1st 25 sq cm - Legs 1 -Epifix (per sq cm) 4 -Epifix 18mm Disc Pain Scale: 0-10 Numeric Is Patient Pain Free? Yes WC - Nurse 3 - General Ulcer D/C NN Start: 07/28/21 09:06 Freq: Status: Active Protocol: Activity Type Activity Date Activity User E-Sign Co-Sign Detail Recorded Client Recorded Date Recorded By Document 07/28/21 09:26 MW [id number] 07/28/21 09:27 MW Document 08/04/21 10:34 RB [id number] 08/04/21 10:34 RB Document 08/11/21 10:30 MW [id number] 08/11/21 10:35 MW Document 08/18/21 11:51 AK [id number] 08/18/21 11:54 AK 10/11/1708/04/21 08/11/21 09:26 10:34 10:30 Wound Care Nurse 3 3. R trochanter -Ulcer Cleansing Rinsed/ Not Cleansed Irrigated with Saline -Foul Odor after Cleansing No -Negative Pressure Wound Therapy Continue Continue -Setting (mmHg) 125 125 -Negative Pressure is Continuous Continuous -Primary Dressing Applied Aquacel Extra -Other Dressing black foam -Primary Dressing Covered/Secured with Dry Gauze, Secured with Tape -Other Covering wound vac drape -NPWT Application Charge NPWT </= 50 sq NPWT </= 50 sq cm ($) cm ($) -Aquacel Extra 1 Treatment Response Procedure Procedure Procedure Tolerated Well Tolerated Well Tolerated Well Pain Scale: 0-10 Numeric Is Patient Pain Free? Yes Yes Teaching: Wound Center Dressing Your Wound -Person Taught Patient,Primary Caregiver -Teaching Method Discussion -Response to teaching Verbalize understanding WC - Visit Discharge Discharge Condition Stable Stable Stable Ambulatory Status Wheelchair Wheelchair Wheelchair Transportation Private Auto Private Auto Private Auto Accompanied by caregiver CAREGIVER Medication Reconcilliation completed & No No No provided to patient/care provider Clinical Summary of Care Provided Yes Yes Yes 08/18/21 11:51 Wound Care Nurse 3 3. R trochanter -Ulcer Cleansing Rinsed/ Irrigated with Saline -Foul Odor after Cleansing No -Negative Pressure Wound Therapy Continue -Setting (mmHg) 125 -Negative Pressure is Continuous -Primary Dressing Applied -Other Dressing -Primary Dressing Covered/Secured with -Other Covering -NPWT Application Charge NPWT </= 50 sq cm ($) -Aquacel Extra Treatment Response Pain Scale: 0-10 Numeric Is Patient Pain Free? Teaching: Wound Center Dressing Your Wound -Person Taught -Teaching Method -Response to teaching WC - Visit Discharge Discharge Condition Stable Ambulatory Status Wheelchair Transportation Private Auto Accompanied by Medication Reconcilliation completed & No provided to patient/care provider Clinical Summary of Care Provided Yes Assessment/Plan Assessment/Plan (1) Pressure ulcer of right hip, stage 3: CODE(S): L89.213 - Pressure ulcer of right hip, stage 3 (2) Down syndrome: CODE(S): Q90.9 - Down syndrome, unspecified (3) Dementia: CODE(S): F03.90 - Unspecified dementia without behavioral disturbance QUALIFIERS: Dementia type: unspecified type Dementia behavioral disturbance: without behavioral disturbance Qualified Code(s): F03.90 - Unspecified dementia without behavioral disturbance PLAN: Min's ulcer was evaluated and debrided today at the wound healing center. His right and left heels remain healed. Right buttock ulcer remains healed. Right trochanter/hip ulcer is improved this week. The depth is not improved but the tissue appears healthy and is granulating well. A significant excisional debridement was performed today at the wound healing center to unroof the undermined area again and try to heal the ulcer from the base as it continued to heal around but not at the deepest area. Epifix was applied today per tankroom worker guidelines and rehydrated with saline, covered with wound veil and secured with steri-strips. Wound vac applied to help regranulate the defect in tissue created today as well as manage the drainage. The etiology of his ulcers appear to be pressure which has occurred from recent changes in his mobility. Wound culture of his right hip on 04/07/21 was positive for infection with Staph aureus, morganella morganii and enterococcus Faecalis. He completed Augmentin. Wound culture 05/05/21 was positive for Staph and Enterococcus. He completed treatment with Augmentin. Wound culture was positive for staph aureus, streptococcus and anaerobic bacteria. He finished Augmentin for positive wound culture from 07/28/2021. Dr. Rader saw the patient today with me and evaluated the ulcer. He discussed option of surgical debridement vs. surgical debridement and graft or flap closure but felt that the appearance of the ulcer this week looked promising for possible closure with wound vac treatment and continued wound care. If the ulcer fails to progress in a positive direction and/or show concern of continued tunneling or undermining then he would be happy to see Min again and would be able to do a surgical debridement under anesthesia and would keep him overnight and discharge him with wound vac. CT scan showed no involvement into the bone currently. The importance of offloading was stressed to his caregiver and they agreed to obtain a Roho or gel foam cushion for his wheelchair as well as heel protectors/foam booties. She also is going to discuss with his family regarding moving him to a higher acuity home where he would have the option of more skilled services. Stressed importance of increased protein intake and adequate nutrition in healing ulcers and wounds. Recommended continuing protein shakes at least once daily outside of meals. Labs reviewed and there are no significant abnormalities. Pre-albumin is low normal. Protein supplementation was encouraged. He has undergone arterial testing in 2012 and 2019 which did not show significant arterial disease. His caregiver asked that we avoid doing them again unless necessary as it causes him extreme stress and discomfort. She was advised to contact the wound healing center if he develops any fever, chills, increased erythema, increased odor or drainage and agrees to update with any changes in status. He will return in 1 week for wound care.
[2021-08-25 10:27] VITALS: RESP 22; TEMP 35.9; BMI 23.1
--- NOTE | 2021-08-25 13:39 | PN.PCM_ITS ---
History of Present Illness Date of Service: 08/25/21 Chief Complaint: ulcer right greater trochanter History of Wound: Min is a 70 yo gentleman that currently resides at [facility] who presents to the wound healing center for nonhealing ulcers of his heels, right buttock and right hip. The patient is accompanied by Argenis, the nurse project construction manager for the [facility] that he resides. Min is nonverbal and unable to provide history himself. Argenis provided the details and history for the patient as well as chart review from his PCP. Over the last several months, Min has declined in his mobility and is now mostly sitting in a wheelchair or on the couch or chair at his home. He is unable to ambulate and also has stopped using the toilet over the last month and is more incontinent of stool and urine per Argenis. His right hip/trochanter ulcer has been present since November and started out as a red area and ultimately broke down and has been draining. It is being treated with the wound VAC. The ulcers of his right buttock and his heels have been present since mid February and they are healed. He currently has a low air loss mattress that he sleeps on but does now have an offloading cushion to sit on in his wheelchair or offloading/heel protectors for his feet. Nutrition is supplemented with protein shakes as well as regular meals. Argenis states that he eats pretty well and generally has a good appetite. His right buttock ulcer and bilateral heel ulcers have since healed. A wound culture was done on 04/07/21. It was positive for Staphylococcus aureus, Morganella morganii, and Enterococcus faecalis. He was treated with Augmentin. Another wound culture was done on 05/05/21. It was positive for Staphylococcus aureus and Enterococcus faecalis. He was treated with Augmentin. His HgbA1c from 04/11/21 was 5.1. His Prealbumin from 04/11/[address] was done on 06/16/21. It showed linear area of the soft tissue defect and granulation overlying the greater trochanter of the proximal right femur. This may represent an area of prior surgical intervention. Clinical correlation is recommended. Small right inguinal hernia containing fat. Small gallstones. Progress of Wound: Min is here today for follow up of treatment of right hip ulcer. His heel ulcers remain healed after treatment with foam booties and Promogran dressings. His right buttock ulcer remains healed. He did well post surgical excisional debridement to unroof the tunneling of his ulcer last week and tolerated the wound vac last week. Denies fever or chills. Objective Data Objective Data Vital Signs: Vital Signs Temp Pulse Resp BP 96.7 F L 82 22 H 96/54 L 08/25/21 10:27 07/28/21 00:28 08/25/21 10:27 07/28/21 00:28 Weight: 50.126 kg Body Mass Index (BMI) 23.1 Lab / Micro Data Micro: Microbiology 07/28/21 09:20 Wound Abcess - Leg, Right Gram Stain - Final 07/28/21 09:20 Wound Abcess - Leg, Right Wound Culture - Final Staphylococcus aureus Streptococcus agalactiae (B) 07/28/21 09:20 Wound Abcess - Leg, Right Anaerobic Culture - Final Anaerobic cocci Physical Exam Const alert, no apparent distress and healthy appearing Nutritional Appearance: obese HEENT normocephalic and head/scalp atraumatic Resp normal respiratory effort GI soft to palpation Skin Wounds: wounds noted Wound Narrative: as in clinical panel Psych affect normal Attitude: agitated Debridement Note Debridement Note Wound debrided: right trochanter Laterality: Right Wound Grade/Stage: Stage III Type of Debridement: Excisional debridement Anesthesia Used: 4% Lidocaine Solution and Cetacaine Depth: Down to and including healthy tissue and in the subcutaneous layer Percentage of wound debrided: 100 Instrument Used: 5mm curette Tissue Removed: Yellow slough, devitalized tissue Severity: Fat Layer Exposed Amount of bleeding with debridement: Mild Bleeding Controlled with: Compression and gauze Patient tolerated procedure: Patient tolerated procedure well Post-Debridement Measurements and Additional Note: Post-Debridement Measurements/Treatment KAREN - Nurse 1 - General Ulcer Assessment Start: 07/28/21 09:06 Freq: Status: Active Protocol: NATALIA Activity Type Activity Date Activity User E-Sign Co-Sign Detail Recorded Client Recorded Date Recorded By Document 07/28/21 09:06 RB [id number] 07/28/21 09:07 RB Document 08/04/21 09:51 RB [id number] 08/04/21 09:54 RB Document 08/11/21 10:02 DL [id number] 08/11/21 10:08 DL Document 08/18/21 10:39 KR [id number] 08/18/21 10:40 KR Document 08/25/21 10:27 DL [id number] 08/25/21 10:31 DL 07/28/21 08/04/21 08/11/21 09:06 09:51 10:02 - Today's Visit Information Type of service Follow-up Visit Follow-up Visit Follow-up Visit (Physician/SECURITY MANAGEMENT SPECIALIST (Physician/SECURITY MANAGEMENT SPECIALIST (Physician/SECURITY MANAGEMENT SPECIALIST ) ) ) Arrival Mode Wheelchair Wheelchair Wheelchair Transfer Assistance Manual None Manual Transfer Assist (Other) x1 Patient Identification Verified (Name & Yes Yes Yes ) Patient Requires Transmission-Based No No No Precautions Height and Weight Body Mass Index (BMI) 23.1 23.1 23.1 BMI Classification Normal Normal Normal Vital Signs Temperature (97.8 F-99.1 F) 96.7 F L 97.3 F L 97.8 F Temperature Source Temporal Temporal Temporal Respiratory Rate (12-18) 18 18 20 H Respiratory rate source Observation Observation Observation Comment Unable to obtain VS d/t mental status History Since Last Visit- (Skip if this is Patient's initial visit) Have you changed medications since your No No No last visit? Any new allergies or adverse reactions No No No Had a fall/change in ADL's that may No No No increase risk of falls Signs or symptoms of abuse and/or No No No neglect since last visit Have you been in the hospital since your No No No last visit? Has dressing in place as prescribed Yes Yes Yes Has compression in place as prescribed No No N/A Has offloadiing in place as prescribed No No Yes Experienced any changes in pain level or No No No management Left Footwear Right Footwear Pain Scale: 0-10 Numeric Is Patient Pain Free? Yes Yes Yes 08/18/21 08/25/21 10:39 10:27 - Today's Visit Information Type of service Follow-up Visit Follow-up Visit (Physician/SECURITY MANAGEMENT SPECIALIST (Physician/SECURITY MANAGEMENT SPECIALIST ) ) Arrival Mode Wheelchair Wheelchair Transfer Assistance None Transfer Assist (Other) Patient Identification Verified (Name & Yes Yes ) Patient Requires Transmission-Based No Precautions Height and Weight Body Mass Index (BMI) 23.1 23.1 BMI Classification Normal Normal Vital Signs Temperature (97.8 F-99.1 F) 96.3 F L 96.7 F L Temperature Source Temporal Temporal Respiratory Rate (12-18) 22 H Respiratory rate source Observation Comment History Since Last Visit- (Skip if this is Patient's initial visit) Have you changed medications since your No No last visit? Any new allergies or adverse reactions No No Had a fall/change in ADL's that may No No increase risk of falls Signs or symptoms of abuse and/or No No neglect since last visit Have you been in the hospital since your No No last visit? Has dressing in place as prescribed Yes Yes Has compression in place as prescribed N/A N/A Has offloadiing in place as prescribed N/A Yes Experienced any changes in pain level or No No management Left Footwear Regular Shoe Right Footwear Regular Shoe Pain Scale: 0-10 Numeric Is Patient Pain Free? Yes Yes WC - Nurse 1 - General Ulcer Measurement Start: 07/28/21 09:06 Freq: Status: Active Protocol: Activity Type Activity Date Activity User E-Sign Co-Sign Detail Recorded Client Recorded Date Recorded By Document 07/28/21 09:06 RB [id number] 07/28/21 09:07 RB Document 08/04/21 09:51 RB [id number] 08/04/21 09:54 RB Document 08/11/21 10:02 DL [id number] 08/11/21 10:08 DL Document 08/18/21 10:39 KR [id number] 08/18/21 10:40 KR Document 08/25/21 10:27 DL [id number] 08/25/21 10:31 DL 07/28/21 08/04/21 08/11/21 09:06 09:51 10:02 Wound Center Nurse 1 3. R trochanter -Current Size (cm) - Length 0.1 -Current Size (cm) - Width 0.1 -Current Size (cm) - Depth 0.1 -Total Square Cm 0.01 -Photo Taken No -Exudate Amt Medium Small -Exudate Type Serosanguineous Serosanguineous -Wound Margin Distinct, Distinct, Outline Outline Attached Attached -Granulation Amt Large (67-100%) Medium (34-66%) Large (67-100%) -Granulation Quality Lashmeet Lashmeet,Red Red -Slough/Fibrin Yes Yes -Necrosis Amt Small (1-33%) Small (1-33%) Medium (34-66%) -Necrotic Tissue Type Adherent Slough Adherent Slough Adherent Slough -Structure Exposed N/A N/A -Texture (Yeimy-wound Skin Appearance) Assessed, Assessed No Abnormality Scarring -Moisture (Yeimy-wound Skin Appearance) Assessed Assessed No Abnormality -Color (Yeimy-wound Skin Appearance) Assessed Erythema No Abnormality -Temperature (Yeimy-wound Skin No Abnormality No Abnormality No Abnormality Appearance) (Pt Warm) (Pt Warm) (Pt Warm) -Tenderness on Palpation (Yeimy-wound No No No Skin Appearance) -Ulcer Cleansing Wound Cleanser Wound Cleanser Soap and Water -Foul Odor after Cleansing No No -Anesthetic Used 4% Lidocaine 4% Lidocaine 4% Lidocaine Solution Solution Solution 08/18/21 08/25/21 10:39 10:27 Wound Center Nurse 1 3. R trochanter -Current Size (cm) - Length 0.1 2.7 -Current Size (cm) - Width 0.1 3.1 -Current Size (cm) - Depth 0.1 1.7 -Total Square Cm 0.01 8.37 -Photo Taken No -Exudate Amt Small Medium -Exudate Type Serosanguineous Serosanguineous -Wound Margin Distinct, Distinct, Outline Outline Attached Attached -Granulation Amt Small (1-33%) Medium (34-66%) -Granulation Quality Red Red -Slough/Fibrin -Necrosis Amt Small (1-33%) Medium (34-66%) -Necrotic Tissue Type Adherent Slough Adherent Slough -Structure Exposed N/A -Texture (Yeimy-wound Skin Appearance) Assessed, Scarring Scarring -Moisture (Yeimy-wound Skin Appearance) No Abnormality, No Abnormality Assessed -Color (Yeimy-wound Skin Appearance) No Abnormality, No Abnormality Assessed -Temperature (Yeimy-wound Skin No Abnormality No Abnormality Appearance) (Pt Warm) (Pt Warm) -Tenderness on Palpation (Yeimy-wound No Skin Appearance) -Ulcer Cleansing Soap and Water Rinsed/ Irrigated with Saline -Foul Odor after Cleansing No No -Anesthetic Used 5% Lidocaine 4% Lidocaine Gel Solution,5% Lidocaine Gel 08/04/21 09:52 Wound Center by Roselia Oleary pt wound vac turned off when pt arrived to wound center. pt wound vac dressing not sealed and drainage noted outside wound and seal broken on vac dressing. erythema noted around wound Initialized on 08/04/21 09:52 - END OF NOTE WC - Nurse 2 - General Ulcer CM Notes Start: 07/28/21 09:06 Freq: Status: Active Protocol: Activity Type Activity Date Activity User E-Sign Co-Sign Detail Recorded Client Recorded Date Recorded By Document 07/28/21 09:17 MW [id number] 07/28/21 09:26 MW Document 08/04/21 10:05 MW [id number] 08/04/21 10:17 MW Document 08/11/21 10:19 MW [id number] 08/11/21 10:30 MW Document 08/18/21 10:47 MW [id number] 08/18/21 11:39 MW Document 08/25/21 10:57 MW [id number] 08/25/21 11:04 MW 07/28/21 08/04/21 08/11/21 09:17 10:05 10:19 Wound Center Nurse 2 3. R trochanter -Time : 10:06 10:23 -Correct Patient Yes Yes Yes -Correct Side, Site, Position Yes Yes Yes -Correct Procedure Yes Yes Yes -Procedure Performed Yes Yes Yes -Type of Procedure Debridement Debridement Debridement -Clinical Debridement Subcutaneous Subcutaneous Subcutaneous -Tissue Removed Subcutaneous Subcutaneous Subcutaneous -Post Debridement (cm) - Length 1.0 1.0 1.0 -Post Debridement (cm) - Width 1.0 1.2 0.7 -Post Debridement (cm) - Depth 2.0 2.3 1.4 -Total Square (Post) (cm) 1.00 1.20 0.70 -Area of Debridement (cm) - Length 1.0 1.0 1.0 -Area of Debridement (cm) - Width 1.0 1.2 0.7 -Total Square (Area) (cm) 1.00 1.20 0.70 -Tunneling No Yes Yes -Tunneling Position (O'clock) 1 1 -Tunneling Distance (cm) 2.3 1.0 -Undermining/Tunneling Yes No No -Undermining/Tunneling Starts (O'clock 11 ) -Undermining/Tunneling Ends (O'clock) 1 -Maximum Distance (cm) 0.3 -Circular Undermining No No No -Wound/Ulcer Outcome Not Healed Not Healed Not Healed -Ulcer Cleansing Rinsed/ Rinsed/ Rinsed/ Irrigated with Irrigated with Irrigated with Saline Saline Saline -Foul Odor after Cleansing No No No -Bioengineered Tissue No Yes Yes -Type of Bioengineered Tissue Epifix 18mm Epifix 18mm Disc Disc -Expiration Date 04/27/26 04/27/26 -Product Lot Number [id number] -Percent Used 100 100 -Lot number of Saline Used [id number] -Injectable Lidocaine (%) -Lidocaine (ml) -Bleeding Controlled with Pressure Pressure Pressure -Offloading No No No -Treatment Response Procedure Procedure Procedure Tolerated Well Tolerated Well Tolerated Well -Debridement - Subq, 1st 20sq cm Yes No No -Apply Skin Sub - 1st 25 sq cm - Legs 1 1 -Epifix (per sq cm) -Epifix 18mm Disc 3 3 -Epifix Mesh (per sq cm) Pain Scale: 0-10 Numeric Is Patient Pain Free? Yes Yes 08/18/21 08/25/21 10:47 10:57 Wound Center Nurse 2 3. R trochanter -Time 11:00 10:57 -Correct Patient Yes Yes -Correct Side, Site, Position Yes Yes -Correct Procedure Yes Yes -Procedure Performed Yes Yes -Type of Procedure Debridement Debridement -Clinical Debridement Subcutaneous Subcutaneous -Tissue Removed Subcutaneous Subcutaneous -Post Debridement (cm) - Length 3.5 3.1 -Post Debridement (cm) - Width 2.5 3.0 -Post Debridement (cm) - Depth 2.8 2.4 -Total Square (Post) (cm) 8.75 9.30 -Area of Debridement (cm) - Length 3.5 3.1 -Area of Debridement (cm) - Width 2.5 3.0 -Total Square (Area) (cm) 8.75 9.30 -Tunneling No No -Tunneling Position (O'clock) -Tunneling Distance (cm) -Undermining/Tunneling No No -Undermining/Tunneling Starts (O'clock ) -Undermining/Tunneling Ends (O'clock) -Maximum Distance (cm) -Circular Undermining No No -Wound/Ulcer Outcome Not Healed Not Healed -Ulcer Cleansing Rinsed/ Rinsed/ Irrigated with Irrigated with Saline Saline -Foul Odor after Cleansing No No -Bioengineered Tissue Yes Yes -Type of Bioengineered Tissue Epifix Epifix Mesh -Expiration Date 02/25/26 04/27/26 -Product Lot Number [id number] -Percent Used 100 100 -Lot number of Saline Used [id number] -Injectable Lidocaine (%) 2 -Lidocaine (ml) 10 -Bleeding Controlled with Pressure,Silver Pressure Nitrate, SURGIFOAM -Offloading No No -Treatment Response Procedure Procedure Tolerated Well Tolerated Well -Debridement - Subq, 1st 20sq cm No No -Apply Skin Sub - 1st 25 sq cm - Legs 1 1 -Epifix (per sq cm) 4 -Epifix 18mm Disc -Epifix Mesh (per sq cm) 11 Pain Scale: 0-10 Numeric Is Patient Pain Free? Yes Yes WC - Nurse 3 - General Ulcer D/C NN Start: 07/28/21 09:06 Freq: Status: Active Protocol: Activity Type Activity Date Activity User E-Sign Co-Sign Detail Recorded Client Recorded Date Recorded By Document 07/28/21 09:26 MW [id number] 07/28/21 09:27 MW Document 08/04/21 10:34 RB [id number] 08/04/21 10:34 RB Document 08/11/21 10:30 MW [id number] 08/11/21 10:35 MW Document 08/18/21 11:51 AK [id number] 08/18/21 11:54 AK Document 08/25/21 11:28 DL [id number] 08/25/21 11:28 DL 07/28/21 08/04/21 08/11/21 09:26 10:34 10:30 Wound Care Nurse 3 3. R trochanter -Ulcer Cleansing Rinsed/ Not Cleansed Irrigated with Saline -Foul Odor after Cleansing No -Negative Pressure Wound Therapy Continue Continue -Setting (mmHg) 125 125 -Negative Pressure is Continuous Continuous -Primary Dressing Applied Aquacel Extra -Other Dressing black foam -Primary Dressing Covered/Secured with Dry Gauze, Secured with Tape -Other Covering wound vac drape -NPWT Application Charge NPWT </= 50 sq NPWT </= 50 sq cm ($) cm ($) -Aquacel Extra 1 Treatment Response Procedure Procedure Procedure Tolerated Well Tolerated Well Tolerated Well Pain Scale: 0-10 Numeric Is Patient Pain Free? Yes Yes Teaching: Wound Center Dressing Your Wound -Person Taught Patient,Primary Caregiver -Teaching Method Discussion -Response to teaching Verbalize understanding WC - Visit Discharge Discharge Condition Stable Stable Stable Ambulatory Status Wheelchair Wheelchair Wheelchair Transportation Private Auto Private Auto Private Auto Accompanied by caregiver CAREGIVER Medication Reconcilliation completed & No No No provided to patient/care provider Clinical Summary of Care Provided Yes Yes Yes 08/18/21 08/25/21 11:51 11:28 Wound Care Nurse 3 3. R trochanter -Ulcer Cleansing Rinsed/ Irrigated with Saline -Foul Odor after Cleansing No No -Negative Pressure Wound Therapy Continue Continue -Setting (mmHg) 125 125 -Negative Pressure is Continuous Continuous -Primary Dressing Applied -Other Dressing Epifix -Primary Dressing Covered/Secured with -Other Covering -NPWT Application Charge NPWT </= 50 sq NPWT </= 50 sq cm ($) cm ($) -Aquacel Extra Treatment Response Procedure Tolerated Well Pain Scale: 0-10 Numeric Is Patient Pain Free? Yes Teaching: Wound Center Dressing Your Wound -Person Taught -Teaching Method -Response to teaching WC - Visit Discharge Discharge Condition Stable Stable Ambulatory Status Wheelchair Wheelchair Transportation Private Auto Private Auto Accompanied by Medication Reconcilliation completed & No provided to patient/care provider Clinical Summary of Care Provided Yes Assessment/Plan Assessment/Plan (1) Pressure ulcer of right hip, stage 3: CODE(S): L89.213 - Pressure ulcer of right hip, stage 3 (2) Down syndrome: CODE(S): Q90.9 - Down syndrome, unspecified (3) Dementia: CODE(S): F03.90 - Unspecified dementia without behavioral disturbance QUALIFIERS: Dementia type: unspecified type Dementia behavioral disturbance: without behavioral disturbance Qualified Code(s): F03.90 - Unspecified dementia without behavioral disturbance PLAN: Min's ulcer was evaluated and debrided today at the wound healing center. His right and left heels remain healed. Right buttock ulcer remains healed. Right trochanter/hip ulcer is improved this week. Epifix was applied today per compounder helper guidelines and rehydrated with saline, covered with wound veil and secured with steri-strips. Wound vac applied to help regranulate the defect in tissue as well as manage the drainage. The etiology of his ulcers appear to be pressure which has occurred from recent changes in his mobility. Wound culture of his right hip on 04/07/21 was positive for infection with Staph aureus, morganella morganii and enterococcus Faecalis. He completed Augmentin. Wound culture 05/05/21 was positive for Staph and Enterococcus. He completed treatment with Augmentin. Wound culture was positive for staph aureus, streptococcus and anaerobic bacteria. He finished Augmentin for positive wound culture from 07/28/2021. Dr. Rader saw the patient today with me and evaluated the ulcer. He discussed option of surgical debridement vs. surgical debridement and graft or flap closure but felt that the appearance of the ulcer this week looked promising for possible closure with wound vac treatment and continued wound care. If the ulcer fails to progress in a positive direction and/or show concern of continued tunneling or undermining then he would be happy to see Min again and would be able to do a surgical debridement under anesthesia and would keep him overnight and discharge him with wound vac. CT scan showed no involvement into the bone currently. The importance of offloading was stressed to his caregiver and they agreed to obtain a Roho or gel foam cushion for his wheelchair as well as heel protectors/foam booties. She also is going to discuss with his family regarding moving him to a higher acuity home where he would have the option of more skilled services. Stressed importance of increased protein intake and adequate nutrition in healing ulcers and wounds. Recommended continuing protein shakes at least once daily outside of meals. Labs reviewed and there are no significant abnormalities. Pre-albumin is low normal. Protein supplementation was encouraged. He has undergone arterial testing in 2012 and 2018 which did not show significant arterial disease. His caregiver asked that we avoid doing them again unless necessary as it causes him extreme stress and discomfort. She was advised to contact the wound healing center if he develops any fever, chills, increased erythema, increased odor or drainage and agrees to update with any changes in status. He will return in 1 week for wound care.
== END 2021-08-27 23:59 ==
LOC: WC 10:15
PROVIDERS: PCP Family Medicine; Referring Provider Physician Assistant; Visit Provider Family Medicine
DX: L89.213 Pressure ulcer of right hip, stage 3 (principal); R15.9 Full incontinence of feces; Q90.9 Down syndrome, unspecified; F03.90 Unspecified dementia, unspecified severity, without behavioral disturbance, psychotic disturbance, mood disturbance, and anxiety; Z79.890 Hormone replacement therapy; Z79.899 Other long term (current) drug therapy
CPT/HCPCS: 11042; 15271; 87070; 87075; 87077; 87186; 87205; 97605; Q4186

== ENCOUNTER 2021-09-15 09:30 | Outpatient (RCR) | payer MEDICARE, MEDICAID, SELFPAY ==
[2021-08-28 00:23] VITALS: BP 96/54; PULSE 82; RESP 22; TEMP 35.9; BMI 23.1
[2021-09-01 10:20] VITALS: RESP 18; TEMP 36.4; BMI 23.1
--- NOTE | 2021-09-01 12:58 | PCM.WC.PN ---
History of Present Illness Date of Service: 09/01/21 Chief Complaint: ulcer right greater trochanter History of Wound: Min is a 70 yo gentleman that currently resides at [facility] who presents to the wound healing center for nonhealing ulcers of his heels, right buttock and right hip. The patient is accompanied by Argenis, the nurse floral manager for the [facility] that he resides. Min is nonverbal and unable to provide history himself. Argenis provided the details and history for the patient as well as chart review from his PCP. Over the last several months, Min has declined in his mobility and is now mostly sitting in a wheelchair or on the couch or chair at his home. He is unable to ambulate and also has stopped using the toilet over the last month and is more incontinent of stool and urine per Argenis. His right hip/trochanter ulcer has been present since November and started out as a red area and ultimately broke down and has been draining. It is being treated with the wound VAC. The ulcers of his right buttock and his heels have been present since mid February and they are healed. He currently has a low air loss mattress that he sleeps on but does now have an offloading cushion to sit on in his wheelchair or offloading/heel protectors for his feet. Nutrition is supplemented with protein shakes as well as regular meals. Argenis states that he eats pretty well and generally has a good appetite. His right buttock ulcer and bilateral heel ulcers have since healed. A wound culture was done on 04/07/21. It was positive for Staphylococcus aureus, Morganella morganii, and Enterococcus faecalis. He was treated with Augmentin. Another wound culture was done on 05/05/21. It was positive for Staphylococcus aureus and Enterococcus faecalis. He was treated with Augmentin. His HgbA1c from 04/11/21 was 5.1. His Prealbumin from 04/11/[address] was done on 06/16/21. It showed linear area of the soft tissue defect and granulation overlying the greater trochanter of the proximal right femur. This may represent an area of prior surgical intervention. Clinical correlation is recommended. Small right inguinal hernia containing fat. Small gallstones. Progress of Wound: Min is here today for follow up of treatment of right hip ulcer. His heel ulcers remain healed after treatment with foam booties and Promogran dressings. His right buttock ulcer remains healed. He did well with Epifix application last week and tolerated the wound vac this past week. Denies fever or chills. Objective Data Objective Data Vital Signs: Vital Signs Temp Pulse Resp BP 97.5 F L 82 18 96/54 L 09/01/21 10:20 08/28/21 00:23 09/01/21 10:20 08/28/21 00:23 Weight: 50.126 kg Body Mass Index (BMI) 23.1 Physical Exam Const alert, oriented x3 and no apparent distress General Appearance: cooperative HEENT normocephalic and head/scalp atraumatic Resp normal respiratory effort Effort and Inspection: able to speak in complete sentences Cardio regular rate and regular rhythm Skin Wounds: wounds noted Wound Narrative: as in clinical panel Psych cooperative and affect normal Debridement Note Debridement Note Wound debrided: right trochanter Laterality: Right Wound Grade/Stage: Stage III Type of Debridement: Excisional debridement Anesthesia Used: 4% Lidocaine Solution Depth: Down to and including healthy tissue and in the subcutaneous layer Percentage of wound debrided: 100 Instrument Used: 5mm curette Tissue Removed: Yellow slough, devitalized tissue Severity: Fat Layer Exposed Amount of bleeding with debridement: Mild Bleeding Controlled with: Compression and gauze Patient tolerated procedure: Patient tolerated procedure well Post-Debridement Measurements and Additional Note: Post-Debridement Measurements/Treatment - Nurse 1 - General Ulcer Assessment Start: 09/01/21 10:20 Freq: Status: Active Protocol: [email or web address] Activity Type Activity Date Activity User E-Sign Co-Sign Detail Recorded Client Recorded Date Recorded By Document 09/01/21 10:20 [id number] 09/01/21 10:22 RB 09/01/21 10:20 - Today's Visit Information Type of service Follow-up Visit (Physician/[employer] ) Arrival Mode Wheelchair Transfer Assistance Hilda Lift Patient Identification Verified (Name & Yes ) Patient Requires Transmission-Based No Precautions Height and Weight Body Mass Index (BMI) 23.1 BMI Classification Normal Vital Signs Temperature (97.8 F-99.1 F) 97.5 F L Temperature Source Temporal Respiratory Rate (12-18) 18 Respiratory rate source Observation History Since Last Visit- (Skip if this is Patient's initial visit) Have you changed medications since your No last visit? Any new allergies or adverse reactions No Had a fall/change in ADL's that may No increase risk of falls Signs or symptoms of abuse and/or No neglect since last visit Have you been in the hospital since your No last visit? Has dressing in place as prescribed Yes Has compression in place as prescribed No Has offloadiing in place as prescribed No Experienced any changes in pain level or No management Left Footwear Regular Shoe Right Footwear Regular Shoe Pain Scale: 0-10 Numeric Is Patient Pain Free? Yes - Nurse 1 - General Ulcer Measurement Start: 09/01/21 10:20 Freq: Status: Active Protocol: Activity Type Activity Date Activity User E-Sign Co-Sign Detail Recorded Client Recorded Date Recorded By Document 09/01/21 10:20 JANNA [id number] 09/01/21 10:22 JANNA 09/01/21 10:20 Wound Center Nurse 1 3. R trochanter -Combined with other wound No -Current Size (cm) - Length 0.1 -Current Size (cm) - Width 0.1 -Current Size (cm) - Depth 0.1 -Total Square Cm 0.01 -Tunneling No -Undermining/Tunneling No -Circular Undermining No -Granulation Amt Medium (34-66%) -Granulation Quality Cross Anchor -Slough/Fibrin Yes -Necrosis Amt Small (1-33%) -Necrotic Tissue Type Adherent Slough -Structure Exposed N/A -Texture (Yeimy-wound Skin Appearance) Assessed -Moisture (Yeimy-wound Skin Appearance) Assessed -Color (Yeimy-wound Skin Appearance) Erythema -Temperature (Yeimy-wound Skin No Abnormality Appearance) (Pt Warm) -Tenderness on Palpation (Yeimy-wound No Skin Appearance) -Ulcer Cleansing Wound Cleanser -Foul Odor after Cleansing No -Anesthetic Used 4% Lidocaine Solution WC - Nurse 2 - General Ulcer CM Notes Start: 09/01/21 10:20 Freq: Status: Active Protocol: Activity Type Activity Date Activity User E-Sign Co-Sign Detail Recorded Client Recorded Date Recorded By Document 09/01/21 10:25 ELISA [id number] 09/01/21 10:33 ELISA 09/01/21 10:25 Wound Center Nurse 2 -Time 10:31 -Correct Patient Yes -Correct Side, Site, Position Yes -Correct Procedure Yes -Procedure Performed Yes -Type of Procedure Debridement -Clinical Debridement Subcutaneous -Tissue Removed Subcutaneous -Post Debridement (cm) - Length 2.7 -Post Debridement (cm) - Width 3.3 -Post Debridement (cm) - Depth 1.8 -Total Square (Post) (cm) 8.91 -Area of Debridement (cm) - Length 2.7 -Area of Debridement (cm) - Width 3.3 -Total Square (Area) (cm) 8.91 -Tunneling No -Undermining/Tunneling No -Circular Undermining No -Wound/Ulcer Outcome Not Healed -Ulcer Cleansing Rinsed/ Irrigated with Saline -Foul Odor after Cleansing No -Bioengineered Tissue Yes -Type of Bioengineered Tissue Epifix -Expiration Date 04/27/26 -Product Lot Number [id number] -Percent Used 100 -Lot number of Saline Used [id number] -Bleeding Controlled with Pressure -Offloading No -Treatment Response Procedure Tolerated Well -Debridement - Subq, 1st 20sq cm No -Apply Skin Sub - 1st 25 sq cm - Legs 1 -Epifix (per sq cm) 4 Pain Scale: 0-10 Numeric Is Patient Pain Free? Yes - Nurse 3 - General Ulcer D/C NN Start: 09/01/21 10:20 Freq: Status: Active Protocol: Activity Type Activity Date Activity User E-Sign Co-Sign Detail Recorded Client Recorded Date Recorded By Document 09/01/21 11:51 RB [id number] 09/01/21 11:52 RB 09/01/21 11:51 Wound Care Nurse 3 3. R trochanter -Negative Pressure Wound Therapy Continue -Setting (mmHg) 125 -Negative Pressure is Continuous -NPWT Application Charge NPWT </= 50 sq cm ($) Treatment Response Procedure Tolerated Well WC - Visit Discharge Discharge Condition Stable Ambulatory Status Wheelchair Transportation Private Auto Medication Reconcilliation completed & No provided to patient/care provider Clinical Summary of Care Provided Yes Assessment/Plan Assessment/Plan (1) Pressure ulcer of right hip, stage 3: CODE(S): L89.213 - Pressure ulcer of right hip, stage 3 (2) Abnormality of gait and mobility: CODE(S): R26.9 - Unspecified abnormalities of gait and mobility (3) Down syndrome: CODE(S): Q90.9 - Down syndrome, unspecified (4) Hypothyroidism: CODE(S): E03.9 - Hypothyroidism, unspecified QUALIFIERS: Hypothyroidism type: unspecified Qualified Code(s): E03.9 - Hypothyroidism, unspecified (5) Dementia: CODE(S): F03.90 - Unspecified dementia without behavioral disturbance QUALIFIERS: Dementia type: unspecified type Dementia behavioral disturbance: without behavioral disturbance Qualified Code(s): F03.90 - Unspecified dementia without behavioral disturbance PLAN: Min's ulcer was evaluated and debrided today at the wound healing center. His right and left heels remain healed. Right buttock ulcer remains healed. Right trochanter/hip ulcer is improved this week. Epifix was applied today per provider enrollment specialist guidelines and rehydrated with saline, covered with wound veil and secured with steri-strips. Wound vac applied to help regranulate the defect in tissue as well as manage the drainage. The etiology of his ulcers appear to be pressure which has occurred from recent changes in his mobility. Wound culture of his right hip on 04/07/21 was positive for infection with Staph aureus, morganella morganii and enterococcus Faecalis. He completed Augmentin. Wound culture 05/05/21 was positive for Staph and Enterococcus. He completed treatment with Augmentin. Wound culture was positive for staph aureus, streptococcus and anaerobic bacteria. He finished Augmentin for positive wound culture from 07/28/2021. Dr. Rader saw the patient and evaluated the ulcer. He discussed option of surgical debridement vs. surgical debridement and graft or flap closure but felt that the appearance of the ulcer this week looked promising for possible closure with wound vac treatment and continued wound care. If the ulcer fails to progress in a positive direction and/or show concern of continued tunneling or undermining then he would be happy to see Min again and would be able to do a surgical debridement under anesthesia and would keep him overnight and discharge him with wound vac. CT scan showed no involvement into the bone currently. The importance of offloading was stressed to his caregiver and they agreed to obtain a Roho or gel foam cushion for his wheelchair as well as heel protectors/foam booties. She also is going to discuss with his family regarding moving him to a higher acuity home where he would have the option of more skilled services. Stressed importance of increased protein intake and adequate nutrition in healing ulcers and wounds. Recommended continuing protein shakes at least once daily outside of meals. Labs reviewed and there are no significant abnormalities. Pre-albumin is low normal. Protein supplementation was encouraged. He has undergone arterial testing in 2012 and 2019 which did not show significant arterial disease. His caregiver asked that we avoid doing them again unless necessary as it causes him extreme stress and discomfort. She was advised to contact the wound healing center if he develops any fever, chills, increased erythema, increased odor or drainage and agrees to update with any changes in status. He will return in 1 week for wound care.
[2021-09-08 09:57] VITALS: RESP 22; TEMP 36.3; BMI 23.1
--- NOTE | 2021-09-08 10:48 | PCM.WC.PN ---
History of Present Illness Date of Service: 09/08/21 Chief Complaint: ulcer right greater trochanter History of Wound: Min is a 70 yo gentleman that currently resides at [facility] who presents to the wound healing center for nonhealing ulcers of his heels, right buttock and right hip. The patient is accompanied by Argenis, the nurse correctional counselor/case manager for the [facility] that he resides. Min is nonverbal and unable to provide history himself. Argenis provided the details and history for the patient as well as chart review from his PCP. Over the last several months, Min has declined in his mobility and is now mostly sitting in a wheelchair or on the couch or chair at his home. He is unable to ambulate and also has stopped using the toilet over the last month and is more incontinent of stool and urine per Argenis. His right hip/trochanter ulcer has been present since November and started out as a red area and ultimately broke down and has been draining. It is being treated with the wound VAC. The ulcers of his right buttock and his heels have been present since mid February and they are healed. He currently has a low air loss mattress that he sleeps on but does now have an offloading cushion to sit on in his wheelchair or offloading/heel protectors for his feet. Nutrition is supplemented with protein shakes as well as regular meals. Argenis states that he eats pretty well and generally has a good appetite. His right buttock ulcer and bilateral heel ulcers have since healed. A wound culture was done on 04/07/21. It was positive for Staphylococcus aureus, Morganella morganii, and Enterococcus faecalis. He was treated with Augmentin. Another wound culture was done on 05/05/21. It was positive for Staphylococcus aureus and Enterococcus faecalis. He was treated with Augmentin. His HgbA1c from 04/11/21 was 5.1. His Prealbumin from 04/11/[address] was done on 06/16/21. It showed linear area of the soft tissue defect and granulation overlying the greater trochanter of the proximal right femur. This may represent an area of prior surgical intervention. Clinical correlation is recommended. Small right inguinal hernia containing fat. Small gallstones. Progress of Wound: Min is here today for follow up of treatment of right hip ulcer. His heel ulcers remain healed after treatment with foam booties and Promogran dressings. His right buttock ulcer remains healed. He did well with Epifix application last week and tolerated the wound vac this past week. Denies fever or chills. There has been an odor from his hip area that started on Saturday. Objective Data Objective Data Vital Signs: Vital Signs Temp Pulse Resp BP 97.4 F L 82 22 H 96/54 L 09/08/21 09:57 08/28/21 00:23 09/08/21 09:57 08/28/21 00:23 Weight: 50.126 kg Body Mass Index (BMI) 23.1 Physical Exam Const alert, oriented x3 and no apparent distress General Appearance: cooperative HEENT normocephalic and head/scalp atraumatic Resp normal respiratory effort Auscultation: Negative for wheezes Cardio regular rate and regular rhythm Skin Wounds: wounds noted Wound Narrative: as in clinical panel Psych cooperative and affect normal Debridement Note Debridement Note Wound debrided: right trochanter Laterality: Right Wound Grade/Stage: Stage III Type of Debridement: Excisional debridement Anesthesia Used: 4% Lidocaine Solution Depth: Down to and including healthy tissue and in the subcutaneous layer Percentage of wound debrided: 100 Instrument Used: 5mm curette Tissue Removed: Yellow slough, devitalized tissue Severity: Fat Layer Exposed Amount of bleeding with debridement: Mild Bleeding Controlled with: Compression and gauze Patient tolerated procedure: Patient tolerated procedure well Post-Debridement Measurements and Additional Note: Post-Debridement Measurements/Treatment - Nurse 1 - General Ulcer Assessment Start: 09/01/21 10:20 Freq: Status: Active Protocol: NATALIA Activity Type Activity Date Activity User E-Sign Co-Sign Detail Recorded Client Recorded Date Recorded By Document 09/01/21 10:20 RB [id number] 09/01/21 10:22 RB Document 09/08/21 09:57 DL [id number] 09/08/21 09:58 DL 09/01/21 09/08/21 10:20 09:57 - Today's Visit Information Type of service Follow-up Visit Follow-up Visit (Physician/CUSTOMS BROKER (Physician/CUSTOMS BROKER ) ) Arrival Mode Wheelchair Wheelchair Transfer Assistance Hilda Lift None Patient Identification Verified (Name & Yes Yes ) Patient Requires Transmission-Based No No Precautions Height and Weight Body Mass Index (BMI) 23.1 23.1 BMI Classification Normal Normal Vital Signs Temperature (97.8 F-99.1 F) 97.5 F L 97.4 F L Temperature Source Temporal Temporal Respiratory Rate (12-18) 18 22 H Respiratory rate source Observation Observation History Since Last Visit- (Skip if this is Patient's initial visit) Have you changed medications since your No No last visit? Any new allergies or adverse reactions No No Had a fall/change in ADL's that may No No increase risk of falls Signs or symptoms of abuse and/or No No neglect since last visit Have you been in the hospital since your No No last visit? Has dressing in place as prescribed Yes Yes Has compression in place as prescribed No N/A Has offloadiing in place as prescribed No Yes Experienced any changes in pain level or No No management Left Footwear Regular Shoe Right Footwear Regular Shoe Pain Scale: 0-10 Numeric Is Patient Pain Free? Yes Yes WC - Nurse 1 - General Ulcer Measurement Start: 09/01/21 10:20 Freq: Status: Active Protocol: Activity Type Activity Date Activity User E-Sign Co-Sign Detail Recorded Client Recorded Date Recorded By Document 09/01/21 10:20 RB [id number] 09/01/21 10:22 RB Document 09/08/21 09:57 DL [id number] 09/08/21 09:58 DL 09/01/21 09/08/21 10:20 09:57 Wound Center Nurse 1 3. R trochanter -Combined with other wound No -Current Size (cm) - Length 0.1 2.5 -Current Size (cm) - Width 0.1 2.8 -Current Size (cm) - Depth 0.1 0.6 -Total Square Cm 0.01 7.00 -Photo Taken No -Tunneling No -Undermining/Tunneling No -Circular Undermining No -Exudate Amt Medium -Exudate Type Serosanguineous -Wound Margin Distinct, Outline Attached -Granulation Amt Medium (34-66%) Large (67-100%) -Granulation Quality [place] Red -Slough/Fibrin Yes -Necrosis Amt Small (1-33%) Small (1-33%) -Necrotic Tissue Type Adherent Slough Adherent Slough -Structure Exposed N/A N/A -Texture (Yeimy-wound Skin Appearance) Assessed Scarring -Moisture (Yeimy-wound Skin Appearance) Assessed No Abnormality -Color (Yeimy-wound Skin Appearance) Erythema No Abnormality -Temperature (Yeimy-wound Skin No Abnormality No Abnormality Appearance) (Pt Warm) (Pt Warm) -Tenderness on Palpation (Yeimy-wound No No Skin Appearance) -Ulcer Cleansing Wound Cleanser Soap and Water -Foul Odor after Cleansing No No -Anesthetic Used 4% Lidocaine 4% Lidocaine Solution Solution WC - Nurse 2 - General Ulcer CM Notes Start: 09/01/21 10:20 Freq: Status: Active Protocol: Activity Type Activity Date Activity User E-Sign Co-Sign Detail Recorded Client Recorded Date Recorded By Document 09/01/21 10:25 JF [id number] 09/01/21 10:33 JF Document 09/08/21 10:15 MW [id number] 09/08/21 10:21 MW 09/01/21 09/08/21 10:25 10:15 Wound Center Nurse 2 3. R trochanter -Time 10:31 10:19 -Correct Patient Yes Yes -Correct Side, Site, Position Yes Yes -Correct Procedure Yes Yes -Procedure Performed Yes Yes -Type of Procedure Debridement Debridement -Clinical Debridement Subcutaneous Subcutaneous -Tissue Removed Subcutaneous Subcutaneous -Post Debridement (cm) - Length 2.7 2.1 -Post Debridement (cm) - Width 3.3 2.8 -Post Debridement (cm) - Depth 1.8 0.6 -Total Square (Post) (cm) 8.91 5.88 -Area of Debridement (cm) - Length 2.7 2.1 -Area of Debridement (cm) - Width 3.3 2.8 -Total Square (Area) (cm) 8.91 5.88 -Tunneling No No -Undermining/Tunneling No No -Circular Undermining No No -Wound/Ulcer Outcome Not Healed Not Healed -Ulcer Cleansing Rinsed/ Rinsed/ Irrigated with Irrigated with Saline Saline -Foul Odor after Cleansing No No -Bioengineered Tissue Yes No -Type of Bioengineered Tissue Epifix -Expiration Date 04/27/26 -Product Lot Number [id number] -Percent Used 100 -Lot number of Saline Used [id number] -Bleeding Controlled with Pressure Pressure -Offloading No No -Treatment Response Procedure Procedure Tolerated Well Tolerated Well -Debridement - Subq, 1st 20sq cm No Yes -Apply Skin Sub - 1st 25 sq cm - Legs 1 -Epifix (per sq cm) 4 Pain Scale: 0-10 Numeric Is Patient Pain Free? Yes Yes WC - Nurse 3 - General Ulcer D/C NN Start: 09/01/21 10:20 Freq: Status: Active Protocol: Activity Type Activity Date Activity User E-Sign Co-Sign Detail Recorded Client Recorded Date Recorded By Document 09/01/21 11:51 RB [id number] 09/01/21 11:52 RB Document 09/08/21 10:29 DL [id number] 09/08/21 10:30 DL 09/01/21 09/08/21 11:51 10:29 Wound Care Nurse 3 3. R trochanter -Ulcer Cleansing Soap and Water -Foul Odor after Cleansing No -Negative Pressure Wound Therapy Continue -Setting (mmHg) 125 -Negative Pressure is Continuous -Primary Dressing Applied Aquacel AG 4x4 -Primary Dressing Covered/Secured with Dry Gauze, Secured with Tape -NPWT Application Charge NPWT </= 50 sq cm ($) -Aquacel AG 4x4 1 Treatment Response Procedure Procedure Tolerated Well Tolerated Well Pain Scale: 0-10 Numeric Is Patient Pain Free? Yes WC - Visit Discharge Discharge Condition Stable Stable Ambulatory Status Wheelchair Wheelchair Transportation Private Auto Private Auto Medication Reconcilliation completed & No provided to patient/care provider Clinical Summary of Care Provided Yes Orders Sent Yes Assessment/Plan Assessment/Plan (1) Pressure ulcer of right hip, stage 3: CODE(S): L89.213 - Pressure ulcer of right hip, stage 3 (2) Abnormality of gait and mobility: CODE(S): R26.9 - Unspecified abnormalities of gait and mobility (3) Down syndrome: CODE(S): Q90.9 - Down syndrome, unspecified (4) Hypothyroidism: CODE(S): E03.9 - Hypothyroidism, unspecified QUALIFIERS: Hypothyroidism type: unspecified Qualified Code(s): E03.9 - Hypothyroidism, unspecified (5) Dementia: CODE(S): F03.90 - Unspecified dementia without behavioral disturbance QUALIFIERS: Dementia type: unspecified type Dementia behavioral disturbance: without behavioral disturbance Qualified Code(s): F03.90 - Unspecified dementia without behavioral disturbance PLAN: Richards ulcer was evaluated and debrided today at the wound healing center. His right and left heels remain healed. Right buttock ulcer remains healed. Right trochanter/hip ulcer is improved this week. Epifix was held today due to concern for infection. Wound culture performed today. Wound vac held today. Will dress his wound with Aquacel Ag daily and cover with optifoam. The etiology of his ulcers appear to be pressure which has occurred from recent changes in his mobility. Wound culture of his right hip on 04/07/21 was positive for infection with Staph aureus, morganella morganii and enterococcus Faecalis. He completed Augmentin. Wound culture 05/05/21 was positive for Staph and Enterococcus. He completed treatment with Augmentin. Wound culture was positive for staph aureus, streptococcus and anaerobic bacteria. He finished Augmentin for positive wound culture from 07/28/2021. Dr. Rader saw the patient and evaluated the ulcer. He discussed option of surgical debridement vs. surgical debridement and graft or flap closure but felt that the appearance of the ulcer this week looked promising for possible closure with wound vac treatment and continued wound care. If the ulcer fails to progress in a positive direction and/or show concern of continued tunneling or undermining then he would be happy to see Min again and would be able to do a surgical debridement under anesthesia and would keep him overnight and discharge him with wound vac. CT scan showed no involvement into the bone currently. The importance of offloading was stressed to his caregiver and they agreed to obtain a Roho or gel foam cushion for his wheelchair as well as heel protectors/foam booties. She also is going to discuss with his family regarding moving him to a higher acuity home where he would have the option of more skilled services. Stressed importance of increased protein intake and adequate nutrition in healing ulcers and wounds. Recommended continuing protein shakes at least once daily outside of meals. Labs reviewed and there are no significant abnormalities. Pre-albumin is low normal. Protein supplementation was encouraged. He has undergone arterial testing in 2012 and 2019 which did not show significant arterial disease. His caregiver asked that we avoid doing them again unless necessary as it causes him extreme stress and discomfort. She was advised to contact the wound healing center if he develops any fever, chills, increased erythema, increased odor or drainage and agrees to update with any changes in status. He will return in 1 week for wound care.
[2021-09-15 09:48] VITALS: RESP 16; TEMP 35.9; BMI 23.1
--- NOTE | 2021-09-15 14:14 | PCM.WC.PN ---
History of Present Illness Date of Service: 09/15/21 Chief Complaint: ulcer right greater trochanter History of Wound: Min is a 70 yo gentleman that currently resides at [facility] who presents to the wound healing center for nonhealing ulcers of his heels, right buttock and right hip. The patient is accompanied by Argenis, the nurse hedge fund manager for the [facility] that he resides. Min is nonverbal and unable to provide history himself. Argenis provided the details and history for the patient as well as chart review from his PCP. Over the last several months, Min has declined in his mobility and is now mostly sitting in a wheelchair or on the couch or chair at his home. He is unable to ambulate and also has stopped using the toilet over the last month and is more incontinent of stool and urine per Argenis. His right hip/trochanter ulcer has been present since November and started out as a red area and ultimately broke down and has been draining. It is being treated with the wound VAC. The ulcers of his right buttock and his heels have been present since mid February and they are healed. He currently has a low air loss mattress that he sleeps on but does now have an offloading cushion to sit on in his wheelchair or offloading/heel protectors for his feet. Nutrition is supplemented with protein shakes as well as regular meals. Argenis states that he eats pretty well and generally has a good appetite. His right buttock ulcer and bilateral heel ulcers have since healed. A wound culture was done on 04/07/21. It was positive for Staphylococcus aureus, Morganella morganii, and Enterococcus faecalis. He was treated with Augmentin. Another wound culture was done on 05/05/21. It was positive for Staphylococcus aureus and Enterococcus faecalis. He was treated with Augmentin. His HgbA1c from 04/11/21 was 5.1. His Prealbumin from 04/11/[address] was done on 06/16/21. It showed linear area of the soft tissue defect and granulation overlying the greater trochanter of the proximal right femur. This may represent an area of prior surgical intervention. Clinical correlation is recommended. Small right inguinal hernia containing fat. Small gallstones. Progress of Wound: Min is here today for follow up of treatment of right hip ulcer. His heel ulcers remain healed after treatment with foam booties and Promogran dressings. His right buttock ulcer remains healed. He did well with Aquacel Ag dressings and there has been improvement in the size of his ulcer. Denies fever or chills. Wound culture was positive for Proteus and anaerobic bacteria. Objective Data Objective Data Vital Signs: Vital Signs Temp Pulse Resp BP 96.7 F L 82 16 96/54 L 09/15/21 09:48 08/28/21 00:23 09/15/21 09:48 08/28/21 00:23 Oxygen Delivery Method Room Air Weight: 50.126 kg Body Mass Index (BMI) 23.1 Lab / Micro Data Micro: Microbiology 09/08/21 10:15 Wound - Trochanter Gram Stain - Final 09/08/21 10:15 Wound - Trochanter Wound Culture - Final Proteus mirabilis 09/08/21 10:15 Wound - Trochanter Anaerobic Culture - Final Prevotella disiens Anaerobic cocci Physical Exam Const alert, oriented x3 and no apparent distress General Appearance: cooperative HEENT normocephalic and head/scalp atraumatic Resp normal respiratory effort Effort and Inspection: able to speak in complete sentences Auscultation: Negative for wheezes Cardio regular rate and regular rhythm Skin Wounds: wounds noted Wound Narrative: as in clinical panel Psych cooperative and affect normal Debridement Note Debridement Note Wound debrided: right greater trochanter Laterality: Right Wound Grade/Stage: Stage III Type of Debridement: Excisional debridement Anesthesia Used: 4% Lidocaine Solution Depth: Down to and including healthy tissue and in the subcutaneous layer Percentage of wound debrided: 100 Instrument Used: 3mm curette Tissue Removed: Yellow slough, devitalized tissue Severity: Fat Layer Exposed Amount of bleeding with debridement: Mild Bleeding Controlled with: Compression and gauze Patient tolerated procedure: Patient tolerated procedure well Post-Debridement Measurements and Additional Note: Post-Debridement Measurements/Treatment WC - Nurse 1 - General Ulcer Assessment Start: 09/01/21 10:20 Freq: Status: Active Protocol: NATALIA Activity Type Activity Date Activity User E-Sign Co-Sign Detail Recorded Client Recorded Date Recorded By Document 09/01/21 10:20 RB [id number] 09/01/21 10:22 RB Document 09/08/21 09:57 DL [id number] 09/08/21 09:58 DL Document 09/15/21 09:48 [facility] [id number] 09/15/21 09:49 BMF 09/01/21 09/08/21 09/15/21 10:20 09:57 09:48 - Today's Visit Information Type of service Follow-up Visit Follow-up Visit Follow-up Visit (Physician/[employer] (Physician/[employer] TEACHER (Physician/[employer] ED TEACHER ) ) ) Arrival Mode Wheelchair Wheelchair Wheelchair Transfer Assistance Hilda Lift None Manual Transfer Assist (Other) 2 assist Accompanied by caregiver Patient Identification Verified (Name & Yes Yes Yes ) Patient Requires Transmission-Based No No Precautions Height and Weight Body Mass Index (BMI) 23.1 23.1 23.1 BMI Classification Normal Normal Normal Vital Signs Temperature (97.8 F-99.1 F) 97.5 F L 97.4 F L 96.7 F L Temperature Source Temporal Temporal Temporal Respiratory Rate (12-18) 18 22 H 16 Respiratory rate source Observation Observation Observation Oxygen Delivery Method Room Air Comment pt refuses bp History Since Last Visit- (Skip if this is Patient's initial visit) Have you changed medications since your No No No last visit? Any new allergies or adverse reactions No No No Had a fall/change in ADL's that may No No No increase risk of falls Signs or symptoms of abuse and/or No No No neglect since last visit Have you been in the hospital since your No No No last visit? Has dressing in place as prescribed Yes Yes Yes Has compression in place as prescribed No N/A N/A Has offloadiing in place as prescribed No Yes N/A Experienced any changes in pain level or No No No management Left Footwear Regular Shoe Right Footwear Regular Shoe Pain Scale: 0-10 Numeric Is Patient Pain Free? Yes Yes - Nurse 1 - General Ulcer Measurement Start: 09/01/21 10:20 Freq: Status: Active Protocol: Activity Type Activity Date Activity User E-Sign Co-Sign Detail Recorded Client Recorded Date Recorded By Document 09/01/21 10:20 RB [id number] 09/01/21 10:22 RB Document 09/08/21 09:57 DL [id number] 09/08/21 09:58 DL Document 09/15/21 09:48 [facility] [id number] 09/15/21 09:49 BMF 09/01/21 09/08/21 09/15/21 10:20 09:57 09:48 Wound Center Nurse 1 3. R trochanter -Combined with other wound No -Current Size (cm) - Length 0.1 2.5 -Current Size (cm) - Width 0.1 2.8 -Current Size (cm) - Depth 0.1 0.6 -Total Square Cm 0.01 7.00 -Photo Taken No -Tunneling No -Undermining/Tunneling No -Circular Undermining No -Exudate Amt Medium -Exudate Type Serosanguineous -Wound Margin Distinct, Outline Attached -Granulation Amt Medium (34-66%) Large (67-100%) -Granulation Quality Peridot Red -Slough/Fibrin Yes -Necrosis Amt Small (1-33%) Small (1-33%) -Necrotic Tissue Type Adherent Slough Adherent Slough -Structure Exposed N/A N/A -Texture (Yeimy-wound Skin Appearance) Assessed Scarring -Moisture (Yiemy-wound Skin Appearance) Assessed No Abnormality -Color (Yeimy-wound Skin Appearance) Erythema No Abnormality -Temperature (Yeimy-wound Skin No Abnormality No Abnormality Appearance) (Pt Warm) (Pt Warm) -Tenderness on Palpation (Yeimy-wound No No Skin Appearance) -Ulcer Cleansing Wound Cleanser Soap and Water Soap and Water -Foul Odor after Cleansing No No No -Anesthetic Used 4% Lidocaine 4% Lidocaine 4% Lidocaine Solution Solution Solution -Wound Comment(s) pt refuses staff to measure, etc... wound cleansed and lidocaine applied WC - Nurse 2 - General Ulcer CM Notes Start: 09/01/21 10:20 Freq: Status: Active Protocol: Activity Type Activity Date Activity User E-Sign Co-Sign Detail Recorded Client Recorded Date Recorded By Document 09/01/21 10:25 JF [id number] 09/01/21 10:33 JF Document 09/08/21 10:15 MW [id number] 09/08/21 10:21 MW Document 09/15/21 10:30 MW [id number] 09/15/21 10:38 MW 09/01/21 09/08/21 09/15/21 10:25 10:15 10:30 Wound Center Nurse 2 3. R trochanter -Time 10:31 10:19 10:32 -Correct Patient Yes Yes Yes -Correct Side, Site, Position Yes Yes Yes -Correct Procedure Yes Yes Yes -Procedure Performed Yes Yes Yes -Type of Procedure Debridement Debridement Debridement -Clinical Debridement Subcutaneous Subcutaneous Subcutaneous -Tissue Removed Subcutaneous Subcutaneous Subcutaneous -Post Debridement (cm) - Length 2.7 2.1 2.0 -Post Debridement (cm) - Width 3.3 2.8 1.8 -Post Debridement (cm) - Depth 1.8 0.6 0.1 -Total Square (Post) (cm) 8.91 5.88 3.60 -Area of Debridement (cm) - Length 2.7 2.1 2.0 -Area of Debridement (cm) - Width 3.3 2.8 1.8 -Total Square (Area) (cm) 8.91 5.88 3.60 -Tunneling No No No -Undermining/Tunneling No No No -Circular Undermining No No No -Wound/Ulcer Outcome Not Healed Not Healed Not Healed -Ulcer Cleansing Rinsed/ Rinsed/ Rinsed/ Irrigated with Irrigated with Irrigated with Saline Saline Saline -Foul Odor after Cleansing No No No -Bioengineered Tissue Yes No Yes -Type of Bioengineered Tissue Epifix Epifix -Expiration Date 04/27/26 04/27/26 -Product Lot Number [id number] -Percent Used 100 100 -Lot number of Saline Used [id number] -Bleeding Controlled with Pressure Pressure Pressure -Offloading No No No -Treatment Response Procedure Procedure Procedure Tolerated Well Tolerated Well Tolerated Well -Debridement - Subq, 1st 20sq cm No Yes No -Apply Skin Sub - 1st 25 sq cm - Legs 1 1 -Epifix (per sq cm) 4 4 Pain Scale: 0-10 Numeric Is Patient Pain Free? Yes Yes WC - Nurse 3 - General Ulcer D/C NN Start: 09/01/21 10:20 Freq: Status: Active Protocol: Activity Type Activity Date Activity User E-Sign Co-Sign Detail Recorded Client Recorded Date Recorded By Document 09/01/21 11:51 RB [id number] 09/01/21 11:52 RB Document 09/08/21 10:29 DL [id number] 09/08/21 10:30 DL Document 09/15/21 10:38 MW [id number] 09/15/21 10:39 MW Edit Result 09/15/21 10:38 MW (1) [id number] 09/15/21 10:44 MW (1) 3. R trochanter - Aquacel Extra 1 => 2 09/01/21 09/08/21 09/15/21 11:51 10:29 10:38 Wound Care Nurse 3 3. R trochanter -Ulcer Cleansing Soap and Water Not Cleansed -Foul Odor after Cleansing No No -Negative Pressure Wound Therapy Continue N/A -Setting (mmHg) 125 -Negative Pressure is Continuous -Primary Dressing Applied Aquacel AG 4x4 Aquacel Extra -Primary Dressing Covered/Secured with Dry Gauze, Dry Gauze, Secured with Secured with Tape Tape -NPWT Application Charge NPWT </= 50 sq cm ($) -Aquacel Extra 2 -Aquacel AG 4x4 1 Treatment Response Procedure Procedure Procedure Tolerated Well Tolerated Well Tolerated Well Pain Scale: 0-10 Numeric Is Patient Pain Free? Yes Yes Teaching: Wound Center Dressing Your Wound -Person Taught Patient,Primary Caregiver -Teaching Method Discussion, Demonstration -Response to teaching Verbalize understanding WC - Visit Discharge Discharge Condition Stable Stable Stable Ambulatory Status Wheelchair Wheelchair Wheelchair Transportation Private Auto Private Auto Private Auto Accompanied by CAREGIVER Medication Reconcilliation completed & No No provided to patient/care provider Clinical Summary of Care Provided Yes Yes Orders Sent Yes Assessment/Plan Assessment/Plan (1) Pressure ulcer of right hip, stage 3: CODE(S): L89.213 - Pressure ulcer of right hip, stage 3 (2) Abnormality of gait and mobility: CODE(S): R26.9 - Unspecified abnormalities of gait and mobility (3) Down syndrome: CODE(S): Q90.9 - Down syndrome, unspecified (4) Hypothyroidism: CODE(S): E03.9 - Hypothyroidism, unspecified QUALIFIERS: Hypothyroidism type: unspecified Qualified Code(s): E03.9 - Hypothyroidism, unspecified (5) Dementia: CODE(S): F03.90 - Unspecified dementia without behavioral disturbance QUALIFIERS: Dementia type: unspecified type Dementia behavioral disturbance: without behavioral disturbance Qualified Code(s): F03.90 - Unspecified dementia without behavioral disturbance PLAN: Min's ulcer was evaluated and debrided today at the wound healing center. His right and left heels remain healed. Right buttock ulcer remains healed. Right trochanter/hip ulcer is improved this week. Epifix applied today per lead engineer guidelines using a 2x2 Epifix. Rehydrated with hydrogel and covered with adaptic touch and secured with steri-strips. Wound vac will be discontinued due to the improvement in the depth of his ulcer. Will dress his wound with Aquacel Ag daily and cover with ABD. His wound culture was positive for Proteus and anaerobic bacteria and he was started on Augmentin today. The etiology of his ulcers appear to be pressure which has occurred from recent changes in his mobility. Wound culture of his right hip on 04/07/21 was positive for infection with Staph aureus, morganella morganii and enterococcus Faecalis. He completed Augmentin. Wound culture 05/05/21 was positive for Staph and Enterococcus. He completed treatment with Augmentin. Wound culture was positive for staph aureus, streptococcus and anaerobic bacteria. He finished Augmentin for positive wound culture from 07/28/2021. Dr. Rader saw the patient and evaluated the ulcer. He discussed option of surgical debridement vs. surgical debridement and graft or flap closure but felt that the appearance of the ulcer this week looked promising for possible closure with wound vac treatment and continued wound care. If the ulcer fails to progress in a positive direction and/or show concern of continued tunneling or undermining then he would be happy to see Min again and would be able to do a surgical debridement under anesthesia and would keep him overnight and discharge him with wound vac. CT scan showed no involvement into the bone currently. The importance of offloading was stressed to his caregiver and they agreed to obtain a Roho or gel foam cushion for his wheelchair as well as heel protectors/foam booties. She also is going to discuss with his family regarding moving him to a higher acuity home where he would have the option of more skilled services. Stressed importance of increased protein intake and adequate nutrition in healing ulcers and wounds. Recommended continuing protein shakes at least once daily outside of meals. Labs reviewed and there are no significant abnormalities. Pre-albumin is low normal. Protein supplementation was encouraged. He has undergone arterial testing in 2012 and 2018 which did not show significant arterial disease. His caregiver asked that we avoid doing them again unless necessary as it causes him extreme stress and discomfort. She was advised to contact the wound healing center if he develops any fever, chills, increased erythema, increased odor or drainage and agrees to update with any changes in status. He will return in 2 weeks for wound care.
== END 2021-09-26 23:59 ==
LOC: WC 09:30
PROVIDERS: PCP Family Medicine; Referring Provider Physician Assistant; Visit Provider Family Medicine
DX: L89.213 Pressure ulcer of right hip, stage 3 (principal); R26.9 Unspecified abnormalities of gait and mobility; R15.9 Full incontinence of feces; R32 Unspecified urinary incontinence; F03.90 Unspecified dementia, unspecified severity, without behavioral disturbance, psychotic disturbance, mood disturbance, and anxiety; Q90.9 Down syndrome, unspecified; E03.9 Hypothyroidism, unspecified; Z79.890 Hormone replacement therapy; Z79.899 Other long term (current) drug therapy
CPT/HCPCS: 11042; 15271; 87070; 87075; 87077; 87186; 87205; 97605; Q4186

== ENCOUNTER 2021-09-22 08:31 | Emergency (ER) | payer MEDICARE, MEDICAID, SELFPAY ==
[2021-09-22 08:37] VITALS: BP 136/77; PULSE 78; RESP 11; TEMP 36.8; O2SAT 94; BMI 28.4
[2021-09-22 08:40] VITALS: PULSE 74; RESP 12; O2SAT 93
--- NOTE | 2021-09-22 08:47 | RAD_ITS ---
INDICATION: syncope EXAMINATION/TECHNIQUE: X-RAY - XR Chest 1 View COMPARISON: Chest radiograph from 12/25/2020, 02/24/2016 FINDINGS: LINES/DEVICES: None. Low lung volumes accentuate the interstitial markings and cardiomediastinal silhouette. Cardiomediastinal silhouette is within normal limits. Patchy retrocardiac opacities in the left lung base. No sizable pleural effusion or pneumothorax. Osseous structures are grossly intact. RAD/Chest 1 View (Portable) IMPRESSION: Patchy left retrocardiac basilar opacities are felt to be accentuated by low lung volumes. However clinical correlation is recommended to exclude pneumonia. Electronically Signed: Warner Connelly MD at 9:36 EST Tel , Service support ,
--- NOTE | 2021-09-22 08:47 | EKG12_ITS ---
Test Reason : SYNCOPE Blood Pressure : / mmHG Vent. Rate : 078 BPM Atrial Rate : 078 BPM P-R Int : 140 ms QRS Dur : 072 ms QT Int : 398 ms P-R-T Axes : 046 041 037 degrees QTc Int : 453 ms Normal sinus rhythm Low voltage QRS Borderline ECG Confirmed by ELIZABETH ORTIZ, MARCI ([id number]), make up editor MANUEL OWENS ([id number]) on 09/22/2021 11:50:46 AM Referred By: GORDON Confirmed By:MARCI JOHNSON MD
--- NOTE | 2021-09-22 08:48 | EDS_ITS ---
HPI History of Present Illness Chief Complaint: Syncope Informant: patient Narrative Narrative: 70-year-old male with a history of Down syndrome and dementia presenting to the emergency room following a syncopal episode. Patient reportedly was having a bowel movement when he became unresponsive. Patient is reportedly back at his baseline. Caregiver notes that he has had a syncopal episode in the past. He is currently on antibiotics for a pressure ulcer of the hip. He is seen at the wound care clinic. He is nonambulatory at baseline. [facility] Medical History Behavioral change Cataracts, bilateral Change in mental state Dementia Down syndrome Fracture tibia/fibula Gout High cholesterol Hypothyroidism Pressure ulcer of trochanteric region of right hip, stage 4 Sleep disorder Home Medications melatonin 3 mg PO QHS 01/17/20 [History Last Taken Unknown] levothyroxine 88 mcg tablet 88 mcg PO DAILY #90 tab 11/18/20 [Rx Last Taken Unknown] acetaminophen 2 tab PO Q4H PRN 12/25/20 [History Last Taken Unknown] cholecalciferol (vitamin D3) 2,000 unit PO DAILY 12/25/20 [History Last Taken Unknown] omeprazole 10 mg PO DAILY 12/25/20 [History Last Taken Unknown] High/Low Bed #1 ea 01/23/21 [Rx Last Taken Unknown] cyanocobalamin (vitamin B-12) 1,000 mcg tablet 1,000 mcg PO QODAY #90 tab 04/18/21 [Rx Last Taken Unknown] ciprofloxacin 0.3 %-dexamethasone 0.1 % ear drops,suspension 4 drp OTIC (EAR) Q12H 05/08/21 [History Last Taken Unknown] ibuprofen 400 mg tablet 400 mg PO BID PRN tab 05/08/21 [History Last Taken Unknown] multivitamin 1 tab PO DAILY #90 tab 05/31/21 [Rx Last Taken Unknown] quetiapine 50 mg tablet 50 mg PO BID #60 tab 05/31/21 [Rx Last Taken Unknown] pyridoxine (vitamin B6) 50 mg capsule 50 mg PO DAILY #90 cap 06/29/21 [Rx Last Taken Unknown] allopurinol 300 mg tablet 300 mg PO DAILY #90 tab 08/01/21 [Rx Last Taken Unknown] triamcinolone acetonide 0.025 % topical cream 1 applic TOPICAL .COMPLEX #454 g 08/01/21 [Rx Last Taken Unknown] amoxicillin 500 mg capsule 500 mg PO BID 08/07/21 [History Last Taken Unknown] memantine 10 mg tablet 10 mg PO BID #60 tab 08/07/21 [Rx Last Taken Unknown] rivastigmine 13.3 mg/24 hour transdermal patch 13.3 mg TRANSDERMAL DAILY #30 ea 08/07/21 [Rx Last Taken Unknown] simvastatin 20 mg tablet 20 mg PO QHS #90 tab 08/29/21 [Rx Last Taken Unknown] Allergy/AdvReac Type Severity Reaction Status Date / Time No Known Allergies Allergy Verified 09/22/21 08:37 Family History Mother Cancer Brother CVA (cerebral vascular accident) Social History Smoking Status: Never smoker alcohol intake: never substance use type: does not use what type of physical activity do you participate in: none ROS ROS ED Review of Systems ROS Unobtainable: due to mental condition EXAM Physical Exam Narrative Exam Narrative: Patient screams with any touch of him or his blanket Const Vital Signs: 09/22/21 08:37 09/22/21 08:40 09/22/21 08:54 Temperature 98.2 F Temperature Source Temporal Pulse Rate 78 74 Respiratory Rate 11 L 12 Respiratory Effort Normal Non-Labored Respiratory Pattern Normal Blood Pressure 136/77 H 118/79 Blood Pressure Mean 96 92 Pulse Ox 94 93 Oxygen Delivery Method Room Air Room Air Positive well nourished, well developed and obese General Appearance ED: well developed Nutritional Appearance: obese HEENT Reports normocephalic, head/scalp atraumatic, TM's clear and moist mucous membranes Negative for trauma Tympanic Membrane ED: Yes TM's clear Eyes PERRL and EOMs intact bilaterally Neck no lymphadenopathy, supple and no JVD Resp normal respiratory effort and clear to auscultation bilaterally Cardio regular rate, regular rhythm and no murmurs GI normal to inspection, nondistended, normoactive bowel sounds and non-tender Palpation: soft Back/Spine no CVA tenderness and normal ROM Extremity Extremity Narrative: Chronic wounds noted Neuro CN's II-XII intact bilaterally Sensorium / Orientation: alert Motor Exam: strength 5/5 throughout Psych Psych Narrative: Unable to assess due to mental condition Skin no rashes or lesions noted and no wounds MDM MDM MDM Narrative Medical decision making narrative: My interpretation of the chest x-ray is no acute process. I did review the radiology read and clinically patient has no fever no white count no cough I do not believe this represents pneumonia. His troponin is normal. BMP is revealing a glucose of 112. He is not anemic. He had no events on the monitor. Patient had a syncopal episode while having a bowel movement I think this was most likely a vasovagal event. Patient to follow-up with his primary care doctor as scheduled return if worsening or concerns Lab Data Labs: Laboratory Results - last 24 hr 09/22/21 09/22/21 09:10 09:10 WBC 4.8 RBC 3.97 L Hgb 14.3 Hct 41.7 MCV 105.0 H MCH 36.0 H MCHC 34.3 RDW Std Deviation 57.5 H RDW Coeff of Sha 14.8 H Plt Count 148 L MPV 9.5 Immature Gran % (Auto) 1.700 H Neut % (Auto) 58.8 Lymph % (Auto) 28.7 [place] % (Auto) 8.7 Eos % (Auto) 1.5 Baso % (Auto) 0.6 Absolute Neuts (auto) 2.8 Absolute Lymphs (auto) 1.38 Nucleated RBC % 0 Sodium 143 Potassium 4.1 Chloride 110 H Carbon Dioxide 28.0 Anion Gap 5 BUN 17 Creatinine 1.03 Estim Creat Clear Calc 48.54 Est GFR (MDRD) Af Amer 92 Est GFR (MDRD) Non-Af 76 BUN/Creatinine Ratio 16.5 Glucose 112 H Calcium 9.2 Troponin I High Sens 3 Radiography Diagnostic Testing: Clinical Impression(s) from Imaging Studies Chest X-Ray 09/22/21 08:47 IMPRESSION: Patchy left retrocardiac basilar opacities are felt to be accentuated by low lung volumes. However clinical correlation is recommended to exclude pneumonia. Electronically Signed: Warner Connelly MD at 9:36 EST Tel , Service support , EKG Initial EKG: Attestation: I personally reviewed and interpreted this EKG as follows: Comments: Normal sinus rhythm with a ventricular rate of 78 bpm. No concerning features of ACS or ectopy noted. Discharge Plan Triage Chief Complaint: Syncope ED Provider: Madhav Payne Dx/Rx/DC Orders Clinical Impression: Syncope, vasovagal, Dementia, Down syndrome Instructions: ED Fainting, Vagal Reaction Prescriptions: No Action ibuprofen 400 mg tablet 400 mg PO BID PRNRF: 0 ciprofloxacin-dexamethasone [Ciprodex] 0.3-0.1 % drops,suspension 4 drp otic (ear) Q12H RF: 0 amoxicillin 500 mg capsule 500 mg PO BID RF: 0 rivastigmine 13.3 mg/24 hour patch 24 hour 13.3 mg transdermal DAILY Qty: 30 RF: 3 memantine 10 mg tablet 10 mg PO BID Qty: 60 RF: 3 melatonin 3 MG tablet 3 mg PO QHS RF: 0 acetaminophen 325 MG tablet 2 tab PO Q4H PRN (Reason: vaughn, body aches, temp>100) RF: 0 cholecalciferol (vitamin D3) 2,000 UNIT capsule 2,000 unit PO DAILY RF: 0 omeprazole 10 MG capsule,delayed release(DR/EC) 10 mg PO DAILY RF: 0 levothyroxine 88 mcg tablet 88 mcg PO DAILY Qty: 90 RF: 3 (DME) High/Low Bed See Rx Instructions .Route .MEDSUPPLY Qty: 1 RF: 0 cyanocobalamin (vitamin B-12) 1,000 mcg tablet 1,000 mcg PO QODAY Qty: 90 RF: 1 multivitamin Tablet 1 tab PO DAILY Qty: 90 RF: 3 quetiapine 50 mg tablet 50 mg PO BID Qty: 60 RF: 5 pyridoxine (vitamin B6) 50 mg capsule 50 mg capsule 50 mg PO DAILY Qty: 90 RF: 3 allopurinol 300 mg tablet 300 mg PO DAILY Qty: 90 RF: 3 triamcinolone acetonide 0.025 % cream 1 applic TOPICAL .COMPLEX Qty: 454 RF: 1 simvastatin 20 mg tablet 20 mg PO QHS Qty: 90 RF: 3 Primary Care Provider: Olga Andrade Referrals: Olga Andrade [Primary Care Provider] - [facility] appointment Disposition Disposition: Home, Self Care
[2021-09-22 08:54] VITALS: BP 118/79
[2021-09-22 09:15] LABS: Absolute Lymphocyte Count 1.38 X10^3/uL (0.83-4.51); Absolute Neutrophil Count 2.8 X10^3/uL (2.0-7.7); Basophil# 0.03 X10^3/uL; Basophil% 0.6 % (0-1); Eosinophil# 0.07 X10^3/uL; Eosinophils% 1.5 % (0-5); Hematocrit 41.7 % (40-54); Hemoglobin 14.3 g/dL (13.0-16.5); Lymphocyte # 1.38 X10^3/ul (0.83-4.51); Lymphocyte % 28.7 % (19-41); Mean Corp Hgb Conc 34.3 g/dL (32-36); Mean Platelet Vol. 9.5 fl (6.2-12.0); Monocyte# 0.42 X10^3/uL; Monocyte% 8.7 % (0-10); NRBC Flagged by Analyzer 0 % (0-5); Neutrophil # 2.83 X10^3/uL (2.7-7.7); Neutrophil % 58.8 % (47-70); Platelet Count 148 K/mm3 (150-450); RBC Distribution Width CV 14.8 % (11.6-14.6); RBC Distribution Width SD 57.5 fl (35.1-43.9); Red Blood Count 3.97 M/mm3 (4.6-6.2); White Blood Count 4.8 K/mm3 (4.4-11.0)
[2021-09-22 09:33] LABS: Anion Gap 5 (5-15); BUN 17 mg/dL (7-18); BUN/Creat Ratio 16.5 RATIO (10-20); Calcium,Total 9.2 mg/dL (8.5-10.1); Chloride 110 mmol/L (98-107); Creatinine, Serum 1.03 mg/dL (0.70-1.30); EST Glomerular Filtration Rate 76 mL/min (>60); Est Glom Filt Rate - Afr Amer 92 mL/min (>60); Estimated Creatinine Clearance 48.54 ml/min; Glucose 112 mg/dL (74-106); Potassium 4.1 mmol/L (3.5-5.1); Sodium Level 143 mmol/L (136-145); Troponin-I HS 3 pg/mL (3.0-78.0)
[2021-09-22 10:13] VITALS: BP 118/79; PULSE 67; RESP 14
--- NOTE | 2021-09-22 10:26 | ED.RN ---
CALLED TO SAY I WAS GIVING REPORT BECAUSE PT WAS ON HIS WAY BACK AND WHO EVER ANSWERED THE PHONE SAID OK, THANK YOU.
== END 2021-09-22 10:32 | disposition home or self-care (01) ==
PROVIDERS: Emergency Provider Emergency Medicine; PCP Family Medicine
DX: R55 Syncope and collapse (principal); F03.90 Unspecified dementia, unspecified severity, without behavioral disturbance, psychotic disturbance, mood disturbance, and anxiety; Q90.9 Down syndrome, unspecified; L89.214 Pressure ulcer of right hip, stage 4; E78.00 Pure hypercholesterolemia, unspecified; E03.9 Hypothyroidism, unspecified; M10.9 Gout, unspecified; E66.9 Obesity, unspecified; Z79.890 Hormone replacement therapy; Z79.899 Other long term (current) drug therapy
CPT/HCPCS: 71045; 80048; 84484; 85025; 93005; 99285

== ENCOUNTER 2021-10-24 14:00 | Outpatient (RCR) | payer MEDICARE, MEDICAID, SELFPAY ==
[2021-09-27 00:28] VITALS: BP 96/54; PULSE 82; RESP 16; TEMP 35.9; BMI 23.1
[2021-09-29 09:52] VITALS: TEMP 35.8; BMI 23.1
--- NOTE | 2021-09-29 14:30 | PCM.WC.PN ---
History of Present Illness Date of Service: 09/29/21 Chief Complaint: ulcer right greater trochanter History of Wound: Min is a 70 yo gentleman that currently resides at [facility] who presents to the wound healing center for nonhealing ulcers of his heels, right buttock and right hip. The patient is accompanied by Argenis, the nurse video arcade manager for the [facility] that he resides. Min is nonverbal and unable to provide history himself. Argenis provided the details and history for the patient as well as chart review from his PCP. Over the last several months, Min has declined in his mobility and is now mostly sitting in a wheelchair or on the couch or chair at his home. He is unable to ambulate and also has stopped using the toilet over the last month and is more incontinent of stool and urine per Argenis. His right hip/trochanter ulcer has been present since November and started out as a red area and ultimately broke down and has been draining. It is being treated with the wound VAC. The ulcers of his right buttock and his heels have been present since mid February and they are healed. He currently has a low air loss mattress that he sleeps on but does now have an offloading cushion to sit on in his wheelchair or offloading/heel protectors for his feet. Nutrition is supplemented with protein shakes as well as regular meals. Argenis states that he eats pretty well and generally has a good appetite. His right buttock ulcer and bilateral heel ulcers have since healed. A wound culture was done on 04/07/21. It was positive for Staphylococcus aureus, Morganella morganii, and Enterococcus faecalis. He was treated with Augmentin. Another wound culture was done on 05/05/21. It was positive for Staphylococcus aureus and Enterococcus faecalis. He was treated with Augmentin. His HgbA1c from 04/11/21 was 5.1. His Prealbumin from 04/11/[address] was done on 06/16/21. It showed linear area of the soft tissue defect and granulation overlying the greater trochanter of the proximal right femur. This may represent an area of prior surgical intervention. Clinical correlation is recommended. Small right inguinal hernia containing fat. Small gallstones. Progress of Wound: Min is here today for follow up of treatment of right hip ulcer. His heel ulcers remain healed after treatment with foam booties and Promogran dressings. His right buttock ulcer remains healed. He tolerated Epifix application and there has been improvement in the size of his ulcer. Denies fever or chills. Objective Data Objective Data Vital Signs: Vital Signs Temp Pulse Resp BP 96.4 F L 82 16 96/54 L 09/29/21 09:52 09/27/21 00:28 09/27/21 00:28 09/27/21 00:28 Weight: 50.126 kg Body Mass Index (BMI) 23.1 Physical Exam Const alert, oriented x3 and no apparent distress General Appearance: cooperative and comfortable Nutritional Appearance: obese HEENT normocephalic and head/scalp atraumatic Mouth: oral and palatal mucosa normal Teeth and Gingiva: poor dentition Resp normal respiratory effort Cardio regular rate and regular rhythm Skin Wounds: wounds noted Wound Narrative: as in clinical panel Psych affect normal Debridement Note Debridement Note Wound debrided: right trochanter Laterality: Right Wound Grade/Stage: Stage III Type of Debridement: Excisional debridement Anesthesia Used: 4% Lidocaine Solution and 5% Lidocaine Gel Depth: Down to and including healthy tissue and in the subcutaneous layer Percentage of wound debrided: 100 Instrument Used: 5mm curette Tissue Removed: Yellow slough, devitalized tissue Severity: Fat Layer Exposed Amount of bleeding with debridement: Mild Bleeding Controlled with: Compression and gauze Patient tolerated procedure: Patient tolerated procedure well Post-Debridement Measurements and Additional Note: Post-Debridement Measurements/Treatment - Nurse 1 - General Ulcer Assessment Start: 09/29/21 09:52 Freq: Status: Active Protocol: NATALIA Activity Type Activity Date Activity User E-Sign Co-Sign Detail Recorded Client Recorded Date Recorded By Document 09/29/21 09:52 [facility] [id number] 09/29/21 09:55 [facility] 09/29/21 09:52 - Today's Visit Information Type of service Follow-up Visit (Physician/INVOICE CODER ) Arrival Mode Wheelchair Transfer Assistance Other Transfer Assist (Other) CAREGIVER MANUALLY TRANSF Patient Identification Verified (Name & Yes ) Patient Requires Transmission-Based No Precautions Height and Weight Body Mass Index (BMI) 23.1 BMI Classification Normal Vital Signs Temperature (97.8 F-99.1 F) 96.4 F L Temperature Source Temporal Comment PT REFUSES VITALS History Since Last Visit- (Skip if this is Patient's initial visit) Other Footwear [employer] - Nurse 1 - General Ulcer Measurement Start: 09/29/21 09:52 Freq: Status: Active Protocol: Activity Type Activity Date Activity User E-Sign Co-Sign Detail Recorded Client Recorded Date Recorded By Document 09/29/21 09:52 [facility] [id number] 09/29/21 09:55 [facility] 09/29/21 09:52 Wound Center Nurse 1 3. R trochanter -Combined with other wound No -Current Size (cm) - Length 0.1 -Current Size (cm) - Width 0.1 -Current Size (cm) - Depth 0.1 -Total Square Cm 0.01 -Texture (Yeimy-wound Skin Appearance) Assessed, Scarring -Color (Yeimy-wound Skin Appearance) Assessed -Temperature (Yeimy-wound Skin No Abnormality Appearance) (Pt Warm) -Tenderness on Palpation (Yeimy-wound Yes Skin Appearance) -Ulcer Cleansing Soap and Water -Foul Odor after Cleansing No -Anesthetic Used 5% Lidocaine Gel -Wound Comment(s) PT REFUSES STAFF TO MEASURE- WC - Nurse 2 - General Ulcer CM Notes Start: 09/29/21 09:52 Freq: Status: Active Protocol: Activity Type Activity Date Activity User E-Sign Co-Sign Detail Recorded Client Recorded Date Recorded By Document 09/29/21 10:19 [id number] 09/29/21 10:21 09/29/21 10:19 Wound Center Nurse 2 -Time 10:19 -Correct Patient Yes -Correct Side, Site, Position Yes -Correct Procedure Yes -Procedure Performed Yes -Type of Procedure Debridement -Clinical Debridement Subcutaneous -Tissue Removed Subcutaneous -Post Debridement (cm) - Length 1.3 -Post Debridement (cm) - Width 0.5 -Post Debridement (cm) - Depth 0.1 -Total Square (Post) (cm) 0.65 -Area of Debridement (cm) - Length 1.3 -Area of Debridement (cm) - Width 0.5 -Total Square (Area) (cm) 0.65 -Tunneling No -Undermining/Tunneling No -Circular Undermining No -Wound/Ulcer Outcome Not Healed -Ulcer Cleansing Rinsed/ Irrigated with Saline -Foul Odor after Cleansing No -Bioengineered Tissue Yes -Type of Bioengineered Tissue Epifix 18mm Disc -Expiration Date 06/28/26 -Product Lot Number [id number] -Percent Used 100 -Lot number of Saline Used [id number] -Bleeding Controlled with Pressure -Offloading No -Treatment Response Procedure Tolerated Well -Debridement - Subq, 1st 20sq cm No -Apply Skin Sub - 1st 25 sq cm - Legs 1 -Epifix 18mm Disc 3 Pain Scale: 0-10 Numeric Is Patient Pain Free? Yes - Nurse 3 - General Ulcer D/C NN Start: 09/29/21 09:52 Freq: Status: Active Protocol: Activity Type Activity Date Activity User E-Sign Co-Sign Detail Recorded Client Recorded Date Recorded By Document 09/29/21 10:34 ELISA [id number] 09/29/21 10:35 ELISA 09/29/21 10:34 Wound Care Nurse 3 3. R trochanter -Ulcer Cleansing Rinsed/ Irrigated with Saline -Foul Odor after Cleansing No -Primary Dressing Covered/Secured with Dry Gauze, Secured with Tape Pain Scale: 0-10 Numeric Is Patient Pain Free? Yes WC - Visit Discharge Discharge Condition Stable Ambulatory Status Wheelchair Transportation Private Auto Medication Reconcilliation completed & Yes provided to patient/care provider Clinical Summary of Care Provided Yes Assessment/Plan Assessment/Plan (1) Pressure ulcer of right hip, stage 3: CODE(S): L89.213 - Pressure ulcer of right hip, stage 3 (2) Abnormality of gait and mobility: CODE(S): R26.9 - Unspecified abnormalities of gait and mobility (3) Down syndrome: CODE(S): Q90.9 - Down syndrome, unspecified (4) Hypothyroidism: CODE(S): E03.9 - Hypothyroidism, unspecified QUALIFIERS: Hypothyroidism type: unspecified Qualified Code(s): E03.9 - Hypothyroidism, unspecified (5) Dementia: CODE(S): F03.90 - Unspecified dementia without behavioral disturbance QUALIFIERS: Dementia type: unspecified type Dementia behavioral disturbance: without behavioral disturbance Qualified Code(s): F03.90 - Unspecified dementia without behavioral disturbance PLAN: Richards ulcer was evaluated and debrided today at the wound healing center. His right and left heels remain healed. Right buttock ulcer remains healed. Right trochanter/hip ulcer is improved this week. Epifix applied today per guard supervisor guidelines using a 18 mm disc Epifix. Rehydrated with hydrogel and covered with adaptic touch and secured with steri-strips. Will dress his wound with gauze or ABD every other day. The etiology of his ulcers appear to be pressure which has occurred from recent changes in his mobility. Wound culture of his right hip on 04/07/21 was positive for infection with Staph aureus, morganella morganii and enterococcus Faecalis. He completed Augmentin. Wound culture 05/05/21 was positive for Staph and Enterococcus. He completed treatment with Augmentin. Wound culture was positive for staph aureus, streptococcus and anaerobic bacteria. He finished Augmentin for positive wound culture from 07/28/2021. Dr. Rader saw the patient and evaluated the ulcer. He discussed option of surgical debridement vs. surgical debridement and graft or flap closure but felt that the appearance of the ulcer this week looked promising for possible closure with wound vac treatment and continued wound care. If the ulcer fails to progress in a positive direction and/or show concern of continued tunneling or undermining then he would be happy to see Min again and would be able to do a surgical debridement under anesthesia and would keep him overnight and discharge him with wound vac. CT scan showed no involvement into the bone currently. The importance of offloading was stressed to his caregiver and they agreed to obtain a Roho or gel foam cushion for his wheelchair as well as heel protectors/foam booties. She also is going to discuss with his family regarding moving him to a higher acuity home where he would have the option of more skilled services. Stressed importance of increased protein intake and adequate nutrition in healing ulcers and wounds. Recommended continuing protein shakes at least once daily outside of meals. Labs reviewed and there are no significant abnormalities. Pre-albumin is low normal. Protein supplementation was encouraged. He has undergone arterial testing in 2012 and 2019 which did not show significant arterial disease. His caregiver asked that we avoid doing them again unless necessary as it causes him extreme stress and discomfort. She was advised to contact the wound healing center if he develops any fever, chills, increased erythema, increased odor or drainage and agrees to update with any changes in status. He will return in 1 week for wound care.
[2021-10-06 09:43] VITALS: RESP 18; TEMP 36.6; BMI 23.1
--- NOTE | 2021-10-06 13:51 | PCM.WC.PN ---
History of Present Illness Date of Service: 10/06/21 Chief Complaint: ulcer right greater trochanter History of Wound: Min is a 70 yo gentleman that currently resides at [facility] who presents to the wound healing center for nonhealing ulcers of his heels, right buttock and right hip. The patient is accompanied by Argenis, the nurse process safety manager for the [facility] that he resides. Min is nonverbal and unable to provide history himself. Argenis provided the details and history for the patient as well as chart review from his PCP. Over the last several months, Min has declined in his mobility and is now mostly sitting in a wheelchair or on the couch or chair at his home. He is unable to ambulate and also has stopped using the toilet over the last month and is more incontinent of stool and urine per Argenis. His right hip/trochanter ulcer has been present since November and started out as a red area and ultimately broke down and has been draining. It is being treated with the wound VAC. The ulcers of his right buttock and his heels have been present since mid February and they are healed. He currently has a low air loss mattress that he sleeps on but does now have an offloading cushion to sit on in his wheelchair or offloading/heel protectors for his feet. Nutrition is supplemented with protein shakes as well as regular meals. Argenis states that he eats pretty well and generally has a good appetite. His right buttock ulcer and bilateral heel ulcers have since healed. A wound culture was done on 04/07/21. It was positive for Staphylococcus aureus, Morganella morganii, and Enterococcus faecalis. He was treated with Augmentin. Another wound culture was done on 05/05/21. It was positive for Staphylococcus aureus and Enterococcus faecalis. He was treated with Augmentin. His HgbA1c from 04/11/21 was 5.1. His Prealbumin from 04/11/[address] was done on 06/16/21. It showed linear area of the soft tissue defect and granulation overlying the greater trochanter of the proximal right femur. This may represent an area of prior surgical intervention. Clinical correlation is recommended. Small right inguinal hernia containing fat. Small gallstones. Progress of Wound: Min is here today for follow up of treatment of right hip ulcer. His heel ulcers remain healed after treatment with foam booties and Promogran dressings. His right buttock ulcer remains healed. He tolerated Epifix application and there has been improvement in the size of his ulcer. Denies fever or chills. Objective Data Objective Data Vital Signs: Vital Signs Temp Pulse Resp BP 98 F 82 18 96/54 L 10/06/21 09:43 09/27/21 00:28 10/06/21 09:43 09/27/21 00:28 Weight: 50.126 kg Body Mass Index (BMI) 23.1 Physical Exam Const alert, oriented x3 and no apparent distress General Appearance: cooperative and comfortable Nutritional Appearance: obese HEENT normocephalic and head/scalp atraumatic Resp normal respiratory effort Cardio regular rate and regular rhythm Skin Wounds: wounds noted Wound Narrative: as in clinical panel Psych affect normal Debridement Note Debridement Note Wound debrided: right trochanter Laterality: Right Wound Grade/Stage: Stage III Type of Debridement: Excisional debridement Anesthesia Used: 4% Lidocaine Solution Depth: Down to and including healthy tissue and in the subcutaneous layer Percentage of wound debrided: 100 Instrument Used: 3mm curette Tissue Removed: Yellow slough, devitalized tissue Severity: Fat Layer Exposed Amount of bleeding with debridement: Mild Bleeding Controlled with: Compression and gauze Patient tolerated procedure: Patient tolerated procedure well Post-Debridement Measurements and Additional Note: Post-Debridement Measurements/Treatment - Nurse 1 - General Ulcer Assessment Start: 09/29/21 09:52 Freq: Status: Active Protocol: [email or web address] Activity Type Activity Date Activity User E-Sign Co-Sign Detail Recorded Client Recorded Date Recorded By Document 09/29/21 09:52 [facility] [id number] 09/29/21 09:55 BM Document 10/06/21 09:43 RB [id number] 10/06/21 09:45 RB 09/29/21 10/06/21 09:52 09:43 - Today's Visit Information Type of service Follow-up Visit Follow-up Visit (Physician/OPHTHALMOLOGIST (Physician/OPHTHALMOLOGIST ) ) Arrival Mode Wheelchair Wheelchair Transfer Assistance Other Manual Transfer Assist (Other) CAREGIVER MANUALLY TRANSF Patient Identification Verified (Name & Yes Yes ) Patient Requires Transmission-Based No Precautions Height and Weight Body Mass Index (BMI) 23.1 23.1 BMI Classification Normal Normal Vital Signs Temperature (97.8 F-99.1 F) 96.4 F L 98 F Temperature Source Temporal Temporal Respiratory Rate (12-18) 18 Respiratory rate source Observation Comment PT REFUSES VITALS Have you changed medications since your No last visit? Any new allergies or adverse reactions No Signs or symptoms of abuse and/or No neglect since last visit Have you been in the hospital since your No last visit? Has dressing in place as prescribed Yes Has compression in place as prescribed No Has offloadiing in place as prescribed No Experienced any changes in pain level or No management History Since Last Visit- (Skip if this is Patient's initial visit) Other Footwear [employer] Pain Scale: 0-10 Numeric Is Patient Pain Free? Yes WC - Nurse 1 - General Ulcer Measurement Start: 09/29/21 09:52 Freq: Status: Active Protocol: Activity Type Activity Date Activity User E-Sign Co-Sign Detail Recorded Client Recorded Date Recorded By Document 09/29/21 09:52 [facility] [id number] 09/29/21 09:55 [facility] Document 10/06/21 09:43 [id number] 10/06/21 09:45 RB 09/29/21 10/06/21 09:52 09:43 Wound Center Nurse 1 3. R trochanter -Combined with other wound No No -Current Size (cm) - Length 0.1 0.1 -Current Size (cm) - Width 0.1 0.1 -Current Size (cm) - Depth 0.1 0.1 -Total Square Cm 0.01 0.01 -Tunneling No -Undermining/Tunneling No -Circular Undermining No -Exudate Amt Medium -Exudate Type Serosanguineous -Wound Margin Flat & Intact -Granulation Amt Medium (34-66%) -Granulation Quality [place] -Slough/Fibrin Yes -Necrosis Amt Small (1-33%) -Necrotic Tissue Type Adherent Slough -Structure Exposed N/A -Texture (Yeimy-wound Skin Appearance) Assessed, Assessed, Scarring Scarring -Moisture (Yeimy-wound Skin Appearance) Assessed -Color (Yeimy-wound Skin Appearance) Assessed Assessed -Temperature (Yeimy-wound Skin No Abnormality No Abnormality Appearance) (Pt Warm) (Pt Warm) -Tenderness on Palpation (Yeimy-wound Yes No Skin Appearance) -Ulcer Cleansing Soap and Water Wound Cleanser -Foul Odor after Cleansing No No -Anesthetic Used 5% Lidocaine 4% Lidocaine Gel Solution -Wound Comment(s) PT REFUSES STAFF TO MEASURE- WC - Nurse 2 - General Ulcer CM Notes Start: 09/29/21 09:52 Freq: Status: Active Protocol: Activity Type Activity Date Activity User E-Sign Co-Sign Detail Recorded Client Recorded Date Recorded By Document 09/29/21 10:19 [id number] 09/29/21 10:21 Document 10/06/21 09:46 [id number] 10/06/21 09:52 09/29/21 10/06/21 10:19 09:46 Wound Center Nurse 2 3. R trochanter -Time 10:19 09:50 -Correct Patient Yes Yes -Correct Side, Site, Position Yes Yes -Correct Procedure Yes Yes -Procedure Performed Yes Yes -Type of Procedure Debridement Debridement -Clinical Debridement Subcutaneous Subcutaneous -Tissue Removed Subcutaneous Subcutaneous -Post Debridement (cm) - Length 1.3 0.8 -Post Debridement (cm) - Width 0.5 0.4 -Post Debridement (cm) - Depth 0.1 0.1 -Total Square (Post) (cm) 0.65 0.32 -Area of Debridement (cm) - Length 1.3 0.8 -Area of Debridement (cm) - Width 0.5 0.4 -Total Square (Area) (cm) 0.65 0.32 -Tunneling No No -Undermining/Tunneling No No -Circular Undermining No No -Wound/Ulcer Outcome Not Healed Not Healed -Ulcer Cleansing Rinsed/ Rinsed/ Irrigated with Irrigated with Saline Saline -Foul Odor after Cleansing No No -Bioengineered Tissue Yes Yes -Type of Bioengineered Tissue Epifix 18mm Epifix 18mm Disc Disc -Expiration Date 06/28/26 06/28/26 -Product Lot Number [id number] -Percent Used 100 100 -Lot number of Saline Used [id number] -Bleeding Controlled with Pressure Pressure -Offloading No No -Treatment Response Procedure Procedure Tolerated Well Tolerated Well -Debridement - Subq, 1st 20sq cm No No -Apply Skin Sub - 1st 25 sq cm - Legs 1 1 -Epifix 18mm Disc 3 3 Pain Scale: 0-10 Numeric Is Patient Pain Free? Yes Yes - Nurse 3 - General Ulcer D/C NN Start: 09/29/21 09:52 Freq: Status: Active Protocol: Activity Type Activity Date Activity User E-Sign Co-Sign Detail Recorded Client Recorded Date Recorded By Document 09/29/21 10:34 [id number] 09/29/21 10:35 Document 10/06/21 10:00 DL [id number] 10/06/21 10:01 DL 09/29/21 10/06/21 10:34 10:00 Wound Care Nurse 3 3. R trochanter -Ulcer Cleansing Rinsed/ Irrigated with Saline -Foul Odor after Cleansing No No -Other Dressing Epifix/hydrogel -Primary Dressing Covered/Secured with Dry Gauze, Secured with Tape -Other Covering ABD Treatment Response Procedure Tolerated Well Pain Scale: 0-10 Numeric Is Patient Pain Free? Yes Yes - Visit Discharge Discharge Condition Stable Stable Ambulatory Status Wheelchair Wheelchair Transportation Private Auto [employer]f Medication Reconcilliation completed & Yes provided to patient/care provider Clinical Summary of Care Provided Yes Facility Type Longterm Care Facility Orders Sent Yes Assessment/Plan Assessment/Plan (1) Pressure ulcer of right hip, stage 3: CODE(S): L89.213 - Pressure ulcer of right hip, stage 3 (2) Abnormality of gait and mobility: CODE(S): R26.9 - Unspecified abnormalities of gait and mobility (3) Down syndrome: CODE(S): Q90.9 - Down syndrome, unspecified (4) Hypothyroidism: CODE(S): E03.9 - Hypothyroidism, unspecified QUALIFIERS: Hypothyroidism type: unspecified Qualified Code(s): E03.9 - Hypothyroidism, unspecified (5) Dementia: CODE(S): F03.90 - Unspecified dementia without behavioral disturbance QUALIFIERS: Dementia type: unspecified type Dementia behavioral disturbance: without behavioral disturbance Qualified Code(s): F03.90 - Unspecified dementia without behavioral disturbance PLAN: Richards ulcer was evaluated and debrided today at the wound healing center. His right and left heels remain healed. Right buttock ulcer remains healed. Right trochanter/hip ulcer is improved this week. Epifix applied today per talent sourcing specialist guidelines using a 18 mm disc Epifix. Rehydrated with hydrogel and covered with adaptic touch and secured with steri-strips. Will dress his wound with gauze or ABD every other day. The etiology of his ulcers appear to be pressure which has occurred from recent changes in his mobility. Wound culture of his right hip on 04/07/21 was positive for infection with Staph aureus, morganella morganii and enterococcus Faecalis. He completed Augmentin. Wound culture 05/05/21 was positive for Staph and Enterococcus. He completed treatment with Augmentin. Wound culture was positive for staph aureus, streptococcus and anaerobic bacteria. He finished Augmentin for positive wound culture from 07/28/2021. Dr. Rader saw the patient and evaluated the ulcer. He discussed option of surgical debridement vs. surgical debridement and graft or flap closure but felt that the appearance of the ulcer this week looked promising for possible closure with wound vac treatment and continued wound care. If the ulcer fails to progress in a positive direction and/or show concern of continued tunneling or undermining then he would be happy to see Min again and would be able to do a surgical debridement under anesthesia and would keep him overnight and discharge him with wound vac. CT scan showed no involvement into the bone currently. The importance of offloading was stressed to his caregiver and they agreed to obtain a Roho or gel foam cushion for his wheelchair as well as heel protectors/foam booties. She also is going to discuss with his family regarding moving him to a higher acuity home where he would have the option of more skilled services. Stressed importance of increased protein intake and adequate nutrition in healing ulcers and wounds. Recommended continuing protein shakes at least once daily outside of meals. Labs reviewed and there are no significant abnormalities. Pre-albumin is low normal. Protein supplementation was encouraged. He has undergone arterial testing in 2012 and 2019 which did not show significant arterial disease. His caregiver asked that we avoid doing them again unless necessary as it causes him extreme stress and discomfort. She was advised to contact the wound healing center if he develops any fever, chills, increased erythema, increased odor or drainage and agrees to update with any changes in status. He will return in 1 week for wound care.
[2021-10-13 10:07] VITALS: PULSE 82; RESP 18; TEMP 36.2; BMI 23.1
--- NOTE | 2021-10-13 21:19 | PCM.WC.PN ---
History of Present Illness Date of Service: 10/13/21 Chief Complaint: ulcer right greater trochanter History of Wound: Min is a 70 yo gentleman that currently resides at [facility] who presents to the wound healing center for nonhealing ulcers of his heels, right buttock and right hip. The patient is accompanied by Argenis, the nurse manager ccu for the [facility] that he resides. Min is nonverbal and unable to provide history himself. Argenis provided the details and history for the patient as well as chart review from his PCP. Over the last several months, Min has declined in his mobility and is now mostly sitting in a wheelchair or on the couch or chair at his home. He is unable to ambulate and also has stopped using the toilet over the last month and is more incontinent of stool and urine per Argenis. His right hip/trochanter ulcer has been present since November and started out as a red area and ultimately broke down and has been draining. It is being treated with the wound VAC. The ulcers of his right buttock and his heels have been present since mid February and they are healed. He currently has a low air loss mattress that he sleeps on but does now have an offloading cushion to sit on in his wheelchair or offloading/heel protectors for his feet. Nutrition is supplemented with protein shakes as well as regular meals. Argenis states that he eats pretty well and generally has a good appetite. His right buttock ulcer and bilateral heel ulcers have since healed. A wound culture was done on 04/07/21. It was positive for Staphylococcus aureus, Morganella morganii, and Enterococcus faecalis. He was treated with Augmentin. Another wound culture was done on 05/05/21. It was positive for Staphylococcus aureus and Enterococcus faecalis. He was treated with Augmentin. His HgbA1c from 04/11/21 was 5.1. His Prealbumin from 04/11/[address] was done on 06/16/21. It showed linear area of the soft tissue defect and granulation overlying the greater trochanter of the proximal right femur. This may represent an area of prior surgical intervention. Clinical correlation is recommended. Small right inguinal hernia containing fat. Small gallstones. Progress of Wound: Min is here today for follow up of treatment of right hip. His heel ulcers remain healed after treatment with foam booties and Promogran dressings. His right buttock ulcer remains healed. His right hip remains healed. Denies fever or chills. Objective Data Objective Data Vital Signs: Vital Signs Temp Pulse Resp BP 97.1 F L 82 18 96/54 L 10/13/21 10:07 10/13/21 10:07 10/13/21 10:07 09/27/21 00:28 Weight: 50.126 kg Body Mass Index (BMI) 23.1 Physical Exam Const alert, oriented x3 and no apparent distress General Appearance: cooperative and comfortable Nutritional Appearance: obese HEENT normocephalic and head/scalp atraumatic Resp normal respiratory effort Cardio regular rate and regular rhythm Skin Wounds: wounds noted Wound Narrative: as in clinical panel Psych affect normal Debridement Note Debridement Note Wound debrided: right greater trochanter Laterality: Right Wound Grade/Stage: Stage III No debridement was completed: No debridement was completed today (ulcer is healed) Post-Debridement Measurements and Additional Note: Post-Debridement Measurements/Treatment - Nurse 1 - General Ulcer Assessment Start: 09/29/21 09:52 Freq: Status: Active Protocol: [email or web address].[email or web address] Activity Type Activity Date Activity User E-Sign Co-Sign Detail Recorded Client Recorded Date Recorded By Document 09/29/21 09:52 [facility] [id number] 09/29/21 09:55 [facility] Document 10/06/21 09:43 [id number] 10/06/21 09:45 Document 10/13/21 10:07 [id number] 10/13/21 10:09 RB 09/29/21 10/06/21 10/13/21 09:52 09:43 10:07 - Today's Visit Information Type of service Follow-up Visit Follow-up Visit Follow-up Visit (Physician/POLYMERIZATION OVEN OPERATOR (Physician/POLYMERIZATION OVEN OPERATOR (Physician/POLYMERIZATION OVEN OPERATOR ) ) ) Arrival Mode Wheelchair Wheelchair Wheelchair Transfer Assistance Other Manual None Transfer Assist (Other) CAREGIVER MANUALLY TRANSF Patient Identification Verified (Name & Yes Yes Yes ) Patient Requires Transmission-Based No No Precautions Height and Weight Body Mass Index (BMI) 23.1 23.1 23.1 BMI Classification Normal Normal Normal Vital Signs Temperature (97.8 F-99.1 F) 96.4 F L 98 F 97.1 F L Temperature Source Temporal Temporal Temporal Pulse Rate (60-100) 82 Pulse Location Radial Respiratory Rate (12-18) 18 18 Respiratory rate source Observation Observation Comment PT REFUSES VITALS Have you changed medications since your No No last visit? Any new allergies or adverse reactions No No Had a fall/change in ADL's that may No increase risk of falls Signs or symptoms of abuse and/or No No neglect since last visit Have you been in the hospital since your No No last visit? Has dressing in place as prescribed Yes Yes Has compression in place as prescribed No No Has offloadiing in place as prescribed No No Experienced any changes in pain level or No No management History Since Last Visit- (Skip if this is Patient's initial visit) Other Footwear [employer] Pain Scale: 0-10 Numeric Is Patient Pain Free? Yes Yes - Nurse 1 - General Ulcer Measurement Start: 09/29/21 09:52 Freq: Status: Active Protocol: Activity Type Activity Date Activity User E-Sign Co-Sign Detail Recorded Client Recorded Date Recorded By Document 09/29/21 09:52 [facility] [id number] 09/29/21 09:55 [facility] Document 10/06/21 09:43 RB [id number] 10/06/21 09:45 RB Document 10/13/21 10:07 RB [id number] 10/13/21 10:09 RB 09/29/21 10/06/21 10/13/21 09:52 09:43 10:07 Wound Center Nurse 1 3. R trochanter -Combined with other wound No No No -Current Size (cm) - Length 0.1 0.1 0.1 -Current Size (cm) - Width 0.1 0.1 0.1 -Current Size (cm) - Depth 0.1 0.1 0.1 -Total Square Cm 0.01 0.01 0.01 -Epithelialization Large 67-100% -Tunneling No No -Undermining/Tunneling No No -Circular Undermining No No -Exudate Amt Medium None Present -Exudate Type Serosanguineous -Wound Margin Flat & Intact Flat & Intact -Granulation Amt Medium (34-66%) Medium (34-66%) -Granulation Quality Donaldson Donaldson -Slough/Fibrin Yes Yes -Necrosis Amt Small (1-33%) Small (1-33%) -Necrotic Tissue Type Adherent Slough Adherent Slough -Structure Exposed N/A N/A -Texture (Yeimy-wound Skin Appearance) Assessed, Assessed, Scarring Scarring Scarring -Moisture (Yeimy-wound Skin Appearance) Assessed Assessed -Color (Yeimy-wound Skin Appearance) Assessed Assessed Assessed -Temperature (Yeimy-wound Skin No Abnormality No Abnormality No Abnormality Appearance) (Pt Warm) (Pt Warm) (Pt Warm) -Tenderness on Palpation (Yeimy-wound Yes No No Skin Appearance) -Ulcer Cleansing Soap and Water Wound Cleanser Wound Cleanser -Foul Odor after Cleansing No No No -Anesthetic Used 5% Lidocaine 4% Lidocaine 5% Lidocaine Gel Solution Gel -Wound Comment(s) PT REFUSES right hallux STAFF TO blood filled MEASURE- blister noted and skin intact WC - Nurse 2 - General Ulcer CM Notes Start: 09/29/21 09:52 Freq: Status: Active Protocol: Activity Type Activity Date Activity User E-Sign Co-Sign Detail Recorded Client Recorded Date Recorded By Document 09/29/21 10:19 [id number] 09/29/21 10:21 Document 10/06/21 09:46 JF [id number] 10/06/21 09:52 Document 10/13/21 10:15 MW [id number] 10/13/21 10:24 MW 09/29/21 10/06/21 10/13/21 10:19 09:46 10:15 Wound Center Nurse 2 #5 right great toe hematoma -Time 10:18 -Correct Patient Yes -Correct Side, Site, Position Yes -Correct Procedure Yes -Procedure Performed No -Type of Procedure Incision & Drainage -Post Debridement (cm) - Length 1.0 -Post Debridement (cm) - Width 1.5 -Post Debridement (cm) - Depth 0.1 -Total Square (Post) (cm) 1.50 -Area of Debridement (cm) - Length 1.0 -Area of Debridement (cm) - Width 1.5 -Total Square (Area) (cm) 1.50 -Tunneling No -Undermining/Tunneling No -Circular Undermining No -Wound/Ulcer Outcome Not Healed -Bleeding Controlled with Pressure -Offloading No -Treatment Response Procedure Tolerated Well 3. R trochanter -Time 10:19 09:50 10:22 -Correct Patient Yes Yes Yes -Correct Side, Site, Position Yes Yes Yes -Correct Procedure Yes Yes Yes -Procedure Performed Yes Yes No -Type of Procedure Debridement Debridement -Clinical Debridement Subcutaneous Subcutaneous -Tissue Removed Subcutaneous Subcutaneous -Post Debridement (cm) - Length 1.3 0.8 0 -Post Debridement (cm) - Width 0.5 0.4 0 -Post Debridement (cm) - Depth 0.1 0.1 0 -Total Square (Post) (cm) 0.65 0.32 0 -Area of Debridement (cm) - Length 1.3 0.8 -Area of Debridement (cm) - Width 0.5 0.4 -Total Square (Area) (cm) 0.65 0.32 -Tunneling No No -Undermining/Tunneling No No -Circular Undermining No No -Wound/Ulcer Outcome Not Healed Not Healed Healed- Epithelialized -Ulcer Cleansing Rinsed/ Rinsed/ Irrigated with Irrigated with Saline Saline -Foul Odor after Cleansing No No -Bioengineered Tissue Yes Yes -Type of Bioengineered Tissue Epifix 18mm Epifix 18mm Disc Disc -Expiration Date 06/28/26 06/28/26 -Product Lot Number [id number] -Percent Used 100 100 -Lot number of Saline Used [id number] -Bleeding Controlled with Pressure Pressure -Offloading No No -Treatment Response Procedure Procedure Tolerated Well Tolerated Well -Debridement - Subq, 1st 20sq cm No No -Apply Skin Sub - 1st 25 sq cm - Legs 1 1 -Epifix 18mm Disc 3 3 Pain Scale: 0-10 Numeric Is Patient Pain Free? Yes Yes Yes WC - Nurse 3 - General Ulcer D/C NN Start: 09/29/21 09:52 Freq: Status: Active Protocol: Activity Type Activity Date Activity User E-Sign Co-Sign Detail Recorded Client Recorded Date Recorded By Document 09/29/21 10:34 JF [id number] 09/29/21 10:35 ELISA Document 10/06/21 10:00 DL [id number] 10/06/21 10:01 DL Document 10/13/21 10:32 MW [id number] 10/13/21 10:33 MW 09/29/21 10/06/21 10/13/21 10:34 10:00 10:32 Wound Care Nurse 3 #5 right great toe hematoma -Ulcer Cleansing Rinsed/ Irrigated with Saline -Foul Odor after Cleansing No -Negative Pressure Wound Therapy N/A -Primary Dressing Applied Promogran Gracy Matter -Primary Dressing Covered/Secured with Dry Gauze -Other Covering abd -Promogran Gracy Matter 2 3. R trochanter -Ulcer Cleansing Rinsed/ Irrigated with Saline -Foul Odor after Cleansing No No -Other Dressing Epifix/hydrogel -Primary Dressing Covered/Secured with Dry Gauze, Secured with Tape -Other Covering ABD Treatment Response Procedure Procedure Tolerated Well Tolerated Well Pain Scale: 0-10 Numeric Is Patient Pain Free? Yes Yes Yes Teaching: Wound Center Dressing Your Wound -Person Taught Patient,Primary Caregiver -Teaching Method Discussion, Demonstration -Response to teaching Verbalize understanding WC - Visit Discharge Discharge Condition Stable Stable Stable Ambulatory Status Wheelchair Wheelchair Wheelchair Transportation Private Auto Fci Private Auto Accompanied by caregiver Medication Reconcilliation completed & Yes provided to patient/care provider Clinical Summary of Care Provided Yes Facility Type [facility] Orders Sent Yes Additional Wound Wound debrided: right great toe hematoma Laterality: Right Type of Debridement: Selective debridement Anesthesia Used: 4% Lidocaine Solution Depth: Down to and including healthy tissue Percentage of wound debrided: 100 Instrument Used: #15 blade Tissue Removed: Yellow slough, devitalized tissue Severity: Fat Layer Exposed Amount of bleeding with debridement: Mild Bleeding Controlled with: Compression and gauze Patient tolerated procedure: Patient tolerated procedure well Assessment/Plan Assessment/Plan (1) Pressure ulcer of right hip, stage 3: CODE(S): L89.213 - Pressure ulcer of right hip, stage 3 (2) Abnormality of gait and mobility: CODE(S): R26.9 - Unspecified abnormalities of gait and mobility (3) Down syndrome: CODE(S): Q90.9 - Down syndrome, unspecified (4) Hypothyroidism: CODE(S): E03.9 - Hypothyroidism, unspecified QUALIFIERS: Hypothyroidism type: unspecified Qualified Code(s): E03.9 - Hypothyroidism, unspecified (5) Dementia: CODE(S): F03.90 - Unspecified dementia without behavioral disturbance QUALIFIERS: Dementia behavioral disturbance: without behavioral disturbance Dementia type: unspecified type Qualified Code(s): F03.90 - Unspecified dementia without behavioral disturbance PLAN: Min's ulcer was evaluated and debrided today at the wound healing center. His right and left heels remain healed. Right buttock ulcer remains healed. Right trochanter/hip ulcer is healed this week. His right great toe hematoma will be dressed with promogram and silicone foam dressing. The etiology of his ulcers appear to be pressure which has occurred from recent changes in his mobility. Wound culture of his right hip on 04/07/21 was positive for infection with Staph aureus, morganella morganii and enterococcus Faecalis. He completed Augmentin. Wound culture 05/05/21 was positive for Staph and Enterococcus. He completed treatment with Augmentin. Wound culture was positive for staph aureus, streptococcus and anaerobic bacteria. He finished Augmentin for positive wound culture from 07/28/2021. Dr. Rader saw the patient and evaluated the ulcer. He discussed option of surgical debridement vs. surgical debridement and graft or flap closure but felt that the appearance of the ulcer this week looked promising for possible closure with wound vac treatment and continued wound care. If the ulcer fails to progress in a positive direction and/or show concern of continued tunneling or undermining then he would be happy to see Min again and would be able to do a surgical debridement under anesthesia and would keep him overnight and discharge him with wound vac. CT scan showed no involvement into the bone currently. The importance of offloading was stressed to his caregiver and they agreed to obtain a Roho or gel foam cushion for his wheelchair as well as heel protectors/foam booties. She also is going to discuss with his family regarding moving him to a higher acuity home where he would have the option of more skilled services. Stressed importance of increased protein intake and adequate nutrition in healing ulcers and wounds. Recommended continuing protein shakes at least once daily outside of meals. Labs reviewed and there are no significant abnormalities. Pre-albumin is low normal. Protein supplementation was encouraged. He has undergone arterial testing in 2012 and 2018 which did not show significant arterial disease. His caregiver asked that we avoid doing them again unless necessary as it causes him extreme stress and discomfort. She was advised to contact the wound healing center if he develops any fever, chills, increased erythema, increased odor or drainage and agrees to update with any changes in status. He will return in 1 week for wound care.
[2021-10-24 14:02] VITALS: TEMP 35.9; BMI 23.1
--- NOTE | 2021-10-24 17:52 | PCM.WC.PN ---
History of Present Illness Date of Service: 10/24/21 Chief Complaint: ulcer right greater trochanter History of Wound: Min is a 70 yo gentleman that currently resides at [facility] who presents to the wound healing center for nonhealing ulcers of his heels, right buttock and right hip. The patient is accompanied by Argenis, the nurse marketing intelligence manager for the [facility] that he resides. Min is nonverbal and unable to provide history himself. Argenis provided the details and history for the patient as well as chart review from his PCP. Over the last several months, Min has declined in his mobility and is now mostly sitting in a wheelchair or on the couch or chair at his home. He is unable to ambulate and also has stopped using the toilet over the last month and is more incontinent of stool and urine per Argenis. His right hip/trochanter ulcer has been present since November and started out as a red area and ultimately broke down and has been draining. It is being treated with the wound VAC. The ulcers of his right buttock and his heels have been present since mid February and they are healed. He currently has a low air loss mattress that he sleeps on but does now have an offloading cushion to sit on in his wheelchair or offloading/heel protectors for his feet. Nutrition is supplemented with protein shakes as well as regular meals. Argenis states that he eats pretty well and generally has a good appetite. His right buttock ulcer and bilateral heel ulcers have since healed. A wound culture was done on 04/07/21. It was positive for Staphylococcus aureus, Morganella morganii, and Enterococcus faecalis. He was treated with Augmentin. Another wound culture was done on 05/05/21. It was positive for Staphylococcus aureus and Enterococcus faecalis. He was treated with Augmentin. His HgbA1c from 04/11/21 was 5.1. His Prealbumin from 04/11/[address] was done on 06/16/21. It showed linear area of the soft tissue defect and granulation overlying the greater trochanter of the proximal right femur. This may represent an area of prior surgical intervention. Clinical correlation is recommended. Small right inguinal hernia containing fat. Small gallstones. Progress of Wound: Min is here today for follow up of treatment of right great toe hematoma. His heel ulcers remain healed after treatment with foam booties and Promogran dressings. His right buttock ulcer remains healed. His right hip remains healed. Denies fever or chills. Objective Data Objective Data Vital Signs: Vital Signs Temp Pulse Resp BP 96.6 F L 82 18 96/54 L 10/24/21 14:02 10/13/21 10:07 10/13/21 10:07 09/27/21 00:28 Weight: 50.126 kg Body Mass Index (BMI) 23.1 Physical Exam Const alert, oriented x3 and no apparent distress General Appearance: cooperative and comfortable Nutritional Appearance: obese HEENT normocephalic and head/scalp atraumatic Resp normal respiratory effort Cardio regular rate and regular rhythm Skin Wounds: wounds noted Wound Narrative: as in clinical panel Psych affect normal Assessment/Plan Assessment/Plan (1) Pressure ulcer of right hip, stage 3: CODE(S): L89.213 - Pressure ulcer of right hip, stage 3 (2) Abnormality of gait and mobility: CODE(S): R26.9 - Unspecified abnormalities of gait and mobility (3) Down syndrome: CODE(S): Q90.9 - Down syndrome, unspecified (4) Hypothyroidism: CODE(S): E03.9 - Hypothyroidism, unspecified QUALIFIERS: Hypothyroidism type: unspecified Qualified Code(s): E03.9 - Hypothyroidism, unspecified (5) Dementia: CODE(S): F03.90 - Unspecified dementia without behavioral disturbance QUALIFIERS: Dementia type: unspecified type Dementia behavioral disturbance: without behavioral disturbance Qualified Code(s): F03.90 - Unspecified dementia without behavioral disturbance PLAN: Richards ulcer was evaluated and debrided today at the wound healing center. His right and left heels remain healed. Right buttock ulcer remains healed. Right trochanter/hip ulcer remains healed. His right great toe hematoma is healed. Will have them protect the area for the next week with silicone foam dressing and gauze. The etiology of his ulcers appear to be pressure which has occurred from recent changes in his mobility. Wound culture of his right hip on 04/07/21 was positive for infection with Staph aureus, morganella morganii and enterococcus Faecalis. He completed Augmentin. Wound culture 05/05/21 was positive for Staph and Enterococcus. He completed treatment with Augmentin. Wound culture was positive for staph aureus, streptococcus and anaerobic bacteria. He finished Augmentin for positive wound culture from 07/28/2021. Dr. Rader saw the patient and evaluated the ulcer. He discussed option of surgical debridement vs. surgical debridement and graft or flap closure but felt that the appearance of the ulcer this week looked promising for possible closure with wound vac treatment and continued wound care. If the ulcer fails to progress in a positive direction and/or show concern of continued tunneling or undermining then he would be happy to see Min again and would be able to do a surgical debridement under anesthesia and would keep him overnight and discharge him with wound vac. CT scan showed no involvement into the bone currently. The importance of offloading was stressed to his caregiver and they agreed to obtain a Roho or gel foam cushion for his wheelchair as well as heel protectors/foam booties. She also is going to discuss with his family regarding moving him to a higher acuity home where he would have the option of more skilled services. Stressed importance of increased protein intake and adequate nutrition in healing ulcers and wounds. Recommended continuing protein shakes at least once daily outside of meals. Labs reviewed and there are no significant abnormalities. Pre-albumin is low normal. Protein supplementation was encouraged. He has undergone arterial testing in 2012 and 2018 which did not show significant arterial disease. His caregiver asked that we avoid doing them again unless necessary as it causes him extreme stress and discomfort. She was advised to contact the wound healing center if he develops any fever, chills, increased erythema, increased odor or drainage and agrees to update with any changes in status. He will be discharged at this time. It has been a pleasure to treat him.
== END 2021-10-24 15:11 | disposition home or self-care (01) ==
LOC: WC 14:00
PROVIDERS: PCP Family Medicine; Referring Provider Physician Assistant; Visit Provider Family Medicine
DX: L89.213 Pressure ulcer of right hip, stage 3 (principal); R26.9 Unspecified abnormalities of gait and mobility; R15.9 Full incontinence of feces; Q90.9 Down syndrome, unspecified; E03.9 Hypothyroidism, unspecified; F03.90 Unspecified dementia, unspecified severity, without behavioral disturbance, psychotic disturbance, mood disturbance, and anxiety; Z79.890 Hormone replacement therapy; Z79.899 Other long term (current) drug therapy
CPT/HCPCS: 10060; 15271; 99213; Q4186; G0463

== ENCOUNTER 2022-01-02 11:12 | Outpatient (CLI) | payer MEDICARE, MEDICAID, SELFPAY ==
--- NOTE | 2022-01-02 11:33 | RAD_ITS ---
The INDICATION: cough, orthopnea EXAMINATION/TECHNIQUE: X-RAY - XR Chest 2 Views COMPARISON: Chest x-ray 09/22/2021 and 12/25/2020. FINDINGS: LINES/DEVICES: None. LUNGS: Mild reticular opacities in the bilateral lung bases appears chronic, present on prior exams. No alveolar opacities. No pleural effusion or pneumothorax. Normal lung volumes. MEDIASTINUM AND CARDIOVASCULAR STRUCTURES: Normal size and contour of the cardiomediastinal silhouette. No evidence of pulmonary vascular congestion. BONES AND SOFT TISSUES: Degenerative changes of the spine. RAD/Chest PA and Lateral IMPRESSION: 1. Mild bibasilar reticular opacities similar to prior exams may represent scarring, atelectasis or possible mild interstitial edema. Correlate with heart failure. Electronically Signed: Farhat Rubin DO at 20:25 EST ,
== END 2022-01-02 23:59 | disposition home or self-care (01) ==
LOC: LAB 11:16
PROVIDERS: PCP Internal Medicine; Referring Provider Physician Assistant; Visit Provider Physician Assistant
DX: R05.9 Cough, unspecified (principal); R06.01 Orthopnea
CPT/HCPCS: 36415; 71046; 83880

== ENCOUNTER 2022-01-27 12:43 | Emergency (ER) | payer MEDICARE, MEDICAID, SELFPAY ==
[2022-01-27 12:44] VITALS: BP 157/76; PULSE 89; RESP 19; TEMP 36.4; O2SAT 95; BMI 26.4
--- NOTE | 2022-01-27 12:52 | ED.RN ---
PT HAS 2 BLACK WOUNDS ON THE RIGHT HEEL THAT APPEARS TO BE VERY DEEP. CAREGIVER STATES THE NURSE FOR THE RESIDENTIAL HAS BEEN WATCHING IT.
--- NOTE | 2022-01-27 12:55 | EDS_ITS ---
HPI History of Present Illness Chief Complaint: Syncope Detail of Chief Complaint: Syncope Informant: patient Narrative Narrative: Patient presents to the emergency department from retirement after a syncopal episode. Patient presents via EMS. Patient apparently was on the toilet having a bowel movement when caregiver received a call for help and found the patient on the toilet and very pale. Patient apparently then seemed to stop breathing so the caregiver did CPR for approximately 3 minutes and she felt some crunching in his chest. Patient started coming to. Patient does have history of syncope. Patient has history of Down's and dementia and is nonverbal. Patient had not been ill leading up to this point. Prior similar symptoms: Yes PFSH PFS Medical History Behavioral change Cataracts, bilateral Change in mental state Dementia Down syndrome Fracture tibia/fibula Gout High cholesterol Hypothyroidism Pressure ulcer of trochanteric region of right hip, stage 4 Sleep disorder Home Medications melatonin 3 mg PO QHS 01/17/20 [History Last Taken Unknown] acetaminophen 2 tab PO Q4H PRN 12/25/20 [History Last Taken Unknown] High/Low Bed #1 ea 01/23/21 [Rx Last Taken Unknown] cyanocobalamin (vitamin B-12) 1,000 mcg tablet 1,000 mcg PO QODAY #90 tab 04/18/21 [Rx Last Taken Unknown] ibuprofen 400 mg tablet 400 mg PO BID PRN tab 05/08/21 [History Last Taken Unknown] multivitamin 1 tab PO DAILY #90 tab 05/31/21 [Rx Last Taken Unknown] pyridoxine (vitamin B6) 50 mg capsule 50 mg PO DAILY #90 cap 06/29/21 [Rx Last Taken Unknown] allopurinol 300 mg tablet 300 mg PO DAILY #90 tab 08/01/21 [Rx Last Taken Unknown] triamcinolone acetonide 0.025 % topical cream 1 applic TOPICAL .COMPLEX #454 g 08/01/21 [Rx Last Taken Unknown] rivastigmine 13.3 mg/24 hour transdermal patch 13.3 mg TRANSDERMAL DAILY #30 ea 08/07/21 [Rx Last Taken Unknown] simvastatin 20 mg tablet 20 mg PO QHS #90 tab 08/29/21 [Rx Last Taken Unknown] levothyroxine 88 mcg tablet 88 mcg PO DAILY #90 tab 09/28/21 [Rx Last Taken Unknown] docusate sodium 100 mg capsule 100 mg PO DAILY #90 cap 10/11/21 [Rx Last Taken Unknown] cholecalciferol (vitamin D3) 50 mcg (2,000 unit) capsule 2,000 unit PO DAILY #90 cap 11/27/21 [Rx Last Taken Unknown] quetiapine 50 mg tablet 50 mg PO BID #60 tab 12/05/21 [Rx Last Taken Unknown] loperamide 2 mg capsule 2 mg PO .COMPLEX PRN #10 cap MDD 8 01/01/22 [Rx Last Taken Unknown] omeprazole 20 mg capsule,delayed release 20 mg PO DAILY #30 cap 01/03/22 [Rx Last Taken Unknown] wheelchair #1 ea 01/18/22 [Rx Last Taken Unknown] Hilda lift #1 ea 01/22/22 [Rx Last Taken Unknown] memantine 10 mg tablet 10 mg PO BID #60 tab 01/23/22 [Rx Last Taken Unknown] Allergy/AdvReac Type Severity Reaction Status Date / Time No Known Allergies Allergy Verified 01/27/22 12:49 Family History Mother Cancer Brother CVA (cerebral vascular accident) Social History Smoking Status: Never smoker alcohol intake: never substance use type: does not use what type of physical activity do you participate in: none ROS ROS ED ROS Narrative CPR performed and syncope Review of Systems ROS Unobtainable: due to mental condition and due to mental status Constitutional Constitutional ED: Reports systems reviewed and no addt'l complaints, except as documented; Denies body ache(s), change in weight or chills Eyes Eyes: Denies acute decrease in peripheral vision, change in vision, double vision or loss of vision ENT ENT ED: Reports none; Denies ear pain, lip swelling, loss taste/smell, neck pain, otalgia or sore throat Cardiovascular Cardiovascular: Reports none; Denies abdominal pain, chest pain with activity, leg edema, lightheadedness, palpitations, rapid heart rate or syncope Respiratory/Chest Respiratory/Chest: Reports none; Denies change in mental status, dry cough, dyspnea, hemoptysis, shortness of breath at rest or shortness of breath with exertion Gastrointestinal Gastrointestinal: Reports none; Denies abdominal pain, change in stool character, diarrhea, hematemesis, hematochezia, melena, rectal bleeding or vomiting Genitourinary Genitourinary ED: Reports none; Denies abdominal discomfort, anuria, dysuria, genital pain or polyuria Musculoskeletal Musculoskeletal: Reports none; Denies arthralgias, back pain, difficulty walking, extremity pain, muscle weakness or myalgias Integumentary Reports none; Denies abscess or rash Neurologic Neurologic: Reports none; Denies abnormal gait, confusion, focal weakness, frequent falls, headache(s), loss of vision, numbness, paresthesias, radicular pain, vertigo or weakness Psychiatric Psychiatric: Reports systems reviewed and no addt'l complaints, except as documented and none; Denies behavioral changes, confusion, difficulty concentrating, hallucinations, suicidal ideation, tactile hallucinations or visual hallucinations Endocrine Endocrinology: Denies none, cold intolerance, excessive sweating, fatigue or heat intolerance Hematologic/Lymphatic Hematologic/Lymphatic: Reports none; Denies anemia, easy bleeding or easy bruising Allergic/Immunologic Allergic/Immunologic ED: Denies as per HPI, none, lip swelling, mouth swelling, throat swelling, tongue swelling or hives EXAM Physical Exam Const Vital Signs: 01/27/22 12:44 01/27/22 12:47 Temperature 97.5 F L Temperature Source Temporal Pulse Rate 89 Respiratory Rate 19 H Respiratory Effort Normal Non-Labored Respiratory Pattern Normal Blood Pressure 157/76 H Blood Pressure Mean 103 Pulse Ox 95 Oxygen Delivery Method Room Air Positive well nourished and well developed General Appearance ED: well developed and NAD HEENT Reports TM's clear and moist mucous membranes normocephalic and atraumatic; Negative for trauma or tenderness Tympanic Membrane ED: Yes TM's clear Eyes PERRL and EOMs intact bilaterally General Eye ED: Negative for pale conjunctiva or scleral icterus Neck no lymphadenopathy, supple and no JVD General: Negative for tenderness Chest Wall inspection of chest normal and palpation of chest normal Chest: Negative for tenderness Resp normal respiratory effort and clear to auscultation bilaterally Effort and Inspection: Negative for respiratory distress or pain with movement Auscultation: Negative for rhonchi, wheezes or diminished lung sounds Cardio regular rate, regular rhythm, S1 normal heart sound, S2 normal heart sound and no murmurs Peripheral Pulses: pulses 2+ throughout GI normal to inspection, nondistended, normoactive bowel sounds, soft to palpation, non-tender, non-distended and no masses Back/Spine no CVA tenderness and no thoracic nor lumbar tenderness Extremity normal to inspection General Extremety ED: Negative for edema General Extremity: Negative for edema Neuro oriented x3, CN's II-XII intact bilaterally, no sensory deficits noted and gait normal Sensorium / Orientation: awake, alert, oriented to person, oriented to place and oriented to time Motor Exam: strength 5/5 throughout and strength abnormal Psych mental status grossly normal Skin no rashes or lesions noted and no wounds MDM MDM MDM Narrative Medical decision making narrative: IV line established on arrival. 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 Vital signs remained stable throughout. Lab work was unremarkable as well as troponin and chest x-ray. Patient will be returned to retirement for diagnosis of syncope. Patient is not ambulatory. Lab Data Attestation: I reviewed the patient's lab results. Labs: Laboratory Results - last 24 hr 01/27/22 01/27/22 13:35 13:35 WBC 8.1 RBC 3.91 L Hgb 14.5 Hct 41.0 MCV 104.9 H MCH 37.1 H MCHC 35.4 RDW Std Deviation 58.0 H RDW Coeff of Sha 15.2 H Plt Count 144 L MPV 9.7 Immature Gran % (Auto) 1.800 H Neut % (Auto) 73.3 H Lymph % (Auto) 17.3 L [place] % (Auto) 5.5 Eos % (Auto) 1.4 Baso % (Auto) 0.7 Absolute Neuts (auto) 6.0 Absolute Lymphs (auto) 1.41 Nucleated RBC % 0 Sodium 142 Potassium 4.5 Chloride 108 H Carbon Dioxide 30.0 Anion Gap 4 L BUN 13 Creatinine 0.96 Estim Creat Clear Calc 53.72 Est GFR (MDRD) Af Amer 100 Est GFR (MDRD) Non-Af 83 BUN/Creatinine Ratio 13.6 Glucose 126 H Calcium 9.3 Troponin I High Sens < 3 L Radiography Chest X-Ray - ED: 1 View Diagnostic Testing: Clinical Impression(s) from Imaging Studies Chest X-Ray 01/27/22 13:40 IMPRESSION: No active pulmonary disease. Electronically Signed: Tj Pizarro MD at 13:59 EDT , 1 view chest x-ray obtained interpreted by myself as no acute disease process. EKG Initial EKG: Attestation: I personally reviewed and interpreted this EKG as follows: Comments: Sinus rhythm with a rate of 75 bpm with no acute ST segment changes Discharge Plan Triage Chief Complaint: Syncope ED Provider: Bola Rao Dx/Rx/DC Orders Clinical Impression: Syncope, vasovagal Instructions: ED Fainting, Vagal Reaction Prescriptions: No Action ibuprofen 400 mg tablet 400 mg PO BID PRN (Reason: Pain) RF: 0 rivastigmine 13.3 mg/24 hour patch 24 hour 13.3 mg transdermal DAILY Qty: 30 RF: 3 docusate sodium 100 mg capsule 100 mg PO DAILY Qty: 90 RF: 1 loperamide 2 mg capsule 2 mg PO .COMPLEX MDD 8 PRN (Reason: loose stool) Qty: 10 RF: 0 melatonin 3 MG tablet 3 mg PO QHS RF: 0 acetaminophen 325 MG tablet 2 tab PO Q4H PRN (Reason: vaughn, body aches, temp>100) RF: 0 (DME) High/Low Bed See Rx Instructions .Route .MEDSUPPLY Qty: 1 RF: 0 cyanocobalamin (vitamin B-12) 1,000 mcg tablet 1,000 mcg PO QODAY Qty: 90 RF: 1 multivitamin Tablet 1 tab PO DAILY Qty: 90 RF: 3 pyridoxine (vitamin B6) 50 mg capsule 50 mg capsule 50 mg PO DAILY Qty: 90 RF: 3 allopurinol 300 mg tablet 300 mg PO DAILY Qty: 90 RF: 3 triamcinolone acetonide 0.025 % cream 1 applic TOPICAL .COMPLEX Qty: 454 RF: 1 simvastatin 20 mg tablet 20 mg PO QHS Qty: 90 RF: 3 levothyroxine 88 mcg tablet 88 mcg PO DAILY Qty: 90 RF: 3 cholecalciferol (vitamin D3) 50 mcg (2,000 unit) capsule 2,000 unit PO DAILY Qty: 90 RF: 3 quetiapine 50 mg tablet 50 mg PO BID Qty: 60 RF: 5 omeprazole 20 mg capsule,delayed release(DR/EC) 20 mg PO DAILY Qty: 30 RF: 2 (DME) wheelchair See Rx Instructions .Route .MEDSUPPLY Qty: 1 RF: 0 (DME) Hilda lift See Rx Instructions .Route .MEDSUPPLY Qty: 1 RF: 0 memantine 10 mg tablet 10 mg PO BID Qty: 60 RF: 1 Primary Care Provider: Annette Paulino Referrals: Annette Paulino MD [Primary Care Provider] - 3-5 Days Disposition Disposition: Home, Self Care
--- NOTE | 2022-01-27 13:40 | RAD_ITS ---
STUDY: X-RAY CHEST REASON FOR EXAM: Male, 71 years old. Chest pain TECHNIQUE: Single AP portable view of the chest. COMPARISON: 01/02/2022. FINDINGS: Hypoventilatory changes. No focal infiltrate is seen. There is no demonstrated pleural abnormality. Normal size heart. Normal mediastinum and tadeo. Normal visualized pulmonary arteries. There is atherosclerotic tortuosity of the aortic arch and descending thoracic aorta. Stable soft tissues and osseous structures. There is no demonstrated abnormality of the visualized soft tissue structures of the upper abdomen. RAD/Chest 1 View (Portable) IMPRESSION: No active pulmonary disease. Electronically Signed: Tj Pizarro MD at 13:59 EDT ,
[2022-01-27 13:45] LABS: Absolute Lymphocyte Count 1.41 X10^3/uL (0.83-4.51); Basophil# 0.06 X10^3/uL; Basophil% 0.7 % (0-1); Eosinophil# 0.11 X10^3/uL; Eosinophils% 1.4 % (0-5); Hemoglobin 14.5 g/dL (13.0-16.5); Lymphocyte # 1.41 X10^3/ul (0.83-4.51); Lymphocyte % 17.3 % (19-41); Mean Corp Hgb Conc 35.4 g/dL (32-36); Mean Corpuscular Hgb 37.1 pg (27.0-32.0); Mean Corpuscular Volume 104.9 fL (80-94); Mean Platelet Vol. 9.7 fl (6.2-12.0); Monocyte# 0.45 X10^3/uL; Monocyte% 5.5 % (0-10); NRBC Flagged by Analyzer 0 % (0-5); Neutrophil # 5.96 X10^3/uL (2.7-7.7); Neutrophil % 73.3 % (47-70); Platelet Count 144 K/mm3 (150-450); RBC Distribution Width CV 15.2 % (11.6-14.6); Red Blood Count 3.91 M/mm3 (4.6-6.2); White Blood Count 8.1 K/mm3 (4.4-11.0)
[2022-01-27] MEDS: 0.9% Normal Saline 1,000 ML 150 ML IV (13:49)
--- NOTE | 2022-01-27 14:00 | ED.RN ---
PT ATTEMPTING TO PULL OUT IV LINE. CAREGIVER AT BEDSIDE REQUESTED SOFT RESTRAINTS. 1 SOFT RESTRAINT APPLIED TO RIGHT WRIST. PT TOLERATED WELL
[2022-01-27 14:04] LABS: Anion Gap 4 (5-15); BUN 13 mg/dL (7-18); BUN/Creat Ratio 13.6 RATIO (10-20); Calcium,Total 9.3 mg/dL (8.5-10.1); Chloride 108 mmol/L (98-107); Creatinine, Serum 0.96 mg/dL (0.70-1.30); EST Glomerular Filtration Rate 83 mL/min (>60); Est Glom Filt Rate - Afr Amer 100 mL/min (>60); Estimated Creatinine Clearance 53.72 ml/min; Glucose 126 mg/dL (74-106); Potassium 4.5 mmol/L (3.5-5.1); Sodium Level 142 mmol/L (136-145); Troponin-I HS < 3 pg/mL (3.0-78.0)
--- NOTE | 2022-01-27 14:52 | EKG12_ITS ---
Test Reason : SYNCOPE Blood Pressure : / mmHG Vent. Rate : 075 BPM Atrial Rate : 075 BPM P-R Int : 000 ms QRS Dur : 068 ms QT Int : 402 ms P-R-T Axes : 000 044 030 degrees QTc Int : 448 ms Sinus vs. ectopic atrial rhythm Nonspecific ST and T wave abnormality Abnormal ECG Confirmed by JEFFREY ORTIZ, CAREN ([id number]), production editor ZOYA YOUNG ([id number]) on 01/30/2022 11:09:09 AM Referred By: MARISA Confirmed By:CAREN MURPHY MD
[2022-01-27 17:11] VITALS: PULSE 68; RESP 19; O2SAT 99
== END 2022-01-27 17:28 | disposition home or self-care (01) ==
PROVIDERS: Emergency Provider Emergency Medicine; PCP Internal Medicine; Visit Provider Emergency Medicine
DX: R55 Syncope and collapse (principal); F03.90 Unspecified dementia, unspecified severity, without behavioral disturbance, psychotic disturbance, mood disturbance, and anxiety; E78.00 Pure hypercholesterolemia, unspecified; Q90.9 Down syndrome, unspecified; E03.9 Hypothyroidism, unspecified; M10.9 Gout, unspecified; Z79.899 Other long term (current) drug therapy
CPT/HCPCS: 71045; 80048; 84484; 85025; 93005; 96360; 96361; 99285; J7030; A4216

== ENCOUNTER → 2022-03-06 | Outpatient (CLI) | payer MEDICARE, MEDICAID, SELFPAY ==
[2022-03-06 12:26] LABS: Vitamin D,25 Hydroxy 57.9 ng/mL
[2022-03-06 12:31] LABS: Thyroid Stim Hormone (TSH) 2.33 uIU/mL (0.358-3.74)
== END | disposition home or self-care (01) ==
LOC: BIMLAB 09:49
PROVIDERS: PCP Internal Medicine; Referring Provider Internal Medicine; Visit Provider Internal Medicine
DX: E03.9 Hypothyroidism, unspecified (principal); E55.9 Vitamin D deficiency, unspecified
CPT/HCPCS: 36415; 82306; 84443

== ENCOUNTER → 2022-12-31 | Outpatient (CLI) | payer MEDICARE, MEDICAID, SELFPAY ==
[2022-12-31 12:35] LABS: Vitamin D,25 Hydroxy 66.6 ng/mL
[2022-12-31 12:43] LABS: ALB/GLOB Ratio 0.8 RATIO (0.9-2.4); AST(SGOT) 26 U/L (15-37); Alanine Aminotransfer ALT/SGPT 13 U/L (16-61); Albumin, Serum 3.2 g/dL (3.2-5.0); Alkaline Phosphatase 91 U/L (45-117); Anion Gap 6 (5-15); BUN 23 mg/dL (7-18); BUN/Creat Ratio 24.1 RATIO (10-20); Calcium,Total 9.3 mg/dL (8.5-10.1); Chloride 109 mmol/L (98-107); Cholesterol 164 mg/dL (200); Creatinine, Serum 0.95 mg/dL (0.70-1.30); EST Glomerular Filtration Rate 83 mL/min (>60); Est Glom Filt Rate - Afr Amer 100 mL/min (>60); Globulin 4.2 g/dL (2.2-4.2); Glucose 113 mg/dL (74-106); High Density Lipoprotein 45 mg/dL; Potassium 4.1 mmol/L (3.5-5.1); Protein, Total 7.4 g/dL (6.4-8.2); Sodium Level 141 mmol/L (136-145); T4 Free Direct 1.17 ng/dL (0.76-1.46); Thyroid Stim Hormone (TSH) 1.96 uIU/mL (0.358-3.74); Triglycerides 127 mg/dL; Very Low Density Lipoprotein 25 mg/dL (5-40)
[2022-12-31 12:44] LABS: Basophil# 0.05 X10^3/uL; Eosinophil# 0.09 X10^3/uL; Eosinophils% 1.7 % (0-5); Hematocrit 48.4 % (40-54); Hemoglobin 15.9 g/dL (13.0-16.5); Lymphocyte % 30.4 % (19-41); Mean Corp Hgb Conc 32.9 g/dL (32-36); Mean Corpuscular Hgb 37.5 pg (27.0-32.0); Mean Corpuscular Volume 114.2 fL (80-94); Mean Platelet Vol. 10.1 fl (6.2-12.0); Monocyte# 0.48 X10^3/uL; Monocyte% 9.1 % (0-10); NRBC Flagged by Analyzer 0 % (0-5); Neutrophil # 2.98 X10^3/uL (2.7-7.7); Neutrophil % 56.7 % (47-70); Platelet Count 140 K/mm3 (150-450); RBC Distribution Width CV 14.7 % (11.6-14.6); RBC Distribution Width SD 62.4 fl (35.1-43.9); Red Blood Count 4.24 M/mm3 (4.6-6.2); White Blood Count 5.3 K/mm3 (4.4-11.0)
== END | disposition home or self-care (01) ==
LOC: BIMLAB 11:00
PROVIDERS: PCP Internal Medicine; Referring Provider Internal Medicine; Visit Provider Internal Medicine
DX: E03.9 Hypothyroidism, unspecified (principal); E55.9 Vitamin D deficiency, unspecified
CPT/HCPCS: 36415; 80053; 80061; 82306; 84439; 84443; 85025

== ENCOUNTER 2023-03-05 08:34 | Emergency (ER) | payer MEDICARE, MEDICAID, SELFPAY ==
[2023-03-05 08:35] VITALS: PULSE 63; RESP 18; TEMP 36.1; O2SAT 90; BMI 29.1
--- NOTE | 2023-03-05 08:39 | EDS_ITS ---
HPI History of Present Illness Chief Complaint: Alt LOC [facility] Medical History (Updated 03/05/23 @ 10:[address] Jamin Iqbal, DO) Behavioral change Cataracts, bilateral Change in mental state Constipation Dementia Down syndrome Fracture tibia/fibula Gout High cholesterol Hypothyroidism Pressure ulcer of trochanteric region of right hip, stage 4 Pressure ulcer of unspecified buttock, stage 3 Sleep disorder Syncope Home Medications melatonin 3 mg tablet 3 mg PO QHS 01/17/20 [History Last Taken Unknown] High/Low Bed #1 ea 01/23/21 [Rx Last Taken Unknown] ibuprofen 400 mg tablet 400 mg PO BID PRN Pain 05/08/21 [History Last Taken Unknown] wheelchair #1 ea 01/18/22 [Rx Last Taken Unknown] Hilda lift #1 ea 01/22/22 [Rx Last Taken Unknown] shower chair #1 ea 04/17/22 [Rx Last Taken Unknown] polyethylene glycol 3350 17 gram/dose oral powder (Miralax) 17 g PO DAILY #850 grams 04/25/22 [Rx Last Taken Unknown] cyanocobalamin (vitamin B-12) 1,000 mcg tablet 1,000 mcg PO QODAY #90 tabs 05/03/22 [Rx Last Taken Unknown] multivitamin 1 tab PO DAILY #90 tabs 05/31/22 [Rx Last Taken Unknown] triamcinolone acetonide 0.025 % topical cream 1 applic topical .COMPLEX #454 grams 06/04/22 [Rx Last Taken Unknown] pyridoxine (vitamin B6) 50 mg capsule 50 mg PO DAILY #90 caps 07/13/22 [Rx Last Taken Unknown] allopurinol 300 mg tablet See Rx Instructions .Route .COMPLEX #90 tabs 07/20/22 [Rx Last Taken Unknown] simvastatin 20 mg tablet 20 mg PO QHS #90 tabs 08/31/22 [Rx Last Taken Unknown] levothyroxine 88 mcg tablet 88 mcg PO DAILY #90 tabs 09/19/22 [Rx Last Taken Unknown] memantine 10 mg tablet 10 mg PO BID #60 tabs 09/27/22 [Rx Last Taken Unknown] rivastigmine 13.3 mg/24 hour transdermal patch 13.3 mg transdermal DAILY #30 ea 09/27/22 [Rx Last Taken Unknown] cholecalciferol (vitamin D3) 50 mcg (2,000 unit) capsule 2,000 unit PO DAILY #90 caps 10/30/22 [Rx Last Taken Unknown] quetiapine 50 mg tablet 50 mg PO BID #60 tabs 11/29/22 [Rx Last Taken Unknown] docusate sodium 100 mg capsule 100 mg PO BID #180 caps 12/27/22 [Rx Last Taken Unknown] omeprazole 20 mg capsule,delayed release 20 mg PO DAILY #90 caps 02/21/23 [Rx Last Taken Unknown] Allergy/AdvReac Type Severity Reaction Status Date / Time No Known Allergies Allergy Verified 12/31/22 09:15 Family History Mother Cancer Brother CVA (cerebral vascular accident) Surgical History No history of previous surgery Social History Smoking Status: Never smoker second hand exposure: No alcohol intake: never substance use type: does not use what type of physical activity do you participate in: none seatbelt use: always EXAM Physical Exam Const Vital Signs: 03/05/23 08:35 03/05/23 09:38 Temperature 97.0 F L Temperature Source Temporal Pulse Rate 63 73 Respiratory Rate 18 16 Blood Pressure 115/103 H Blood Pressure Mean 107 Pulse Ox 90 96 Oxygen Delivery Method Room Air Room Air MDM MDM MDM Narrative Medical decision making narrative: HISTORY OF PRESENT ILLNESS: 72-year-old male here with concern for abrupt change in consciousness or alertness. History is provided by the patient's nurse. States he had approximate 1 minute of alteration in consciousness and possibly lost pulses. No CPR applied. After sternal rub patient gas and awoke and was alert and at his baseline. There is no report of recent fever, volume loss which is vomiting, diarrhea they do note decreased p.o. intake and cough. States he had a COVID test that was negative. They deny any hypoxia. Denies any abdominal pain. Denies any other changes in behavior. REVIEW OF SYMPTOMS: Pertinent positives: Cough x2 days, reported episode of unresponsiveness Pertinent negatives: Seizure-like activity, cyanosis, hypoxia PHYSICAL EXAM: Nursing triage notes reviewed, Vital signs reviewed Constitutional: please see mdm HENT: MMM Eyes: Pupils equal round and reactive to light, Extraocular muscles intact Neck: No stridor, no JVD, full neck ROM Lungs: Clear to auscultation, No wheezing or rales. No increased work of breathing, no conversational dyspnea, no accessory muscle use, no nasal flaring. No respiratory distress noted Heart: Regular rate and rhythm, No murmurs, No rubs and No gallops, 2+ distal pulses (radial, femoral, posterior tibial) in all extremities Abdomen: Soft, there is no tenderness, rigidity, rebound or guarding, no obvious peritoneal signs, no palpable pulsatile abdominal masses, no auscultated abdominal bruit : No CVAT Extremities: No edema Neuro: No focal neurological deficits, cranial nerves II through XII intact, intact and sensation bilateral upper and lower extremities. 2+ reflexes bilateral patella tendons. Chronic contractures in the left upper extremity. Skin: No rash or lesions noted MEDICAL DECISION MAKING: Chief Complaint: Loss of consciousness External records reviewed: Chest x-ray from January 2022 shows no acute cardiopulmonary disease MDM Narrative: Patient was hemodynamically stable, afebrile, nontoxic-appearing. I considered the following differential diagnosis: Syncope, arrhythmia, anemia, electrolyte abnormality, myocardial ischemia, pneumonia, COVID or flu I obtained a broad lab and imaging work-up to further elucidate the etiology of the patient's complaints. Labs without evidence of myocardial ischemia, arrhythmia, anemia, electrolyte abnormalities, no sign of pneumonia, flu or COVID. Patient remained hemodynamically stable. He is appropriate for return to his long term. I suspect the patient had a syncopal episode as is consistent with his history, presentation, physical exam, lab and imaging work- up. Have a low suspicion for seizure. Factors affecting care: Down syndrome, dementia, hyperlipidemia, syncope, hypothyroidism Social determinants of health: Poor health literacy History obtained from others: EMS Shared decision making: I will have a discussion with the patient and or visitors regarding risk/benefits of further testing or admission. They will be made aware of of the risk/benefits inherent in this decision they will be given the opportunity to voice understanding. Consults: None Lab Data Attestation: I reviewed the patient's lab results. Lab results narrative: EKG with normal sinus rhythm, normal axis, normal intervals, no obvious STEMI CBC without leukocytosis, severe anemia, no thrombocytopenia. BMP without evidence of significant electrolyte abnormalities, no anion gap, no acute kidney injury. Troponin is negative, no evidence of myocardial ischemia Labs: Laboratory Results - last 24 hr 05/09/23 05/09/23 09:30 09:30 WBC 6.0 RBC 4.15 L Hgb 15.2 Hct 44.5 MCV 107.2 H MCH 36.6 H MCHC 34.2 RDW Std Deviation 55.5 H RDW Coeff of Sha 14.1 Plt Count 133 L MPV 9.8 Immature Gran % (Auto) 1.300 H Neut % (Auto) 77.2 H Lymph % (Auto) 15.7 L [place] % (Auto) 3.8 Eos % (Auto) 1.3 Baso % (Auto) 0.7 Absolute Neuts (auto) 4.6 Absolute Lymphs (auto) 0.94 Nucleated RBC % 0 Sodium 142 Potassium 3.9 Chloride 108 H Carbon Dioxide 28.0 Anion Gap 6 BUN 18 Creatinine 0.96 Estim Creat Clear Calc 50.64 Est GFR (MDRD) Af Amer 99 Est GFR (MDRD) Non-Af 82 BUN/Creatinine Ratio 18.7 Glucose 134 H Calcium 9.2 Troponin I High Sens 4 Radiography Chest X-Ray - ED: Read by ED Physician Diagnostic Testing: Clinical Impression(s) from Imaging Studies Chest X-Ray 03/05/23 08:57 IMPRESSION: Findings suggestive of bibasilar atelectasis with blunting of both costophrenic angles. Electronically Signed: Robin Lance MD at 10:16 EDT Reading Location ID and State: [address] [place] [address] , Service support , I have personally reviewed the patient's chest x-ray. Chest x-ray is unremarkable for pulmonary edema, pneumothorax, pneumonia or focal cardiopulmonary abnormality. Discharge Plan Triage Chief Complaint: Alt LOC ED Provider: Jamin Iqbal Dx/Rx/DC Orders Clinical Impression: Syncope Instructions: Causes of Syncope Prescriptions: No Action ibuprofen 400 mg tablet 400 mg PO BID PRN (Reason: Pain) memantine 10 mg tablet 10 mg PO BID Qty: 60 6RF rivastigmine 13.3 mg/24 hour patch 24 hour 13.3 mg transdermal DAILY Qty: 30 6RF melatonin 3 MG tablet 3 mg PO QHS (DME) High/Low Bed See Rx Instructions .Route .MEDSUPPLY Qty: 1 0RF Rx Instructions: As directed (DME) wheelchair See Rx Instructions .Route .MEDSUPPLY Qty: 1 0RF Rx Instructions: As directed (DME) Hilda lift See Rx Instructions .Route .MEDSUPPLY Qty: 1 0RF Rx Instructions: As directed 2 person assist (DME) shower chair See Rx Instructions .Route .MEDSUPPLY Qty: 1 0RF Rx Instructions: As directed polyethylene glycol 3350 [Miralax] 17 gram/dose powder 17 g PO DAILY Qty: 850 3RF cyanocobalamin (vitamin B-12) 1,000 mcg tablet 1,000 mcg PO QODAY Qty: 90 1RF multivitamin Tablet 1 tab PO DAILY Qty: 90 3RF Rx Instructions: GIVE 1 TABLET BY MOUTH ONCE DAILY DX: IMPROVE COGNITIVE ABILITIES, IMMUNE SYSTEM & THYROID FUNCTION MD MINAYA FOR RF* triamcinolone acetonide 0.025 % cream 1 applic TOPICAL .COMPLEX Qty: 454 1RF Rx Instructions: Apply BID every sat and Sat pyridoxine (vitamin B6) 50 mg capsule 50 mg capsule 50 mg PO DAILY Qty: 90 3RF allopurinol 300 mg tablet See Rx Instructions .ROUTE .COMPLEX Qty: 90 2RF Dose Instruction: GIVE 1 TABLET BY MOUTH ONCE DAILY Rx Instructions: GIVE 1 TABLET BY MOUTH ONCE DAILY simvastatin 20 mg tablet 20 mg PO QHS Qty: 90 3RF levothyroxine 88 mcg tablet 88 mcg PO DAILY Qty: 90 1RF cholecalciferol (vitamin D3) 50 mcg (2,000 unit) capsule 2,000 unit PO DAILY Qty: 90 3RF quetiapine 50 mg tablet 50 mg PO BID Qty: 60 5RF Rx Instructions: TAKE 1 TABLET BY MOUTH TWICE DAILY DX: ANTI-PSYCHOTIC docusate sodium 100 mg capsule 100 mg PO BID Qty: 180 1RF omeprazole 20 mg capsule,delayed release(DR/EC) 20 mg PO DAILY Qty: 90 3RF Rx Instructions: GIVE 1 CAPSULE BY MOUTH ONCE DAILY (REPLACES FAMOTIDINE) DX: GASTRITIS Primary Care Provider: Annette Minaya Referrals: Annette Minaya MD [Primary Care Provider] - Activity Restrictions/Additional Instructions: Thank you for trusting us with your care today! Please encourage adequate fluid intake. Please take Tylenol (2 pills, 650 mg), ibuprofen (2 pills, 400 mg) every 6 hours as needed for pain and fever control. Please return to the emergency department if your symptoms change or worsen. Please follow with your primary care physician for further outpatient evaluation and management. Disposition Disposition: Home, Self Care
--- NOTE | 2023-03-05 08:57 | EKG12_ITS ---
Test Reason : Blood Pressure : / mmHG Vent. Rate : 060 BPM Atrial Rate : 060 BPM P-R Int : 178 ms QRS Dur : 066 ms QT Int : 410 ms P-R-T Axes : 052 033 056 degrees QTc Int : 410 ms Normal sinus rhythm Normal ECG Confirmed by LORI ORTIZ, RAFAL ([id number]), editorial intern MANUEL OWENS ([id number]) on 03/06/2023 12:50:40 P M Referred By: BRENT Confirmed By:JAYCOB SANDOVAL MD
--- NOTE | 2023-03-05 08:57 | RAD_ITS ---
STUDY: X-RAY CHEST REASON FOR EXAM: Male, 72 years old. 2 day history of cough. Unresponsive episode. TECHNIQUE: Single AP portable view of the chest. COMPARISON: Comparison is made with prior study dated January 27, 2022. FINDINGS: EKG electrodes are seen. Mild increased markings at the lung bases suggestive of bibasilar atelectasis. Blunting of both cosmetic angles. Normal size heart. Normal mediastinum and tadeo. Normal visualized pulmonary arteries. There is atherosclerotic tortuosity of the aortic arch and descending thoracic aorta. Normal visualized thoracic spine. Normal visualized ribs, clavicles, and shoulders. There is no demonstrated abnormality of the visualized soft tissue structures of the upper abdomen. RAD/Chest 1 View (Portable) IMPRESSION: Findings suggestive of bibasilar atelectasis with blunting of both costophrenic angles. Electronically Signed: Robin Lance MD at 10:16 EDT ,
[2023-03-05 09:38] VITALS: BP 115/103; PULSE 73; RESP 16; O2SAT 96
[2023-03-05 09:43] LABS: Absolute Lymphocyte Count 0.94 X10^3/uL (0.83-4.51); Absolute Neutrophil Count 4.6 X10^3/uL (2.0-7.7); Basophil# 0.04 X10^3/uL; Basophil% 0.7 % (0-1); Eosinophil# 0.08 X10^3/uL; Eosinophils% 1.3 % (0-5); Hematocrit 44.5 % (40-54); Hemoglobin 15.2 g/dL (13.0-16.5); Lymphocyte # 0.94 X10^3/ul (0.83-4.51); Lymphocyte % 15.7 % (19-41); Mean Corp Hgb Conc 34.2 g/dL (32-36); Mean Corpuscular Hgb 36.6 pg (27.0-32.0); Mean Corpuscular Volume 107.2 fL (80-94); Mean Platelet Vol. 9.8 fl (6.2-12.0); Monocyte# 0.23 X10^3/uL; Monocyte% 3.8 % (0-10); NRBC Flagged by Analyzer 0 % (0-5); Neutrophil # 4.62 X10^3/uL (2.7-7.7); Neutrophil % 77.2 % (47-70); Platelet Count 133 K/mm3 (150-450); RBC Distribution Width CV 14.1 % (11.6-14.6); RBC Distribution Width SD 55.5 fl (35.1-43.9); Red Blood Count 4.15 M/mm3 (4.6-6.2)
[2023-03-05] MEDS: 0.9% Normal Saline 1,000 ML 1000 ML IV (09:52)
[2023-03-05 10:00] LABS: Anion Gap 6 (5-15); BUN 18 mg/dL (7-18); BUN/Creat Ratio 18.7 RATIO (10-20); Calcium,Total 9.2 mg/dL (8.5-10.1); Chloride 108 mmol/L (98-107); Creatinine, Serum 0.96 mg/dL (0.70-1.30); EST Glomerular Filtration Rate 82 mL/min (>60); Est Glom Filt Rate - Afr Amer 99 mL/min (>60); Estimated Creatinine Clearance 50.64 ml/min; Glucose 134 mg/dL (74-106); Potassium 3.9 mmol/L (3.5-5.1); Sodium Level 142 mmol/L (136-145); Troponin-I HS 4 pg/mL (3.0-78.0)
--- NOTE | 2023-03-05 10:30 | NURSING ---
PT NEEDS RIDE BACK TO HOME- CALLED [facility] FOR [facility]SPORT-- ETA GIVEN 45MIN-1HOUR-- [id number])
[2023-03-05 11:25] VITALS: BP 180/72; PULSE 72; RESP 18; O2SAT 96
== END 2023-03-05 11:27 | disposition home or self-care (01) ==
PROVIDERS: Emergency Provider Emergency Medicine; PCP Internal Medicine; Visit Provider Emergency Medicine
DX: R55 Syncope and collapse (principal); F03.90 Unspecified dementia, unspecified severity, without behavioral disturbance, psychotic disturbance, mood disturbance, and anxiety; Q90.9 Down syndrome, unspecified; E03.9 Hypothyroidism, unspecified; E78.00 Pure hypercholesterolemia, unspecified
CPT/HCPCS: 71045; 80048; 84484; 85025; 87428; 93005; 96360; 96361; 99285; J7030; A4216

== ENCOUNTER → 2023-08-21 | Outpatient (CLI) | payer MEDICARE, MEDICAID, SELFPAY ==
[2023-08-21 13:00] LABS: Absolute Lymphocyte Count 1.31 X10^3/uL (0.83-4.51); Absolute Neutrophil Count 2.8 X10^3/uL (2.0-7.7); Basophil# 0.03 X10^3/uL; Basophil% 0.7 % (0-1); Eosinophils% 2.2 % (0-5); Hematocrit 45.9 % (40-54); Hemoglobin 15.3 g/dL (13.0-16.5); Lymphocyte # 1.31 X10^3/ul (0.83-4.51); Lymphocyte % 29.2 % (19-41); Mean Corp Hgb Conc 33.3 g/dL (32-36); Mean Corpuscular Hgb 36.6 pg (27.0-32.0); Mean Corpuscular Volume 109.8 fL (80-94); Mean Platelet Vol. 10.3 fl (6.2-12.0); Monocyte# 0.26 X10^3/uL; Monocyte% 5.8 % (0-10); NRBC Flagged by Analyzer 0 % (0-5); Neutrophil # 2.77 X10^3/uL (2.7-7.7); Neutrophil % 61.7 % (47-70); Platelet Count 135 K/mm3 (150-450); RBC Distribution Width CV 14.6 % (11.6-14.6); RBC Distribution Width SD 58.8 fl (35.1-43.9); Red Blood Count 4.18 M/mm3 (4.6-6.2); White Blood Count 4.5 K/mm3 (4.4-11.0)
[2023-08-21 13:16] LABS: Vitamin D,25 Hydroxy 77.4 ng/mL
[2023-08-21 13:34] LABS: ALB/GLOB Ratio 0.7 RATIO (0.9-2.4); AST(SGOT) 27 U/L (15-37); Alanine Aminotransfer ALT/SGPT 14 U/L (16-61); Albumin, Serum 3.1 g/dL (3.2-5.0); Alkaline Phosphatase 93 U/L (45-117); Anion Gap 6 (5-15); BUN 19 mg/dL (7-18); BUN/Creat Ratio 21.5 RATIO (10-20); Chloride 116 mmol/L (98-107); Creatinine, Serum 0.88 mg/dL (0.70-1.30); EST Glomerular Filtration Rate 90 mL/min (>60); Est Glom Filt Rate - Afr Amer 109 mL/min (>60); Globulin 4.2 g/dL (2.2-4.2); Glucose 107 mg/dL (74-106); Potassium 4.6 mmol/L (3.5-5.1); Protein, Total 7.3 g/dL (6.4-8.2); Sodium Level 145 mmol/L (136-145); Uric Acid 3.2 mg/dL (3.5-7.2)
== END | disposition home or self-care (01) ==
LOC: BIMLAB 10:40
PROVIDERS: PCP Internal Medicine; Referring Provider Internal Medicine; Visit Provider Internal Medicine
DX: E03.9 Hypothyroidism, unspecified (principal); F03.90 Unspecified dementia, unspecified severity, without behavioral disturbance, psychotic disturbance, mood disturbance, and anxiety; M10.9 Gout, unspecified; E55.9 Vitamin D deficiency, unspecified
CPT/HCPCS: 80053; 82306; 84443; 84550; 85025

== ENCOUNTER → 2024-01-17 | Outpatient (CLI) | payer MEDICARE, MEDICAID, SELFPAY ==
[2024-01-17 16:31] LABS: Anion Gap 6 (5-15); BUN 16 mg/dL (7-18); BUN/Creat Ratio 17.9 RATIO (10-20); Calcium,Total 8.8 mg/dL (8.5-10.1); Chloride 111 mmol/L (98-107); Cholesterol 185 mg/dL (200); Creatinine, Serum 0.89 mg/dL (0.70-1.30); EST Glomerular Filtration Rate 89 mL/min (>60); Est Glom Filt Rate - Afr Amer 108 mL/min (>60); Glucose 108 mg/dL (74-106); High Density Lipoprotein 40 mg/dL; Potassium 4.1 mmol/L (3.5-5.1); Sodium Level 145 mmol/L (136-145); T4 Free Direct 1.27 ng/dL (0.76-1.46); Thyroid Stim Hormone (TSH) 2.94 uIU/mL (0.358-3.74); Triglycerides 159 mg/dL; Very Low Density Lipoprotein 32 mg/dL (5-40)
[2024-01-22 16:09] LABS: T3 Reverse 26.5 ng/dL (9.2-24.1)
== END | disposition home or self-care (01) ==
LOC: BIMLAB 13:35
PROVIDERS: PCP Internal Medicine; Referring Provider Nurse Practitioner; Visit Provider Nurse Practitioner
DX: E03.9 Hypothyroidism, unspecified (principal); R41.82 Altered mental status, unspecified; E78.00 Pure hypercholesterolemia, unspecified
CPT/HCPCS: 36415; 80048; 80061; 84439; 84443; 84482

== ENCOUNTER → 2024-02-21 | Outpatient (CLI) | payer MEDICARE, MEDICAID, SELFPAY ==
[2024-02-21 12:34] LABS: Absolute Lymphocyte Count 1.15 X10^3/uL (0.83-4.51); Absolute Neutrophil Count 7.4 X10^3/uL (2.0-7.7); Basophil# 0.07 X10^3/uL; Basophil% 0.7 % (0-1); Eosinophil# 0.22 X10^3/uL; Eosinophils% 2.3 % (0-5); Hematocrit 40.1 % (40-54); Hemoglobin 13.5 g/dL (13.0-16.5); Lymphocyte # 1.15 X10^3/ul (0.83-4.51); Lymphocyte % 12.2 % (19-41); Mean Corp Hgb Conc 33.7 g/dL (32-36); Mean Corpuscular Hgb 36.6 pg (27.0-32.0); Mean Corpuscular Volume 108.7 fL (80-94); Mean Platelet Vol. 10.6 fl (6.2-12.0); Monocyte# 0.57 X10^3/uL; NRBC Flagged by Analyzer 0 % (0-5); Neutrophil # 7.35 X10^3/uL (2.7-7.7); Neutrophil % 77.7 % (47-70); Platelet Count 190 K/mm3 (150-450); RBC Distribution Width CV 15.1 % (11.6-14.6); RBC Distribution Width SD 59.4 fl (35.1-43.9); Red Blood Count 3.69 M/mm3 (4.6-6.2); White Blood Count 9.5 K/mm3 (4.4-11.0)
[2024-02-21 13:25] LABS: ALB/GLOB Ratio 0.7 RATIO (0.9-2.4); AST(SGOT) 19 U/L (15-37); Alanine Aminotransfer ALT/SGPT 10 U/L (16-61); Albumin, Serum 3.1 g/dL (3.2-5.0); Alkaline Phosphatase 93 U/L (45-117); Anion Gap 4 (5-15); BUN 35 mg/dL (7-18); BUN/Creat Ratio 36.3 RATIO (10-20); Calcium,Total 9.4 mg/dL (8.5-10.1); Chloride 113 mmol/L (98-107); Creatinine, Serum 0.96 mg/dL (0.70-1.30); EST Glomerular Filtration Rate 82 mL/min (>60); Est Glom Filt Rate - Afr Amer 99 mL/min (>60); Globulin 4.2 g/dL (2.2-4.2); Glucose 100 mg/dL (74-106); Potassium 4.1 mmol/L (3.5-5.1); Protein, Total 7.3 g/dL (6.4-8.2); Sodium Level 143 mmol/L (136-145); Uric Acid 3.7 mg/dL (3.5-7.2)
== END | disposition home or self-care (01) ==
LOC: BIMLAB 10:03
PROVIDERS: PCP Internal Medicine; Visit Provider Internal Medicine
DX: E03.9 Hypothyroidism, unspecified (principal); M10.9 Gout, unspecified
CPT/HCPCS: 36415; 80053; 84550; 85025

== ENCOUNTER → 2024-03-03 | Outpatient (CLI) | payer MEDICARE, MEDICAID, SELFPAY | END | disposition home or self-care (01) | PROVIDERS: PCP Internal Medicine; Visit Provider Internal Medicine | DX: R79.89 Other specified abnormal findings of blood chemistry (principal) | CPT/HCPCS: 82274 ==

== ENCOUNTER → 2024-03-05 | Outpatient (CLI) | payer MEDICARE, MEDICAID, SELFPAY ==
--- NOTE | 2024-03-05 09:50 | RAD_ITS ---
STUDY: X-RAY CHEST REASON FOR EXAM: Male, 73 years old. Cough. TECHNIQUE: Frontal and lateral views of the chest on 3 images. COMPARISON: March 05, 2023 FINDINGS: Low volume inspiration with increased opacities at both bases representing atelectasis or early/developing pneumonia. Follow-up chest imaging to resolution recommended. There is no demonstrated pleural abnormality. Stable cardiomegaly with aortic tortuosity. Thoracic osteopenia with marked kyphosis in the lower thoracic spine. No abnormality of the visualized soft tissue structures of the upper abdomen. RAD/Chest PA and Lateral IMPRESSION: Stable low volume inspiration with increased bibasilar opacities compared to the prior study. Findings represent atelectasis or early/developing pneumonia and follow-up chest imaging to resolution is recommended. Electronically Signed: Eloy Vicente MD at 10:38 EDT ,
== END | disposition home or self-care (01) ==
PROVIDERS: PCP Internal Medicine; Referring Provider Physician Assistant; Visit Provider Physician Assistant
DX: R05.9 Cough, unspecified (principal)
CPT/HCPCS: 71046